=== PATIENT | female | born 1940 | race Caucasian/White ===

== ENCOUNTER → 2022-01-31 | Outpatient (REF) | payer MEDICARE, MEDICAID, SELFPAY ==
[2022-01-31 11:32] LABS: Absolute Lymphocyte Count 2.13 X10^3/uL (0.83-4.51); Absolute Neutrophil Count 4.9 X10^3/uL (2.0-7.7); Basophil# 0.03 X10^3/uL; Basophil% 0.4 % (0-1); Eosinophil# 0.28 X10^3/uL; Eosinophils% 3.5 % (0-5); Hematocrit 44.5 % (37-47); Lymphocyte # 2.13 X10^3/ul (0.83-4.51); Lymphocyte % 26.4 % (19-41); Mean Corp Hgb Conc 31.5 g/dL (32-36); Mean Corpuscular Hgb 29.9 pg (27.0-32.0); Mean Corpuscular Volume 94.9 fL (81-99); Mean Platelet Vol. 11.7 fl (6.2-12.0); Monocyte# 0.76 X10^3/uL; Monocyte% 9.4 % (0-10); NRBC Flagged by Analyzer 0 % (0-5); Neutrophil # 4.86 X10^3/uL (2.7-7.7); Neutrophil % 60.1 % (47-70); Platelet Count 214 K/mm3 (150-450); RBC Distribution Width CV 13.2 % (11.6-14.6); RBC Distribution Width SD 45.9 fl (35.1-43.9); Red Blood Count 4.69 M/mm3 (4.2-5.4); White Blood Count 8.1 K/mm3 (4.4-11.0)
[2022-01-31 11:50] LABS: ALB/GLOB Ratio 0.8 RATIO (0.9-2.4); AST(SGOT) 9 U/L (15-37); Alanine Aminotransfer ALT/SGPT 19 U/L (13-56); Alkaline Phosphatase 41 U/L (45-117); Anion Gap 6 (5-15); BUN 22 mg/dL (7-18); BUN/Creat Ratio 21.6 RATIO (10-20); Calcium,Total 8.9 mg/dL (8.5-10.1); Chloride 105 mmol/L (98-107); Creatinine, Serum 1.02 mg/dL (0.55-1.02); EST Glomerular Filtration Rate 55 mL/min (>60); Est Glom Filt Rate - Afr Amer 67 mL/min (>60); Globulin 3.7 g/dL (2.2-4.2); Glucose 98 mg/dL (74-106); Potassium 3.6 mmol/L (3.5-5.1); Protein, Total 6.7 g/dL (6.4-8.2); Sodium Level 141 mmol/L (136-145)
== END | disposition home or self-care (01) ==
LOC: OLS.SANC 07:27
PROVIDERS: Visit Provider Internal Medicine
DX: I10 Essential (primary) hypertension (principal); M62.81 Muscle weakness (generalized)
CPT/HCPCS: 36415; 80053; 85025

== ENCOUNTER → 2022-04-27 | Outpatient (REF) | payer MEDICARE, MEDICAID, SELFPAY ==
[2022-04-27 08:38] LABS: Hematocrit 42.7 % (37-47); Hemoglobin 14.3 g/dL (12.0-15.0); Mean Corp Hgb Conc 33.5 g/dL (32-36); Mean Corpuscular Hgb 31.8 pg (27.0-32.0); Mean Corpuscular Volume 95.1 fL (81-99); Mean Platelet Vol. 11.2 fl (6.2-12.0); Platelet Count 214 K/mm3 (150-450); RBC Distribution Width CV 13.2 % (11.6-14.6); RBC Distribution Width SD 45.4 fl (35.1-43.9); Red Blood Count 4.49 M/mm3 (4.2-5.4); White Blood Count 8.9 K/mm3 (4.4-11.0)
[2022-04-27 09:05] LABS: ALB/GLOB Ratio 0.7 RATIO (0.9-2.4); AST(SGOT) 5 U/L (15-37); Alanine Aminotransfer ALT/SGPT 15 U/L (13-56); Albumin, Serum 2.7 g/dL (3.2-5.0); Alkaline Phosphatase 46 U/L (45-117); Anion Gap 4 (5-15); BUN 16 mg/dL (7-18); BUN/Creat Ratio 17.2 RATIO (10-20); Calcium,Total 8.7 mg/dL (8.5-10.1); Chloride 109 mmol/L (98-107); Creatinine, Serum 0.93 mg/dL (0.55-1.02); EST Glomerular Filtration Rate 61 mL/min (>60); Est Glom Filt Rate - Afr Amer 74 mL/min (>60); Globulin 3.9 g/dL (2.2-4.2); Glucose 101 mg/dL (74-106); Potassium 3.5 mmol/L (3.5-5.1); Protein, Total 6.6 g/dL (6.4-8.2); Sodium Level 144 mmol/L (136-145); Thyroid Stim Hormone (TSH) 2.22 uIU/mL (0.358-3.74)
[2022-04-27 09:27] LABS: Hemoglobin A1c 5.7 % (3.8-5.6)
[2022-04-27 09:33] LABS: Vitamin D,25 Hydroxy 56.2 ng/mL
== END ==
LOC: OLS.SANC 05:00
PROVIDERS: Visit Provider Internal Medicine
DX: F03.90 Unspecified dementia, unspecified severity, without behavioral disturbance, psychotic disturbance, mood disturbance, and anxiety (principal); E55.9 Vitamin D deficiency, unspecified; I10 Essential (primary) hypertension; Z79.899 Other long term (current) drug therapy
CPT/HCPCS: 36415; 80053; 82306; 83036; 84443; 85027

== ENCOUNTER → 2022-05-04 | Outpatient (REF) | payer MEDICARE, MEDICAID, SELFPAY ==
[2022-05-04 08:51] LABS: Hematocrit 42.8 % (37-47); Hemoglobin 13.9 g/dL (12.0-15.0); Mean Corp Hgb Conc 32.5 g/dL (32-36); Mean Corpuscular Hgb 30.6 pg (27.0-32.0); Mean Corpuscular Volume 94.3 fL (81-99); Mean Platelet Vol. 11.4 fl (6.2-12.0); Platelet Count 233 K/mm3 (150-450); RBC Distribution Width SD 45.1 fl (35.1-43.9); Red Blood Count 4.54 M/mm3 (4.2-5.4); White Blood Count 8.8 K/mm3 (4.4-11.0)
[2022-05-04 09:01] LABS: Anion Gap 4 (5-15); BUN 19 mg/dL (7-18); BUN/Creat Ratio 19.4 RATIO (10-20); Calcium,Total 8.8 mg/dL (8.5-10.1); Chloride 107 mmol/L (98-107); Creatinine, Serum 0.98 mg/dL (0.55-1.02); EST Glomerular Filtration Rate 58 mL/min (>60); Est Glom Filt Rate - Afr Amer 70 mL/min (>60); Glucose 97 mg/dL (74-106); Potassium 3.8 mmol/L (3.5-5.1); Sodium Level 141 mmol/L (136-145)
== END ==
LOC: OLS.SANC 05:00
PROVIDERS: Visit Provider Internal Medicine
DX: I10 Essential (primary) hypertension (principal)
CPT/HCPCS: 36415; 80048; 85027

== ENCOUNTER → 2022-06-15 | Outpatient (REF) | payer MEDICARE, MEDICAID, SELFPAY ==
[2022-06-15 08:56] LABS: Hematocrit 41.8 % (37-47); Hemoglobin 13.3 g/dL (12.0-15.0); Mean Corp Hgb Conc 31.8 g/dL (32-36); Mean Corpuscular Hgb 30.2 pg (27.0-32.0); Mean Platelet Vol. 11.2 fl (6.2-12.0); Platelet Count 213 K/mm3 (150-450); RBC Distribution Width SD 45.3 fl (35.1-43.9); White Blood Count 8.9 K/mm3 (4.4-11.0)
[2022-06-15 09:11] LABS: Anion Gap 1 (5-15); BUN 16 mg/dL (7-18); BUN/Creat Ratio 15.8 RATIO (10-20); Calcium,Total 8.9 mg/dL (8.5-10.1); Chloride 109 mmol/L (98-107); Creatinine, Serum 1.01 mg/dL (0.55-1.02); EST Glomerular Filtration Rate 56 mL/min (>60); Est Glom Filt Rate - Afr Amer 67 mL/min (>60); Glucose 95 mg/dL (74-106); Potassium 3.7 mmol/L (3.5-5.1); Sodium Level 142 mmol/L (136-145)
== END ==
LOC: OLS.SANC 05:00
PROVIDERS: Referring Provider Internal Medicine; Visit Provider Internal Medicine
DX: I10 Essential (primary) hypertension (principal)
CPT/HCPCS: 36415; 80048; 85027

== ENCOUNTER → 2022-09-13 | Outpatient (REF) | payer MEDICARE, SELFPAY ==
[2022-09-13 09:49] LABS: Hematocrit 37.9 % (37-47); Hemoglobin 11.8 g/dL (12.0-15.0); Mean Corp Hgb Conc 31.1 g/dL (32-36); Mean Corpuscular Hgb 30.2 pg (27.0-32.0); Mean Corpuscular Volume 96.9 fL (81-99); Mean Platelet Vol. 11.5 fl (6.2-12.0); Platelet Count 218 K/mm3 (150-450); RBC Distribution Width CV 12.9 % (11.6-14.6); RBC Distribution Width SD 46.1 fl (35.1-43.9); Red Blood Count 3.91 M/mm3 (4.2-5.4); White Blood Count 8.8 K/mm3 (4.4-11.0)
[2022-09-13 10:00] LABS: Anion Gap 6 (5-15); BUN 23 mg/dL (7-18); BUN/Creat Ratio 20.9 RATIO (10-20); Calcium,Total 8.9 mg/dL (8.5-10.1); Chloride 105 mmol/L (98-107); EST Glomerular Filtration Rate 51 mL/min (>60); Est Glom Filt Rate - Afr Amer 61 mL/min (>60); Glucose 92 mg/dL (74-106); Potassium 3.8 mmol/L (3.5-5.1); Sodium Level 144 mmol/L (136-145)
== END ==
LOC: OLS.SANC 04:00
PROVIDERS: Family Medicine; Referring Provider Internal Medicine; Visit Provider Internal Medicine
DX: I10 Essential (primary) hypertension (principal)
CPT/HCPCS: 36415; 80048; 85027

== ENCOUNTER → 2024-10-02 | Outpatient (REF) | payer MEDICARE, MEDICAID, SELFPAY | LOC: OLS.SANC 11:00 | PROVIDERS: Visit Provider Internal Medicine | DX: R19.7 Diarrhea, unspecified (principal) | CPT/HCPCS: 87493 ==

== ENCOUNTER → 2025-01-21 05:00 | Outpatient (REF) | payer MEDICARE, MEDICAID, SELFPAY ==
[2025-01-21 09:37] LABS: Hematocrit 41.2 % (37-47); Hemoglobin 13.3 g/dL (12.0-15.0); Mean Corp Hgb Conc 32.3 g/dL (32-36); Mean Corpuscular Volume 93.8 fL (81-99); Mean Platelet Vol. 11.3 fl (6.2-12.0); Platelet Count 224 K/mm3 (150-450); RBC Distribution Width CV 12.7 % (11.6-14.6); RBC Distribution Width SD 43.7 fl (35.1-43.9); Red Blood Count 4.39 M/mm3 (4.2-5.4); White Blood Count 9.6 K/mm3 (4.4-11.0)
[2025-01-21 09:53] LABS: Anion Gap 10 (5-15); BUN 25 mg/dL (4-19); BUN/Creat Ratio 18.7 RATIO (10-20); Calcium,Total 8.5 mg/dL (7.6-11.0); Carbon Dioxide 24.9 mmol/L (21.0-32.0); Chloride 107 mmol/L (98-108); Glucose 159 mg/dL (70-99); Potassium 3.6 mmol/L (3.3-5.1)
== END ==
LOC: OLS.SANC 05:00
DX: I10 Essential (primary) hypertension (principal); G30.1 Alzheimer's disease with late onset; F02.80 Dementia in other diseases classified elsewhere, unspecified severity, without behavioral disturbance, psychotic disturbance, mood disturbance, and anxiety
CPT/HCPCS: 36415; 80048; 85027

== ENCOUNTER → 2025-02-24 | Outpatient (REF) | payer MEDICARE, MEDICAID, SELFPAY ==
[2025-02-24 08:11] LABS: Hematocrit 40.9 % (37-47); Hemoglobin 13.6 g/dL (12.0-15.0); Mean Corp Hgb Conc 33.3 g/dL (32-36); Mean Corpuscular Volume 92.7 fL (81-99); Mean Platelet Vol. 11.6 fl (6.2-12.0); Platelet Count 246 K/mm3 (150-450); RBC Distribution Width CV 12.6 % (11.6-14.6); RBC Distribution Width SD 43.2 fl (35.1-43.9); Red Blood Count 4.41 M/mm3 (4.2-5.4); White Blood Count 14.0 K/mm3 (4.4-11.0)
[2025-02-24 08:55] LABS: Anion Gap 13 (5-15); BUN 19 mg/dL (4-19); BUN/Creat Ratio 15.2 RATIO (10-20); Calcium,Total 9.0 mg/dL (7.6-11.0); Carbon Dioxide 24.5 mmol/L (21.0-32.0); Chloride 103 mmol/L (98-108); Glucose 116 mg/dL (70-99); Potassium 3.7 mmol/L (3.3-5.1)
== END ==
LOC: OLS.SANC 05:00
PROVIDERS: Visit Provider Internal Medicine
DX: N17.9 Acute kidney failure, unspecified (principal); I10 Essential (primary) hypertension; F03.90 Unspecified dementia, unspecified severity, without behavioral disturbance, psychotic disturbance, mood disturbance, and anxiety; E03.9 Hypothyroidism, unspecified
CPT/HCPCS: 36415; 80048; 85027

== ENCOUNTER → 2025-03-01 04:00 | Outpatient (REF) | payer MEDICARE, MEDICAID, SELFPAY ==
[2025-03-01 09:02] LABS: Hematocrit 37.4 % (37-47); Hemoglobin 12.0 g/dL (12.0-15.0); Mean Corp Hgb Conc 32.1 g/dL (32-36); Mean Corpuscular Volume 94.9 fL (81-99); Mean Platelet Vol. 11.2 fl (6.2-12.0); Platelet Count 287 K/mm3 (150-450); RBC Distribution Width CV 12.4 % (11.6-14.6); RBC Distribution Width SD 43.8 fl (35.1-43.9); Red Blood Count 3.94 M/mm3 (4.2-5.4); White Blood Count 10.7 K/mm3 (4.4-11.0)
[2025-03-01 09:16] LABS: Anion Gap 10 (5-15); BUN 23 mg/dL (4-19); BUN/Creat Ratio 20.1 RATIO (10-20); Calcium,Total 9.0 mg/dL (7.6-11.0); Carbon Dioxide 26.4 mmol/L (21.0-32.0); Chloride 106 mmol/L (98-108); Glucose 115 mg/dL (70-99); Potassium 3.4 mmol/L (3.3-5.1)
== END ==
LOC: OLS.SANC 04:00
PROVIDERS: Referring Provider Internal Medicine; Visit Provider Internal Medicine
DX: F03.90 Unspecified dementia, unspecified severity, without behavioral disturbance, psychotic disturbance, mood disturbance, and anxiety (principal); E11.9 Type 2 diabetes mellitus without complications; N17.9 Acute kidney failure, unspecified; I10 Essential (primary) hypertension; E03.9 Hypothyroidism, unspecified
CPT/HCPCS: 36415; 80048; 85027

== ENCOUNTER → 2025-03-16 | Outpatient (REF) | payer MEDICARE, MEDICAID, SELFPAY ==
--- OUTSIDE RECORDS SUMMARY | 2025-03-16 04:03 | XMS RPT_ITS | CCD ---
Author Organization [facility] Inform ion Partnership [facility] Care Team Providers Care Gleason Operator Name Role Phone BLAINEJORDYNNAYLA MORALES Attending DUDLEY Queen Consulting Unavailable ZAK HOANG Admitting Unavailable SNEHAL BIANCHI Referring Unavailable TOY TEMPLE Primary Care Unavailable CRISELDA JOHNSON Attending Unavailable GOMEZ NOGUEIRA Attending Unavailable GOMEZ NOGUEIRA Admitting Unavailable TOY TEMPLE Primary Care Unavailable CRISELDA JOHNSON Referring Unavailable CRISELDA JOHNSON Attending Unavailable Brandon Downey MD Primary Care Provider U Toy Ovalle Primary Care Provider Brandon Downey MD Primary Care Provider U Toy Mcghee Attending Provider Unavailab Toy Saenz Attending Unavailable Toy Espino Referring Unavailable Toy Espino Attending Unavailable Toy Espino Attending Unavailable Chilo Loredo Attending Unavail able Allergies Allergy Classification Reported Allergen(s) Allergy Type Date of Onset Reaction(s) Facility (8 sources) Erythromycin Drug Allergy 07-06-2015 Rash [facility] (8 sources) Latex Propensity to adverse reactions 01-16-2022 [facility] Medications Current Medications Medication Drug Class(es) Dates Sig (Normalized) Sig (Original) bisacodyl 5 mg delayed release oral tablet (10 sources) Stimulant Laxative take 10 mg rectal route every twenty-four hours as needed for constipation bisacodyl (Dulcolax) 10 MG suppository Insert 10 mg into the rectum Daily as needed for constipation. If no results from MOM 0 Active take 1 tablet by ramez th every twenty-four hours as needed for constipation bisacodyl (Dulcolax) 5 MG EC tablet Take 5 mg by mouth Daily as needed for constipation. Do not crush, chew, or split. 0 Active carvedilol 3.125 mg oral tablet (12 sources) alpha-Adrenergic Terence, beta-Adrenergic Terence Start: 08-18-2022 carvedilol (Core g) 3.125 MG tablet Take 1 tablet (3.125 mg) by mouth in the morning and 1 tablet (3.125 mg) in the evening. Take with meals. Do not start before August 18, 2022. 0 08/18/2022 Active Start: 08-18-2022 carvedilol (Co reg) 3.125 MG tablet Take 1 tablet (3.125 mg) by mouth in the morning and 1 tablet (3.125 mg) in the evening. Take with meals. Do not start before August 18, 2022. 0 08/18/2022 Active Start: 08-18-2022 carvedilol (Co reg) 3.125 MG tablet Take 1 tablet (3.125 mg) by mouth in the morning and 1 tablet (3.125 mg) in the evening. Take with meals. Do not start before August 18, 2022. 0 08/18/2022 Active Start: 08-13-2022 End: 08-15-2022 take 3.125 mg by mouth twice daily at mealtime 3.125 mg, Oral, 2 times daily with meals, First dose on Sat08/13/22 at 1200 cholecalciferol 0.05 mg oral tablet (10 sources) Vitamin D take 1 tablet by mouth once daily cholecalciferol (Vitamin D-3) 50 MCG (2000 UT) tablet Take 2,000 Units by mouth daily. 0 Active End: 08-13-2022 cholecalciferol (Vitamin D-3 ) 1.25 MG (55364 UT) capsule Take 50,000 Units by mouth. 0 08/13/2022 Discontinued (External source cancellation) guaiFENesin 20 mg/ml oral solution (5 sources) take 10 mL by mouth every six hours as needed for cough guaiFENesin (Robitussin) 100 MG/5ML liquid Take 10 mL by mouth every 6 hours as needed for cough. 0 Active ammonium lactate 120 mg/ml topical lotion (8 sources) ammonium lactate (Lac-Hydrin) 12 % lotion Apply topically if needed for dry skin. Daily 0 Active lisinopril 20 mg oral tablet (12 sources) Angiotensin Converting Enzyme Inhibitor Start: lisinopril 20 MG tablet Take 1 tablet (20 mg) by mouth every morning. Do not start before August 18, 2022. 0 08/18/2022 Active Start: 08-18-2022 lisinopril 20 MG tablet Take 1 tablet (20 mg) by mouth every morning. Do not start before August 18, 2022. 0 08/18/2022 Active Start: 08-18-2022 lisinopril 20 MG tablet Take 1 tablet (20 mg) by mouth every morning. Do not start before August 18, 2022. 0 08/18/2022 Active Start: 01-27-2022 End: 08-15-2022 take 20 mg by mouth once daily in the morning 20 mg, Oral, Every morning, First dose on Sat08/13/22 at 1200 Magnesium Hydroxide (5 sources) take 30 mL by mouth once daily as needed Magnesium Hydroxide (MILK OF MAGNESIA PO) Take 30 mL/L by mouth Daily as needed. 0 Active take 30 mL by mouth once daily a s needed Magnesium Hydroxide (MILK OF MAGNESIA PO) Take 30 mL/L by mouth Daily as needed. 0 Suspended nystatin 170047 unt/ml topical cream (8 sources) Polyene Antifungal nystatin (Myc ostatin) cream Apply 1 g topically. 0 Active petrolatum 610 mg/ml topical cream (8 sources) Start: 01-26-2022 Skin Protectants, Misc. (Basis Facial Moisturizer) cream Apply 1 application topically daily. 0 01/26/2022 Active zinc oxide 0.3 mg/mg topical ointment (5 sources) Start: 08-13-2022 End: 08-15-2022 Zinc Oxide 30 % ointment Apply 1 application topically 3 times daily. Apply to buttocks 0 08/14/2022 Active Completed/Discontinued Medications Medication Drug Class(es) Dates Sig (Normalized) Sig (Original) Acetaminophen (10 sources) Start: 08-13-2022 End: 08-15-2022 take 1 tablet by mouth every six hours as needed for pain and fever acetaminophen (Tylenol) tablet 650 mg take 2 tablets by mo ut every six hours as needed for fever and pain and pain acetaminophen (Tylenol) 325 MG tablet Ta ke 650 mg by mouth every 6 hours as needed for fever, mild pain (1-3) or moderate pain (4-6). 0 Active acetaminophen (T ylenol) 325 MG tablet Take by mouth. 0 Active aspirin 81 mg delayed release oral tablet (10 sources) Platelet Aggregation Inhibitor, Nonsteroidal Anti-inflammatory Drug Start: 08-12-2016 End: 08-15-2022 take 81 mg by mouth once daily 81 mg, Oral, Daily, First dose on Sat08/13/22 at 1200 Do not crush, chew, or split. 12 hr buPROPion hydrochloride 100 mg extended release oral tablet (10 sources) Aminoketone Start: 08-13-2022 End: 08-15-2022 take 100 mg by mouth once daily 100 mg, Oral, Daily, First dose on Sat08/13/22 at 1200 Do not crush, chew, or split. donepezil hydrochloride 10 mg oral tablet (10 sources) Start: 08-13-2022 End: 08-15-2022 take 10 mg by mouth once daily 10 mg, Oral, Nightly, First dose on Sat08/13/22 at 2100 0.4 ml enoxaparin sodium 100 mg/ml prefilled syringe (2 sources) Low Molecular Weight Heparin Start: 08-14-2022 End: 08-15-2022 inject 40 mg by subcutaneous injection once daily 40 mg, SubCUTAneous, Daily, First dose on Sat08/14/22 at 0900 Indication of Use: Prophylaxis-DVT/PE Indications: Prophylaxis of Venous Thromboembolism famotidine 20 mg oral tablet (10 sources) Histamine-2 Receptor Antagonist Start: 08-13-2022 End: 08-15-2022 take 20 mg by mouth once daily 20 mg, Oral, Daily, First dose on Sat08/13/22 at 1200 iopamidol (Isovue-370) 76 % injection 75 mL (2 sources) Start: 08-13-2022 End: 08-13-2022 iopamidol (Isovue-370) 76 % injection 75 mL levothyroxine sodium 0.05 mg oral tablet (10 sources) l-Thyroxine Start: 08-13-2022 End: 08-15-2022 take 50 ug by mouth once daily 50 mcg, Oral, Daily, First dose on Sat08/13/22 at 1200 Tube feeding (TF) interaction, obtain physician order to manage, recommend holding TF for 30 minutes before and after dose. memantine hydrochloride 10 mg oral tablet (10 sources) S-zehaxm-G-aspartate Receptor Antagonist Start: 08-13-2022 End: 08-15-2022 take 10 mg by mouth twice daily 10 mg, Oral, 2 times daily, First dose on Sat08/13/22 at 1200 2 ml ondansetron 2 mg/ml injection (2 sources) Serotonin-3 Receptor Antagonist Start: 08-13-2022 End: 08-15-2022 take 4 mg intravenously every six hours as needed for nausea and vomiting 4 mg, IntraVENous, Every 6 hours PRN, nausea, vomiting, Starting on Sat08/13/22 at 1211 1st Line. Give IV if patient is unable to take orally. If inadequate response within 60 minutes, proceed to next-line agent or contact provider if no further options ordered. oxyCODONE hydrochloride 5 mg oral tablet (7 sources) Opioid Agonist Start: 08-13-2022 End: 09-14-2022 take 1 tablet by mouth every six hours as needed for pain oxyCODONE (Roxicodone) 5 MG immediate release tablet Indications: Pressure injury of skin of buttock, unspecified injury stage, unspecified laterality Take 1 tablet (5 mg) by mouth every 6 hours as needed (Pain). 30 tablet 0 08/14/2022 08/15/2022 Discontinued (Reorder) polyethylene glycol 3350 38790 mg powder for oral solution (7 sources) Osmotic Laxative Start: 08-13-2022 End: 08-15-2022 17 g, Oral, 2 times daily PRN, constipation, Starting on Sat08/13/22 at 1211 1st line for treatment of constipation - give scheduled if no bowel movement in past 24 hours. take 17 g by mouth e very twenty-four hours as needed polyethylene glycol, PEG, 3350 (Miralax) 17 g packet Take 17 g by mouth Daily as needed. 0 Active sertraline 100 mg oral tablet (10 sources) Serotonin Reuptake Inhibitor Start: 08-13-2022 End: 08-15-2022 take 100 mg by mouth once daily 100 mg, Oral, Nightly, First dose on Sat08/13/22 at 2100 50 ml sodium chloride 9 mg/ml injection (2 sources) Start: 08-13-2022 End: 08-13-2022 sodium chloride 0.9 % bolus 1,000 mL stomahesive in petrolatum (ET Mix) (4 sources) Start: 08-14-2022 End: 08-15-2022 stomahesive in petrolatum (ET Mix) Start: 08-13-2022 End: 08-15-2022 stomahesive in petrolatum (E T Mix) vitamin b12 1 mg oral tablet (10 sources) Vitamin B12 Start: 08-13-2022 End: 08-15-2022 take 1000 ug by mouth once daily 1,000 mcg, Oral, Daily, First dose on Sat08/13/22 at 1200 Problems Active Problems Problem Classification Problem Date Documented Da te Episodic/Chronic Acute and unspecified renal failure (11 sources) Acute injury of kidney; Translations: [Acute kidney failure, unspecified] Onset: 01-16-2022 04-29-2022 Episodic Anxiety disorders (8 sources) Anxiety; Translations: [Anxiety disorder, unspecified] Onset: 06-27-2016 04-29-2022 Chronic Chronic ulcer of skin (8 sources) Pressure ulcer of unspecified buttock, unspecified stage; Translations: [Pressure ulcer of sacral region, stage 1] Onset: 08-13-2022 Chronic Coronary atherosclerosis and other heart disease (8 sources) Coronary arteriosclerosis; Translations: [Atherosclerotic heart disease of standing rock coronary artery without angina pectoris] Onset: 07-06-2015 04-29-2022 Chronic Delirium, dementia, and amnestic and other cognitive disorders (18 sources) Primary degenerative dementia of the Alzheimer type, senile onset, uncomplicated; Translations: [Alzheimer's disease with late onset] Onset: 07-06-2015 04-29-2022 Chronic Essential hypertension (9 sources) Hypertensive disorder; Translations: [Essential (primary) hypertension] Onset: 07-06-2015 04-29-2022 Chronic Mood disorders (8 sources) Depressive disorder; Translations: [Depression] Onset: 07-06-2015 04-29-2022 Chronic Thyroid disorders (1 source) Hypothyroidism, unspecified; Translations: [Hypothyroidism, unspecified] Onset: 03-09-2025 Chronic Past or Other Problems Problem Classification Problem Date Documented Da te Episodic/Chronic Abdominal pain (11 sources) Unspecified abdominal pain; Translations: [Intractable abdominal pain] Onset: 08-13-2022 Episodic Chronic obstructive pulmonary disease and bronchiectasis (8 sources) Bronchitis; Translations: [Bronchitis, not specified as acute or chronic] Onset: 07-10-2016 04-29-2022 Episodic Fracture of lower limb (8 sources) Trimalleolar fracture; Translations: [Displaced trimalleolar fracture of unspecified lower leg, initial encounter for closed fracture] Onset: 06-27-2016 04-29-2022 Episodic Fracture of upper limb (1 source) Closed fracture scapula, neck ; Translations: [Nondisplaced fracture of neck of scapula, right shoulder, initial encounter for closed fracture] Episodic Malaise and fatigue (8 sources) Decline in functional status; Translations: [Other malaise] Onset: 06-28-2016 04-29-2022 Episodic Other connective tissue disease (8 sources) Muscle weakness; Translations: [Muscle weakness (generalized)] Onset: 06-27-2016 04-29-2022 Episodic Other gastrointestinal disorders (3 sources) Diarrhea, unspecified; Translations: [Diarrhea, unspecified] Onset: 04-29-2022 Episodic Other gastrointestinal disorders (10 sources) Diarrhea; Translations: [Diarrhea, unspecified] Onset: 01-16-2022 04-29-2022 Episodic Other lower respiratory disease (8 sources) Hypoxia; Translations: [Hypoxemia] Onset: 07-04-2016 04-29-2022 Episodic Other nervous system disorders (2 sources) Acute pain due to trauma; Translations: [Acute pain due to trauma] Onset: 07-27-2022 Episodic Other non-traumatic joint disorders (2 sources) Pain in right shoulder; Translations: [Pain in right shoulder] Onset: 07-27-2022 Episodic Other non-traumatic joint disorders (3 sources) Acute pain; Translations: [Pain in right shoulder] Episodic Other nutritional; endocrine; and metabolic disorders (8 sources) Adult failure to thrive syndrome; Translations: [Adult failure to thrive] Onset: 01-26-2022 04-29-2022 Episodic Residual codes; unclassified (8 sources) Harmful pattern of use of nicotine; Translations: [Tobacco use] Onset: 06-27-2016 04-29-2022 Episodic Superficial injury; contusion (8 sources) Contusion of left shoulder; Translations: [Contusion of left shoulder, initial encounter] Onset: 09-12-2015 07-03-2022 Episodic Urinary tract infections (8 sources) Acute cystitis; Translations: [Acute cystitis without hematuria] Onset: 07-06-2015 04-29-2022 Episodic Results Test Name Value Interpretation Reference Range Facility Basic Metabolic Profile (BMP )on 03-01-2025 BUN/CRE 20.1 RATIO High 10-20 [facility] Comment on above: Order Comment: 305.2 Performed By: #### L 500.2500, L100.0500 #### [facility] [address] [place], [address] Calcium [Mass/Vol] 9.0 mg/dL Normal 7.6-11.0 [facility] Comment on above: Order Comment: 305.2 Performed By: #### L 500.2500, L100.0500 #### [facility] [address] [place], [address] Chloride [Moles/Vol] 106 mmol/L Normal 98-108 [facility] Comment on above: Order Comment: 305.2 Performed By: #### L 500.2500, L100.0500 #### [facility] [address] [place], [address] CO2 [Moles/Vol] 26.4 mmol/L Normal 21.0-32.0 [facility] Comment on above: Order Comment: 305.2 Performed By: #### L 500.2500, L100.0500 #### [facility] [address] [place], [address] Creatinine [Mass/Vol] 1.13 mg/dL Normal 0.70-1.20 [facility] Comment on above: Order Comment: 305.2 Performed By: #### L 500.2500, L100.0500 #### [facility] [address] [place], [address] GAP 10 Normal 5-15 [facility] Comment on above: Order Comment: 305.2 Performed By: #### L 500.2500, L100.0500 #### [facility] [address] [place] [place], [address] GFR/1.73 sq M.predicted among non-blacks MDRD (S/P/Bld) [Vol rate/Area] 48 mL/min/{1.73_m2} Low >60 [facility] Comment on above: Order Comment: 305.2 Result Comment: mL/m in/1.73m2 CKD-EPI Creatinine Equation (2020) Performed By: #### L 500.2500, L100.0500 #### [facility] [address] [place] [place], [address] Glucose [Mass/Vol] 115 mg/dL High 70-99 [facility] Comment on above: Order Comment: 305.2 Performed By: #### L 500.2500, L100.0500 #### [facility] [address] [place], [address] Potassium [Moles/Vol] 3.4 mmol/L Normal 3.3-5.1 [facility] Comment on above: Order Comment: 305.2 Performed By: #### L 500.2500, L100.0500 #### [facility] [address] [place], [address] Sodium [Moles/Vol] 143 mmol/L Normal 133-145 [facility] Comment on above: Order Comment: 305.2 Performed By: #### L 500.2500, L100.0500 #### [facility] [address] [place] [place], [address] Urea nitrogen [Mass/Vol] 23 mg/dL High 4-19 [facility] Comment on above: Order Comment: 305.2 Performed By: #### L 500.2500, L100.0500 #### [facility] [address] [place], [address] CBC-Complete Blood Cnt No Di ffon 03-01-2025 Erythrocyte distribution width (RBC) [Ratio] 12.4 % Normal 11.6-14.6 [facility] Comment on above: Order Comment: 305.2 Performed By: #### L 500.2500, L100.0500 #### [facility] [address] [place] [place], [address] Hematocrit (Bld) [Volume fraction] 37.4 % Normal 37-47 [facility] Comment on above: Order Comment: 305.2 Performed By: #### L 500.2500, L100.0500 #### [facility] [address] [place] [place], [address] Hemoglobin (Bld) [Mass/Vol] 12.0 g/dL Normal 12.0-15.0 [facility] Comment on above: Order Comment: 305.2 Performed By: #### L 500.2500, L100.0500 #### [facility] [address] [place] [place], [address] MCH (RBC) [Entitic mass] 30.5 pg Normal 27.0-32.0 [facility] Comment on above: Order Comment: 305.2 Performed By: #### L 500.2500, L100.0500 #### [facility] [address] [place] [place], [address] MCHC (RBC) [Mass/Vol] 32.1 g/dL Normal 32-36 [facility] Comment on above: Order Comment: 305.2 Performed By: #### L 500.2500, L100.0500 #### [facility] [address] [place], [address] MCV (RBC) [Entitic vol] 94.9 fL Normal 81-99 [facility] Comment on above: Order Comment: 305.2 Performed By: #### L 500.2500, L100.0500 #### [facility] [address] [place], [address] Platelet mean volume (Bld) [Entitic vol] 11.2 fL Normal 6.2-12.0 [facility] Comment on above: Order Comment: 305.2 Performed By: #### L 500.2500, L100.0500 #### [facility] [address] [place], [address] Platelets (Bld) [#/Vol] 287 10*3/uL Normal 150-450 [facility] Comment on above: Order Comment: 305.2 Performed By: #### L 500.2500, L100.0500 #### [facility] [address] [place], [address] RBC (Bld) [#/Vol] 3.94 10*6/uL Low 4.2-5.4 [facility] Comment on above: Order Comment: 305.2 Performed By: #### L 500.2500, L100.0500 #### [facility] [address] [place], [address] RDW SD 43.8 fl Normal 35.1-43.9 [facility] Comment on above: Order Comment: 305.2 Performed By: #### L 500.2500, L100.0500 #### [facility] [address] [place], [address] WBC (Bld) [#/Vol] 10.7 10*3/uL Normal 4.4-11.0 [facility] Comment on above: Order Comment: 305.2 Performed By: #### L 500.2500, L100.0500 #### [facility] [address] [place], [address] Basic Metabolic Profile (BMP )on 02-24-2025 BUN/CRE 15.2 RATIO Normal 10-20 [facility] Comment on above: Order Comment: 305.2 Performed By: #### L 500.2500, L100.0500 #### [facility] [address] [place], [address] Calcium [Mass/Vol] 9.0 mg/dL Normal 7.6-11.0 [facility] Comment on above: Order Comment: 305.2 Performed By: #### L 500.2500, L100.0500 #### [facility] [address] [place], [address] Chloride [Moles/Vol] 103 mmol/L Normal 98-108 [facility] Comment on above: Order Comment: 305.2 Performed By: #### L 500.2500, L100.0500 #### [facility] [address] [place], [address] CO2 [Moles/Vol] 24.5 mmol/L Normal 21.0-32.0 [facility] Comment on above: Order Comment: 305.2 Performed By: #### L 500.2500, L100.0500 #### [facility] [address] [place], [address] Creatinine [Mass/Vol] 1.23 mg/dL High 0.70-1.20 [facility] Comment on above: Order Comment: 305.2 Performed By: #### L 500.2500, L100.0500 #### [facility] [address] [place], [address] GAP 13 Normal 5-15 [facility] Comment on above: Order Comment: 305.2 Performed By: #### L 500.2500, L100.0500 #### [facility] [address] [place], [address] GFR/1.73 sq M.predicted among non-blacks MDRD (S/P/Bld) [Vol rate/Area] 43 mL/min/{1.73_m2} Low >60 [facility] Comment on above: Order Comment: 305.2 Result Comment: mL/m in/1.73m2 CKD-EPI Creatinine Equation (2020) Performed By: #### L 500.2500, L100.0500 #### [facility] [address] [place], [address] Glucose [Mass/Vol] 116 mg/dL High 70-99 [facility] Comment on above: Order Comment: 305.2 Performed By: #### L 500.2500, L100.0500 #### [facility] [address] [place], [address] Potassium [Moles/Vol] 3.7 mmol/L Normal 3.3-5.1 [facility] Comment on above: Order Comment: 305.2 Performed By: #### L 500.2500, L100.0500 #### [facility] [address] [place], [address] Sodium [Moles/Vol] 140 mmol/L Normal 133-145 [facility] Comment on above: Order Comment: 305.2 Performed By: #### L 500.2500, L100.0500 #### [facility] [address] [place], [address] Urea nitrogen [Mass/Vol] 19 mg/dL Normal 4-19 [facility] Comment on above: Order Comment: 305.2 Performed By: #### L 500.2500, L100.0500 #### [facility] [address] [place], [address] CBC-Complete Blood Cnt No Di ffon 02-24-2025 Erythrocyte distribution width (RBC) [Ratio] 12.6 % Normal 11.6-14.6 [facility] Comment on above: Order Comment: 305.2 Performed By: #### L 500.2500, L100.0500 #### [facility] [address] [place], [address] Hematocrit (Bld) [Volume fraction] 40.9 % Normal 37-47 [facility] Comment on above: Order Comment: 305.2 Performed By: #### L 500.2500, L100.0500 #### [facility] [address] [place], [address] Hemoglobin (Bld) [Mass/Vol] 13.6 g/dL Normal 12.0-15.0 [facility] Comment on above: Order Comment: 305.2 Performed By: #### L 500.2500, L100.0500 #### [facility] [address] [place], [address] MCH (RBC) [Entitic mass] 30.8 pg Normal 27.0-32.0 [facility] Comment on above: Order Comment: 305.2 Performed By: #### L 500.2500, L100.0500 #### [facility] [address] [place], [address] MCHC (RBC) [Mass/Vol] 33.3 g/dL Normal 32-36 [facility] Comment on above: Order Comment: 305.2 Performed By: #### L 500.2500, L100.0500 #### [facility] [address] [place] [place], [address] MCV (RBC) [Entitic vol] 92.7 fL Normal 81-99 [facility] Comment on above: Order Comment: 305.2 Performed By: #### L 500.2500, L100.0500 #### [facility] [address] [place] [place], [address] Platelet mean volume (Bld) [Entitic vol] 11.6 fL Normal 6.2-12.0 [facility] Comment on above: Order Comment: 305.2 Performed By: #### L 500.2500, L100.0500 #### [facility] [address] [place], [address] Platelets (Bld) [#/Vol] 246 10*3/uL Normal 150-450 [facility] Comment on above: Order Comment: 305.2 Performed By: #### L 500.2500, L100.0500 #### [facility] [address] [place] [place], [address] RBC (Bld) [#/Vol] 4.41 10*6/uL Normal 4.2-5.4 [facility] Comment on above: Order Comment: 305.2 Performed By: #### L 500.2500, L100.0500 #### [facility] [facility] [address] [place], [address] RDW SD 43.2 fl Normal 35.1-43.9 [facility] Comment on above: Order Comment: 305.2 Performed By: #### L 500.2500, L100.0500 #### [facility] [address] [place], [address] WBC (Bld) [#/Vol] 14.0 10*3/uL High 4.4-11.0 [facility] Comment on above: Order Comment: 305.2 Performed By: #### L 500.2500, L100.0500 #### [facility] [address] [place], [address] Basic Metabolic Profile (BMP )on 01-21-2025 BUN/CRE 18.7 RATIO Normal 10-20 [facility] Comment on above: Order Comment: 305.2 Performed By: #### L 500.2500, L100.0500 #### [facility] [address] [place], [address] Calcium [Mass/Vol] 8.5 mg/dL Normal 7.6-11.0 [facility] Comment on above: Order Comment: 305.2 Performed By: #### L 500.2500, L100.0500 #### [facility] [address] [place], [address] Chloride [Moles/Vol] 107 mmol/L Normal 98-108 [facility] Comment on above: Order Comment: 305.2 Performed By: #### L 500.2500, L100.0500 #### [facility] [address] [place], [address] CO2 [Moles/Vol] 24.9 mmol/L Normal 21.0-32.0 [facility] Comment on above: Order Comment: 305.2 Performed By: #### L 500.2500, L100.0500 #### [facility] [address] [place], [address] Creatinine [Mass/Vol] 1.31 mg/dL High 0.70-1.20 [facility] Comment on above: Order Comment: 305.2 Performed By: #### L 500.2500, L100.0500 #### [facility] [address] [place], [address] GAP 10 Normal 5-15 [facility] Comment on above: Order Comment: 305.2 Performed By: #### L 500.2500, L100.0500 #### [facility] [address] [place], [address] GFR/1.73 sq M.predicted among non-blacks MDRD (S/P/Bld) [Vol rate/Area] 40 mL/min/{1.73_m2} Low >60 [facility] Comment on above: Order Comment: 305.2 Result Comment: mL/m in/1.73m2 CKD-EPI Creatinine Equation (2020) Performed By: #### L 500.2500, L100.0500 #### [facility] [address] [place], [address] Glucose [Mass/Vol] 159 mg/dL High 70-99 [facility] Comment on above: Order Comment: 305.2 Performed By: #### L 500.2500, L100.0500 #### [facility] [address] [place], [address] Potassium [Moles/Vol] 3.6 mmol/L Normal 3.3-5.1 [facility] Comment on above: Order Comment: 305.2 Performed By: #### L 500.2500, L100.0500 #### [facility] [address] [place], [address] Sodium [Moles/Vol] 142 mmol/L Normal 133-145 [facility] Comment on above: Order Comment: 305.2 Performed By: #### L 500.2500, L100.0500 #### [facility] [address] [place], [address] Urea nitrogen [Mass/Vol] 25 mg/dL High 4-19 [facility] Comment on above: Order Comment: 305.2 Performed By: #### L 500.2500, L100.0500 #### [facility] [address] [place], [address] CBC-Complete Blood Cnt No Di ffon 01-21-2025 Erythrocyte distribution width (RBC) [Ratio] 12.7 % Normal 11.6-14.6 [facility] Comment on above: Order Comment: 305.2 Performed By: #### L 500.2500, L100.0500 #### [facility] [address] [place], [address] Hematocrit (Bld) [Volume fraction] 41.2 % Normal 37-47 [facility] Comment on above: Order Comment: 305.2 Performed By: #### L 500.2500, L100.0500 #### [facility] [address] [place], [address] Hemoglobin (Bld) [Mass/Vol] 13.3 g/dL Normal 12.0-15.0 [facility] Comment on above: Order Comment: 305.2 Performed By: #### L 500.2500, L100.0500 #### [facility] [address] [place], [address] MCH (RBC) [Entitic mass] 30.3 pg Normal 27.0-32.0 [facility] Comment on above: Order Comment: 305.2 Performed By: #### L 500.2500, L100.0500 #### [facility] [address] [place], [address] MCHC (RBC) [Mass/Vol] 32.3 g/dL Normal 32-36 [facility] Comment on above: Order Comment: 305.2 Performed By: #### L 500.2500, L100.0500 #### [facility] [address] [place], [address] MCV (RBC) [Entitic vol] 93.8 fL Normal 81-99 [facility] Comment on above: Order Comment: 305.2 Performed By: #### L 500.2500, L100.0500 #### [facility] [address] [place], [address] Platelet mean volume (Bld) [Entitic vol] 11.3 fL Normal 6.2-12.0 [facility] Comment on above: Order Comment: 305.2 Performed By: #### L 500.2500, L100.0500 #### [facility] [address] [place], [address] Platelets (Bld) [#/Vol] 224 10*3/uL Normal 150-450 [facility] Comment on above: Order Comment: 305.2 Performed By: #### L 500.2500, L100.0500 #### [facility] [address] [place], [address] RBC (Bld) [#/Vol] 4.39 10*6/uL Normal 4.2-5.4 [facility] Comment on above: Order Comment: 305.2 Performed By: #### L 500.2500, L100.0500 #### [facility] [address] [place], [address] RDW SD 43.7 fl Normal 35.1-43.9 [facility] Comment on above: Order Comment: 305.2 Performed By: #### L 500.2500, L100.0500 #### [facility] [address] [place], [place], [address] WBC (Bld) [#/Vol] 9.6 10*3/uL Normal 4.4-11.0 [facility] Comment on above: Order Comment: 305.2 Performed By: #### L 500.2500, L100.0500 #### [facility] [address] [place], [address] C. difficile DNA MARIO+probe Q l (Unsp spec)Ordered By: Toy Temple on 10-02-2024 Clostridioides difficile (PCR) [facility] CDIFF (PCR)on 10-02-2024 CDIFF Pending [id number] [id number] Presumptive Negative *for epidemiolologic???use C. Diff PCR Negative- No toxigenic C. Diff Detected Normal [facility] Comment on above: Performed By: #### M [id number] #### [facility] [address] [place], [place], [id number] No Panel InformationOrdered By: Toy Temple on 10-22-2022 Thyroid Stimulating Hormone (TSH) 2.44 uIU/mL 0.358-3.74 [facility] Whole blood hemoglobin A1c/t otal hemoglobin ratio (mass fraction)Ordered By: Toy Temple on 10-22-2022 HbA1c (Bld) [Mass fraction] 5.3 % 3.8-5.6 [facility] Comment on above: Normal < 5.7 % Predi abetic 5.7 - 6.4 % Diabetic >or= 6.5 % Please note range changes. Basophil percentageOrdered B y: Nickolas Lyn on 09-13-2022 Chloride [Moles/Vol] 105 mmol/L 98-107 [facility] Glucose [Mass/Vol] 92 mg/dL 74-106 [facility] Potassium [Moles/Vol] 3.8 mmol/L 3.5-5.1 [facility] Sodium [Moles/Vol] 144 mmol/L 136-145 [facility] WBC (Bld) [#/Vol] 8.8 10*3/uL 4.4-11.0 [facility] Blood erythrocytes count (nu mber/volume)Ordered By: Nickolas Lyn on 09-13-2022 RBC (Bld) [#/Vol] 3.91 10*6/uL 4.2-5.4 [facility] Blood hemoglobin measurement (mass/volume)Ordered By: Nickolas Lyn on 09-13-2022 Hemoglobin (Bld) [Mass/Vol] 11.8 g/dL 12.0-15.0 [facility] Blood platelet mean volumeOr dered By: Nickolas Lyn on 09-13-2022 Platelet mean volume (Bld) [Entitic vol] 11.5 fL 6.2-12.0 [facility] Determination of erythrocyte mean corpuscular volume (MCV)Ordered By: Nickolas Lyn on 09-13-2022 MCV (RBC) [Entitic vol] 96.9 fL 81-99 [facility] Hematocrit Auto (Bld) [Volum e fraction]Ordered By: Nickolas Lyn on 09-13-2022 Hematocrit (Bld) [Volume fraction] 37.9 % 37-47 [facility] - Chemistry and C hemistry - challengeOrdered By: Nickolas Lyn on 09-13-2022 CO2 [Moles/Vol] 33.0 mmol/L 21.0-32.0 [facility] Urea nitrogen/Creatinine [Mass ratio] 20.9 mg/mg 10-20 [facility] - Hematology and Cell countsOrdered By: Nickolas Lyn on 09-13-2022 Erythrocyte distribution width (RBC) [Entitic vol] 46.1 fL 35.1-43.9 [facility] Erythrocyte distribution width (RBC) [Ratio] 12.9 % 11.6-14.6 [facility] MCH (RBC) [Entitic mass] 30.2 pg 27.0-32.0 [facility] MCHC Auto (RBC) [Mass/Vol]Or dered By: Nickolas Lyn on 09-13-2022 MCHC (RBC) [Mass/Vol] 31.1 g/dL 32-36 [facility] No Panel InformationOrdered By: Nickolas Lyn on 09-13-2022 Estimated GFR (MDRD) Amer 61 mL/min >60 [facility] Comment on above: GFR Calc Estimated GFR (MDRD) Non-Af Amer 51 mL/min >60 [facility] Comment on above: Non- GFR Calc Platelets bldOrdered By: Lyudmila Lyn on 09-13-2022 Platelets (Bld) [#/Vol] 218 10*3/uL 150-450 [facility] Serum or plasma calcium mk urement (mass/volume)Ordered By: Nickolas Lyn on 09-13-2022 Calcium [Mass/Vol] 8.9 mg/dL 8.5-10.1 [facility] Serum or plasma creatinine m easurement (mass/volume)Ordered By: Nickolas Lyn on 09-13-2022 Creatinine [Mass/Vol] 1.10 mg/dL 0.55-1.02 [facility] Comment on above: The validity of the calculated GFR & GFRAA in patients over 70 years has not been determined. Clinical correlation is essential. Serum or plasma urea nitroge n measurement (mass/volume)Ordered By: Nickolas Lyn on 09-13-2022 Urea nitrogen [Mass/Vol] 23 mg/dL 7-18 [facility] Thin prep Papanicolaou smear with manual screeningOrdered By: Nickolas Lyn on 09-13-2022 Thin prep Papanicolaou smear with manual screening 6 5-15 [facility] 36on 08-16-2022 36 [facility] patient. Staff to call patient after discharge to arrange a hospital follow up. Normal [facility] Basic metabolic 1998 panelon 08-15-2022 Anion gap [Moles/Vol] 2 mmol/L Low 3 - 13 mmol/L [facility] Calcium [Mass/Vol] 8.3 mg/dL Low 8.4 - 10. 4 mg/dL [facility] Chloride [Moles/Vol] 105 mmol/L 98 - 10 7 mmol/L [facility] CO2 [Moles/Vol] 30 mmol/L 22 - 30 mmol/L [facility] Creatinine [Mass/Vol] 1.24 mg/dL High 0.52 - 1.04 mg/dL [facility] GFR/1.73 sq M.predicted MDRD (S/P/Bld) [Vol rate/Area] 43.5 mL/min/{1.73_m2} Low - PINF [facility] Comment on above: Calculation based on the Chronic Kidney Disease Epidemiology Collaboration (CKD-EPI) equation refit without adjustment for race Glucose [Mass/Vol] 91 mg/dL 70 - 100 mg/dL [facility] Interpretation and review of laboratory results Abnormal [facility] Potassium [Moles/Vol] 4.2 mmol/L 3.5 - 5.1 mmol/L [facility] Sodium [Moles/Vol] 137 mmol/L 135 - 145 mmol/L [facility] Urea nitrogen [Mass/Vol] 30 mg/dL High 7 - 17 mg/dL [facility] CARECOORDon 08-15-2022 [facility] Palliative Care Transitions of Care Note Symone Mcdonald : 1940 ADMIT DATE: 08/12/2022 DISCHARGE DATE: 08/15/22 PRIMARY CARE PHYSICIAN: Toy Temple CODE STATUS: DNR-CCA DISCHARGE DIAGNOSES: Principal Problem: Intractable abdominal pain HOSPITAL COURSE: Symone Mcdonald is an 82 y/o F with PMHx CAD, HTN, diverticulitis, recent COVID-19 infection (s/p paxlovid at the facility), and Alzheimer's dementia who presented to [facility] ED from facility due to concerns for abdominal pain. Staff had noted patient had been holding her abdomen and was wincing with palpation. Evaluation in the ED revealed COOPER as well as diverticulosis and rectal polypoid lesion, but no cause of acute abdominal pain. The patient was admitted for further evaluation and management. Following admission, the patient's abdominal pain resolved. After discussing with primary team, patient's daughter and HCPOA decided against further evaluation of rectal lesion as it was not in line with goals of care for the patient, which are comfort focused in nature. She was treated by wound care team for decubitus ulcer throughout admission as well. Palliative care was consulted for goals of care discussions and to determine if the patient would be eligible for enrollment in hospice. The patient did not meet criteria for hospice enrollment at the time of evaluation. Ultimately decision was made to discharge patient back to prior facility with outside palliative care service to follow and ensure transition to hospice supports when patient is appropriate. SIGNIFICANT DIAGNOSTIC STUDIES: CT abdomen pelvis 08/13 IMPRESSION: 1. Postsurgical changes of the large and small bowel. Appearance of a polyploid lesion of the left rectal wall, as above. Recommend direct visualization when feasible. 2. Colonic diverticulosis. 3. Additional nonacute findings including hepatic cysts, renal cysts, cholecystectomy, atherosclerotic disease. CODE STATUS DISCUSSIONS: DNR-CCA/DNI SYMPTOM MANAGEMENT MEDICATIONS: Oxycodone 5 mg q6h PRN RECOMMENDED NEXT STEPS: Follow up with facility physician, [facility] palliative care (referral sent by IRINA prior to patient discharge) FOLLOW UP TESTING, PENDING RESULTS OR REFERRALS AT TRANSITIONAL CARE VISIT: No PENDING STUDIES: No DISPOSITION: [facility] Facility (Non-Skilled) FACILITY/HOME CARE AGENCY NAME: [facility] Follow up with Nursing facility on appointment scheduled. Reason for Outpatient/Home/ECF Palliative Care follow-up: Continue goals of care discussion Opiate Prescribing NA - prescribed per primary service SIGNED: Natan Waterman MD 08/14/2022, 9:04 AM [facility] is able to accept back today. Call placed to daughter, Ban, to review. Ban is agreeable to returning to [facility] today. Ambulance scheduled for a 2pm discharge with Aureliano Adele. Daughter agreeable to a referral being sent to a palliative care company. [facility] and [facility] both have contracts there. Daughter requested a referral be sent to [facility]. Referral faxed to Loraine Schmitt as requested. Support provided to Ban who shared frustration with the medicaid and nursing spend down process. She also shared grief her family has survived (she provided end of life care for her father, her brother is , she has a son who is ). AVS sent to [facility] via [facility]. Number for report: [phone] [facility] CAREPLNon 08-15-2022 CAREPLN The patient is Moderately Unstable - Medium risk of patient condition declining or worsening The patient's goals for the shift include Eat food and rest well The clinical goals for the shift include Decreased elidia area pain from excoriation Over the shift, the patient did not make progress toward the following goals. Barriers to progression include dermatitis/abd pain. Recommendations to address these barriers include apply ordered cream/ely in place/reposition Problem: Knowledge Deficit Goal: Patient/family/caregi chetna demonstrates understanding of disease process, treatment plan, medications, and discharge instructions Outcome: Progressing Problem: Potential for Compromised Skin Integrity Goal: Skin Integrity is Maintained or Improved Outcome: Progressing Goal: Nutritional status is improving Outcome: Progressing Problem: Urinary Incontinence Goal: Perineal skin integrity is maintained or improved Outcome: Progressing . Normal [facility] CBC W Auto Differential pane l (Bld)on 08-15-2022 Basophils (Bld) [#/Vol] 0.1 10*3/uL 0.0 - 0.2 10*3/uL [facility] Basophils/100 WBC (Bld) 0.7 % 0.0 - 2.0 % [facility] Eosinophils (Bld) [#/Vol] 0.4 10*3/uL 0.0 - 0.5 10*3/uL [facility] Eosinophils/100 WBC (Bld) 3.7 % 1.0 - 6.0 % [facility] Erythrocyte distribution width (RBC) [Ratio] 13.4 % 11.5 - 14.5 % [facility] Hematocrit (Bld) [Volume fraction] 38.9 % 35.0 - 47.0 % [facility] Hemoglobin (Bld) [Mass/Vol] 13.1 g/dL 11.7 - 16.0 g/dL [facility] Interpretation and review of laboratory results Normal [facility] Lymphocytes (Bld) [#/Vol] 2.6 10*3/uL 1.0 - 4.3 10*3/uL [facility] Lymphocytes/100 WBC (Bld) 25.5 % 20.0 - 40.0 % [facility] MCH (RBC) [Entitic mass] 31.4 pg 26.0 - 34.0 pg [facility] MCHC (RBC) [Mass/Vol] 33.7 % 32.0 - 36.0 % [facility] MCV (RBC) [Entitic vol] 93.1 fL 80.0 - 98.0 fL [facility] Monocytes (Bld) [#/Vol] 0.8 10*3/uL 0.0 - 0.8 10*3/uL [facility] Monocytes/100 WBC (Bld) 7.7 % 2.0 - 10.0 % [facility] Neutrophils (Bld) [#/Vol] 6.4 10*3/uL 1.8 - 7.0 10*3/uL [facility] Neutrophils/100 WBC (Bld) 62.4 % 40.0 - 80.0 % [facility] Nucleated RBC/100 WBC (Bld) [Ratio] 0.0 % [facility] Platelet mean volume (Bld) [Entitic vol] 9.4 fL 7.4 - 12.4 fL [facility] Platelets (Bld) [#/Vol] 228 10*3/uL 140 - 440 10*3/uL [facility] RBC (Bld) [#/Vol] 4.18 10*6/uL 3.8 - 5.20 10*6/uL [facility] WBC (Bld) [#/Vol] 10.3 10*3/uL 3.6 - 10.7 10*3/uL [facility] Progress Noteon 08-15-2022 Progress Note Palliative Care Interdisciplinary Team Note: Diagnosis: @[id number]@ Chief Complaint: Symone Mcdonald is a 82 y.o. female with chief complaint of: abdominal pain, Alzheimer's dementia Reason Palliative Following: Goals of Care Plan: Ongoing Goals of Care Discussion Code Status: DNR-CCA Medications: Oxycodone Nursing: Decrease Fall Risk, Assisted Care, and Skin Integrity Social Work: Palliative SW Following, Emotional Support, and Help with Discharge Planning Spiritual Care: No Unmet Needs Pharmacy: No Unmet Needs Psychology/Psychiatry : No Unmet Needs Normal [facility] Basic metabolic 1998 panelon 08-14-2022 Anion gap [Moles/Vol] 5 mmol/L 3 - 13 mmol/L [facility] Calcium [Mass/Vol] 8.5 mg/dL 8.4 - 10. 4 mg/dL [facility] Chloride [Moles/Vol] 106 mmol/L 98 - 10 7 mmol/L [facility] CO2 [Moles/Vol] 28 mmol/L 22 - 30 mmol/L [facility] Creatinine [Mass/Vol] 1.21 mg/dL High 0.52 - 1.04 mg/dL [facility] GFR/1.73 sq M.predicted MDRD (S/P/Bld) [Vol rate/Area] 44.8 mL/min/{1.73_m2} Low - PINF [facility] Comment on above: Calculation based on the Chronic Kidney Disease Epidemiology Collaboration (CKD-EPI) equation refit without adjustment for race Glucose [Mass/Vol] 94 mg/dL 70 - 100 mg/dL [facility] Potassium [Moles/Vol] 3.9 mmol/L 3.5 - 5.1 mmol/L [facility] Sodium [Moles/Vol] 140 mmol/L 135 - 145 mmol/L [facility] Urea nitrogen [Mass/Vol] 35 mg/dL High 7 - 17 mg/dL [facility] CAREPLNon 08-14-2022 CAREPLN The patient is Moderately Unstable - Medium risk of patient condition declining or worsening The patient's goals for the shift include rest well tonite The clinical goals for the shift include patient will be free from anxiety/agitation this shift Over the shift, the patient did not make progress toward the following goals. Barriers to progression include dementia/alzheimers/u nfamilar environment. Recommendations to address these barriers include reassurance,bed alarm,quiet environment Problem: Knowledge Deficit Goal: Patient/family/caregi chetna demonstrates understanding of disease process, treatment plan, medications, and discharge instructions Outcome: Progressing Problem: Potential for Compromised Skin Integrity Goal: Skin Integrity is Maintained or Improved Outcome: Progressing Problem: Urinary Incontinence Goal: Perineal skin integrity is maintained or improved Outcome: Progressing . Normal [facility] CBC W Auto Differential pane l (Bld)Ordered By: Jeaneth Castillo on 08-14-2022 Basophils (Bld) [#/Vol] 0.1 10*3/uL 0.0 - 0.2 10*3/uL [facility] Basophils/100 WBC (Bld) 0.8 % 0.0 - 2.0 % [facility] Eosinophils (Bld) [#/Vol] 0.5 10*3/uL 0.0 - 0.5 10*3/uL [facility] Eosinophils/100 WBC (Bld) 4.8 % 1.0 - 6.0 % [facility] Erythrocyte distribution width (RBC) [Ratio] 13.1 % 11.5 - 14.5 % [facility] Hematocrit (Bld) [Volume fraction] 41.0 % 35.0 - 47.0 % [facility] Hemoglobin (Bld) [Mass/Vol] 13.4 g/dL 11.7 - 16.0 g/dL [facility] Interpretation and review of laboratory results Abnormal [facility] Lymphocytes (Bld) [#/Vol] 2.5 10*3/uL 1.0 - 4.3 10*3/uL [facility] Lymphocytes/100 WBC (Bld) 23.9 % 20.0 - 40.0 % [facility] MCH (RBC) [Entitic mass] 30.5 pg 26.0 - 34.0 pg [facility] MCHC (RBC) [Mass/Vol] 32.7 % 32.0 - 36.0 % [facility] MCV (RBC) [Entitic vol] 93.3 fL 80.0 - 98.0 fL [facility] Monocytes (Bld) [#/Vol] 0.9 10*3/uL High 0.0 - 0.8 10*3/uL [facility] Monocytes/100 WBC (Bld) 8.6 % 2.0 - 10.0 % [facility] Neutrophils (Bld) [#/Vol] 6.4 10*3/uL 1.8 - 7.0 10*3/uL [facility] Neutrophils/100 WBC (Bld) 61.9 % 40.0 - 80.0 % [facility] Nucleated RBC/100 WBC (Bld) [Ratio] 0.0 % [facility] Platelet mean volume (Bld) [Entitic vol] 9.4 fL 7.4 - 12.4 fL [facility] Platelets (Bld) [#/Vol] 237 10*3/uL 140 - 440 10*3/uL [facility] RBC (Bld) [#/Vol] 4.39 10*6/uL 3.8 - 5.20 10*6/uL [facility] WBC (Bld) [#/Vol] 10.4 10*3/uL 3.6 - 10.7 10*3/uL [facility] Consulton 08-14-2022 Consult [facility] Wound Care CONSULT Note Symone Mcdonald AGE: 82 y.o. GENDER: female : 1940 Subjective: HISTORY of PRESENT ILLNESS HPI Symone Mcdonald is a 82 y.o. female who presents for a wound consult. History of Wound Context: 82 y.o. 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 Wound care consulted for "perineum" wound. Patients family at bedside. PAST MEDICAL HISTORY Past Medical History: Diagnosis Date Anxiety Bowel obstruction (CMS/HCC) (HCC) CAD (coronary artery disease) Dementia (HCC) Depression Diverticulitis Hypertension Urinary incontinence UTI (urinary tract infection) PAST SURGICAL HISTORY Past Surgical History: Procedure Laterality Date APPENDECTOMY CHOLECYSTECTOMY HYSTERECTOMY FAMILY HISTORY No family history on file. SOCIAL HISTORY Social History Tobacco Use Smoking status: Former Packs/day: 0.50 Types: Cigarettes Substance Use Topics Alcohol use: No Alcohol/week: 0.0 standard drinks Drug use: No ALLERGIES Allergies Allergen Reactions Latex Erythromycin Rash MEDICATIONS No current facility-administered medications on file prior to encounter. Current Outpatient Medications on File Prior to Encounter Medication Sig Dispense Refill acetaminophen (Tylenol) 325 MG tablet Take 650 mg by mouth every 6 hours as needed for fever, mild pain (1-3) or moderate pain (4-6). ammonium lactate (Lac-Hydrin) 12 % lotion Apply topically if needed for dry skin. Daily aspirin 81 MG EC tablet Take 81 mg by mouth daily. bisacodyl (Dulcolax) 10 MG suppository Insert 10 mg into the rectum Daily as needed for constipation. If no results from [facility] bisacodyl (Dulcolax) 5 MG EC tablet Take 5 mg by mouth Daily as needed for constipation. Do not crush, chew, or split. buPROPion SR (Wellbutrin SR) 100 MG 12 hr tablet Take 100 mg by mouth daily. carvedilol (Coreg) 3.125 MG tablet Take 3.125 mg by mouth in the morning and 3.125 mg in the evening. cholecalciferol (Vitamin D-3) 50 MCG (2000 UT) tablet Take 2,000 Units by mouth daily. cyanocobalamin (Vitamin B-12) 1000 MCG tablet Take 1,000 mcg by mouth daily. donepezil (Aricept) 10 MG tablet Take 10 mg by mouth Nightly. famotidine (Pepcid) 20 MG tablet Take 20 mg by mouth daily. guaiFENesin (Robitussin) 100 MG/5ML liquid Take 10 mL by mouth every 6 hours as needed for cough. levothyroxine (Synthroid, Levoxyl) 50 MCG tablet Take 50 mcg by mouth daily. lisinopril 20 MG tablet Take 1 tablet by mouth every morning. Magnesium Hydroxide (MILK OF MAGNESIA PO) Take 30 mL/L by mouth Daily as needed. memantine (Namenda) 10 MG tablet Take 10 mg by mouth 2 times daily. nystatin (Mycostatin) cream Apply 1 g topically. polyethylene glycol, PEG, 3350 (Miralax) 17 g packet Take 17 g by mouth Daily as needed. sertraline (Zoloft) 100 MG tablet Take 100 mg by mouth Nightly. Skin Protectants, Misc. (Basis Facial Moisturizer) cream Apply 1 application topically daily. [DISCONTINUED] cholecalciferol (Vitamin D-3) 1.25 MG (41967 UT) capsule Take 50,000 Units by mouth. REVIEW OF SYSTEMS Pertinent items are noted in HPI. Objective: BP 110/51 Pulse 77 Temp 36.5 ?C (97.7 ?F) (Temporal) Resp 16 Wt 85 kg (187 lb 4.8 oz) SpO2 91% BMI 32.15 kg/m? PHYSICAL EXAM General appearance: in no apparent distress, well developed and well nourished, non-toxic, in no respiratory distress and acyanotic, and alert Skin: warm and dry Pulmonary: Normal effort, no respiratory distress, no cyanosis Left arm: 1x1x0.1cm. 100% pink/red tissue. Scant serosnag drainage present. Elidia-wound intact and fragile. No obvious signs of infection. Bilateral buttock: 7x5x0.2cm, intact skin bridge. 100% red granulation tissue. Scant serosang drainage noted. Elidia-wound intact and fragile. No obvious signs of infection. LABS CBC: Lab Results Component Value Date WBC 10.4 08/14/2022 HGB 13.4 08/14/2022 HCT 41.0 08/14/2022 MCV 93.3 08/14/2022 PLT 237 08/14/2022 BMP: Lab Results Component Value Date NA 140 08/14/2022 K 3.9 08/14/2022 CL 106 08/14/2022 CO2 28 08/14/2022 BUN 35 (H) 08/14/2022 CREATININE 1.21 (H) 08/14/2022 PT/INR: No results found for: PROTIME, INR Prealbumin: No results found for: PREALBUMIN Albumin:No components found for: LABALBU Sed Rate:No results found for: SEDRATE Micro: No components found for: BC Assessment/Plan: Left arm: Skin tear - Cleanse with NS. Apply adaptic. Cover with foam dressing. Change daily and PRN. Bilateral buttock: Stage 3 pressure injury - Cleanse with NS. Apply ET mix. Leave WILBUR. Apply TID and PRN. (more content not included)... [facility] Consult Palliative Care Initial Consult Chief Complaint: Symone Mcdonald is a 82 y.o. female with chief complaint of intractable abdominal pain. Palliative Care is actively following. Assessment/Plan Goals of Care - Patient is unable to participate meaningfully in goals of care discussions due to dementia - HCPOA and surrogate decision maker is the patient's daughter, Ban Mcduffie ([phone]) - Current code status: DNR-CCA, not okay for ICU transfer or intubation - Ban is clear that she wishes to focus on comfort and quality of life for her mother. Goals are in line with hospice philosophy (as Ban would not wish for her mother to return to the hospital in the future if she again becomes ill, would opt for comfort focused measures at her facility), however patient does not currently meet criteria for hospice enrollment. - Met with Ban as well as primary attending Dr. Nogueira at the bedside today to further discuss. The best plan moving forward to honor patient and Ban's goals would be for patient to be followed by a palliative care service at her facility that can coordinate hospice enrollment when the patient does begin to show signs of decline. - Ban would wish for her mother to return to her current facility, [facility], upon discharge as the facility is close to her home and she is happy with the care being provided. Unfortunately our palliative care team does not follow at this facility. - Will coordinate with social work to find palliative team that can follow at the patient's facility. Appreciate assistance. Abdominal pain - resolved - Initial chief complaint for admission - Per report from nursing facility staff, patient was holding stomach, wincing with palpation - CT abdomen pelvis obtained in the ED was significant for colonic diverticulosis as well as polypoid lesion of left rectal wall, however no indication of what may have caused the patient's abdominal pain - Patient does have history of recurrent UTIs - UA obtained in the ED not overtly concerning for infection; urine culture not sent - Pain appears to have resolved on examination today - Oxycodone 5 mg q4h PRN available in the event of recurrence - Continue to monitor Incidental polypoid lesion of the rectum - Seen on Ct abdomen and pelvis as noted above - Ban has declined further evaluation - does not believe patient would be able to tolerate prep for colonoscopy, and should the lesion represent malignancy would not wish for further treatment - No further investigation planned as not in line with patient and family goals of care COOPER - Scr mildly elevated to 1.45 on admission, per chart review baseline appears to be ~0.9 - Improved to 1.21 today - Continue to monitor Recent COVID-19 infection - Out of isolation 08/13 - S/p paxlovid course at facility - Satting well on 2L NC Alzheimer's dementia - FAST 6e - Patient resumed on home medications of memantine, donepezil - Without behavioral disturbance Decubitus pressure ulcer - Wound care consulted and following Palliative Care Encounter - will continue to follow for ongoing monitoring of progression of Pain as well as for appropriateness for hospice care due to Dementia - will continue treatment including NA - palliative care not managing medications at this time Total of 45 minutes spent on this encounter including Chart review, Patient visit and exam, Documentation in EHR, Care coordination, Communicating with primary attending or other consultants, and Counseling and educating patient/family/caregi chetna. Discharge planning: Plan for discharge back to patient current facility with palliative care to follow Patient meets criteria for general inpatient hospice care including the following: N/A - Palliative Care Patient Referrals to: None Discussed patient and the plan of care with the other interdisciplinary team (IDT) members of Palliative Care Team, and with Primary Attending, Patient, and Family Subjective: Hospital days prior to consult: 0 Trauma Consult: no. Subjective/Events Symone Mcdonald is an 82 y/o F with PMHx CAD, HTN, diverticulitis, recent COVID-19 infection (s/p paxlovid at the facility), and Alzheimer's dementia who presented to [facility] ED from facility due to concerns for abdominal pain. Staff had noted patient had been holding her abdomen and was wincing with palpation. Evaluation in the ED revealed COOPER as well as diverticulosis and rectal polypoid lesion, but no cause of acute abdominal pain. The patient was admitted for further evaluation and management. Since admission, the patient's abdominal pain appears to have resolved. After discussing with primary team, patient's daughter and HCPOA has decided against further evaluation of rectal lesion as it is not in line with goals of care for the patient, which are comfort focused in nature. She is being treated by wound care for s (more content not included)... Normal [facility] Hepatic function 2000 panelo n 08-14-2022 Albumin [Mass/Vol] 3.3 g/dL Low 3.5 - 5.0 g/dL [facility] ALP [Catalytic activity/Vol] 50 U/L 38 - 126 U/L [facility] ALT [Catalytic activity/Vol] 14 U/L 0 - 34 U/L [facility] AST [Catalytic activity/Vol] 22 U/L 15 - 46 U/L [facility] Bilirubin [Mass/Vol] 0.3 mg/dL 0.2 - 1 .3 mg/dL [facility] Bilirubin.conjugated [Mass/Vol] 0.0 mg/dL 0.0 - 0.3 mg/dL [facility] Protein [Mass/Vol] 6.6 g/dL 6.3 - 8.2 g/dL [facility] No Panel Informationon 08-14 Interpretation and review of laboratory results Abnormal [facility] Progress Noteon 08-14-2022 Progress Note Spiritual Care Note [facility] Palliative Care Patient Name:Symone Mcdonald Chief Complaint: Chief Complaint Patient presents with Abdominal Pain Nausea [facility] Pt was hypoxic at low 90's. C/o abd pain and nausea. Bgt 119. Hx of dementia A&O x1 at baseline. DNRCC Reason for visit: Initial Visit Services Provided To:patient Background and visit note: Checked on this patient who is in the [facility] and is listed as palliative. Unknown as to faith needs of patient. No family in room at time of visit. Also tried to find out via team members. Will attempt to call patient's family member to try to find faith information. Is there spiritual distress? YES Trying to contact family members. Care Plan: Visited room. Patient is not responsive at this time. Follow Up: when patient is able. Additional: N/A Debriefed: N/A. Geneva Barker 08/15/22 [facility] Progress Note Physical Therapy Facility/Department: 3E Physical Therapy Initial Evaluation NAME: Symone Mcdonald : 1940 Date of Service: 08/14/2022 Discharge Recommendations: Facility based therapy PT Equipment Recommendations Other: tbd Assessment Assessment: The pt is admitted with intractable abdominal pain and will potentially benefit from therapy for the listed impairments and to improve her overall functional capacity. Min assist was required for bed mobility this date, and the pt declined to attempt to stand or ambulate. Increased time and cues were needed for all tasks as well as increased encouragement. Cognitive limitations did limit all testing. Pt is not safe to live without 24 hour assistance secondary to cognitive and mobility limitations. Facility based care is recommended at discharge. Facility based therapy may help pt improve overall mobility. Performance Deficits/Impairments: Decreased functional mobility , Decreased endurance, Decreased ADL status, Decreased strength, Decreased posture, Decreased ROM, Decreased balance, Decreased coordination, Decreased safe awareness, Decreased cognition Treatment Diagnosis: limited mobility Decision Making: Medium Complexity Barriers to Learning: cognition Requires PT Follow-Up: Yes Barriers to Learning: cognition Activity Tolerance Activity Tolerance: Patient limited by cognitive status Patient Diagnosis(es): The primary encounter diagnosis was Intractable abdominal pain. A diagnosis of Diarrhea, unspecified type was also pertinent to this visit. has a past medical history of Anxiety, Bowel obstruction (CMS/HCC) (HCC), CAD (coronary artery disease), Dementia (HCC), Depression, Diverticulitis, Hypertension, Urinary incontinence, and UTI (urinary tract infection). has a past surgical history that includes Appendectomy; Cholecystectomy; and Hysterectomy. Restrictions Restrictions/Precauti ons Restrictions/Precauti ons: Fall Risk (up with assist) Required Braces or Orthoses?: No Vision/Hearing Vision: Within Functional Limits Hearing: Functional/adequate for paticipation in therapy Cognition/Orientation Overall Cognitive Status: Exceptions Arousal/Alertness: Appropriate responses to stimuli Following Commands: Follows one step commands with repetition, Follows one step commands with increased time Memory: Decreased short term memory, Decreased exterminator helper memory, Decreased recall of biographical Information, Decreased recall of recent events Safety Judgement: Decreased awareness of need for assistance, Decreased awareness of need for safety Insights: Decreased awareness of deficits Initiation: Requires cues for some Sequencing: Requires cues for some Overall Orientation Status: Impaired Orientation Level: Oriented to person Subjective General Chart Reviewed: Yes Patient Assessed for Rehabilitation Services: Yes Family / Caregiver Present: No Follows Commands: Impaired Subjective Subjective: Pt in bed and easily aroused to verbal stimuli. Pt agreed to PT. No c/o pain at rest. Social/Functional History Social/Functional History Additional Comments: Pt is a poor historian. Pt unable to answer questions regarding her previous level of function. Objective AROM RLE (degrees) RLE General AROM: grossly WFL AROM LLE (degrees) LLE General AROM: grossly WFL AROM RUE (degrees) RUE General AROM: Rt shoulder observed to near 40 degrees actively and 90 degrees with AAROM, rest of UE grossly WFL AROM LUE (degrees) LUE General AROM: shoulder observed to 2/3 ROM rest of UE grossly WFL Strength RLE Comment: 3/5 observed through function, unable to assign true grade due to limited participation. Strength LLE Comment: 3/5 observed through function, unable to assign true grade due to limited participation. Strength RUE Comment: 3/5 observed through function, unable to assign true grade due to limited participation. Strength LUE Comment: 3/5 observed through function, unable to assign true grade due to limited participation. Tone RLE RLE Tone: (no increased tone noted) Tone LLE LLE Tone: (no increased tone noted) Coordination Rapid Alternating Movements: (decreased accuracy and limited ability to attempt due to cognition) Finger to Nose: (decreased accuracy and limited ability to attempt due to cognition) Heel to [place]: (decreased accuracy and limited ability to attempt due to cognition) Sensation Overall Sensation Status: (able to feel touch bilat UE and LE) Bed mobility Bridging: Dependent/Total (to scoot to HOB) Supine to Sit: Minimal assistance Sit to Supine: Minimal assistance Scooting: Minimal assistance (to EOB) Comment: HOB elevated Transfers Comment: Pt declined to attempt to stand up. unable to assess Ambulation Ambulation: No Balance Posture: Fair Sitting - Static: Good Sitting - Dynamic: Fair, + Standing - Static: (unable t (more content not included)... [facility] Progress Note Nutrition rescreen completed. Patient referred to the Dietitian. Wound. Normal [facility] CARECOORDon 08-13-2022 [place] Next Site of Care Admission Date: 08/12/2022 11:23 PM Patient Name: SYMONE MCDONALD Location: [place] [id number] Date of : 1940 ------- Placement Information ------- Referral Type:Detention ICF - Return Referral ID:[id number] Provider Name:[facility] Address 1:[address] Address 2: City:[place] Selection Factors:Returning to Facility State:[place] Normal [facility] CBC panel Auto (Bld)Ordered By: Siri Corona on 08-13-2022 Erythrocyte distribution width (RBC) [Ratio] 13.8 % 11.5 - 14.5 % [facility] Hematocrit (Bld) [Volume fraction] 47.9 % High 35.0 - 47.0 % [facility] Hemoglobin (Bld) [Mass/Vol] 15.8 g/dL 11.7 - 16.0 g/dL [facility] Interpretation and review of laboratory results Abnormal [facility] MCH (RBC) [Entitic mass] 31.1 pg 26.0 - 34.0 pg [facility] MCHC (RBC) [Mass/Vol] 33.0 % 32.0 - 36.0 % [facility] MCV (RBC) [Entitic vol] 94.2 fL 80.0 - 98.0 fL [facility] Platelet mean volume (Bld) [Entitic vol] 9.9 fL 7.4 - 12.4 fL [facility] Platelets (Bld) [#/Vol] 252 10*3/uL 140 - 440 10*3/uL [facility] RBC (Bld) [#/Vol] 5.08 10*6/uL 3.8 - 5.20 10*6/uL [facility] WBC (Bld) [#/Vol] 9.1 10*3/uL 3.6 - 10.7 10*3/uL [facility] CT ABDOMEN PELVIS W CONTRAST on 08-13-2022 CT ABDOMEN PELVIS W CONTRAST Patient Name: SYMONE MCDONALD Exam Date/Time: 08/13/2022 05:19 Procedure: CT ABDOMEN PELVIS W CONTRAST Ordering Provider: BIANCHI MARY Reason For Exam: CT ABDOMEN AND PELVIS Indication: 82-year-old. Abdominal pain Scan Parameters: Multiple axial CT images were obtained of the abdomen and pelvis. Coronal and sagittal reconstructions were reviewed as well. ALARA protocol. Dose reduction was employed with automated exposure control. Contrast: 75 mL of Isovue-370 IV Comparison: None. FINDINGS: Lung bases: The lung bases are clear. Osseous structures: T10 vertebral body hemangioma. Multilevel endplate degenerative changes with endplate spurring and osteophyte formation. Loss of disc space height most prominent at L5-S1 and L2-L3 and L1-L2. Narrowing of neural foraminal canal most prominent at L5-S1. Liver: Hepatic probable cysts with the largest measuring 8 mm. Gallbladder/Biliary tree: Cholecystectomy clips. Mild intrahepatic and extra hepatic biliary duct distention. Spleen: Normal. Adrenals: Normal. Pancreas: Normal. Kidneys/bladder: No hydronephrosis. Bilateral renal cysts. Mild thinning of the renal cortex. No obstructing renal or ureteral calculus. Bladder contour is normal. Uterus: The uterus has been surgically removed. Peritoneal Cavity/Retroperitoneu m: No lymphadenopathy. GI Tract: Postsurgical changes of the rectosigmoid colon. Multiple colonic diverticuli. No oral contrast limits evaluation of loops of bowel. There is polypoid thickening of the wall of the rectum on the left (image 70:6). The appendix is not identified with certainty at the level of the cecum. The terminal ileum is patent with intraluminal fluid. Postsurgical changes distal small bowel. Bowel gas pattern is nonspecific. Vasculature: Atherosclerotic calcifications. IMPRESSION: 1. Postsurgical changes of the large and small bowel. Appearance of a polyploid lesion of the left rectal wall, as above. Recommend direct visualization when feasible. 2. Colonic diverticulosis. 3. Additional nonacute findings including hepatic cysts, renal cysts, cholecystectomy, atherosclerotic disease. Report Dictated on Electronically Signed By: Hortensia Jacobs Electronically Signed Date/Time: 08/13/2022 5:35 AM EST [facility] CT Abdomen and Pelvis W cont rast Neisha 08-13-2022 1. Postsurgical changes of the large and small bowel. Appearance of a polyploid lesion of the left rectal wall, as above. Recommend direct visualization when feasible. 2. Colonic diverticulosis. 3. Additional nonacute findings including hepatic cysts, renal cysts, cholecystectomy, atherosclerotic disease. Report Dictated on Workstation: [employer] Electronically Signed By: Hortensia Jacbos Electronically Signed Date/Time: 08/13/2022 5:35 AM [employer] [facility] Subtext SYSTEM Patient Name: SYMONE MCDONALD Exam Date/Time: 08/13/2022 05:19 Procedure: CT ABDOMEN PELVIS W CONTRAST Ordering Provider: BIANCHI MARY Reason For Exam: CT ABDOMEN AND PELVIS Indication: 82-year-old. Abdominal pain Scan Parameters: Multiple axial CT images were obtained of the abdomen and pelvis. Coronal and sagittal reconstructions were reviewed as well. ALARA protocol. Dose reduction was employed with automated exposure control. Contrast: 75 mL of Isovue-370 IV Comparison: None. FINDINGS: Lung bases: The lung bases are clear. Osseous structures: T10 vertebral body hemangioma. Multilevel endplate degenerative changes with endplate spurring and osteophyte formation. Loss of disc space height most prominent at L5-S1 and L2-L3 and L1-L2. Narrowing of neural foraminal canal most prominent at L5-S1. Liver: Hepatic probable cysts with the largest measuring 8 mm. Gallbladder/Biliary tree: Cholecystectomy clips. Mild intrahepatic and extra hepatic biliary duct distention. Spleen: Normal. Adrenals: Normal. Pancreas: Normal. Kidneys/bladder: No hydronephrosis. Bilateral renal cysts. Mild thinning of the renal cortex. No obstructing renal or ureteral calculus. Bladder contour is normal. Uterus: The uterus has been surgically removed. Peritoneal Cavity/Retroperitoneu m: No lymphadenopathy. GI Tract: Postsurgical changes of the rectosigmoid colon. Multiple colonic diverticuli. No oral contrast limits evaluation of loops of bowel. There is polypoid thickening of the wall of the rectum on the left (image 70:6). The appendix is not identified with certainty at the level of the cecum. The terminal ileum is patent with intraluminal fluid. Postsurgical changes distal small bowel. Bowel gas pattern is nonspecific. Vasculature: Atherosclerotic calcifications. [facility] RADIOLOGY SYSTEM Hortensia Jacobs MD - 08/13/2022 Patient Name: SYMONE MCDONALD Exam Date/Time: 08/13/2022 05:19 Procedure: CT ABDOMEN PELVIS W CONTRAST Ordering Provider: BIANCHI MARY Reason For Exam: CT ABDOMEN AND PELVIS Indication: 82-year-old. Abdominal pain Scan Parameters: Multiple axial CT images were obtained of the abdomen and pelvis. Coronal and sagittal reconstructions were reviewed as well. ALARA protocol. Dose reduction was employed with automated exposure control. Contrast: 75 mL of Isovue-370 IV Comparison: None. FINDINGS: Lung bases: The lung bases are clear. Osseous structures: T10 vertebral body hemangioma. Multilevel endplate degenerative changes with endplate spurring and osteophyte formation. Loss of disc space height most prominent at L5-S1 and L2-L3 and L1-L2. Narrowing of neural foraminal canal most prominent at L5-S1. Liver: Hepatic probable cysts with the largest measuring 8 mm. Gallbladder/Biliary tree: Cholecystectomy clips. Mild intrahepatic and extra hepatic biliary duct distention. Spleen: Normal. Adrenals: Normal. Pancreas: Normal. Kidneys/bladder: No hydronephrosis. Bilateral renal cysts. Mild thinning of the renal cortex. No obstructing renal or ureteral calculus. Bladder contour is normal. Uterus: The uterus has been surgically removed. Peritoneal Cavity/Retroperitoneu m: No lymphadenopathy. GI Tract: Postsurgical changes of the rectosigmoid colon. Multiple colonic diverticuli. No oral contrast limits evaluation of loops of bowel. There is polypoid thickening of the wall of the rectum on the left (image 70:6). The appendix is not identified with certainty at the level of the cecum. The terminal ileum is patent with intraluminal fluid. Postsurgical changes distal small bowel. Bowel gas pattern is nonspecific. Vasculature: Atherosclerotic calcifications. IMPRESSION: 1. Postsurgical changes of the large and small bowel. Appearance of a polyploid lesion of the left rectal wall, as above. Recommend direct visualization when feasible. 2. Colonic diverticulosis. 3. Additional nonacute findings including hepatic cysts, renal cysts, cholecystectomy, atherosclerotic disease. Report Dictated on Electronically Signed By: Hortensia Jacobs Electronically Signed Date/Time: 08/13/2022 5:35 AM EST [facility] Radiology Study observation (narrative) [facility] Comprehensive metabolic 1998 panelon 08-13-2022 Albumin [Mass/Vol] 3.9 g/dL 3.5 - 5.0 g/dL [facility] ALP [Catalytic activity/Vol] 47 U/L 38 - 126 U/L [facility] ALT [Catalytic activity/Vol] 17 U/L 0 - 34 U/L [facility] Anion gap [Moles/Vol] 5 mmol/L 3 - 13 mmol/L [facility] AST [Catalytic activity/Vol] 24 U/L 15 - 46 U/L [facility] Bilirubin [Mass/Vol] 0.6 mg/dL 0.2 - 1 .3 mg/dL [facility] Calcium [Mass/Vol] 9.0 mg/dL 8.4 - 10. 4 mg/dL [facility] [facility] Chloride [Moles/Vol] 109 mmol/L High 98 - 10 7 mmol/L [facility] CO2 [Moles/Vol] 28 mmol/L 22 - 30 mmol/L [facility] Creatinine [Mass/Vol] 1.45 mg/dL High 0.52 - 1.04 mg/dL [facility] GFR/1.73 sq M.predicted MDRD (S/P/Bld) [Vol rate/Area] 36.1 mL/min/{1.73_m2} Low - PINF [facility] Comment on above: Calculation based on the Chronic Kidney Disease Epidemiology Collaboration (CKD-EPI) equation refit without adjustment for race Glucose [Mass/Vol] 107 mg/dL High 70 - 100 mg/dL [facility] Interpretation and review of laboratory results Abnormal [facility] Potassium [Moles/Vol] 4.2 mmol/L 3.5 - 5.1 mmol/L [facility] Protein [Mass/Vol] 7.8 g/dL 6.3 - 8.2 g/dL [facility] Sodium [Moles/Vol] 142 mmol/L 135 - 145 mmol/L [facility] Urea nitrogen [Mass/Vol] 45 mg/dL High 7 - 17 mg/dL [facility] Consulton 08-13-2022 Consult - Attestation signed by Diego Major MD at 08/13/2022 1:35 PM ATTENDING ADDENDUM Active Diagnoses/Problems this Admission: Patient Active Problem List Diagnosis Hypoxia Declining functional status Bronchitis Muscle weakness Late onset Alzheimer's disease without behavioral disturbance (HCC) Diarrhea Nicotine abuse COOPER (acute kidney injury) (CMS/HCC) (HCC) Anxiety Trimalleolar fracture Failure to thrive in adult Hypertension Acute cystitis without hematuria CAD (coronary artery disease) Depression Dementia (HCC) Contusion of left shoulder Intractable abdominal pain I personally supervised the resident physician in the evaluation and development of a treatment plan for this patient on the same day of service as above. I personally discussed the review of systems and interviewed the patient along with performing a physical examination. I reviewed the recent events, imaging, labs, vital signs. In addition, I discussed the patient's condition and treatment options with him/her when possible. I have also reviewed and agree with the past medical, family, and social history unless otherwise noted. All of the patient's questions were answered and family updated when appropriate and possible. A complete review of systems was obtained and is negative except as stated in HPI and/or Subjective Section. - as per Dr. Kinsey's note - abdomen non-tender, no leukocytosis, LA 0.9 - recommend GI consult for endoscopic evaluation of polyp seen on CT - wound care for gluteal skin irritation - no acute surgical intervention indicated - please re-consult as need Greater than 51% of the >= 45 minute total care time throughout the day (including chart review, care coordination, and [id number] encounter) was spent discussing/counseling the patient/family regarding the care plan for Symone Mcdonald. I examined the patient independently and reviewed relevant data myself and may have done so in the context of team rounds. A full chart review was performed. Diego Major MD Trauma, Surgical Critical Care, & General Surgery Division of Trauma Department of Surgery [facility] Department of Surgery Surgical Service: ACS Consult Note PATIENT NAME: Symone Mcdonald : 1940 ATTENDING PHYSICIAN: Snehal Bianchi, * ADMIT DATE: 08/12/2022 TODAY'S DATE: 08/13/2022 CHIEF COMPLAINT: Chief Complaint Patient presents with Abdominal Pain Nausea [facility] Pt was hypoxic at low 90's. C/o abd pain and nausea. Bgt 119. Hx of dementia A&O x1 at baseline. DNC Reason for Consult: Abnormal CT, Abdominal Pain HISTORY OF PRESENT ILLNESS: Symone Mcdonald is a 82 y.o. 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 Other history notable for coronary artery disease, dementia, hypertension, urinary incontinence with UTIs. Other surgical history notable for cholecystectomy hysterectomy appendectomy. Patient presents from her SNF with complaints of hypoxia, abdominal pain, chronic diarrhea. Patient is a poor historian given her dementia and the daughter is at the bedside is able to provide some information but is also not fully informed of patient history. Per the daughter, the patient struggles with chronic diarrhea and because of this has significant inflammation of the gluteal regions. Apparently, at the detention the patient was complaining of some abdominal pain, however, she had a large bowel movement when she arrived to the emergency department and has not had significant pain since that time. No nausea or vomiting has been witnessed. The patient remains hemodynamically stable and labs were obtained demonstrating no leukocytosis, lactic acid 9.1, hemoglobin 15.8, platelets 252, troponin within normal limits, lactic acid 0.9, electrolytes largely within normal limits with a creatinine of 1.45 and normal LFTs as well as lipase. CT scan was obtained of the abdomen and pelvis which demonstrated postsurgical change related to her prior colectomy however there is mention that there could be a polypoid lesion within the rectum. Ultimately this provoked a surgical consultation. Past Medical History: Diagnosis Date Anxiety Bowel obstruction (CMS/HCC) (HCC) CAD (coronary artery disease) Dementia (HCC) Depression Diverticulitis Hypertension Urinary incontinence UTI (urinary tract infection) Past Surgical History: Procedure Laterality Date APPENDECTOMY CHOLECYSTECTOMY HYSTERECTOMY Medications Prior to Admission: No current facility-administered medications (more content not included)... Normal [facility] ECG 12-LEADon 08-13-2022 ECG 12-LEAD IMPRESSION: Sinus rhythm Ventricular premature complex Right bundle branch block Nonspecific repol abnormality, lateral leads Electronically Signed On 08-13-2022 9:13:32 EST by Cullen Malin Normal [facility] ED Nursing Noteon 08-13-2022 ED Nursing Note Report given to Carmen Blanco RN 08/13/22 4079 Normal [facility] ED Nursing Note Pt transported to inpatient floor via medic. No distress noted at this time Lyudmila Blanco RN 08/13/22 1632 [facility] ED Nursing Note Pt incontinent of stool. Complete bed change competed. Pt cleaned up and new pads placed under pt. Pts buttocks is excoriated and painful to touch. Call light within reach Lyudmila Blanco RN 08/13/22 1446 [facility] ED Nursing Note Walked into pts room and IV was on the floor, pt states she didn't realize it was no longer in her arm. IV was still intact and discarded, Guaze applied to pts arm where IV site was. Pt in no distress at this time. Lyudmila Blanco RN 08/13/22 1400 [facility] ED Nursing Note Ordered patient a hospital bed. Alona Tam RN 08/13/22 1351 [facility] ED Nursing Note Pt resting in bed, n o distress noted. Call light within reach Lyudmila Blanco RN 08/13/22 1240 [facility] ED Nursing Note Tray ordered Delicia Jacobs RN 08/13/22 1055 [facility] ED Nursing Note Patient being admitted. Patient and family updated Delicia Jacobs RN 08/13/22 0847 [facility] ED Nursing Note Patient resting with family at bedside. Respirations even and unlabored. Waiting for orders Delicia Jacobs RN 08/13/22 0737 [facility] ED Nursing Note Assist surgeon with rectal exam. Patient cleaned up after exam. Patient tolerated. Daughter at bedside. Surgeon updated family that she may need colonoscopy and will consult GI. Delicia Jacobs RN 08/13/22 0733 [facility] ED Nursing Note Received report from previous shift Delicia Jacobs RN 08/13/22 0720 [facility] ED Nursing Note Pt resting in room. Respirations even and non labored. Daughter at bedside. Irasema Renteria RN 08/13/22 0543 [facility] ED Nursing Note Pt resting in room. Respirations even and non labored. Daughter at bedside. Irasema Renteria RN 08/13/22 0212 [facility] ED Nursing Note Report to TYSON Campos. Amaya Conley RN 08/13/22 0106 [facility] ED Nursing Note Bed: 17 Expected date: Expected time: Means of arrival: Comments: EMS Nicole Seaman RN 08/12/22 4367 [facility] ED Provider Noteon ED Provider Note EMERGENCY DEPARTMENT ENCOUNTER Pt Name: Symone Mcdonald Birthdate 1940 Date of evaluation: 08/12/2022 ED Provider: NISHA SURESH DO CHIEF COMPLAINT Chief Complaint Patient presents with Abdominal Pain Nausea Pt is from [facility]. Pt was hypoxic at low 90's. C/o abd pain and nausea. Bgt 119. Hx of dementia A&O x1 at baseline. DNC HISTORY OF PRESENT ILLNESS (Location/Symptom, Timing/Onset, Context/Setting, Quality, Duration, Modifying Factors, Severity) Note limiting factors. I wore appropriate PPE for the entirety of this encounter. HPI Symone Mcdonald is a 82 y.o. female who presents to the emergency department with chief complaint of nausea and abdominal pain for 2 days. She was sent from [facility]. Facility wanted patient to be evaluated because she was hypoxic at 90% on room air which improved with 2 L nasal cannula. She has a history of bowel obstruction, diverticulitis, chronic diarrhea, extensive bowel surgery history, cholecystectomy and hysterectomy. History is obtained from patient's daughter who stated that she has not been allowed to see patient for 1 week since she tested COVID positive. Therefore, all that she notices that they called her today to inform her that her mother has been having abdominal pain. No fever or vomiting. Nursing Notes were reviewed. Limitations to history: Altered mental status/confusion Outside historians: Family daughter REVIEW OF SYSTEMS Review of Systems Unable to obtain ROS due to dementia PAST MEDICAL HISTORY Past Medical History: Diagnosis Date Anxiety Bowel obstruction (CMS/HCC) (HCC) CAD (coronary artery disease) Dementia (HCC) Depression Diverticulitis Hypertension Urinary incontinence UTI (urinary tract infection) SURGICAL HISTORY Past Surgical History: Procedure Laterality Date APPENDECTOMY CHOLECYSTECTOMY HYSTERECTOMY CURRENT MEDICATIONS Discharge Medication List as of 08/15/2022 1:40 PM CONTINUE these medications which have NOT CHANGED Details acetaminophen (Tylenol) 325 MG tablet Take 650 mg by mouth every 6 hours as needed for fever, mild pain (1-3) or moderate pain (4-6)., Historical Med ammonium lactate (Lac-Hydrin) 12 % lotion Apply topically if needed for dry skin. Daily, Historical Med aspirin 81 MG EC tablet Take 81 mg by mouth daily., Starting 08/12/2016, Historical Med bisacodyl (Dulcolax) 10 MG suppository Insert 10 mg into the rectum Daily as needed for constipation. If no results from MOM, Historical Med bisacodyl (Dulcolax) 5 MG EC tablet Take 5 mg by mouth Daily as needed for constipation. Do not crush, chew, or split., Historical Med buPROPion SR (Wellbutrin SR) 100 MG 12 hr tablet Take 100 mg by mouth daily., Historical Med cholecalciferol (Vitamin D-3) 50 MCG (2000 UT) tablet Take 2,000 Units by mouth daily., Historical Med cyanocobalamin (Vitamin B-12) 1000 MCG tablet Take 1,000 mcg by mouth daily., Historical Med donepezil (Aricept) 10 MG tablet Take 10 mg by mouth Nightly., Historical Med famotidine (Pepcid) 20 MG tablet Take 20 mg by mouth daily., Historical Med guaiFENesin (Robitussin) 100 MG/5ML liquid Take 10 mL by mouth every 6 hours as needed for cough., Historical Med levothyroxine (Synthroid, Levoxyl) 50 MCG tablet Take 50 mcg by mouth daily., Historical Med Magnesium Hydroxide (MILK OF MAGNESIA PO) Take 30 mL/L by mouth Daily as needed., Historical Med memantine (Namenda) 10 MG tablet Take 10 mg by mouth 2 times daily., Historical Med nystatin (Mycostatin) cream Apply 1 g topically., Historical Med polyethylene glycol, PEG, 3350 (Miralax) 17 g packet Take 17 g by mouth Daily as needed., Historical Med sertraline (Zoloft) 100 MG tablet Take 100 mg by mouth Nightly., Historical Med Skin Protectants, Misc. (Basis Facial Moisturizer) cream Apply 1 application topically daily., Starting Sat01/26/2022, Historical Med ALLERGIES Latex and Erythromycin FAMILY HISTORY No family history on file. SOCIAL HISTORY Social History Socioeconomic History Marital status: Tobacco Use Smoking status: Former Packs/day: 0.50 Types: Cigarettes Substance and Sexual Activity Alcohol use: No Alcohol/week: 0.0 standard drinks Drug use: No Social History Narrative Lived in [facility] [place] Smoked for years, quit in late , but has smoked again the last couple years, first 2-3 packs per day, then 10 cigarettes per day SCREENINGS PHYSICAL EXAM ED Triage Vitals Temp Heart Rate Resp BP 08/12/22233108/12/22233108/12/22233108/12/222331 36.9 ?C (98.5 ?F) 80 18 129/75 SpO2 Temp Source Heart Rate Source Patient Position 08/12/22233108/12/22233108/13/22 0700 -- 97 % Oral Monitor BP Location FiO2 (%) -- -- Physical Exam GENERAL APPEARANCE: Awake and alert. Nontoxic-appearing. HEAD: Normocephalic. Atraumatic. EYES: EOM's grossl (more content not included)... Normal [facility] ED Provider Note Emergency Department Encounter Location: [facility] EMERGENCY DEPT Patient: Symone Mcdonald : 1940 Date of evaluation: 08/12/2022 ED Provider: Regina Dover PA-C 0647 Smyone Mcdonald was checked out to me by Dr. Suresh. Please see his/her initial documentation for details of the patient's initial ED presentation, physical exam and completed studies. In brief, Symone Mcdonald is a 82 y.o. female that presented to the emergency department for evaluation of abdominal pain. Patient with history of dementia, coming from nursing facility. She tested positive for COVID and therefore family has not seen her for over one week. Facility called stating that patient seemed to be having abdominal pain as she was holding her stomach and winces when pressure is applied. No vomiting. No fevers. History primarily obtained from family as patient is disoriented secondary to dementia. I have reviewed and interpreted all of the currently available lab results and diagnostics from this visit: Results for orders placed or performed during the hospital encounter of 08/12/22 Comprehensive metabolic panel Result Value Ref Range SODIUM 142 135 - 145 mmol/L POTASSIUM 4.2 3.5 - 5.1 mmol/L CHLORIDE 109 (H) 98 - 107 mmol/L CARBON DIOXIDE 28 22 - 30 mmol/L ANION GAP 5 3 - 13 mmol/L UREA NITROGEN 45 (H) 7 - 17 mg/dL CREATININE 1.45 (H) 0.52 - 1.04 mg/dL GLUCOSE 107 (H) 70 - 100 mg/dL CALCIUM 9.0 8.4 - 10.4 mg/dL AST (SGOT) 24 15 - 46 U/L ALT 17 0 - 34 U/L ALKALINE PHOSPHATASE 47 38 - 126 U/L ALBUMIN 3.9 3.5 - 5.0 g/dL BILIRUBIN, TOTAL 0.6 0.2 - 1.3 mg/dL TOTAL PROTEIN 7.8 6.3 - 8.2 g/dL eGFR 36.1 (L) >60.0 mL/min/1.73m*2 CBC Result Value Ref Range Auto WBC 9.1 3.6 - 10.7 10*3/uL RBC 5.08 3.8 - 5.20 10*6/uL Hemoglobin 15.8 11.7 - 16.0 g/dL Hematocrit 47.9 (H) 35.0 - 47.0 % MCV 94.2 80.0 - 98.0 fL MCH 31.1 26.0 - 34.0 pg MCHC 33.0 32.0 - 36.0 % RDW 13.8 11.5 - 14.5 % Platelets 252 140 - 440 10*3/uL MPV 9.9 7.4 - 12.4 fL Lipase Result Value Ref Range LIPASE 278 23 - 300 U/L Complete Urinalysis Result Value Ref Range Color, Urine Light Yellow Lt. Yellow Clarity, Urine Clear Clear pH, Urine 5.5 5.0 - 8.0 pH Leukocytes, Urine Negative Negative Antonio/uL Nitrite, Urine Negative Negative Protein, Urine 10 (A) Negative mg/dL Glucose, Urine Normal Normal (<70) mg/dL Bilirubin, Urine Negative Negative mg/dL Ketones, Urine 10 (A) Negative mg/dL Urobilinogen, Urine Normal Normal (0-1) mg/dL Blood, Urine Negative Negative mg/dL RBC, Urine 3-5 (A) 0 - 2 /HPF WBC, Urine 0-2 0 - 5 /HPF Squamous Epithelial, Urine 0-2 3 - 5 /HPF Bacteria, Urine Few (A) Negative /HPF Mucus, Urine Few Negative /LPF Hyaline Casts, Urine Negative Negative /LPF SPECIFIC GRAVITY OF URINE (NUMERIC) >1.030 (H) 1.005 - 1.030 Lactic acid, plasma Result Value Ref Range LACTIC ACID 0.9 0.7 - 2.0 mmol/L Troponin I Result Value Ref Range TROPONIN I <0.012 0.000 - 0.034 ng/mL ECG 12 lead Result Value Ref Range Heart Rate 72 bpm QRSD Interval 139 ms QT Interval 442 ms QTC Interval 485 ms P [place] 48 degrees QRS [place] 55 degrees T Wave [place] -51 degrees [place] Interval [address] abdomen pelvis w contrast Final Result 1. Postsurgical changes of the large and small bowel. Appearance of a polyploid lesion of the left rectal wall, as above. Recommend direct visualization when feasible. 2. Colonic diverticulosis. 3. Additional nonacute findings including hepatic cysts, renal cysts, cholecystectomy, atherosclerotic disease. Report Dictated on Electronically Signed By: Hortensia Jacobs Electronically Signed Date/Time: 08/13/2022 5:35 AM EST XR chest 1 view Final Result No confluent consolidation, as above. Exclusion of left costophrenic angle. Report Dictated on Electronically Signed By: Hortensia Jacobs Electronically Signed Date/Time: 08/13/2022 1:28 AM EST Final ED Course and MDM: In brief, Symone Mcdonald is a 82 y.o. female whose care was signed out to me by the outgoing provider. In brief, patient from nursing facility, recent covid positive, brought in for evaluation of abdominal pain. Patient given IV fluids. Diagnostics reviewed. Troponin negative. Lipase not elevated. No lactic acidosis. No leukocytosis. Hemoglobin 15.8. Mild acute kidney injury. EKG with sinus rhythm, right bundle branch block. Chest x-ray noncontributory. CT abd/pelvis significant for postsurgical changes of the large and small bowel. Appearance of a polyploid lesion of the left rectal wall, as above. Recommend direct visualization when feasible." At time of sign out, pending general surgery evaluation and recommendations. General surgery team evaluated patient in ED, see their note for details. Recommended further testing in the outpatient setting and GI involvement due to diarrhea. On reevaluation, patient continues to express sarahy (more content not included)... [facility] Laboratory - Chemistry and C hemistry - challengeon 08-13-2022 Troponin I.cardiac [Mass/Vol] ng/mL 0.000 - 0.034 ng/mL [facility] Lipase [Catalytic activity/Vol] 278 U/L 23 - 300 U/L [facility] Lactate [Moles/Vol] 0.9 mmol/L 0.7 - 2. 0 mmol/L [facility] [employer] Lipase [Catalytic activity/V ol]on 08-13-2022 Interpretation and review of laboratory results Normal [facility] No Panel InformationOrdered By: Cullen Malin on 08-13-2022 P [place] 48 degrees [facility] Work Phone: MI Interval 157 ms [employer] Work Phone: QRS [place] 55 degrees [facility] Work Phone: QRSD Interval 139 ms [facility] Work Phone: QT Interval 442 ms [facility] Work Phone: QTC Interval 485 ms [facility] Work Phone: T Wave [place] -51 degrees [facility] Work Phone: [facility] Work Phone: No Panel Informationon 08-13 Sinus rhythm Ventricular premature complex Right bundle branch block Nonspecific repol abnormality, lateral leads Electronically Signed On 08-13-2022 9:13:32 EST by Cullen Malin CV Cullen Day MD - 08/13/2022 IMPRESSION: Sinus rhythm Ventricular premature complex Right bundle branch block Nonspecific repol abnormality, lateral leads Electronically Signed On 08-13-2022 9:13:32 EST by Cullen Malin [facility] Interpretation and review of laboratory results Normal [facility] Nursing Noteon 08-13-2022 Nursing Note [address] Nogueira advised that patient has no IV , asked if still needed LR and stated that it was no loner needed. Normal [facility] Progress Noteon 08-13-2022 Progress Note Emergency Department Encounter [facility] EMERGENCY DEPT Patient: Symone Mcdonald : 1940 Date of Evaluation: 08/12/2022 ED Supervising Physician: Snehal Bianchi DO I independently examined and evaluated Symone Mcdonald. This will serve as my Supervisory note and shared attestation. I did perform a substantive portion of the visit including all aspects of the Medical Decision Making. I wore appropriate PPE for the entirety of this encounter. In brief, Symone Mcdonald is a 82 y.o. female that presents to the emergency department complaining of abdominal pain. Patient has history of dementia coming from detention. Patient had tested positive for COVID so family has not seen her for more than a week. Patient endorsed abdominal pain, was sent in for evaluation. Patient is DNR CC with history of abdominal surgeries, recent diarrhea. Focused exam: Vital signs stable afebrile no acute distress, rrr, clear lungs abdomen soft diffusely tender to palpation, alert and oriented x1 which is patient's baseline Brief ED course/MDM: 82-year-old female presents complaining of generalized abdominal pain from SNF. Patient given IV fluids for mild COOPER work-up revealed troponin negative lipase unremarkable, lactic within normal limits, CBC without leukocytosis or anemia. EKG without signs of acute ischemia. Chest x-ray unremarkable. CT abdomen pelvis shows postsurgical changes and a polypoid lesion of left rectal wall. General surgery consulted recommend outpatient testing, however on reevaluation patient continues to have intractable abdominal pain. Family concerned about decline in patient's health requesting admission. Patient admitted in stable condition. MDM elements: The patient presented with chief complaint of abdominal pain. The differential diagnosis associated with this patient's presentation includes bowel obstruction, pancreatitis, electrolyte abnormality, ACS. Our workup consisted of ordering/reviewing: As above. The patient will be Admitted. Patient is in agreement with this plan. All diagnostic, treatment, and disposition decisions were made by myself in conjunction with the Resident. I also supervised milton portions of any procedures performed by the Resident. For all further details of the patient's emergency department visit, please see their documentation. (Comment: Please note this report has been produced using speech recognition software and may contain errors related to that system including errors in grammar, punctuation, and spelling, as well as words and phrases that may be inappropriate. If there are any questions or concerns please feel free to contact the dictating provider for clarification.) Snehal Bianchi, DO [employer] Snehal Bianchi, 08/21/22 1630 Normal [facility] Troponin I.cardiac [Mass/Vol ]on 08-13-2022 Interpretation and review of laboratory results Normal [facility] Patients with high levels of Biotin oral intake (ie >5 mg/day) may have falsely decreased Troponin levels. [facility] Urinalysis complete panel (U )Ordered By: Lisandro Swab on 08-13-2022 Bacteria LM.HPF (Urine sed) [#/Area] Few Abnormal Negative /HPF [facility] Bilirubin Ql (U) Negative Negative mg/dL [facility] Clarity (U) Clear Clear [facility] Color (U) Light Yellow Lt. Yellow [facility] Epithelial cells.squamous LM.HPF (Urine sed) [#/Area] 0-[facility] Gl[facility] Ql (U) Normal Normal (<70) mg/dL [facility] Hemoglobin Ql (U) Negative Negative mg/dL [facility] Hyaline casts Auto (Urine sed) [#/Area] Negative Negative /LPF [facility] Interpretation and review of laboratory results Abnormal [facility] Ketones (U) [Mass/Vol] 10 mg/dL Abnormal Negative [facility] Leukocyte esterase Test strip Ql (U) Negative Negative Antonio/uL [facility] Mucus LM.HPF (Urine sed) [#/Area] Few Negative /LPF [facility] Nitrite Ql (U) Negative Negative [facility] pH (U) 5.5 [pH] 5.0 - 8.0 pH [facility] Protein (U) [Mass/Vol] 10 mg/dL Abnormal Negative [facility] RBC LM.HPF (Urine sed) [#/Area] 3-5 Abnormal [facility] Specific gravity (U) [Rel density] High 1.005 - 1.030 [facility] Urobilinogen (U) [Mass/Vol] Normal Normal (0-1) mg/dL [facility] WBC LM.HPF (Urine sed) [#/Area] 0-2 [facility] Vital signsOrdered By: Cullen Malin on 08-13-2022 Heart rate 72 /min bpm [facility] Work Phone: XR Chest Single viewon 08-13 No confluent consolidation, as above. Exclusion of left costophrenic angle. Report Dictated on Electronically Signed By: Hortensia Jacobs Electronically Signed Date/Time: 08/13/2022 1:28 AM [facility] [employer] Patient Name: SYMONE MCDONALD Exam Date/Time: 08/13/2022 01:28 Procedure: XR CHEST 1 VIEW Ordering Provider: BIANCHI MARY Reason For Exam: INDICATION: 82-year-old. Shortness of breath. VIEWS: Chest portable COMPARISON: 05/03/2015 FINDINGS: The trachea is midline. The cardiac silhouette is within normal limits. The right hemidiaphragm is mildly elevated. Left costophrenic angle is excluded from [id number]. No confluent consolidation. No sizable pneumothorax. Atherosclerotic changes of the aorta. [facility] Hortensia Jacobs MD - 08/13/2022 Patient Name: SYMONE MCDONALD Exam Date/Time: 08/13/2022 01:28 Procedure: XR CHEST 1 VIEW Ordering Provider: BIANCHI MARY Reason For Exam: INDICATION: 82-year-old. Shortness of breath. VIEWS: Chest portable COMPARISON: 05/03/2015 FINDINGS: The trachea is midline. The cardiac silhouette is within normal limits. The right hemidiaphragm is mildly elevated. Left costophrenic angle is excluded from [id number]. No confluent consolidation. No sizable pneumothorax. Atherosclerotic changes of the aorta. IMPRESSION: No confluent consolidation, as above. Exclusion of left costophrenic angle. Report Dictated on Electronically Signed By: Hortensia Jacobs Electronically Signed Date/Time: 08/13/2022 1:28 AM EST [facility] [employer] [place] Radiology Study observation (narrative) [facility] XR Chest Single viewOrdered By: Hortensia Jacobs on 08-13-2022 [facility] Work Phone: No Panel Informationon 07-27 Ossification projecting inferiorly from the glenoid or possibly bony spurring or vascular calcification. Minor arthritic change about the acromioclavicular joint. Report Dictated on Electronically Signed By: Lui Yun Electronically Signed Date/Time: 07/27/2022 2:12 PM EST [facility] Rad[facility] Study observation (narrative) [facility] No Panel InformationOrdered By: Lui Yun on 07-27-2022 [facility] Work Phone: Office Visiton 07-27-2022 Follow-up visit [id number] Symone Mcdonald 1940 F Date Provider Department Center 07/27/2022 [id number] JOHNSON MG SM WAD None Family History Family Status - Relation Status Age at Father Mother Level of Service:36375 [place] OFFICE/OUTPATIENT NEW LOW [facility] 30-44 MINUTES Reason for Visit and Comments: Shoulder Pain [397002] - Right shoulder and arm pain [facility] Note[facility] 07-27-2022 Progress Note [facility] [place] [facility] [place] [address] [place] [address] Dept: [phone] Dept Chief Complaint Patient presents with Shoulder Pain Right shoulder and arm pain Subjective History of Present Illness: Symone Mcdonald is a 82 y.o. right hand dominant female who presents today for evaluation of right shoulder pain. Jun 28 fell, no known mechanism of injury Location: anterior, superior Onset: 06/28/2022 Injury: yes - fell in detention. Work related? no Quality: aching, throbbing, and sharp Mechanical symptoms: no Radiation of symptoms: no Exacerbating factor(s): abduction and flexion, ADLs- requires assistance Relieving factor(s): rest and activity modification Timing: intermittently Imaging to date: X-ray July 2022 New shoulder and humerus x-rays were obtained today. There appears to be a bony fragment just inferior to a minimally displaced scapular neck fracture. Due to pain her axillary view was unable to included scapular neck Treatment to date: PT/OT/HEP: no Ice: yes, helpful Heat: no Medications: Tylenol: yes, helpful NSAIDs: no Oral steroids: no Muscle relaxants: no Nerve medications: no Targeted injections: none Assistive devices: walker Prior surgery: no Objective Visit Vitals Temp 35.8 ?C (96.4 ?F) Ht 5' 4" (1.626 m) Wt 218 lb (98.9 kg) BMI 37.42 kg/m? Smoking Status Former BSA 2.11 m? Physical Exam: General: Alert, well appearing, no acute distress. Respiratory: Breathing comfortably on room air. No respiratory distress. Skin: Warm, dry, intact. No visible rashes or erythema overlying area of focused exam. Physical Exam Musculoskeletal: Right shoulder: Tenderness and bony tenderness present. No swelling or deformity. Decreased range of motion. Decreased strength. Arms: Comments: Decreased weakness right arm secondary to discomfort. Limited abduction to 40. Pain to palpation anterior posterior glenohumeral joint External Notes I personally reviewed external notes from: detention Labs No results found for: HGBA1C Lab Results Component Value Date CREATININE 1.2 (H) 01/25/2022 Imaging Images reviewed with patient today I have personally reviewed the images pertinent to the appointment today See above suspected scapular neck fracture EMG/NCT No interval studies Procedure No procedures completed today Assessment Diagnosis Plan 1. Closed nondisplaced fracture of neck of right scapula, initial encounter 2. Acute shoulder pain due to trauma, right XR shoulder 2+ views right XR humerus right Plan High degree suspicion scapular neck fracture. She continues to be immobile and self splinting of her scapular fracture. There is no secondary neurovascular compromise. Continue to conservatively treat. She is already approximately 4 weeks into her injury process. Recheck in 4 weeks. No follow-ups on file. Criselda Johnson MD 07/30/2022 11:00 AM Please note that portions of this note may have been completed with voice recognition software. Documentation reviewed prior to signing but minor errors in retail center receptionist may have occurred. Normal [facility] XR Humerus - right Viewson 0 07-27-2022 Patient Name: SYMONE MCDONALD Exam Date/Time: 07/27/2022 11:00 Procedure: XR HUMERUS RIGHT Ordering Provider: JOHNSON ROBERT Reason For Exam: RIGHT SHOULDER AND RIGHT HUMERUS: CLINICAL INDICATION: Pain. TECHNIQUE: AP, Grashey and axillary plus AP and lateral humerus COMPARISON: None. FINDINGS: A calcific density projects from the inferior aspect the glenoid measuring up to 1 cm. There is otherwise no identifiable fracture from the glenoid and normal distance of the glenohumeral joint is noted. Acromioclavicular joint demonstrates some spurring and narrowing. No bone lesion is identified. There is no other soft tissue abnormality. [facility] Lui Yun MD - 07/27/2022 Patient Name: SYMONE MCDONALD Exam Date/Time: 07/27/2022 11:00 Procedure: XR HUMERUS RIGHT Ordering Provider: JOHNSON ROBERT Reason For Exam: RIGHT SHOULDER AND RIGHT HUMERUS: CLINICAL INDICATION: Pain. TECHNIQUE: AP, Grashey and axillary plus AP and lateral humerus COMPARISON: None. FINDINGS: A calcific density projects from the inferior aspect the glenoid measuring up to 1 cm. There is otherwise no identifiable fracture from the glenoid and normal distance of the glenohumeral joint is noted. Acromioclavicular joint demonstrates some spurring and narrowing. No bone lesion is identified. There is no other soft tissue abnormality. IMPRESSION: Ossification projecting inferiorly from the glenoid or possibly bony spurring or vascular calcification. Minor arthritic change about the acromioclavicular joint. Report Dictated on Electronically Signed By: Lui Yun Electronically Signed Date/Time: 07/27/2022 2:12 PM EST [facility] XR Shoulder - right 2 Viewso n 07-27-2022 Patient Name: SYMONE MCDONALD Exam Date/Time: 07/27/2022 11:00 Procedure: XR SHOULDER 2+ VIEWS RIGHT Ordering Provider: JOHNSON ROBERT Reason For Exam: RIGHT SHOULDER AND RIGHT HUMERUS: CLINICAL INDICATION: Pain. TECHNIQUE: AP, Grashey and axillary plus AP and lateral humerus COMPARISON: None. FINDINGS: A calcific density projects from the inferior aspect the glenoid measuring up to 1 cm. There is otherwise no identifiable fracture from the glenoid and normal distance of the glenohumeral joint is noted. Acromioclavicular joint demonstrates some spurring and narrowing. No bone lesion is identified. There is no other soft tissue abnormality. [facility] Lui Yun MD - 07/27/2022 [id number] Exam Date/Time: 07/27/2022 11:00 Procedure: XR SHOULDER 2+ VIEWS RIGHT Ordering Provider: JOHNSON ROBERT Reason For Exam: RIGHT SHOULDER AND RIGHT HUMERUS: CLINICAL INDICATION: Pain. TECHNIQUE: AP, Grashey and axillary plus AP and lateral humerus COMPARISON: None. FINDINGS: A calcific density projects from the inferior aspect the glenoid measuring up to 1 cm. There is otherwise no identifiable fracture from the glenoid and normal distance of the glenohumeral joint is noted. Acromioclavicular joint demonstrates some spurring and narrowing. No bone lesion is identified. There is no other soft tissue abnormality. IMPRESSION: Ossification projecting inferiorly from the glenoid or possibly bony spurring or vascular calcification. Minor arthritic change about the acromioclavicular joint. Report Dictated on Electronically Signed By: Lui Yun Electronically Signed Date/Time: 07/27/2022 2:12 PM [facility] Basophil percentageon 2021 Chloride [Moles/Vol] 109 mmol/L 98-107 [facility] Work Phone: Glucose [Mass/Vol] 95 mg/dL 74-106 [facility] Work Phone: Potassium [Moles/Vol] 3.7 mmol/L 3.5-5.1 [facility] Work Phone: Sodium [Moles/Vol] 142 mmol/L 136-145 [facility] Work Phone: WBC (Bld) [#/Vol] 8.9 10*3/uL 4.4-11.0 [facility] Work Phone: Blood erythrocytes count (nu mber/volume)on 06-15-2022 RBC (Bld) [#/Vol] 4.40 10*6/uL 4.2-5.4 [facility] Work Phone: Blood hemoglobin measurement (mass/volume)on 06-15-2022 Hemoglobin (Bld) [Mass/Vol] 13.3 g/dL 12.0-15.0 [facility] Work Phone: Blood platelet mean volumeon 06-15-2022 Platelet mean volume (Bld) [Entitic vol] 11.2 fL 6.2-12.0 [facility] Work Phone: Determination of erythrocyte mean corpuscular volume (MCV)on 06-15-2022 MCV (RBC) [Entitic vol] 95.0 fL 81-99 [facility] Work Phone: Hematocrit Auto (Bld) [Volum e fraction]on 06-15-2022 Hematocrit (Bld) [Volume fraction] 41.8 % 37-47 [facility] Work Phone: Laboratory - Chemistry and C hemistry - challengeon 06-15-2022 CO2 [Moles/Vol] 32.0 mmol/L 21.0-32.0 [facility] Work Phone: Urea nitrogen/Creatinine [Mass ratio] 15.8 mg/mg 10-20 [facility] Work Phone: Laboratory - Hematology and Cell countson 06-15-2022 Erythrocyte distribution width (RBC) [Entitic vol] 45.3 fL 35.1-43.9 [facility] Work Phone: Erythrocyte distribution width (RBC) [Ratio] 13.0 % 11.6-14.6 [facility] Work Phone: MCH (RBC) [Entitic mass] 30.2 pg 27.0-32.0 [facility] Work Phone: MCHC Auto (RBC) [Mass/Vol]on 06-15-2022 MCHC (RBC) [Mass/Vol] 31.8 g/dL 32-36 [facility] Work Phone: No Panel Informationon 06-15 Estimated GFR (MDRD) Amer 67 mL/min >60 [facility] Work Phone: Comment on above: GFR Calc Estimated GFR (MDRD) Non-Af Amer 56 mL/min >60 [facility] Work Phone: Comment on above: Non- GFR Calc Platelets bldon 06-15-2022 Platelets (Bld) [#/Vol] 213 10*3/uL 150-450 [facility] Work Phone: Serum or plasma calcium mk urement (mass/volume)on 06-15-2022 Calcium [Mass/Vol] 8.9 mg/dL 8.5-10.1 [facility] Work Phone: Serum or plasma creatinine m easurement (mass/volume)on 06-15-2022 Creatinine [Mass/Vol] 1.01 mg/dL 0.55-1.02 [facility] Work Phone: Comment on above: The validity of the calculated GFR & GFRAA in patients over 70 years has not been determined. Clinical correlation is essential. Serum or plasma urea nitroge n measurement (mass/volume)on 06-15-2022 Urea nitrogen [Mass/Vol] 16 mg/dL 7-18 [facility] Work Phone: Thin prep Papanicolaou smear with manual screeningon 06-15-2022 Thin prep Papanicolaou smear with manual screening 1 5-15 [facility] Work Phone: Basophil percentageon 2021 Chloride [Moles/Vol] 107 mmol/L 98-107 [facility] Work Phone: Glucose [Mass/Vol] 97 mg/dL 74-106 [facility] Work Phone: Potassium [Moles/Vol] 3.8 mmol/L 3.5-5.1 [facility] Work Phone: Sodium [Moles/Vol] 141 mmol/L 136-145 [facility] Work Phone: WBC (Bld) [#/Vol] 8.8 10*3/uL 4.4-11.0 [facility] Work Phone: Blood erythrocytes count (nu mber/volume)on 05-04-2022 RBC (Bld) [#/Vol] 4.54 10*6/uL 4.2-5.4 [facility] Work Phone: Blood hemoglobin measurement (mass/volume)on 05-04-2022 Hemoglobin (Bld) [Mass/Vol] 13.9 g/dL 12.0-15.0 [facility] Work Phone: Blood platelet mean volumeon 05-04-2022 Platelet mean volume (Bld) [Entitic vol] 11.4 fL 6.2-12.0 [facility] Work Phone: Determination of erythrocyte mean corpuscular volume (MCV)on 05-04-2022 MCV (RBC) [Entitic vol] 94.3 fL 81-99 [facility] Work Phone: Hematocrit Auto (Bld) [Volum e fraction]on 05-04-2022 Hematocrit (Bld) [Volume fraction] 42.8 % 37-47 [facility] Work Phone: Laboratory - Chemistry and C hemistry - challengeon 05-04-2022 CO2 [Moles/Vol] 30.0 mmol/L 21.0-32.0 [facility] Work Phone: Urea nitrogen/Creatinine [Mass ratio] 19.4 mg/mg - [facility] Work Phone: Laboratory - Hematology and Cell countson 05-04-2022 Erythrocyte distribution width (RBC) [Entitic vol] 45.1 fL 35.1-43.9 [facility] Work Phone: Erythrocyte distribution width (RBC) [Ratio] 13.0 % 11.6-14.6 [facility] Work Phone: MCH (RBC) [Entitic mass] 30.6 pg 27.0-32.0 [facility] Work Phone: MCHC Auto (RBC) [Mass/Vol]on 05-04-2022 MCHC (RBC) [Mass/Vol] 32.5 g/dL 32-36 [facility] Work Phone: No Panel Informationon 05-04 Estimated GFR (MDRD) Amer 70 mL/min >60 [facility] Work Phone: Comment on above: GFR Calc Estimated GFR (MDRD) Non-Af Amer 58 mL/min >60 [facility] Work Phone: Comment on above: Non- GFR Calc Platelets bldon 05-04-2022 Platelets (Bld) [#/Vol] 233 10*3/uL 150-450 [facility] Work Phone: Serum or plasma calcium mk urement (mass/volume)on 05-04-2022 Calcium [Mass/Vol] 8.8 mg/dL 8.5-10.1 [facility] Work Phone: Serum or plasma creatinine m easurement (mass/volume)on 05-04-2022 Creatinine [Mass/Vol] 0.98 mg/dL 0.55-1.02 [facility] Work Phone: Comment on above: The validity of the calculated GFR & GFRAA in patients over 70 years has not been determined. Clinical correlation is essential. Serum or plasma urea nitroge n measurement (mass/volume)on 05-04-2022 Urea nitrogen [Mass/Vol] 19 mg/dL 7-18 [facility] Work Phone: Thin prep Papanicolaou smear with manual screeningon 05-04-2022 Thin prep Papanicolaou smear with manual screening 4 5-15 [facility] Work Phone: Basophil percentageon 2021 Bilirubin [Mass/Vol] 1.00 mg/dL 0.20-1.00 [facility] Work Phone: Comment on above: For patients on eltr ombopag therapy, use of Dimension [place] TBIL is not recommended. Chloride [Moles/Vol] 109 mmol/L 98-107 [facility] Work Phone: Glucose [Mass/Vol] 101 mg/dL 74-106 [facility] Work Phone: Comment on above: Fasting Glucose resu lt from 100 to 125 mg/dL suggests IMPAIRED HOMEOSTASIS per A.D.A. criteria. Potassium [Moles/Vol] 3.5 mmol/L 3.5-5.1 [facility] Work Phone: Protein [Mass/Vol] 6.6 g/dL 6.4-8.2 [facility] Work Phone: Sodium [Moles/Vol] 144 mmol/L 136-145 [facility] Work Phone: WBC (Bld) [#/Vol] 8.9 10*3/uL 4.4-11.0 [facility] Work Phone: Blood erythrocytes count (nu mber/volume)on 04-27-2022 RBC (Bld) [#/Vol] 4.49 10*6/uL 4.2-5.4 [facility] Work Phone: Blood hemoglobin measurement (mass/volume)on 04-27-2022 Hemoglobin (Bld) [Mass/Vol] 14.3 g/dL 12.0-15.0 [facility] Work Phone: Blood platelet mean volumeon 04-27-2022 Platelet mean volume (Bld) [Entitic vol] 11.2 fL 6.2-12.0 [facility] Work Phone: Determination of erythrocyte mean corpuscular volume (MCV)on 04-27-2022 MCV (RBC) [Entitic vol] 95.1 fL 81-99 [facility] Work Phone: Hematocrit Auto (Bld) [Volum e fraction]on 04-27-2022 Hematocrit (Bld) [Volume fraction] 42.7 % 37-47 [facility] Work Phone: Laboratory - Chemistry and C hemistry - challengeon 04-27-2022 ALP [Catalytic activity/Vol] 46 U/L 45-117 [facility] Work Phone: ALT [Catalytic activity/Vol] 15 U/L 13-56 [facility] Work Phone: CO2 [Moles/Vol] 31.0 mmol/L 21.0-32.0 [facility] Work Phone: Globulin (S) [Mass/Vol] 3.9 g/dL 2.2-4.2 [facility] Work Phone: Urea nitrogen/Creatinine [Mass ratio] 17.2 mg/mg 10-20 [facility] Work Phone: Laboratory - Hematology and Cell countson 04-27-2022 Erythrocyte distribution width (RBC) [Entitic vol] 45.4 fL 35.1-43.9 [facility] Work Phone: Erythrocyte distribution width (RBC) [Ratio] 13.2 % 11.6-14.6 [facility] Work Phone: MCH (RBC) [Entitic mass] 31.8 pg 27.0-32.0 [facility] Work Phone: MCHC Auto (RBC) [Mass/Vol]on 04-27-2022 MCHC (RBC) [Mass/Vol] 33.5 g/dL 32-36 [facility] Work Phone: No Panel Informationon 04-27 Estimated GFR (MDRD) Amer 74 mL/min >60 [facility] Work Phone: Comment on above: GFR Calc Estimated GFR (MDRD) Non-Af Amer 61 mL/min >60 [facility] Work Phone: Comment on above: Non- GFR Calc Thyroid Stimulating Hormone (TSH) 2.22 uIU/mL 0.358-3.74 [facility] Work Phone: Vitamin D 25-Hydroxy 56.2 ng/mL [facility] Work Phone: Comment on above: Vitamin D 25(OH) Sta tus Range Deficiency <20 ng/mL (50nmol/L) Insufficiency 20 - 30 ng/mL (50 - 75 nmol/L) Sufficiency 30 - 100 ng/mL (75 - 250 nmol/L) Toxicity >100 ng/mL (>250 nmol/L) Platelets bldon 04-27-2022 Platelets (Bld) [#/Vol] 214 10*3/uL 150-450 [facility] Work Phone: Serum or plasma albumin mk urement (mass/volume)on 04-27-2022 Albumin [Mass/Vol] 2.7 g/dL 3.2-5.0 [facility] Work Phone: Serum or plasma albumin/glob ulin mass ratioon 04-27-2022 Albumin/Globulin [Mass ratio] 0.7 {ratio} 0.9-2.4 [facility] Work Phone: Serum or plasma calcium mk urement (mass/volume)on 04-27-2022 Calcium [Mass/Vol] 8.7 mg/dL 8.5-10.1 [facility] Work Phone: Serum or plasma creatinine m easurement (mass/volume)on 04-27-2022 Creatinine [Mass/Vol] 0.93 mg/dL 0.55-1.02 [facility] Work Phone: Comment on above: The validity of the calculated GFR & GFRAA in patients over 70 years has not been determined. Clinical correlation is essential. Serum or plasma urea nitroge n measurement (mass/volume)on 04-27-2022 Urea nitrogen [Mass/Vol] 16 mg/dL 7-18 [facility] Work Phone: Thin prep Papanicolaou smear with manual screeningon 04-27-2022 Thin prep Papanicolaou smear with manual screening 5 U/L 15-37 [facility] Work Phone: Thin prep Papanicolaou smear with manual screening 4 5-15 [facility] Work Phone: Whole blood hemoglobin A1c/t otal hemoglobin ratio (mass fraction)on 04-27-2022 HbA1c (Bld) [Mass fraction] 5.7 % 3.8-5.6 [facility] Work Phone: Comment on above: Normal < 5.7 % Predi abetic 5.7 - 6.4 % Diabetic >or= 6.5 % Please note range changes. Absolute lymphocyte counton 01-31-2022 Lymphocytes Auto (Unsp spec) [#/Vol] 2.13 10*3/uL 0.83-4.51 [facility] Work Phone: Basophil percentageon 2021 Basophils/100 WBC (Bld) 0.4 % 0-1 [facility] Work Phone: Bilirubin [Mass/Vol] 1.50 mg/dL 0.20-1.00 [facility] Work Phone: Comment on above: For patients on eltr ombopag therapy, use of Dimension [place] TBIL is not recommended. Chloride [Moles/Vol] 105 mmol/L 98-107 [facility] Work Phone: Eosinophils/100 WBC (Bld) 3.5 % 0-5 [facility] Work Phone: Glucose [Mass/Vol] 98 mg/dL 74-106 [facility] Work Phone: Neutrophils (Bld) [#/Vol] 4.9 10*3/uL 2.0-7.7 [facility] Work Phone: Neutrophils/100 WBC (Bld) 60.1 % 47-70 [facility] Work Phone: Potassium [Moles/Vol] 3.6 mmol/L 3.5-5.1 [facility] Work Phone: Protein [Mass/Vol] 6.7 g/dL 6.4-8.2 [facility] Work Phone: Sodium [Moles/Vol] 141 mmol/L 136-145 [facility] Work Phone: WBC (Bld) [#/Vol] 8.1 10*3/uL 4.4-11.0 [facility] Work Phone: Blood erythrocytes count (nu mber/volume)on 01-31-2022 RBC (Bld) [#/Vol] 4.69 10*6/uL 4.2-5.4 [facility] Work Phone: Blood hemoglobin measurement (mass/volume)on 01-31-2022 Hemoglobin (Bld) [Mass/Vol] 14.0 g/dL 12.0-15.0 [facility] Work Phone: Blood lymphocytes/100 leukoc yteson 01-31-2022 Lymphocytes/100 WBC (Bld) 26.4 % 19-41 [facility] Work Phone: Blood monocytes/100 leukocyt eson 01-31-2022 Monocytes/100 WBC (Bld) 9.4 % 0-10 [facility] Work Phone: Blood platelet mean volumeon 01-31-2022 Platelet mean volume (Bld) [Entitic vol] 11.7 fL 6.2-12.0 [facility] Work Phone: Determination of erythrocyte mean corpuscular volume (MCV)on 01-31-2022 MCV (RBC) [Entitic vol] 94.9 fL 81-99 [facility] Work Phone: Hematocrit Auto (Bld) [Volum e fraction]on 01-31-2022 Hematocrit (Bld) [Volume fraction] 44.5 % 37-47 [facility] Work Phone: Laboratory - Chemistry and C hemistry - challengeon 01-31-2022 ALP [Catalytic activity/Vol] 41 U/L 45-117 [facility] Work Phone: ALT [Catalytic activity/Vol] 19 U/L 13-56 [facility] Work Phone: CO2 [Moles/Vol] 30.0 mmol/L 21.0-32.0 [facility] Work Phone: Globulin (S) [Mass/Vol] 3.7 g/dL 2.2-4.2 [facility] Work Phone: Urea nitrogen/Creatinine [Mass ratio] 21.6 mg/mg 10-20 [facility] Work Phone: Laboratory - Hematology and Cell countson 01-31-2022 Erythrocyte distribution width (RBC) [Entitic vol] 45.9 fL 35.1-43.9 [facility] Work Phone: Erythrocyte distribution width (RBC) [Ratio] 13.2 % 11.6-14.6 [facility] Work Phone: Immature granulocytes/100 WBC (Bld) 0.200 % 0.0-0.9 [facility] Work Phone: Comment on above: IG% - Immature Granu locytes (promyelocytes, myelocytes and metamyelocytes) > 1% indicates that a LEFT SHIFT is Present. MCH (RBC) [Entitic mass] 29.9 pg 27.0-32.0 [facility] Work Phone: Nucleated RBC/100 WBC (Bld) [Ratio] 0 % 0-5 [facility] Work Phone: MCHC Auto (RBC) [Mass/Vol]on 01-31-2022 MCHC (RBC) [Mass/Vol] 31.5 g/dL 32-36 [facility] Work Phone: No Panel Informationon 01-31 Estimated GFR (MDRD) Amer 67 mL/min >60 [facility] Work Phone: Comment on above: GFR Calc Estimated GFR (MDRD) Non-Af Amer 55 mL/min >60 [facility] Work Phone: Comment on above: Non- GFR Calc Platelets bldon 01-31-2022 Platelets (Bld) [#/Vol] 214 10*3/uL 150-450 [facility] Work Phone: Serum or plasma albumin mk urement (mass/volume)on 01-31-2022 Albumin [Mass/Vol] 3.0 g/dL 3.2-5.0 [facility] Work Phone: Serum or plasma albumin/glob ulin mass ratioon 01-31-2022 Albumin/Globulin [Mass ratio] 0.8 {ratio} 0.9-2.4 [facility] Work Phone: Serum or plasma calcium mk urement (mass/volume)on 01-31-2022 Calcium [Mass/Vol] 8.9 mg/dL 8.5-10.1 [facility] Work Phone: Serum or plasma creatinine m easurement (mass/volume)on 01-31-2022 Creatinine [Mass/Vol] 1.02 mg/dL 0.55-1.02 [facility] Work Phone: Comment on above: The validity of the calculated GFR & GFRAA in patients over 70 years has not been determined. Clinical correlation is essential. Serum or plasma urea nitroge n measurement (mass/volume)on 01-31-2022 Urea nitrogen [Mass/Vol] 22 mg/dL 7-18 [facility] Work Phone: Thin prep Papanicolaou smear with manual screeningon 01-31-2022 Thin prep Papanicolaou smear with manual screening 9 U/L 15-37 [facility] Work Phone: Thin prep Papanicolaou smear with manual screening 6 5-15 [facility] Work Phone: COVID-19on 01-26-2022 SARS-CoV-2 (COVID-19) RNA MARIO+probe Ql (Unsp spec) Not detected Normal Not Detected [facility] Comment on above: Result Comment: Narendra rios NAAT: Negative results should be treated as presumptive and, if inconsistent with clinical signs and symptoms or necessary for patient management, should be tested with an alternative molecular assay. Negative results do not preclude SARS-CoV-2 infection and should not be used as the sole basis for patient management decisions. This test has been authorized by the FDA under an Emergency Use Authorization (EUA) for use by authorized laboratories. Fact sheet for Healthcare Providers: https://www.fda.gov/media/741995/download Fact sheet for Patients: https://www.fda.gov/media/000981/download METHODOLOGY: Isothermal Nucleic Acid Amplification Basic Metabolic Panelon 01-12 Anion gap [Moles/Vol] 9 mmol/L Normal 7-16 [facility] Calcium [Mass/Vol] 9.2 mg/dL Normal 8.6-10.2 [facility] Chloride [Moles/Vol] 101 mmol/L Normal 98-107 [facility] CO2 [Moles/Vol] 30 mmol/L High 22-29 [facility] Creatinine [Mass/Vol] 1.2 mg/dL High 0.5-1.0 [facility] GFR/1.73 sq M.predicted among blacks MDRD (S/P/Bld) [Vol rate/Area] 52 mL/min/{1.73_m2} Normal [facility] GFR/1.73 sq M.predicted among non-blacks MDRD (S/P/Bld) [Vol rate/Area] 43 mL/min/{1.73_m2} Normal >=60 [facility] Comment on above: Result Comment: Clinical Psychology Teacher bc Kidney Disease: less than 60 ml/min/1.73 sq.m. Kidney Failure: less than 15 ml/min/1.73 sq.m. Results valid for patients 18 years and older. Glucose [Mass/Vol] 101 mg/dL High 74-99 [facility] Potassium [Moles/Vol] 3.8 mmol/L Normal 3.5-5.0 [facility] Sodium [Moles/Vol] 140 mmol/L Normal 132-146 [facility] Urea nitrogen [Mass/Vol] 24 mg/dL High 6-23 [facility] CBC With Platelet and Differ entialon 01-25-2022 Abs Imm Granulocytes 0.03 E9/L Normal [facility] Absolute Basophils 0.03 E9/L Normal 0.00-0.20 [facility] Absolute Eosinophils 0.42 E9/L Normal 0.05-0.50 [facility] Absolute Lymphocytes 2.14 E9/L Normal 1.50-4.00 [facility] Absolute Monocytes 0.68 E9/L Normal 0.10-0.95 [facility] Absolute Neutrophils 4.52 E9/L Normal 1.80-7.30 [facility] Basophils/100 WBC (Bld) 0.4 % Normal 0.0-2.0 [facility] Eosinophils/100 WBC (Bld) 5.4 % Normal 0.0-6.0 [facility] Hematocrit (Bld) [Volume fraction] 44.4 % Normal 34.0-48.0 [facility] Hemoglobin (Bld) [Mass/Vol] 13.9 g/dL Normal 11.5-15.5 [facility] Imm Granulocytes 0.4 % Normal 0.0-5.0 [facility] Lymphocytes/100 WBC (Bld) 27.4 % Normal 20.0-42.0 [facility] MCH (RBC) [Entitic mass] 30.2 pg Normal 26.0-35.0 [facility] MCHC 31.3 % Low 32.0-34.5 [facility] MCV (RBC) [Entitic vol] 96.5 fL Normal 80.0-99.9 [facility] Monocytes/100 WBC (Bld) 8.7 % Normal 2.0-12.0 [facility] Neutrophils/100 WBC (Bld) 57.7 % Normal 43.0-80.0 [facility] Platelet Count 228 E9/L Normal 130-450 [facility] Platelet mean volume (Bld) [Entitic vol] 11.3 fL Normal 7.0-12.0 [facility] RBC 4.60 E12/L Normal 3.50-5.50 [facility] RDW 13.4 fL Normal 11.5-15.0 [facility] WBC 7.8 E9/L Normal 4.5-11.5 [facility] Basic Metabolic Panelon - Anion gap [Moles/Vol] 7 mmol/L Normal 7-16 [facility] Calcium [Mass/Vol] 9.0 mg/dL Normal 8.6-10.2 [facility] Chloride [Moles/Vol] 103 mmol/L Normal 98-107 [facility] CO2 [Moles/Vol] 32 mmol/L High 22-29 [facility] Creatinine [Mass/Vol] 1.2 mg/dL High 0.5-1.0 [facility] GFR/1.73 sq M.predicted among blacks MDRD (S/P/Bld) [Vol rate/Area] 52 mL/min/{1.73_m2} Normal [facility] GFR/1.73 sq M.predicted among non-blacks MDRD (S/P/Bld) [Vol rate/Area] 43 mL/min/{1.73_m2} Normal >=60 [facility] Comment on above: Result Comment: Clinical Psychology Teacher bc Kidney Disease: less than 60 ml/min/1.73 sq.m. Kidney Failure: less than 15 ml/min/1.73 sq.m. Results valid for patients 18 years and older. Glucose [Mass/Vol] 102 mg/dL High 74-99 [facility] Potassium [Moles/Vol] 3.8 mmol/L Normal 3.5-5.0 [facility] Sodium [Moles/Vol] 142 mmol/L Normal 132-146 [facility] Urea nitrogen [Mass/Vol] 22 mg/dL Normal 6-23 [facility] CBC With Platelet No Differe ntialon 01-24-2022 Hematocrit (Bld) [Volume fraction] 44.3 % Normal 34.0-48.0 [facility] Hemoglobin (Bld) [Mass/Vol] 14.1 g/dL Normal 11.5-15.5 [facility] MCH (RBC) [Entitic mass] 30.3 pg Normal 26.0-35.0 [facility] MCHC 31.8 % Low 32.0-34.5 [facility] MCV (RBC) [Entitic vol] 95.1 fL Normal 80.0-99.9 [facility] Platelet Count 224 E9/L Normal 130-450 [facility] Platelet mean volume (Bld) [Entitic vol] 11.1 fL Normal 7.0-12.0 [facility] RBC 4.66 E12/L Normal 3.50-5.50 [facility] RDW 13.3 fL Normal 11.5-15.0 [facility] WBC 8.5 E9/L Normal 4.5-11.5 [facility] Urinalysis, reflex to micros copicon 01-23-2022 Bilirubin Ql (U) SMALL Abnormal Negative [facility] Clarity (U) Clear Normal Clear [facility] Color (U) Yellow Normal Straw/Yellow [facility] Glucose Ql (U) Negative Normal Negative [facility] Hemoglobin Ql (U) Negative Normal Negative [facility] Ketones Ql (U) Negative Normal Negative [facility] Leukocyte esterase Test strip Ql (U) Negative Normal Negative [facility] Nitrite Ql (U) Negative Normal Negative [facility] pH (U) 6.0 [pH] Normal 5.0-9.0 [facility] Protein Ql (U) Negative Normal Negative [facility] Specific gravity (U) [Rel density] >=1.030 Normal 1.005-1.030 [facility] Urobilinogen Qn (U) 0.2 {Daria'U}/dL Normal < 2.0 [facility] Basic Metabolic Panelon 01-12 Anion gap [Moles/Vol] 8 mmol/L Normal 7-16 [facility] Calcium [Mass/Vol] 9.0 mg/dL Normal 8.6-10.2 [facility] Chloride [Moles/Vol] 101 mmol/L Normal 98-107 [facility] CO2 [Moles/Vol] 31 mmol/L High 22-29 [facility] Creatinine [Mass/Vol] 0.9 mg/dL Normal 0.5-1.0 [facility] GFR/1.73 sq M.predicted among blacks MDRD (S/P/Bld) [Vol rate/Area] mL/min/{1.73_m2} Normal [facility] GFR/1.73 sq M.predicted among non-blacks MDRD (S/P/Bld) [Vol rate/Area] 60 mL/min/{1.73_m2} Normal >=60 [facility] Comment on above: Result Comment: Clinical Psychology Teacher bc Kidney Disease: less than 60 ml/min/1.73 sq.m. Kidney Failure: less than 15 ml/min/1.73 sq.m. Results valid for patients 18 years and older. Glucose [Mass/Vol] 93 mg/dL Normal 74-99 [facility] Potassium [Moles/Vol] 3.5 mmol/L Normal 3.5-5.0 [facility] Sodium [Moles/Vol] 140 mmol/L Normal 132-146 [facility] Urea nitrogen [Mass/Vol] 13 mg/dL Normal 6-23 [facility] CBC With Platelet No Differe ntialon 01-22-2022 Hematocrit (Bld) [Volume fraction] 43.5 % Normal 34.0-48.0 [facility] Hemoglobin (Bld) [Mass/Vol] 14.0 g/dL Normal 11.5-15.5 [facility] MCH (RBC) [Entitic mass] 30.4 pg Normal 26.0-35.0 [facility] MCHC 32.2 % Normal 32.0-34.5 [facility] MCV (RBC) [Entitic vol] 94.6 fL Normal 80.0-99.9 [facility] Platelet Count 216 E9/L Normal 130-450 [facility] Platelet mean volume (Bld) [Entitic vol] 11.1 fL Normal 7.0-12.0 [facility] RBC 4.60 E12/L Normal 3.50-5.50 [facility] RDW 13.2 fL Normal 11.5-15.0 [facility] WBC 7.6 E9/L Normal 4.5-11.5 [facility] Basic Metabolic Panelon 01-12 Anion gap [Moles/Vol] 8 mmol/L Normal 7-16 [facility] Calcium [Mass/Vol] 8.7 mg/dL Normal 8.6-10.2 [facility] Chloride [Moles/Vol] 102 mmol/L Normal 98-107 [facility] CO2 [Moles/Vol] 31 mmol/L High 22-29 [facility] Creatinine [Mass/Vol] 0.9 mg/dL Normal 0.5-1.0 [facility] GFR/1.73 sq M.predicted among blacks MDRD (S/P/Bld) [Vol rate/Area] mL/min/{1.73_m2} Normal [facility] GFR/1.73 sq M.predicted among non-blacks MDRD (S/P/Bld) [Vol rate/Area] 60 mL/min/{1.73_m2} Normal >=60 [facility] Comment on above: Result Comment: Clinical Psychology Teacher bc Kidney Disease: less than 60 ml/min/1.73 sq.m. Kidney Failure: less than 15 ml/min/1.73 sq.m. Results valid for patients 18 years and older. Glucose [Mass/Vol] 96 mg/dL Normal 74-99 [facility] Potassium [Moles/Vol] 3.7 mmol/L Normal 3.5-5.0 [facility] Sodium [Moles/Vol] 141 mmol/L Normal 132-146 [facility] Urea nitrogen [Mass/Vol] 13 mg/dL Normal 6-23 [facility] CBC With Platelet No Differe ntialon 01-21-2022 Hematocrit (Bld) [Volume fraction] 42.1 % Normal 34.0-48.0 [facility] Hemoglobin (Bld) [Mass/Vol] 13.4 g/dL Normal 11.5-15.5 [facility] MCH (RBC) [Entitic mass] 29.9 pg Normal 26.0-35.0 [facility] MCHC 31.8 % Low 32.0-34.5 [facility] MCV (RBC) [Entitic vol] 94.0 fL Normal 80.0-99.9 [facility] Platelet Count 216 E9/L Normal 130-450 [facility] Platelet mean volume (Bld) [Entitic vol] 11.0 fL Normal 7.0-12.0 [facility] RBC 4.48 E12/L Normal 3.50-5.50 [facility] RDW 13.2 fL Normal 11.5-15.0 [facility] WBC 7.5 E9/L Normal 4.5-11.5 [facility] Basic Metabolic Panelon Anion gap [Moles/Vol] 10 mmol/L Normal 7-16 [facility] Calcium [Mass/Vol] 8.9 mg/dL Normal 8.6-10.2 [facility] Chloride [Moles/Vol] 105 mmol/L Normal 98-107 [facility] CO2 [Moles/Vol] 28 mmol/L Normal 22-29 [facility] Creatinine [Mass/Vol] 1.0 mg/dL Normal 0.5-1.0 [facility] GFR/1.73 sq M.predicted among blacks MDRD (S/P/Bld) [Vol rate/Area] mL/min/{1.73_m2} Normal [facility] GFR/1.73 sq M.predicted among non-blacks MDRD (S/P/Bld) [Vol rate/Area] 53 mL/min/{1.73_m2} Normal >=60 [facility] Comment on above: Result Comment: Clinical Psychology Teacher bc Kidney Disease: less than 60 ml/min/1.73 sq.m. Kidney Failure: less than 15 ml/min/1.73 sq.m. Results valid for patients 18 years and older. Glucose [Mass/Vol] 100 mg/dL High 74-99 [facility] Potassium [Moles/Vol] 3.7 mmol/L Normal 3.5-5.0 [facility] Sodium [Moles/Vol] 143 mmol/L Normal 132-146 [facility] Urea nitrogen [Mass/Vol] 15 mg/dL Normal 6-23 [facility] CBC With Platelet No Differe ntialon 01-20-2022 Hematocrit (Bld) [Volume fraction] 42.5 % Normal 34.0-48.0 [facility] Hemoglobin (Bld) [Mass/Vol] 13.8 g/dL Normal 11.5-15.5 [facility] MCH (RBC) [Entitic mass] 30.9 pg Normal 26.0-35.0 [facility] MCHC 32.5 % Normal 32.0-34.5 [facility] MCV (RBC) [Entitic vol] 95.1 fL Normal 80.0-99.9 [facility] Platelet Count 201 E9/L Normal 130-450 [facility] Platelet mean volume (Bld) [Entitic vol] 11.0 fL Normal 7.0-12.0 [facility] RBC 4.47 E12/L Normal 3.50-5.50 [facility] RDW 13.4 fL Normal 11.5-15.0 [facility] WBC 7.9 E9/L Normal 4.5-11.5 [facility] Basic Metabolic Panelon Anion gap [Moles/Vol] 9 mmol/L Normal 7-16 [facility] Calcium [Mass/Vol] 8.5 mg/dL Low 8.6-10.2 [facility] Chloride [Moles/Vol] 105 mmol/L Normal 98-107 [facility] CO2 [Moles/Vol] 28 mmol/L Normal 22-29 [facility] Creatinine [Mass/Vol] 0.9 mg/dL Normal 0.5-1.0 [facility] GFR/1.73 sq M.predicted among blacks MDRD (S/P/Bld) [Vol rate/Area] mL/min/{1.73_m2} Normal [facility] GFR/1.73 sq M.predicted among non-blacks MDRD (S/P/Bld) [Vol rate/Area] 60 mL/min/{1.73_m2} Normal >=60 [facility] Comment on above: Result Comment: Clinical Psychology Teacher bc Kidney Disease: less than 60 ml/min/1.73 sq.m. Kidney Failure: less than 15 ml/min/1.73 sq.m. Results valid for patients 18 years and older. Glucose [Mass/Vol] 102 mg/dL High 74-99 [facility] Potassium [Moles/Vol] 3.2 mmol/L Low 3.5-5.0 [facility] Sodium [Moles/Vol] 142 mmol/L Normal 132-146 [facility] Urea nitrogen [Mass/Vol] 10 mg/dL Normal 6-23 [facility] CBC With Platelet No Differe francis 01-19-2022 Hematocrit (Bld) [Volume fraction] 41.2 % Normal 34.0-48.0 [facility] Hemoglobin (Bld) [Mass/Vol] 13.4 g/dL Normal 11.5-15.5 [facility] MCH (RBC) [Entitic mass] 30.2 pg Normal 26.0-35.0 [facility] MCHC 32.5 % Normal 32.0-34.5 [facility] MCV (RBC) [Entitic vol] 92.8 fL Normal 80.0-99.9 [facility] Platelet Count 206 E9/L Normal 130-450 [facility] Platelet mean volume (Bld) [Entitic vol] 10.8 fL Normal 7.0-12.0 [facility] RBC 4.44 E12/L Normal 3.50-5.50 [facility] RDW 13.0 fL Normal 11.5-15.0 [facility] WBC 8.9 E9/L Normal 4.5-11.5 [facility] MRI THORACIC SPINE W WO CONT Melinda 01-19-2022 MRI THORACIC SPINE W WO CONTRAST EXAMINATION: MRI OF THE THORACIC SPINE WITHOUT CONTRAST 01/18/2022 4:38 pm TECHNIQUE: Multiplanar multisequence MRI of the thoracic spine was performed without the administration of intravenous contrast. COMPARISON: CT AP 01/16/2022 HISTORY: ORDERING SYSTEM PROVIDED HISTORY: lytic lesions FINDINGS: BONES/ALIGNMENT: There is normal alignment of the spine. The vertebral body heights are maintained. There is a fairly well-circumscribed intrinsic T1 hyperintense lesion involving the T10 vertebral body with corresponding enhancement without pathologic fracture. There is increased trabecular markings noted on the recent abdominopelvic CT. Constellation of findings favor a large intraosseous hemangioma. Lack of extraosseous components argues against a more sinister process. The bone marrow signal otherwise appears unremarkable. SPINAL CORD: No abnormal cord signal is seen. SOFT TISSUES: No paraspinal mass identified. DEGENERATIVE CHANGES: No significant spinal canal stenosis or neural foraminal narrowing of the thoracic spine. 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 Interpreted by: Av Moncada DO Signed by: Av Mnocada DO 01/19/22 Final result Normal [facility] Comment on above: Order Comment: Reaso n for exam:->lytic lesions Basic Metabolic Panelon 07- Anion gap [Moles/Vol] 8 mmol/L Normal 7-16 [facility] Calcium [Mass/Vol] 8.3 mg/dL Low 8.6-10.2 [facility] Chloride [Moles/Vol] 108 mmol/L High 98-107 [facility] CO2 [Moles/Vol] 27 mmol/L Normal 22-29 [facility] Creatinine [Mass/Vol] 0.8 mg/dL Normal 0.5-1.0 [facility] GFR Calculated >60 Normal >=60 [facility] Comment on above: Result Comment: Clinical Psychology Teacher bc Kidney Disease: less than 60 ml/min/1.73 sq.m. Kidney Failure: less than 15 ml/min/1.73 sq.m. Results valid for patients 18 years and older. GFR/1.73 sq M.predicted among blacks MDRD (S/P/Bld) [Vol rate/Area] mL/min/{1.73_m2} Normal [facility] Glucose [Mass/Vol] 102 mg/dL High 74-99 [facility] Potassium [Moles/Vol] 3.5 mmol/L Normal 3.5-5.0 [facility] Sodium [Moles/Vol] 143 mmol/L Normal 132-146 [facility] Urea nitrogen [Mass/Vol] 11 mg/dL Normal 6-23 [facility] CBC With Platelet No Differe chuon 01-18-2022 Hematocrit (Bld) [Volume fraction] 41.0 % Normal 34.0-48.0 [facility] Hemoglobin (Bld) [Mass/Vol] 13.0 g/dL Normal 11.5-15.5 [facility] MCH (RBC) [Entitic mass] 30.1 pg Normal 26.0-35.0 [facility] MCHC 31.7 % Low 32.0-34.5 [facility] MCV (RBC) [Entitic vol] 94.9 fL Normal 80.0-99.9 [facility] Platelet Count 187 E9/L Normal 130-450 [facility] Platelet mean volume (Bld) [Entitic vol] 10.9 fL Normal 7.0-12.0 [facility] RBC 4.32 E12/L Normal 3.50-5.50 [facility] RDW 13.2 fL Normal 11.5-15.0 [facility] WBC 8.6 E9/L Normal 4.5-11.5 [facility] MRI LUMBAR SPINE WO CONTRAST on 01-18-2022 MRI LUMBAR SPINE WO CONTRAST EXAMINATION: MRI OF THE LUMBAR SPINE WITHOUT CONTRAST, 01/18/2022 4:38 pm TECHNIQUE: Multiplanar multisequence MRI of the lumbar spine was performed without the administration of intravenous contrast. COMPARISON: None. 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 The vertebral body heights are maintained. The bone marrow signal appears unremarkable. SPINAL CORD: The conus terminates normally. SOFT TISSUES: No paraspinal mass identified. L1-L2: Severe loss of disc height with a disc osteophyte complex. Mild facet and ligamentous hypertrophy. No central canal stenosis. Mild lateral recess stenoses. Moderate right and mild left neural foraminal stenoses. L2-3: Prominent loss of disc height with a disc osteophyte complex. Moderate facet hypertrophy. Moderate central canal stenosis, with narrowing of the AP diameter of the thecal sac in the midsagittal plane to 8 mm. Moderate lateral recess stenoses. Moderate right and mild left neural foraminal stenoses. L3-4: Disc desiccation with small disc bulge. Mild facet and ligamentous hypertrophy. No significant central canal, lateral recess or neural foraminal stenoses. L4-5: Disc desiccation with small disc bulge. Small right paracentral disc protrusion with annular tear. Mild central canal stenosis. Moderate stenosis of the right lateral recess. Mild stenosis of the left lateral recess. Mild left neural foraminal stenosis. L5-S1: Moderate loss of disc height with a left-sided disc bulge. Mild facet hypertrophic changes, greater on the left. No central canal stenosis. Mild stenosis of the left lateral recess. Mild right and moderate to severe left neural foraminal stenoses. IMPRESSION: 1. No fracture or bony destructive lesion. 2. Moderate central canal stenosis at L2-3. Mild stenosis at L4-5. 3. Multilevel neural foraminal stenoses, worst (moderate) at the right L1-2 and L2-3 levels. 4. Right paracentral disc protrusion at L4-5, associated with annular tear, resulting in moderate stenosis of the right lateral recess and probable impingement of the right L5 nerve. RECOMMENDATIONS: Unavailable Interpreted by: Cheyenne Mejia MD Signed by: Cheyenne Mejia MD 01/18/22 Final result Normal [facility] Comment on above: Order Comment: Reaso n for exam:->mri XR HIP LEFT (2-3 VIEWS)on XR HIP LEFT (2-3 VIEWS) EXAMINATION: TWO XRAY VIEWS OF THE LEFT HIP 01/18/2022 3:44 pm COMPARISON: 01/16/2022 abdomen/pelvis CT. HISTORY: ORDERING SYSTEM PROVIDED HISTORY: pain TECHNOLOGIST PROVIDED HISTORY: Reason for exam:->pain FINDINGS: No acute fracture and no dislocation. Osseous mineralization is decreased. Subtle sclerosis at the left superior femoral head suggested on recent CT is not as well visualized on this examination. There is joint space narrowing at the hips and marginal osteophyte formation at the acetabuli. There is smooth cortical thickening along the lateral margin of the left proximal femoral diaphysis, probably benign. The SI joints are normal. There is marked disc space narrowing at L5-S1 and moderate disc space narrowing at L4-5 with mild to moderate lower lumbar spondylosis. Linear density overlying the lower pelvis and symphysis pubis is consistent with a bladder catheter. IMPRESSION: No definite radiographic evidence of acute pelvic or left hip pathology. However, recent CT suggested subtle linear sclerosis at the left superior femoral head which could reflect early changes of avascular necrosis. Further evaluation of this patient with MRI is recommended. If the patient is unable to undergo MRI examination, whole-body bone scan may be useful in further evaluating the left hip. Mild arthritic changes involving the hips. Lower lumbar spondylosis and multilevel disc disease. Interpreted by: Sam Goetz Signed by: Sam Goetz 01/18/22 Final result Normal [facility] Comment on above: Order Comment: Reaso n for exam:->pain Basic Metabolic Panelon 07 Anion gap [Moles/Vol] 7 mmol/L Normal 7-16 [facility] Calcium [Mass/Vol] 8.2 mg/dL Low 8.6-10.2 [facility] Chloride [Moles/Vol] 108 mmol/L High 98-107 [facility] CO2 [Moles/Vol] 29 mmol/L Normal 22-29 [facility] Creatinine [Mass/Vol] 1.0 mg/dL Normal 0.5-1.0 [facility] GFR/1.73 sq M.predicted among blacks MDRD (S/P/Bld) [Vol rate/Area] mL/min/{1.73_m2} Normal [facility] GFR/1.73 sq M.predicted among non-blacks MDRD (S/P/Bld) [Vol rate/Area] 53 mL/min/{1.73_m2} Normal >=60 [facility] Comment on above: Result Comment: Clinical Psychology Teacher bc Kidney Disease: less than 60 ml/min/1.73 sq.m. Kidney Failure: less than 15 ml/min/1.73 sq.m. Results valid for patients 18 years and older. Glucose [Mass/Vol] 109 mg/dL High 74-99 [facility] Potassium [Moles/Vol] 3.5 mmol/L Normal 3.5-5.0 [facility] Sodium [Moles/Vol] 144 mmol/L Normal 132-146 [facility] Urea nitrogen [Mass/Vol] 15 mg/dL Normal 6-23 [facility] CBC With Platelet No Differe ntialon 01-17-2022 Hematocrit (Bld) [Volume fraction] 41.7 % Normal 34.0-48.0 [facility] Hemoglobin (Bld) [Mass/Vol] 13.3 g/dL Normal 11.5-15.5 [facility] MCH (RBC) [Entitic mass] 30.0 pg Normal 26.0-35.0 [facility] MCHC 31.9 % Low 32.0-34.5 [facility] MCV (RBC) [Entitic vol] 94.1 fL Normal 80.0-99.9 [facility] Platelet Count 199 E9/L Normal 130-450 [facility] Platelet mean volume (Bld) [Entitic vol] 10.9 fL Normal 7.0-12.0 [facility] RBC 4.43 E12/L Normal 3.50-5.50 [facility] RDW 13.3 fL Normal 11.5-15.0 [facility] WBC 8.6 E9/L Normal 4.5-11.5 [facility] CBC With Platelet and Differ entialon 01-16-2022 Abs Imm Granulocytes 0.04 E9/L Normal [facility] Absolute Basophils 0.02 E9/L Normal 0.00-0.20 [facility] Absolute Eosinophils 0.11 E9/L Normal 0.05-0.50 [facility] Absolute Lymphocytes 1.68 E9/L Normal 1.50-4.00 [facility] Absolute Monocytes 0.64 E9/L Normal 0.10-0.95 [facility] Absolute Neutrophils 7.79 E9/L High 1.80-7.30 [facility] Basophils/100 WBC (Bld) 0.2 % Normal 0.0-2.0 [facility] Eosinophils/100 WBC (Bld) 1.1 % Normal 0.0-6.0 [facility] Hematocrit (Bld) [Volume fraction] 44.5 % Normal 34.0-48.0 [facility] Hemoglobin (Bld) [Mass/Vol] 14.5 g/dL Normal 11.5-15.5 [facility] Imm Granulocytes 0.4 % Normal 0.0-5.0 [facility] Lymphocytes/100 WBC (Bld) 16.3 % Low 20.0-42.0 [facility] MCH (RBC) [Entitic mass] 30.1 pg Normal 26.0-35.0 [facility] MCHC 32.6 % Normal 32.0-34.5 [facility] MCV (RBC) [Entitic vol] 92.3 fL Normal 80.0-99.9 [facility] Monocytes/100 WBC (Bld) 6.2 % Normal 2.0-12.0 [facility] Neutrophils/100 WBC (Bld) 75.8 % Normal 43.0-80.0 [facility] Platelet Count 214 E9/L Normal 130-450 [facility] Platelet mean volume (Bld) [Entitic vol] 10.9 fL Normal 7.0-12.0 [facility] RBC 4.82 E12/L Normal 3.50-5.50 [facility] RDW 13.1 fL Normal 11.5-15.0 [facility] WBC 10.3 E9/L Normal 4.5-11.5 [facility] COVID-19on 01-16-2022 SARS-CoV-2 (COVID-19) RNA MARIO+probe Ql (Unsp spec) Not detected Normal Not Detected [facility] Comment on above: Result Comment: Narendra rios NAAT: Negative results should be treated as presumptive and, if inconsistent with clinical signs and symptoms or necessary for patient management, should be tested with an alternative molecular assay. Negative results do not preclude SARS-CoV-2 infection and should not be used as the sole basis for patient management decisions. This test has been authorized by the FDA under an Emergency Use Authorization (EUA) for use by authorized laboratories. Fact sheet for Healthcare Providers: https://www.fda.gov/media/917624/download Fact sheet for Patients: https://www.fda.gov/media/584341/download METHODOLOGY: Isothermal Nucleic Acid Amplification CT ABDOMEN PELVIS W IV CONTR Laury 01-16-2022 CT ABDOMEN PELVIS W IV CONTRAST EXAMINATION: CT OF THE ABDOMEN AND PELVIS WITH CONTRAST 01/16/2022 3:03 pm TECHNIQUE: CT of the abdomen and pelvis was performed with the administration of intravenous contrast. Multiplanar reformatted images are provided for review. Automated exposure control, iterative reconstruction, and/or weight based adjustment of the mA/kV was utilized to reduce the radiation dose to as low as reasonably achievable. COMPARISON: None. HISTORY: ORDERING SYSTEM PROVIDED HISTORY: abdominal pain, diarrhea, AMS TECHNOLOGIST PROVIDED HISTORY: Additional Contrast?->None Reason for exam:->abdominal pain, diarrhea, AMS Decision Support Exception - unselect if not a suspected or confirmed emergency medical condition->Emergency Medical Condition (MA) FINDINGS: Lower Chest: There is linear density in the right middle lobe with minimal interstitial density at the periphery of the lung bases. These changes are likely chronic. Cardiac size is normal. Organs: There are 2 small hypodense lesions right hepatic lobe inferiorly, likely benign cysts. The spleen, pancreas and adrenal glands are normal. There are surgical clips in the gallbladder fossa. There are small simple bilateral renal cysts. No hydronephrosis or nephrolithiasis. No ureteral calculi. GI/Bowel: There is a small hiatal hernia. The stomach is otherwise unremarkable. There are chain sutures around a loop of small bowel in the pelvis. There is mild dilatation of this small bowel but no bowel wall thickening or evidence of obstruction. There are chain sutures around the proximal rectum. There are scattered diverticula involving the colon. Pelvis: There is a catheter within the bladder which is largely decompressed but otherwise unremarkable. The uterus is surgically absent. No adnexal masses. Peritoneum/Retroperit oneum: There is atherosclerotic calcification of the abdominal aorta but no abdominal aortic aneurysm. No abdominal, retroperitoneal, pelvic or inguinal lymphadenopathy. Bones/Soft Tissues: Coarsening of the T10 vertebral body is likely due to a benign cavernous hemangioma. However, there are additional very subtle areas of osteolysis suggested within some of the vertebral bodies, specifically T11, T12 and L1. There is multilevel lumbar disc disease, particularly at L1-2, L2-3, L4-5 and L5-S1. There is slight anterolisthesis of L4 on L5. There are degenerative changes at the hips, particularly on the left. Slight flattening and sclerosis of the left femoral head may be due to early changes of avascular necrosis. IMPRESSION: Subtle lytic changes involving several vertebral bodies cannot be excluded and might be due to metastatic disease or multiple myeloma. Further evaluation with whole-body bone scan or MRI should be considered. Degenerative changes at the hips with possible early changes of avascular necrosis involving the left femoral head. This could be further evaluated with left hip MRI. Right hepatic cysts. Bilateral renal cysts. These require no imaging follow-up. Hiatal hernia. Diverticulosis without evidence of diverticulitis. Interpreted by: Sam Goetz Signed by: Sam Goetz 01/16/22 Final result Normal [facility] Comment on above: Order Comment: Addit ional Contrast?->NoneReason for exam:->abdominal pain, diarrhea, amsDecision Support Exception - unselect if not a suspected or confirmed emergency medical condition->Emergency Medical Condition (MA) Clostridium difficile Toxin Antigenon 01-16-2022 Clostridium difficile Toxin Antigen Clostridium difficile Toxin Antigen-: C. Difficile Toxin A and/or B NOT detected Normal Range: Not detected Normal [facility] Comprehensive Metabolic Pane violeta 01-16-2022 Albumin [Mass/Vol] 3.5 g/dL Normal 3.5-5.2 [facility] ALP [Catalytic activity/Vol] 48 U/L Normal 35-104 [facility] ALT [Catalytic activity/Vol] 8 U/L Normal 0-32 [facility] Anion gap [Moles/Vol] 10 mmol/L Normal 7-16 [facility] AST [Catalytic activity/Vol] 10 U/L Normal 0-31 [facility] Bilirubin [Mass/Vol] 1.3 mg/dL High 0.0-1.2 [facility] Calcium [Mass/Vol] 8.9 mg/dL Normal 8.6-10.2 [facility] Chloride [Moles/Vol] 103 mmol/L Normal 98-107 [facility] CO2 [Moles/Vol] 26 mmol/L Normal 22-29 [facility] Creatinine [Mass/Vol] 1.2 mg/dL High 0.5-1.0 [facility] GFR/1.73 sq M.predicted among blacks MDRD (S/P/Bld) [Vol rate/Area] 52 mL/min/{1.73_m2} Normal [facility] GFR/1.73 sq M.predicted among non-blacks MDRD (S/P/Bld) [Vol rate/Area] 43 mL/min/{1.73_m2} Normal >=60 [facility] Comment on above: Result Comment: Clinical Psychology Teacher bc Kidney Disease: less than 60 ml/min/1.73 sq.m. Kidney Failure: less than 15 ml/min/1.73 sq.m. Results valid for patients 18 years and older. Glucose [Mass/Vol] 147 mg/dL High 74-99 [facility] Potassium [Moles/Vol] 3.6 mmol/L Normal 3.5-5.0 [facility] Protein [Mass/Vol] 6.9 g/dL Normal 6.4-8.3 [facility] Sodium [Moles/Vol] 139 mmol/L Normal 132-146 [facility] Urea nitrogen [Mass/Vol] 20 mg/dL Normal 6-23 [facility] Culture, Bloodon 01-16-2022 Microscopic examination of blood, culture Culture, Blood-: 5 Days no growth Normal [facility] Culture, Blood 2on 2 Culture, Blood 2 Culture, Blood 2-: 5 Days no growth Normal [facility] Culture, Urineon 01-16-2022 Culture, Urine Culture, Urine-: Escherichia coli 75,000 CFU/ml ORGANISM: Escherichia coli ANTIBIOTIC INTERPRETATION M.I.C. STATUS [ S = SUSCEPTIBLE R = RESISTANT I = INTERMEDIATE ] Amoxicillin/Clavulana te S 4 F Cefazolin S <=4 F Cefepime S <=0.12 F Cefotaxime S <=0.25 F Cefoxitin I 16 F Ceftazidime/Avibactam S 0.25 F Gentamicin S <=1 F Levofloxacin R >=8 F Meropenem S <=0.25 F Nitrofurantoin S <=16 F Piperacillin/Tazobact am S <=4 F Trimethoprim/Sulfamet hoxazole S <=20 F Normal [facility] High Sensitivity Troponin To n 01-16-2022 High Sensitivity Troponin T 13 ng/L High 0-9 [facility] Comment on above: Result Comment: High Sensitivity Troponin values cannot be compared with other Troponin methodologies. Patients with high levels of Biotin oral intake (i.e. >5 mg/day) may have falsely decreased Troponin levels. Samples collected within 8 hours of biotin intake may require additional information for diagnosis. High Sensitivity Troponin T 13 ng/L High 0-9 [facility] Comment on above: Result Comment: High Sensitivity Troponin values cannot be compared with other Troponin methodologies. Patients with high levels of Biotin oral intake (i.e. >5 mg/day) may have falsely decreased Troponin levels. Samples collected within 8 hours of biotin intake may require additional information for diagnosis. High Sensitivity Troponin T 14 ng/L High 0-9 [facility] Comment on above: Result Comment: High Sensitivity Troponin values cannot be compared with other Troponin methodologies. Patients with high levels of Biotin oral intake (i.e. >5 mg/day) may have falsely decreased Troponin levels. Samples collected within 8 hours of biotin intake may require additional information for diagnosis. Lactate, Sepsison 01-16-2022 Lactate, Sepsis 1.0 mmol/L Normal 0.5-1.9 [facility] Lactate, Sepsis 2.4 mmol/L High 0.5-1.9 [facility] Magnesiumon 01-16-2022 Magnesium [Mass/Vol] 2.0 mg/dL Normal 1.6-2.6 [facility] Urinalysis, with microscopic on 01-16-2022 Epithelial cells LM Ql (Urine sed) MANY Normal [facility] Urine Bacteria MANY Abnormal None Seen [facility] Urine RBC 5-10 Abnormal 0-2 [facility] Urine WBC 10-20 Abnormal 0-5 [facility] Bilirubin Ql (U) Negative Normal Negative [facility] Clarity (U) SLCLOUDY Normal Clear [facility] Color (U) Yellow Normal Straw/Yellow [facility] Glucose Ql (U) Negative Normal Negative [facility] Hemoglobin Ql (U) TRACE Abnormal Negative [facility] Ketones Ql (U) Negative Normal Negative [facility] Leukocyte esterase Test strip Ql (U) TRACE Abnormal Negative [facility] Nitrite Ql (U) Positive Abnormal Negative [facility] pH (U) 5.5 [pH] Normal 5.0-9.0 [facility] Protein Ql (U) Negative Normal Negative [facility] Specific gravity (U) [Rel density] >=1.030 Normal 1.005-1.030 [facility] Urobilinogen Qn (U) 0.2 {Daria'U}/dL Normal < 2.0 [facility] XR CHEST PORTABLEon 01-17-20 XR CHEST PORTABLE EXAMINATION: ONE XRAY VIEW OF THE CHEST 01/16/2022 12:28 pm COMPARISON: None. HISTORY: ORDERING SYSTEM PROVIDED HISTORY: hypoxia TECHNOLOGIST PROVIDED HISTORY: Reason for exam:->hypoxia FINDINGS: The lungs are without acute focal process. There is no effusion or pneumothorax. The cardiomediastinal silhouette is without acute process. The osseous structures are without acute process. IMPRESSION: No acute process. Interpreted by: Munir Carlos MD Signed by: Munir Carlos MD 01/16/22 Final result Normal [facility] Comment on above: Order Comment: Reaso n for exam:->hypoxia Vital Signs Date Time Vital Sign Value Performing Clinician Faci lity 08-15-2022 05:36-0500 Body temperature 98.29 [degF] Snehal Tuniu DO Work Phone: [facility] [employer] 08-15-2022 05:36-0500 Diastolic blood pressure 69 mm[Hg] [employer] DO Work Phone: [facility] [employer] 08-15-2022 05:36-0500 Heart rate 79 /min [employer] DO Work Phone: [facility] [employer] 08-15-2022 05:36-0500 Respiratory rate 16 /min [employer] DO Work Phone: [facility] [employer] 08-15-2022 05:36-0500 SaO2% (BldA) [Mass fraction] 97 % [employer] DO Work Phone: [facility] [employer] 08-15-2022 05:36-0500 Systolic blood pressure 124 mm[Hg] [employer] DO Work Phone: [facility] [employer] 08-13-2022 16:51-0500 Body mass index (BMI) [Ratio] 32.15 kg/m2 Snehal Bianchi DO Work Phone: [facility] [employer] 08-13-2022 16:51-0500 Body weight 84.96 kg Snehal Bianchi DO Work Phone: [facility] [employer] 07-27-2022 11:08-0500 Body height 162.6 cm Criselda Johnson MD Work Phone: [facility] [employer] 07-27-2022 11:08-0500 Body mass index (BMI) [Ratio] 37.42 kg/m2 Criselda Johnson MD Work Phone: [facility] [employer] 07-27-2022 11:08-0500 Body temperature 96.4 [degF] Criselda Johnson MD Work Phone: [facility] [employer] 07-27-2022 11:08-0500 Body weight 98.88 kg Criselda Johnson MD Work Phone: [facility] [employer] Encounters Encounter Date Encounter Type Care Provider Facility Start: 03-01-2025 ambulatory Toy HUMPHREY Faci lity:[facility] Start: 02-24-2025 ambulatory Toy HUMPHREY Faci lity:[facility] Start: 01-21-2025 ambulatory Chilo HUMPHREY Facility:[facility] Start: 10-02-2024 End: 10-02-2024 ambulatory Toy HUMPHREY [facility] Work Phone: Start: 10-02-2024 End: 10-02-2024 Departed Referred [facility] [employer] [facility] Start: 10-02-2024 End: 10-02-2024 ambulatory Toy HUMPHREY Facility:[facility] Start: 10-22-2022 Registered Referred [facility] [employer] [facility] Start: 09-13-2022 End: 09-13-2022 ambulatory [facility] Work Phone: Start: 09-13-2022 End: 09-13-2022 Departed Referred [facility] [employer] Start: 08-16-2022 Telephone encounter Delicia Durand LPN [facility] Comment on above: Other ([facility] Start: 08-13-2022 End: 08-14-2022 Emergency department patient visit SNEHAL BIANCHI [facility] Start: 08-13-2022 End: 08-15-2022 ambulatory GOMEZ NOGUEIRA [facility] Start: 08-13-2022 End: 08-13-2022 Subsequent hospital visit by physician Jeffery [facility] Comment on above: Arrived Start: 08-12-2022 End: 08-15-2022 Emergency department patient visit Snehal Bianchi DO Work Phone: [facility] Comment on above: Intractable abdomina l pain (Primary Dx); Diarrhea, unspecified type; Pressure injury of skin of buttock, unspecified injury stage, unspecified laterality; Decubitus ulcer of sacral region, stage 1 Start: 07-27-2022 End: 07-28-2022 ambulatory CRISELDA JOHNSON [facility] Start: 07-27-2022 End: 07-27-2022 Office outpatient new 30 minutes Criselda Johsnon MD Work Phone: [facility] [place] Comment on above: Closed nondisplaced fracture of neck of right scapula, initial encounter (Primary Dx); Acute shoulder pain due to trauma, right Start: 07-27-2022 End: 07-27-2022 Subsequent hospital visit by physician Criselda Johnson MD Work Phone: [facility] Comment on above: Acute shoulder pain due to trauma, right Start: 06-15-2022 End: 06-15-2022 ambulatory [facility] Work Phone: Start: 06-15-2022 End: 06-15-2022 Departed Referred [facility] Start: 05-04-2022 End: 05-04-2022 ambulatory [facility] Work Phone: Start: 05-04-2022 End: 05-04-2022 Departed Referred [facility] [employer] Start: 05-04-2022 Registered Referred [facility] [employer] Start: 04-27-2022 End: 04-27-2022 ambulatory [facility] Work Phone: Start: 04-27-2022 End: 04-27-2022 Departed Referred [facility] [employer] Start: 01-31-2022 End: 01-31-2022 Departed Referred [facility] [employer] Start: 01-16-2022 End: 01-26-2022 Evaluation and management of inpatient NAYLA MARKSCARMEN [facility] Procedures Date Procedure Procedure Detail Performing Clinician Start: 10-02-2024 Clostridium difficil e detection Toy HUMPHREY Start: 08-15-2022 Basic metabolic pane l calcium total Senyo Agidi DO Work Phone: Start: 08-14-2022 Basic metabolic pane l calcium total Senyo Agidi DO Work Phone: Start: 08-13-2022 Urnls dip stick/tabl et reagent auto microscopy Nisha Suresh DO Work Phone: Start: 08-13-2022 Ct abdomen & pelvis w/contrast material Nisha Suresh DO Work Phone: Start: 08-13-2022 Radiologic exam ches t single view Nisha Suresh DO Work Phone: Start: 08-13-2022 Comprehensive metabo lic panel Nisha Suresh DO Work Phone: Start: 08-13-2022 Ecg routine ecg w/le ast 12 lds trcg only w/o i&r Nisha Suresh DO Work Phone: Start: 07-27-2022 Radex shoulder compl ete minimum 2 views Criselda Johnson MD Work Phone: Start: 01-26-2022 DISCHARGE PATIENT ROBERTH BROWN OFJORDYNWU Start: 01-26-2022 COVID-19, RAPID EMMSHAMIR Montanez OFUNGWU Start: 01-25-2022 Basic metabolic pane l calcium total NAYLA SELINAGi Start: 01-24-2022 Basic metabolic pane l calcium total NAYLA SELINAGi Start: 01-23-2022 Urnls dip stick/tabl et rgnt auto w/o microscopy NAYLA SELINAGi Start: 01-23-2022 ADULT ORAL NUTRITION SUPPLEMENT NAYLA SELINAGi Start: 01-22-2022 Basic metabolic pane l calcium total NAYLA JO Start: 01-21-2022 Basic metabolic pane l calcium total NAYLA SELINAGi Start: 01-20-2022 Basic metabolic pane l calcium total NAYLA SELINAGi Start: 01-19-2022 IP CONSULT TO ORTHOP EDIC SURGERY NAYLA GOMEZ Start: 01-19-2022 Mri spinal canal tho racic w/o & w/contr matrl NAYLA BLAINEADONAY Start: 01-19-2022 Basic metabolic pane l calcium total NAYLA THORPE Start: 01-18-2022 Mri spinal canal lum bar w/o contrast material NAYLA VALLADARESGi Start: 01-18-2022 Radex hip unilateral with pelvis 2-3 views NAYLA GOMEZ Start: 01-18-2022 IP CONSULT TO ORTHOP EDIC SURGERY NAYLA GOMEZ Start: 01-18-2022 Basic metabolic pane l calcium total NAYLA SELINAGi Start: 01-17-2022 Echo tthrc r-t 2d w/wom-mode compl spec&colr d NAYLA GOMEZ Start: 01-17-2022 IP CONSULT TO PHARMACY NAYLA GOMEZ Start: 01-17-2022 OT EVAL AND TREAT ROBERTH BROWN SELINACARMEN Start: 01-17-2022 PT EVAL AND TREAT ROBERTH BROWN OFJORDYNCARMEN Start: 01-17-2022 Ecg routine ecg w/le ast 12 lds w/i&r NAYLA GOMEZ Start: 01-17-2022 Basic metabolic pane l calcium total NAYLA GOMEZ Start: 01-16-2022 Assay of troponin quantitative NAYLA GOMEZ Start: 01-16-2022 Assay of lactate BUBBA GOMEZ Start: 01-16-2022 IP CONSULT TO PHARMACY NAYLA MARKS Start: 01-16-2022 ADULT DIET NAYLA APARICIO Start: 01-16-2022 REASON FOR NO CHEMIC AL VTE PROPHYLAXIS NAYLA MARKS Start: 01-16-2022 ADMIT TO INPATIENT JACKSON MARKS Start: 01-16-2022 BEDREST WITH BATHROO M PRIVILEGES NAYLA MARKS Start: 01-16-2022 DNR COMFORT CARE - ARREST NAYLA MARKS Start: 01-16-2022 NOTIFY PHYSICIAN (SPECIFY) NAYLA MARKS Start: 01-16-2022 VITAL SIGNS NAYLA APARICIO Start: 01-16-2022 ADMIT TO INPATIENT JACKSON MARKS Start: 01-16-2022 Ct abdomen & pelvis w/contrast material NAYLA MARKS Start: 01-16-2022 COVID-19, RAPID CHRISSYSUMEETUE Tarik [facility] Start: 01-16-2022 Radiologic exam ches t single view NAYLA MARKS Start: 01-16-2022 Blood count complete auto&auto difrntl [facility]bc [facility] Start: 01-16-2022 Iaad ia clostridium difficile toxin NAYLA MARKS Start: 01-16-2022 CULTURE, BLOOD 1 BUBBA SHAFER Start: 01-16-2022 Ecg routine ecg w/le ast 12 lds w/i&r [facility] Plan of Treatment Date Care Activity Detail Author Start: 03-15-2022 Influenza vaccination Influenza Vacc ine (#1) [facility] Start: 1990 Zoster Vaccines (1 of 2) Zoster Vacc miller (1 of 2) [facility] Start: 1959 DTaP/Tdap/Td Vaccine s (1 - Tdap) DTaP/Tdap/Td Vaccines (1 - Tdap) [facility] Start: 1946 Pneumococcal Vaccine : 65+ Years (1 - PCV) Pneumococcal Vaccine: 65+ Years (1 - PCV) [facility] Start: 1940 COVID-19 Vaccine (#1) COVID-19 Vacci ne (#1) [facility] Start: 1940 Hepatitis B Vaccines (1 of 3 - 3-dose series) Hepatitis B Vaccines (1 of 3 - 3-dose series) [facility] Start: 1940 Lipid panel Lipid Panel [facility] Start: 1940 Screening for osteoporosis Bone Dens ity Scan [facility] Start: 1940 Thyroid stimulating hormone measurement TSH Level [facility] Payers Date Payer Category Payer Medicare [id number] 2024 Self-pay 2022 Medicare [employer] [id number] 2022-Present [address] [place] [address] Medicare HMO [id number] 2022 Medicaid [id number] 2022 [place] [id number] 2022-Present [address] [place] [address] Medicaid [id number] 2019 Unknown [id number] 1940 Unknown [id number] Unknown [id number] Unknown [id number] Unknown [id number] Unknown [id number] Social History Date Type Detail Facility [facility] Work Phone: Start: 1940 Sex Assigned At Female W [facility] History of tobacco use Current smoker [facility] History of tobacco use Cigarette Smoker S [facility] Start: 07-27-2022 End: 08-14-2022 Alcohol intake Current non-drinker of alcohol (finding) [facility] Start: 07-27-2022 End: 08-14-2022 Alcohol intake [facility] Start: 1940 Sex Assigned At Not on file S [facility] Start: 07-17-2022 End: 07-27-2022 Exposure to SARS-CoV-2 (event) Not sure [facility] Start: 08-02-2022 End: 08-13-2022 Exposure to SARS-CoV-2 (event) Unable to assess [facility] Tobacco smoking stat us [facility] Unknown if ever smoked [facility] Work Phone: Start: 10-19-2024 Sex Female (finding) [facility] Clinical Notes 07-27-2022 to 08-16-2022 Telephone Encounter - Victoria Rendon - 08/16/2022 9:02 AM ESTTelephone Encounter - Victoria Rendon - 08/16/2022 9:02 AM ESTSenyo Agidi, DO - 08/15/2022 10:57 AM ESTDischarge Instr - DEVONTE Note Date & Type Note Facility 08-16-2022 Telephone encounter Note [facility] patient. Staff to call patient after discharge to arrange a hospital follow up. [facility] 08-16-2022 Miscellaneous Notes [facility] patient. Staff to call patient after discharge to arrange a hospital follow up. documented in this encounter [facility] 08-15-2022 Note [facility] Wound Care Progress Note Symone cMdonald AGE: 82 y.o. GENDER: female : 1940 Subjective: HISTORY of PRESENT ILLNESS HPI Symone Mcdonald is a 82 y.o. female who presents for a wound care follow up. History of Wound Context: 82 y.o. 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 Wound care consulted for "perineum" wound. Dressing applied per wound care service. Patient resting on regular hospital mattress at time of visit. PAST MEDICAL HISTORY Past Medical History: Diagnosis Date Anxiety Bowel obstruction (CMS/HCC) (HCC) CAD (coronary artery disease) Dementia (HCC) Depression Diverticulitis Hypertension Urinary incontinence UTI (urinary tract infection) PAST SURGICAL HISTORY Past Surgical History: Procedure Laterality Date APPENDECTOMY CHOLECYSTECTOMY HYSTERECTOMY FAMILY HISTORY No family history on file. SOCIAL HISTORY Social History Tobacco Use Smoking status: Former Packs/day: 0.50 Types: Cigarettes Substance Use Topics Alcohol use: No Alcohol/week: 0.0 standard drinks Drug use: No ALLERGIES Allergies Allergen Reactions Latex Erythromycin Rash MEDICATIONS No current facility-administered medications on file prior to encounter. Current Outpatient Medications on File Prior to Encounter Medication Sig Dispense Refill acetaminophen (Tylenol) 325 MG tablet Take 650 mg by mouth every 6 hours as needed for fever, mild pain (1-3) or moderate pain (4-6). ammonium lactate (Lac-Hydrin) 12 % lotion Apply topically if needed for dry skin. Daily aspirin 81 MG EC tablet Take 81 mg by mouth daily. bisacodyl (Dulcolax) 10 MG suppository Insert 10 mg into the rectum Daily as needed for constipation. If no results from [facility] bisacodyl (Dulcolax) 5 MG EC tablet Take 5 mg by mouth Daily as needed for constipation. Do not crush, chew, or split. buPROPion SR (Wellbutrin SR) 100 MG 12 hr tablet Take 100 mg by mouth daily. cholecalciferol (Vitamin D-3) 50 MCG (2000 UT) tablet Take 2,000 Units by mouth daily. cyanocobalamin (Vitamin B-12) 1000 MCG tablet Take 1,000 mcg by mouth daily. donepezil (Aricept) 10 MG tablet Take 10 mg by mouth Nightly. famotidine (Pepcid) 20 MG tablet Take 20 mg by mouth daily. guaiFENesin (Robitussin) 100 MG/5ML liquid Take 10 mL by mouth every 6 hours as needed for cough. levothyroxine (Synthroid, Levoxyl) 50 MCG tablet Take 50 mcg by mouth daily. Magnesium Hydroxide (MILK OF MAGNESIA PO) Take 30 mL/L by mouth Daily as needed. memantine (Namenda) 10 MG tablet Take 10 mg by mouth 2 times daily. nystatin (Mycostatin) cream Apply 1 g topically. polyethylene glycol, PEG, 3350 (Miralax) 17 g packet Take 17 g by mouth Daily as needed. sertraline (Zoloft) 100 MG tablet Take 100 mg by mouth Nightly. Skin Protectants, Misc. (Basis Facial Moisturizer) cream Apply 1 application topically daily. [DISCONTINUED] carvedilol (Coreg) 3.125 MG tablet Take 3.125 mg by mouth in the morning and 3.125 mg in the evening. [DISCONTINUED] cholecalciferol (Vitamin D-3) 1.25 MG (05368 UT) capsule Take 50,000 Units by mouth. [DISCONTINUED] lisinopril 20 MG tablet Take 1 tablet by mouth every morning. REVIEW OF SYSTEMS Pertinent items are noted in HPI. Objective: BP 124/69 Pulse 79 Temp 36.8 ?C (98.3 ?F) (Temporal) Resp 16 Wt 85 kg (187 lb 4.8 oz) SpO2 97% BMI 32.15 kg/m? PHYSICAL EXAM General appearance: in no apparent distress, well developed and well nourished, non-toxic, in no respiratory distress and acyanotic, and alert Skin: warm and dry Pulmonary: Normal effort, no respiratory distress, no cyanosis Left arm: 1x1x0.1cm. 100% pink/red tissue. Scant serosnag drainage present. Elidia-wound intact and fragile. No obvious signs of infection. Bilateral buttock: 7x5x0.2cm, intact skin bridge. 100% red granulation tissue. Scant serosang drainage noted. Elidia-wound intact and fragile. No obvious signs of infection. LABS CBC: Lab Results Component Value Date WBC 10.3 08/15/2022 HGB 13.1 08/15/2022 HCT 38.9 08/15/2022 MCV 93.1 08/15/2022 PLT 228 08/15/2022 BMP: Lab Results Component Value Date NA 137 08/15/2022 K 4.2 08/15/2022 CL 105 08/15/2022 CO2 30 08/15/2022 BUN 30 (H) 08/15/2022 CREATININE 1.24 (H) 08/15/2022 PT/INR: No results found for: PROTIME, INR Prealbumin: No results found for: PREALBUMIN Albumin:No components found for: LABALBU Sed Rate:No results found for: SEDRATE Micro: No components found for: BC Assessment/Plan: Left arm: Skin tear - Cleanse with NS. Apply adaptic. Cover with foam dressing. Change daily and P (more content not included)... [facility] 08-15-2022 Note [facility] Discharge Summary and Transition Note Symone Mcdonald : 1940 ADMIT DATE: 08/12/2022 DISCHARGE DATE: 08/15/2022 PRIMARY CARE PHYSICIAN: [facility] Temple VISIT STATUS: Admission CODE STATUS: DNR-CCA DISCHARGE DIAGNOSES: Principal Problem: Intractable abdominal pain Active Problems: COOPER (acute kidney injury) (CMS/HCC) ([facility]) HOSPITAL COURSE: Symone Mcdonald is a 82 y.o. 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 Patient presented from [facility] ([facility]) wit h2 days of nausea and abdominal pain. Worse with with palpation. Facility decided to bring the patient into the hospital due to hypoxia (90%) which improved with 2L NC at facility Patient recently tested positive for COVID infection s/p Paxlovid. Per pt's daughter and facility no reported COVID related symptoms (eg cough, dyspnea, URI, bowel changes) Per chart pt's abdominal pain seems to have resolved following a large bowel movement. However, CT scan showed incidental polypoid lesion within the rectum. Pt's daughter reported that the last colonoscopy was around the time of ileostomy surgery~7 years ago. Pt's daughter also reported chronic loose stool, however the facility was unable to confirm frequent bowel movement in the last few days # COOPER/CKD III, s/p IVF # Functional decline # Abdominal pain, resolved # Incidental polypoid lesion within the rectum, pathology status unknown # Recent COVID infection out of isolation 08/13/22 (completed paxlovid at facility) # Alzheimer's dementia # Decubitus pressure ulcer, POA-wound care cs # Chronic diarrhea # CAD # Goals of care discussion # DNR-CCA -pt 's daughter agreed with not proceeding with colonoscopy to evaluate incidental polypoid lesion within the rectum as the patient will not be able to tolerate bowel prep in the setting of advanced dementia. -pt fails to meet inpt/ECF hospice criteria. Plan is to transition pt into hospice while at facility if she declines. -Pt's daughter agrees with the plan and will instruct ECF not to transport to ED in the future if pt clinically declines -1 week of ely cath to help with wound healing. OK to attempt voiding trial on 08/22/22 - Will not consult GI on this admission PROCEDURES: none CONSULTANTS: Palliative/hospice DISCHARGE MEDICATIONS: Significant Medication Changes: Medication List START taking these medications oxyCODONE 5 MG immediate release tablet Commonly known as: Roxicodone Take 1 tablet (5 mg) by mouth every 6 hours as needed (Pain). Zinc Oxide 30 % ointment Apply 1 application topically 3 times daily. Apply to buttocks CHANGE how you take these medications carvedilol 3.125 MG tablet Commonly known as: Coreg Take 1 tablet (3.125 mg) by mouth in the morning and 1 tablet (3.125 mg) in the evening. Take with meals. Do not start before August 18, 2022. Start taking on: August 18, 2022 What changed: when to take this These instructions start on August 18, 2022. If you are unsure what to do until then, ask your doctor or other care provider. lisinopril 20 MG tablet Take 1 tablet (20 mg) by mouth every morning. Do not start before August 18, 2022. Start taking on: August 18, 2022 What changed: These instructions start on August 18, 2022. If you are unsure what to do until then, ask your doctor or other care provider. CONTINUE taking these medications acetaminophen 325 MG tablet Commonly known as: Tylenol ammonium lactate 12 % lotion Commonly known as: Lac-Hydrin aspirin 81 MG EC tablet Basis Facial Moisturizer cream * bisacodyl 5 MG EC tablet Commonly known as: Dulcolax * bisacodyl 10 MG suppository Commonly known as: Dulcolax buPROPion SR 100 MG 12 hr tablet Commonly known as: Wellbutrin SR cholecalciferol 50 MCG (2000 UT) tablet Commonly known as: Vitamin D-3 cyanocobalamin 1000 MCG tablet Commonly known as: Vitamin B-12 donepezil 10 MG tablet Commonly known as: Aricept famotidine 20 MG tablet Commonly known as: Pepcid guaiFENesin 100 MG/5ML liquid Commonly known as: Robitussin levothyroxine 50 MCG tablet Commonly known as: Synthroid, Levoxyl memantine 10 MG tablet Commonly known as: Namenda MILK OF MAGNESIA PO nystatin cream Commonly known as: Mycostatin polyethylene glycol (PEG) 3350 17 g packet Commonly known as: Miralax sertraline 100 MG tablet Commonly known as: Zoloft * This list has 2 medication(s) that are the same as other medications prescribed for you. Read the directions carefully, and ask your doctor or other care provider to review them with you. Where to Get Your (more content not included)... [facility] 08-15-2022 Note [facility] Progress Note [phone]: Please page me for patient care issues. [phone]: Please page [facility] hospitalist for any issues. Symone Mcdonald : 1940(82 y.o.) PCP: [facility] Assessment and Plan: Principal Problem: Intractable abdominal pain Active Problems: COOPER (acute kidney injury) (CMS/HCC) ([facility]) # COOPER/CKD III, s/p IVF # Functional decline # Abdominal pain, resolved # Incidental polypoid lesion within the rectum, pathology status unknown # Recent COVID infection out of isolation 08/13/22 (completed paxlovid at facility) # Alzheimer's dementia # Decubitus pressure ulcer, POA-wound care cs # Chronic diarrhea # CAD # Goals of care discussion # DNR-CCA -pt 's daughter agreed with not proceeding with colonoscopy to evaluate incidental polypoid lesion within the rectum as the patient will not be able to tolerate bowel prep in the setting of advanced dementia. -pt fails to meet inpt/ECF hospice criteria. Plan is to transition pt into hospice while at facility if she declines. -Pt's daughter agrees with the plan and will instruct ECF not to transport to ED in the future if pt clinically declines -1 week of ely cath to help with wound healing. OK to attempt voiding trial on 08/22/22 - Will not consult GI on this admission -resume rest of home meds as indicated -Palliative/hospice recs appreciated DVT Prophylaxis: Subq Lovenox Ban Mcduffie/POA: [phone] Disposition: DC to ECF upon availability of bed I personally examined the patient and I personally reviewed chart, data, labs radiology reports Total time spent: 35 minutes, over 51% of total time providing counseling or in coordination of care. Total time on this day of visit includes record and documentation review before and after visit including documentation and time not explicitly included on EMR time stamp Subjective: Interval History: HPI The patient complains of Abdominal pain The patient feels their symptoms are resolved no events or new concerns Symone Mcdonald is a 82 y.o. 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 Patient presented from F ([facility]) wit h2 days of nausea and abdominal pain. Worse with with palpation. Facility decided to bring the patient into the hospital due to hypoxia (90%) which improved with 2L NC at facility Patient recently tested positive for COVID infection s/p Paxlovid. Per pt's daughter and facility no reported COVID related symptoms (eg cough, dyspnea, URI, bowel changes) Per chart pt's abdominal pain seems to have resolved following a large bowel movement. However, CT scan showed incidental polypoid lesion within the rectum. Pt's daughter reported that the last colonoscopy was around the time of ileostomy surgery~7 years ago. Pt's daughter also reported chronic loose stool, however the facility was unable to confirm frequent bowel movement in the last few days Scheduled Meds:aspirin, 81 mg, Oral, Daily buPROPion SR, 100 mg, Oral, Daily [Held by provider] carvedilol, 3.125 mg, Oral, BID WC cyanocobalamin, 1,000 mcg, Oral, Daily donepezil, 10 mg, Oral, Nightly enoxaparin, 40 mg, SubCUTAneous, Daily famotidine, 20 mg, Oral, Daily lactated Ringer's, 1,000 mL, IntraVENous, Once levothyroxine, 50 mcg, Oral, Daily [Held by provider] lisinopril, 20 mg, Oral, q AM memantine, 10 mg, Oral, BID sertraline, 100 mg, Oral, Nightly stomahesive in petrolatum, , Topical, TID Continuous Infusions: PRN Meds:PRN medications: acetaminophen OR acetaminophen, ondansetron, oxyCODONE OR [DISCONTINUED] oxyCODONE, polyethylene glycol (PEG) 3350, stomahesive in petrolatum, Zinc Oxide Review of Systems Unable to perform ROS: Dementia Interval Pertinent History: Social History Tobacco Use Smoking status: Former Packs/day: 0.50 Types: Cigarettes Smokeless tobacco: Not on file Substance Use Topics Alcohol use: No Alcohol/week: 0.0 standard drinks Objective: Patient Vitals for the past 24 hrs: BP Temp Temp src Pulse Resp SpO2 08/15/22 0536 124/69 36.8 ?C (98.3 ?F) Temporal 79 16 97 % Average, Min, and Max for last 24 hours Vitals: TEMPERATURE: Temp Av.8 ?C (98.3 ?F) Min: 36.8 ?C (98.3 ?F) Max: 36.8 ?C (98.3 ?F) RESPIRATIONS RANGE: Resp Av Min: 16 Max: 16 PULSE RANGE: Pulse Av Min: 79 Max: 79 BLOOD PRESSURE RANGE: Systolic (24hrs), Av , Min:124 , Max:124 ; Diastolic (24hrs), Av, Min:69, Max:69 PULSE OXIMETRY RANGE: SpO2 Av % Min: 97 % Max: 97 % I/O last 3 completed shifts: In: - (0 mL/kg) Out: 400 (4.7 mL/kg) [Urine:400 (0.1 mL/kg/hr)] (more content not included)... [facility] 08-15-2022 Hospital course Narrative Images from the original note were not included. [facility] Discharge Summary and Transition Note Symone Mcdonald : 1940 ADMIT DATE: 08/12/2022 DISCHARGE DATE: 08/15/2022 PRIMARY CARE PHYSICIAN: Toy Temple VISIT STATUS: Admission CODE STATUS: DNR-CCA DISCHARGE DIAGNOSES: Principal Problem: Intractable abdominal pain Active Problems: COOPER (acute kidney injury) (CMS/HCC) ([facility]) HOSPITAL COURSE: Symone Mcdonald is a 82 y.o. 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 Patient presented from ECF ([facility]) wit h2 days of nausea and abdominal pain. Worse with with palpation. Facility decided to bring the patient into the hospital due to hypoxia (90%) which improved with 2L NC at facility Patient recently tested positive for COVID infection s/p Paxlovid. Per pt's daughter and facility no reported COVID related symptoms (eg cough, dyspnea, URI, bowel changes) Per chart pt's abdominal pain seems to have resolved following a large bowel movement. However, CT scan showed incidental polypoid lesion within the rectum. Pt's daughter reported that the last colonoscopy was around the time of ileostomy surgery~7 years ago. Pt's daughter also reported chronic loose stool, however the facility was unable to confirm frequent bowel movement in the last few days # COOPER/CKD III, s/p IVF # Functional decline # Abdominal pain, resolved # Incidental polypoid lesion within the rectum, pathology status unknown # Recent COVID infection out of isolation 08/13/22 (completed paxlovid at facility) # Alzheimer's dementia # Decubitus pressure ulcer, POA-wound care cs # Chronic diarrhea # CAD # Goals of care discussion # DNR-CCA -pt 's daughter agreed with not proceeding with colonoscopy to evaluate incidental polypoid lesion within the rectum as the patient will not be able to tolerate bowel prep in the setting of advanced dementia. -pt fails to meet inpt/ECF hospice criteria. Plan is to transition pt into hospice while at facility if she declines. -Pt's daughter agrees with the plan and will instruct ECF not to transport to ED in the future if pt clinically declines -1 week of ely cath to help with wound healing. OK to attempt voiding trial on 08/22/22 - Will not consult GI on this admission PROCEDURES: none CONSULTANTS: Palliative/hospice DISCHARGE MEDICATIONS: Significant Medication Changes: Medication List START taking these medications oxyCODONE 5 MG immediate release tablet Commonly known as: Roxicodone Take 1 tablet (5 mg) by mouth every 6 hours as needed (Pain). Zinc Oxide 30 % ointment Apply 1 application topically 3 times daily. Apply to buttocks CHANGE how you take these medications carvedilol 3.125 MG tablet Commonly known as: Coreg Take 1 tablet (3.125 mg) by mouth in the morning and 1 tablet (3.125 mg) in the evening. Take with meals. Do not start before August 18, 2022. Start taking on: August 18, 2022 What changed: when to take this These instructions start on August 18, 2022. If you are unsure what to do until then, ask your doctor or other care provider. lisinopril 20 MG tablet Take 1 tablet (20 mg) by mouth every morning. Do not start before August 18, 2022. Start taking on: August 18, 2022 What changed: These instructions start on August 18, 2022. If you are unsure what to do until then, ask your doctor or other care provider. CONTINUE taking these medications acetaminophen 325 MG tablet Commonly known as: Tylenol ammonium lactate 12 % lotion Commonly known as: Lac-Hydrin aspirin 81 MG EC tablet Basis Facial Moisturizer cream * bisacodyl 5 MG EC tablet Commonly known as: Dulcolax * bisacodyl 10 MG suppository Commonly known as: Dulcolax buPROPion SR 100 MG 12 hr tablet Commonly known as: Wellbutrin SR cholecalciferol 50 MCG (2000 UT) tablet Commonly known as: Vitamin D-3 cyanocobalamin 1000 MCG tablet Commonly known as: Vitamin B-12 donepezil 10 MG tablet Commonly known as: Aricept famotidine 20 MG tablet Commonly known as: Pepcid guaiFENesin 100 MG/5ML liquid Commonly known as: Robitussin levothyroxine 50 MCG tablet Commonly known as: Synthroid, Levoxyl memantine 10 MG tablet Commonly known as: Namenda MILK OF MAGNESIA PO nystatin cream Commonly known as: Mycostatin polyethylene glycol (PEG) 3350 17 g packet Commonly known as: Miralax sertraline 100 MG tablet Commonly known as: Zoloft * This list has 2 medication(s) that are the same as other medications prescribed for you. Read the directions carefully, and ask your doctor or other care provider to review them with you. Where to Get Your Medications You can get these medications from any pharmacy Bring a paper prescription for each of these medications oxyCODONE 5 MG immediate release tablet Information about where to get these medications is not yet available Ask your nurse or doctor about these medications carvedilol 3.125 MG tablet lisinopril 20 MG tablet Zinc Oxide 30 % ointment DIET: regular ACTIVITY: resume regular activity COMPLEXITY OF FOLLOW UP: [] Moderate Complexity: follow up within 7-14 calendar days (08824) [x] Severe Complexity: follow up within 7 calendar days (44380) FOLLOW UP TESTING, PENDING RESULTS OR REFERRALS AT TRANSITIONAL CARE VISIT: [] Yes Hospice refferal [] No DISPOSITION: [facility] CARE AGENCY NAME: Follow up with [facility] to be scheduled . Notification (telephone encounter) to PCP initiated: [] Yes [] No INSTRUCTIONS TO MA/SW: Please call patient on day after discharge (must document patient contacted within 2 business days of discharge). FOLLOW UP QUESTIONS FOR MA/SW: 1. Did you get medications filled and taking them as instructed from discharge? 2. Are you following your discharge instructions from your hospital stay? 3. Please confirm patient is scheduled for a follow up appointment within the above time frame. DISCHARGE TIME: > 30 minutes documented in this encounter [facility] 08-15-2022 History of Presen t illness Narrative Images from the original note were not included. [facility] Progress Note [phone]: Please page me for patient care issues. [phone]: Please page [facility] hospitalist for any issues. Symone Harry : 1940(82 y.o.) PCP: [facility] Assessment and Plan: Principal Problem: Intractable abdominal pain Active Problems: COOPER (acute kidney injury) (CMS/HCC) ([facility]) # COOPER/CKD III, s/p IVF # Functional decline # Abdominal pain, resolved # Incidental polypoid lesion within the rectum, pathology status unknown # Recent COVID infection out of isolation 08/13/22 (completed paxlovid at facility) # Alzheimer's dementia # Decubitus pressure ulcer, POA-wound care cs # Chronic diarrhea # CAD # Goals of care discussion # DNR-CCA -pt 's daughter agreed with not proceeding with colonoscopy to evaluate incidental polypoid lesion within the rectum as the patient will not be able to tolerate bowel prep in the setting of advanced dementia. -pt fails to meet inpt/ECF hospice criteria. Plan is to transition pt into hospice while at facility if she declines. -Pt's daughter agrees with the plan and will instruct ECF not to transport to ED in the future if pt clinically declines -1 week of ely cath to help with wound healing. OK to attempt voiding trial on 08/22/22 - Will not consult GI on this admission -resume rest of home meds as indicated -Palliative/hospice recs appreciated DVT Prophylaxis: Subq Lovenox Ban Mcduffie/POA: [phone] Disposition: DC to ECF upon availability of bed I personally examined the patient and I personally reviewed chart, data, labs radiology reports Total time spent: 35 minutes, over 51% of total time providing counseling or in coordination of care. Total time on this day of visit includes record and documentation review before and after visit including documentation and time not explicitly included on EMR time stamp Subjective: Interval History: HPI The patient complains of Abdominal pain The patient feels their symptoms are resolved no events or new concerns Symone Mcdonald is a 82 y.o. 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 Patient presented from [facility] ([facility]) wit h2 days of nausea and abdominal pain. Worse with with palpation. Facility decided to bring the patient into the hospital due to hypoxia (90%) which improved with 2L NC at facility Patient recently tested positive for COVID infection s/p Paxlovid. Per pt's daughter and facility no reported COVID related symptoms (eg cough, dyspnea, URI, bowel changes) Per chart pt's abdominal pain seems to have resolved following a large bowel movement. However, CT scan showed incidental polypoid lesion within the rectum. Pt's daughter reported that the last colonoscopy was around the time of ileostomy surgery~7 years ago. Pt's daughter also reported chronic loose stool, however the facility was unable to confirm frequent bowel movement in the last few days Scheduled Meds:aspirin, 81 mg, Oral, Daily buPROPion SR, 100 mg, Oral, Daily [Held by provider] carvedilol, 3.125 mg, Oral, BID WC cyanocobalamin, 1,000 mcg, Oral, Daily donepezil, 10 mg, Oral, Nightly enoxaparin, 40 mg, SubCUTAneous, Daily famotidine, 20 mg, Oral, Daily lactated Ringer's, 1,000 mL, IntraVENous, Once levothyroxine, 50 mcg, Oral, Daily [Held by provider] lisinopril, 20 mg, Oral, q AM memantine, 10 mg, Oral, BID sertraline, 100 mg, Oral, Nightly stomahesive in petrolatum, , Topical, TID Continuous Infusions: PRN Meds:PRN medications: acetaminophen OR acetaminophen, ondansetron, oxyCODONE OR [DISCONTINUED] oxyCODONE, polyethylene glycol (PEG) 3350, stomahesive in petrolatum, Zinc Oxide Review of Systems Unable to perform ROS: Dementia Interval Pertinent History: Social History Tobacco Use Smoking status: Former Packs/day: 0.50 Types: Cigarettes Smokeless tobacco: Not on file Substance Use Topics Alcohol use: No Alcohol/week: 0.0 standard drinks Objective: Patient Vitals for the past 24 hrs: BP Temp Temp src Pulse Resp SpO2 08/15/22 0536 124/69 36.8 C (98.3 F) Temporal 79 16 97 % Average, Min, and Max for last 24 hours Vitals: TEMPERATURE: Temp Av.8 C (98.3 F) Min: 36.8 C (98.3 F) Max: 36.8 C (98.3 F) RESPIRATIONS RANGE: Resp Av Min: 16 Max: 16 PULSE RANGE: Pulse Av Min: 79 Max: 79 BLOOD PRESSURE RANGE: Systolic (24hrs), Av , Min:124 , Max:124 ; Diastolic (24hrs), Av, Min:69, Max:69 PULSE OXIMETRY RANGE: SpO2 Av % Min: 97 % Max: 97 % I/O last 3 completed shifts: In: - (0 mL/kg) Out: 400 (4.7 mL/kg) [Urine:400 (0.1 mL/kg/hr)] Weight: 85 kg Physical Exam Vitals and nursing note reviewed. Constitutional: General: She is not in acute distress. Appearance: Normal appearance. She is not ill-appearing, toxic-appearing or diaphoretic. HENT: Head: Normocephalic and atraumatic. Right Ear: External ear normal. Left Ear: External ear normal. Nose: No congestion or rhinorrhea. Mouth/Throat: Pharynx: Oropharynx is clear. No oropharyngeal exudate or posterior oropharyngeal erythema. Eyes: General: No scleral icterus. Right eye: No discharge. Left eye: No discharge. Conjunctiva/sclera: Conjunctivae normal. Pupils: Pupils are equal, round, and reactive to light. Neck: Vascular: No carotid bruit. Cardiovascular: Rate and Rhythm: Normal rate and regular rhythm. Pulmonary: Effort: Pulmonary effort is normal. No respiratory distress. Breath sounds: Normal breath sounds. No stridor. No wheezing, rhonchi or rales. Chest: Chest wall: No tenderness. Abdominal: General: Bowel sounds are normal. There is no distension. Palpations: Abdomen is soft. There is no mass. Tenderness: There is no abdominal tenderness. There is no right CVA tenderness, left CVA tenderness, guarding or rebound. Hernia: No hernia is present. Musculoskeletal: General: No swelling, tenderness, deformity or signs of injury. Cervical back: No rigidity or tenderness. Right lower leg: No edema. Left lower leg: No edema. Lymphadenopathy: Cervical: No cervical adenopathy. Skin: General: Skin is warm and dry. Capillary Refill: Capillary refill takes less than 2 seconds. Coloration: Skin is not jaundiced or pale. Findings: No bruising, erythema, lesion or rash. Neurological: General: No focal deficit present. Mental Status: She is alert. Gait: Gait normal. Deep Tendon Reflexes: Reflexes normal. Psychiatric: Behavior: Behavior is cooperative. Cognition and Memory: Cognition is impaired. Memory is impaired. Lab Results Component Value Date NA 137 08/15/2022 K 4.2 08/15/2022 CL 105 08/15/2022 CO2 30 08/15/2022 BUN 30 (H) 08/15/2022 CREATININE 1.24 (H) 08/15/2022 GLUCOSE 91 08/15/2022 CALCIUM 8.3 (L) 08/15/2022 PROT 6.6 08/14/2022 BILITOT 0.3 08/14/2022 ALKPHOS 50 08/14/2022 AST 22 08/14/2022 ALT 14 08/14/2022 Lab Results Component Value Date WBC 10.3 08/15/2022 HGB 13.1 08/15/2022 HCT 38.9 08/15/2022 MCV 93.1 08/15/2022 PLT 228 08/15/2022 LYMPHOPCT 25.5 08/15/2022 RBC 4.18 08/15/2022 MCH 31.4 08/15/2022 MCHC 33.7 08/15/2022 RDW 13.4 08/15/2022 No components found for: LABA1C No components found for: LFT IMAGES: No echocardiogram results found for the past 12 months Additional results of the last 24 hours have been reviewed. Spiritual Care Note [facility] Palliative Care Patient Name:Symone Mcdonald Chief Complaint: Chief Complaint Patient presents with Abdominal Pain Nausea Pt is from [facility]. Pt was hypoxic at low 90's. C/o abd pain and nausea. Bgt 119. Hx of dementia A&O x1 at baseline. DNRCC Reason for visit: Initial Visit Services Provided To:patient Background and visit note: Checked on this patient who is in the [facility] and is listed as palliative. Unknown as to faith needs of patient. No family in room at time of visit. Also tried to find out via team members. Will attempt to call patient's family member to try to find faith information. Is there spiritual distress? YES Trying to contact family members. Care Plan: Visited room. Patient is not responsive at this time. Follow Up: when patient is able. Additional: N/A Debriefed: N/A. Geneva Barker 08/15/22 Physical Therapy Facility/Department: Physical Therapy Initial Evaluation NAME: Symone Mcdonald : 1940 Date of Service: 08/14/2022 Discharge Recommendations: Facility based therapy PT Equipment Recommendations Other: tbd Assessment Assessment: The pt is admitted with intractable abdominal pain and will potentially benefit from therapy for the listed impairments and to improve her overall functional capacity. Min assist was required for bed mobility this date, and the pt declined to attempt to stand or ambulate. Increased time and cues were needed for all tasks as well as increased encouragement. Cognitive limitations did limit all testing. Pt is not safe to live without 24 hour assistance secondary to cognitive and mobility limitations. Facility based care is recommended at discharge. Facility based therapy may help pt improve overall mobility. Performance Deficits/Impairments: Decreased functional mobility , Decreased endurance, Decreased ADL status, Decreased strength, Decreased posture, Decreased ROM, Decreased balance, Decreased coordination, Decreased safe awareness, Decreased cognition Treatment Diagnosis: limited mobility Decision Making: Medium Complexity Barriers to Learning: cognition Requires PT Follow-Up: Yes Barriers to Learning: cognition Activity Tolerance Activity Tolerance: Patient limited by cognitive status Patient Diagnosis(es): The primary encounter diagnosis was Intractable abdominal pain. A diagnosis of Diarrhea, unspecified type was also pertinent to this visit. has a past medical history of Anxiety, Bowel obstruction (CMS/HCC) (HCC), CAD (coronary artery disease), Dementia (HCC), Depression, Diverticulitis, Hypertension, Urinary incontinence, and UTI (urinary tract infection). has a past surgical history that includes Appendectomy; Cholecystectomy; and Hysterectomy. Restrictions Restrictions/Precautions Restrictions/Precautions: Fall Risk (up with assist) Required Braces or Orthoses?: No Vision/Hearing Vision: Within Functional Limits Hearing: Functional/adequate for paticipation in therapy Cognition/Orientation Overall Cognitive Status: Exceptions Arousal/Alertness: Appropriate responses to stimuli Following Commands: Follows one step commands with repetition, Follows one step commands with increased time Memory: Decreased short term memory, Decreased [facility] memory, Decreased recall of biographical Information, Decreased recall of recent events Safety Judgement: Decreased awareness of need for assistance, Decreased awareness of need for safety Insights: Decreased awareness of deficits Initiation: Requires cues for some Sequencing: Requires cues for some Overall Orientation Status: Impaired Orientation Level: Oriented to person Subjective General Chart Reviewed: Yes Patient Assessed for Rehabilitation Services: Yes Family / Caregiver Present: No Follows Commands: Impaired Subjective Subjective: Pt in bed and easily aroused to verbal stimuli. Pt agreed to PT. No c/o pain at rest. Social/Functional History Social/Functional History Additional Comments: Pt is a poor historian. Pt unable to answer questions regarding her previous level of function. Objective AROM RLE (degrees) RLE General AROM: grossly WFL AROM LLE (degrees) LLE General AROM: grossly WFL AROM RUE (degrees) RUE General AROM: Rt shoulder observed to near 40 degrees actively and 90 degrees with AAROM, rest of UE grossly WFL AROM LUE (degrees) LUE General AROM: shoulder observed to 2/3 ROM rest of UE grossly WFL Strength RLE Comment: 3/5 observed through function, unable to assign true grade due to limited participation. Strength LLE Comment: 3/5 observed through function, unable to assign true grade due to limited participation. Strength RUE Comment: 3/5 observed through function, unable to assign true grade due to limited participation. Strength LUE Comment: 3/5 observed through function, unable to assign true grade due to limited participation. Tone RLE RLE Tone: (no increased tone noted) Tone LLE LLE Tone: (no increased tone noted) Coordination Rapid Alternating Movements: (decreased accuracy and limited ability to attempt due to cognition) Finger to Nose: (decreased accuracy and limited ability to attempt due to cognition) Heel to [place]: (decreased accuracy and limited ability to attempt due to cognition) Sensation Overall Sensation Status: (able to feel touch bilat UE and LE) Bed mobility Bridging: Dependent/Total (to scoot to HOB) Supine to Sit: Minimal assistance Sit to Supine: Minimal assistance Scooting: Minimal assistance (to EOB) Comment: HOB elevated Transfers Comment: Pt declined to attempt to stand up. unable to assess Ambulation Ambulation: No Balance Posture: Fair Sitting - Static: Good Sitting - Dynamic: Fair, + Standing - Static: (unable to assess) Standing - Dynamic: (unable to assess) Comments: Pt did use bilat UE support for EOB sitting with attempted movement Plan Times per Week: 1-3 Plan Weeks: 3 Current Treatment Recommendations: Strengthening, ROM, Balance Training, Functional Mobility Training, Transfer Training, Gait Training, Endurance Training, Safety Education & Training Safety Safety Devices Safety Devices in Place: Yes Type of Devices: Left in bed, Call light within reach, Bed alarm in place, Nurse notified Restraints Restraints Initially in Place: No Outcomes Score AM-PAC Score AM-PAC Inpatient Mobility Raw Score: 7 Mobility Inpatient CMS G-Code Modifier: CM Goals Encounter Problems Encounter Problems (Active) Mobility Patient will ambulate 25 feet ore more with min assist and least restrictive device in order to improve safety and independence with mobility. Start: 08/14/22 Expected End: 09/04/22 Transfers Patient will perform bed mobility with supervision in order to improve independence and prepare for out of bed mobility. Start: 08/14/22 Expected End: 09/04/22 Patient will complete functional transfer with least restrictive device with supervision in order to prepare for ambulation. Start: 08/14/22 Expected End: 09/04/22 Education Education Given To: Patient Education Provided: PT Role, Plan of Care Education Method: Verbal Barriers to Learning: Cognition Education Outcome: Continued education needed Therapy Time Individual Co-treatment Time In 0848 (one eval mod complex) Time Out 0858 Minutes 10 PT wore mask and gloves throughout entire session with patient. Patient s Physical Therapy Plan of Care supervision is transferred to [facility] Physical Therapist. Jimmie Parrish PT Images from the original note were not included. [facility] Progress Note [phone]: Please page me for patient care issues. [phone]: Please page [facility] hospitalist for any issues. Symone Mcdonald : 1940(82 y.o.) PCP: [facility] Assessment and Plan: Principal Problem: Intractable abdominal pain # COOPER/CKD III, s/p IVF # Functional decline # Abdominal pain, resolved # Incidental polypoid lesion within the rectum, pathology status unknown # Recent COVID infection out of isolation 08/13/22 (completed paxlovid at facility) # Alzheimer's dementia # Decubitus pressure ulcer, POA-wound care cs # Chronic diarrhea # CAD # Goals of care discussion # DNR-CCA -pt 's daughter agreed with not proceeding with colonoscopy to evaluate incidental polypoid lesion within the rectum as the patient will not be able to tolerate bowel prep in the setting of advanced dementia. -pt fails to meet inpt/ECF hospice criteria. Plan is to transition pt into hospice while at facility if she declines. -Pt's daughter agrees with the plan and will instruct ECF not to transport to ED in the future if pt clinically declines - Will not consult GI on this admission -resume rest of home meds as indicated -Palliative/hospice recs appreciated DVT Prophylaxis: Subq Lovenox Ban Mcduffie/STEPHENA: [phone] Disposition: DC to ECF upon availability of bed I personally examined the patient and I personally reviewed chart, data, labs radiology reports Total time spent: 35 minutes, over 51% of total time providing counseling or in coordination of care. Total time on this day of visit includes record and documentation review before and after visit including documentation and time not explicitly included on EMR time stamp Subjective: Interval History: HPI The patient complains of Abdominal pain The patient feels their symptoms are resolved no events or new concerns Symone Mcdonald is a 82 y.o. 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 [facility] wit h2 days of nausea and abdominal pain. Worse with with palpation. Facility decided to bring the patient into the hospital due to hypoxia (90%) which improved with 2L NC at facility Patient recently tested positive for COVID infection s/p Paxlovid. Per pt's daughter and facility no reported COVID related symptoms (eg cough, dyspnea, URI, bowel changes) Per chart pt's abdominal pain seems to have resolved following a large bowel movement. However, CT scan showed incidental polypoid lesion within the rectum. Pt's daughter reported that the last colonoscopy was around the time of ileostomy surgery~7 years ago. Pt's daughter also reported chronic loose stool, however the facility was unable to confirm frequent bowel movement in the last few days Scheduled Meds:aspirin, 81 mg, Oral, Daily buPROPion SR, 100 mg, Oral, Daily [Held by provider] carvedilol, 3.125 mg, Oral, BID WC cyanocobalamin, 1,000 mcg, Oral, Daily donepezil, 10 mg, Oral, Nightly enoxaparin, 40 mg, SubCUTAneous, Daily famotidine, 20 mg, Oral, Daily lactated Ringer's, 1,000 mL, IntraVENous, Once levothyroxine, 50 mcg, Oral, Daily [Held by provider] lisinopril, 20 mg, Oral, q AM memantine, 10 mg, Oral, BID sertraline, 100 mg, Oral, Nightly Continuous Infusions: PRN Meds:PRN medications: acetaminophen OR acetaminophen, ondansetron, oxyCODONE OR [DISCONTINUED] oxyCODONE, polyethylene glycol (PEG) 3350, stomahesive in petrolatum, Zinc Oxide Review of Systems Unable to perform ROS: Dementia Interval Pertinent History: Social History Tobacco Use Smoking status: Former Packs/day: 0.50 Types: Cigarettes Smokeless tobacco: Not on file Substance Use Topics Alcohol use: No Alcohol/week: 0.0 standard drinks Objective: Patient Vitals for the past 24 hrs: BP Temp Temp src Pulse Resp SpO2 Weight 08/14/22 0223 110/51 36.5 C (97.7 F) Temporal 77 16 91 % -- 08/13/22 2359 -- -- -- -- -- 94 % -- 08/13/22 2158 -- -- -- -- -- 97 % -- 08/13/22 1651 124/82 35.8 C (96.5 F) Temporal 75 18 99 % 187 lb 4.8 oz (85 kg) 08/13/22 1537 137/74 -- -- 58 18 99 % -- 08/13/22 1448 (!) 142/87 -- -- 70 18 99 % -- 08/13/22 1353 (!) 145/68 -- -- 74 -- -- -- 08/13/22 1352 (!) 145/68 -- -- 94 18 97 % -- 08/13/22 1223 (!) 144/90 -- -- 81 18 97 % -- 08/13/22 1128 (!) 142/78 -- -- 63 18 100 % -- Average, Min, and Max for last 24 hours Vitals: TEMPERATURE: Temp Av.2 C (97.1 F) Min: 35.8 C (96.5 F) Max: 36.5 C (97.7 F) RESPIRATIONS RANGE: Resp Av.7 Min: 16 Max: 18 PULSE RANGE: Pulse Av Min: 58 Max: 94 BLOOD PRESSURE RANGE: Systolic (24hrs), Av , Min:110 , Max:145 ; Diastolic (24hrs), Av, Min:51, Max:90 PULSE OXIMETRY RANGE: SpO2 Av % Min: 91 % Max: 100 % I/O last 3 completed shifts: In: 1000 (11.8 mL/kg) [IV Piggyback:1000] Out: - (0 mL/kg) Weight: 85 kg Physical Exam Vitals and nursing note reviewed. Constitutional: General: She is not in acute distress. Appearance: Normal appearance. She is not ill-appearing, toxic-appearing or diaphoretic. HENT: Head: Normocephalic and atraumatic. Right Ear: External ear normal. Left Ear: External ear normal. Nose: No congestion or rhinorrhea. Mouth/Throat: Pharynx: Oropharynx is clear. No oropharyngeal exudate or posterior oropharyngeal erythema. Eyes: General: No scleral icterus. Right eye: No discharge. Left eye: No discharge. Conjunctiva/sclera: Conjunctivae normal. Pupils: Pupils are equal, round, and reactive to light. Neck: Vascular: No carotid bruit. Cardiovascular: Rate and Rhythm: Normal rate and regular rhythm. Pulmonary: Effort: Pulmonary effort is normal. No respiratory distress. Breath sounds: Normal breath sounds. No stridor. No wheezing, rhonchi or rales. Chest: Chest wall: No tenderness. Abdominal: General: Bowel sounds are normal. There is no distension. Palpations: Abdomen is soft. There is no mass. Tenderness: There is no abdominal tenderness. There is no right CVA tenderness, left CVA tenderness, guarding or rebound. Hernia: No hernia is present. Musculoskeletal: General: No swelling, tenderness, deformity or signs of injury. Cervical back: No rigidity or tenderness. Right lower leg: No edema. Left lower leg: No edema. Lymphadenopathy: Cervical: No cervical adenopathy. Skin: General: Skin is warm and dry. Capillary Refill: Capillary refill takes less than 2 seconds. Coloration: Skin is not jaundiced or pale. Findings: No bruising, erythema, lesion or rash. Neurological: General: No focal deficit present. Mental Status: She is alert. Gait: Gait normal. Deep Tendon Reflexes: Reflexes normal. Psychiatric: Behavior: Behavior is cooperative. Cognition and Memory: Cognition is impaired. Memory is impaired. Lab Results Component Value Date NA 140 08/14/2022 K 3.9 08/14/2022 CL 106 08/14/2022 CO2 28 08/14/2022 BUN 35 (H) 08/14/2022 CREATININE 1.21 (H) 08/14/2022 GLUCOSE 94 08/14/2022 CALCIUM 8.5 08/14/2022 PROT 6.6 08/14/2022 BILITOT 0.3 08/14/2022 ALKPHOS 50 08/14/2022 AST 22 08/14/2022 ALT 14 08/14/2022 Lab Results Component Value Date WBC 10.4 08/14/2022 HGB 13.4 08/14/2022 HCT 41.0 08/14/2022 MCV 93.3 08/14/2022 PLT 237 08/14/2022 LYMPHOPCT 23.9 08/14/2022 RBC 4.39 08/14/2022 MCH 30.5 08/14/2022 MCHC 32.7 08/14/2022 RDW 13.1 08/14/2022 No components found for: LABA1C No components found for: LFT IMAGES: No echocardiogram results found for the past 12 months Additional results of the last 24 hours have been reviewed. Nutrition rescreen completed. Patient referred to the Dietitian. Wound. documented in this encounter [facility] 08-15-2022 Note Formatting of this n ote might be different from the original. Palliative Care Interdisciplinary Team Note: Diagnosis: @[id number]@ Chief Complaint: Symone Mcdonald is a 82 y.o. female with chief complaint of: abdominal pain, Alzheimer's dementia Reason Palliative Following: Goals of Care Plan: Ongoing Goals of Care Discussion Code Status: DNR-CCA Medications: Oxycodone Nursing: Decrease Fall Risk, Assisted Care, and Skin Integrity Social Work: Palliative SW Following, Emotional Support, and Help with Discharge Planning Spiritual Care: No Unmet Needs Pharmacy: No Unmet Needs Psychology/Psychiatry: No Unmet Needs [facility] 08-15-2022 Note Formatting of this n ote might be different from the original. Palliative Care Interdisciplinary Team Note: Diagnosis: @[id number]@ Chief Complaint: Symone Mcdonald is a 82 y.o. female with chief complaint of: abdominal pain, Alzheimer's dementia Reason Palliative Following: Goals of Care Plan: Ongoing Goals of Care Discussion Code Status: DNR-CCA Medications: Oxycodone Nursing: Decrease Fall Risk, Assisted Care, and Skin Integrity Social Work: Palliative SW Following, Emotional Support, and Help with Discharge Planning Spiritual Care: No Unmet Needs Pharmacy: No Unmet Needs Psychology/Psychiatry: No Unmet Needs [facility] 08-15-2022 Miscellaneous Notes Palliative Care Interdisciplinary Team Note: Diagnosis: @[id number]@ Chief Complaint: Symone Mcdonald is a 82 y.o. female with chief complaint of: abdominal pain, Alzheimer's dementia Reason Palliative Following: Goals of Care Plan: Ongoing Goals of Care Discussion Code Status: DNR-CCA Medications: Oxycodone Nursing: Decrease Fall Risk, Assisted Care, and Skin Integrity Social Work: Palliative SW Following, Emotional Support, and Help with Discharge Planning Spiritual Care: No Unmet Needs Pharmacy: No Unmet Needs Psychology/Psychiatry: No Unmet Needs [facility] is able to accept back today. Call placed to daughter, Ban, to review. Ban is agreeable to returning to [facility] today. Ambulance scheduled for a 2pm discharge with Aureliano Angulo. Daughter agreeable to a referral being sent to a palliative care company. [facility] and [facility] both have contracts there. Daughter requested a referral be sent to [facility]. Referral faxed to Loraine Schmitt as requested. Support provided to Ban who shared frustration with the medicaid and nursing spend down process. She also shared grief her family has survived (she provided end of life care for her father, her brother is , she has a son who is ). AVS sent to [facility] via [facility]. Number for report: [phone] The patient is Moderately Unstable - Medium risk of patient condition declining or worsening The patient's goals for the shift include Eat food and rest well The clinical goals for the shift include Decreased elidia area pain from excoriation Over the shift, the patient did not make progress toward the following goals. Barriers to progression include dermatitis/abd pain. Recommendations to address these barriers include apply ordered cream/ely in place/reposition Problem: Knowledge Deficit Goal: Patient/family/caregiver demonstrates understanding of disease process, treatment plan, medications, and discharge instructions Outcome: Progressing Problem: Potential for Compromised Skin Integrity Goal: Skin Integrity is Maintained or Improved Outcome: Progressing Goal: Nutritional status is improving Outcome: Progressing Problem: Urinary Incontinence Goal: Perineal skin integrity is maintained or improved Outcome: Progressing . Reviewed with Dr. Nogueira and Dr. Waterman. Referral back to [facility] placed in [facility]. Awaiting response. Plan to discharge back to [facility] with palliative care. Working to find a palliative care team who can follow at her facility. The patient is Moderately Unstable - Medium risk of patient condition declining or worsening The patient's goals for the shift include rest well tonite The clinical goals for the shift include patient will be free from anxiety/agitation this shift Over the shift, the patient did not make progress toward the following goals. Barriers to progression include dementia/alzheimers/unfamilar environment. Recommendations to address these barriers include reassurance,bed alarm,quiet environment Problem: Knowledge Deficit Goal: Patient/family/caregiver demonstrates understanding of disease process, treatment plan, medications, and discharge instructions Outcome: Progressing Problem: Potential for Compromised Skin Integrity Goal: Skin Integrity is Maintained or Improved Outcome: Progressing Problem: Urinary Incontinence Goal: Perineal skin integrity is maintained or improved Outcome: Progressing . documented in this encounter [facility] 08-15-2022 Note Formatting of this n ote might be different from the original. [facility] is able to accept back today. Call placed to daughter, Ban, to review. Ban is agreeable to returning to [facility] today. Ambulance scheduled for a 2pm discharge with Aureliano Adele. Daughter agreeable to a referral being sent to a palliative care company. [facility] and [facility] both have contracts there. Daughter requested a referral be sent to [facility]. Referral faxed to Loraine Schmitt as requested. Support provided to Ban who shared frustration with the medicaid and nursing spend down process. She also shared grief her family has survived (she provided end of life care for her father, her brother is , she has a son who is ). AVS sent to [facility] via [facility]. Number for report: [phone] [facility] 08-15-2022 Note Formatting of this n ote might be different from the original. [facility] is able to accept back today. Call placed to daughter, Ban, to review. Ban is agreeable to returning to [facility] today. Ambulance scheduled for a 2pm discharge with Aureliano Angulo. Daughter agreeable to a referral being sent to a palliative care company. [facility] and [facility] both have contracts there. Daughter requested a referral be sent to [facility]. Referral faxed to Loraine Schmitt as requested. Support provided to Ban who shared frustration with the medicaid and nursing spend down process. She also shared grief her family has survived (she provided end of life care for her father, her brother is , she has a son who is ). AVS sent to [facility] via [facility]. Number for report: [phone] [facility] [employer] 08-15-2022 Plan of care note The patient is Moderately Unstable - Medium risk of patient condition declining or worsening The patient's goals for the shift include Eat food and rest well The clinical goals for the shift include Decreased elidia area pain from excoriation Over the shift, the patient did not make progress toward the following goals. Barriers to progression include dermatitis/abd pain. Recommendations to address these barriers include apply ordered cream/ely in place/reposition Problem: Knowledge Deficit Goal: Patient/family/caregiver demonstrates understanding of disease process, treatment plan, medications, and discharge instructions Outcome: Progressing Problem: Potential for Compromised Skin Integrity Goal: Skin Integrity is Maintained or Improved Outcome: Progressing Goal: Nutritional status is improving Outcome: Progressing Problem: Urinary Incontinence Goal: Perineal skin integrity is maintained or improved Outcome: Progressing . [facility] 08-14-[address] Andrea savage and Dr. Waterman. Referral back to [facility] in [facility]. Awaiting response. Plan to discharge back to [facility] with palliative care. Working to find a palliative care team who can follow at her facility. [facility] 08-14-2022 Note Formatting of this n ote might be different from the original. Reviewed with Dr. Nogueira and Dr. Waterman. Referral back to [facility] in [facility]. Awaiting response. Plan to discharge back to [facility] with palliative care. Working to find a palliative care team who can follow at her facility. [facility] 08-14-2022 Note Formatting of this n ote might be different from the original. Reviewed with Dr. Nogueira and Dr. Waterman. Referral back to [facility]. Awaiting response. Plan to discharge back to [facility] with palliative care. Working to find a palliative care team who can follow at her facility. [facility] 08-14-2022 Note [facility] Progress Note [phone]: Please page me for patient care issues. [phone]: Please page [facility] night hospitalist for any issues. Symone Mcdonald : 1940(82 y.o.) PCP: [facility] Assessment and Plan: Principal Problem: Intractable abdominal pain # COOPER/CKD III, s/p IVF # Functional decline # Abdominal pain, resolved # Incidental polypoid lesion within the rectum, pathology status unknown # Recent COVID infection out of isolation 08/13/22 (completed paxlovid at facility) # Alzheimer's dementia # Decubitus pressure ulcer, POA-wound care cs # Chronic diarrhea # CAD # Goals of care discussion # DNR-CCA -pt 's daughter agreed with not proceeding with colonoscopy to evaluate incidental polypoid lesion within the rectum as the patient will not be able to tolerate bowel prep in the setting of advanced dementia. -pt fails to meet inpt/ECF hospice criteria. Plan is to transition pt into hospice while at facility if she declines. -Pt's daughter agrees with the plan and will instruct ECF not to transport to ED in the future if pt clinically declines - Will not consult GI on this admission -resume rest of home meds as indicated -Palliative/hospice recs appreciated DVT Prophylaxis: Subq Lovenox Ban Mcduffie/SUKH: [phone] Disposition: DC to ECF upon availability of bed I personally examined the patient and I personally reviewed chart, data, labs radiology reports Total time spent: 35 minutes, over 51% of total time providing counseling or in coordination of care. Total time on this day of visit includes record and documentation review before and after visit including documentation and time not explicitly included on EMR time stamp Subjective: Interval History: HPI The patient complains of Abdominal pain The patient feels their symptoms are resolved no events or new concerns Symone Mcdonald is a 82 y.o. 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 [facility] wit h2 days of nausea and abdominal pain. Worse with with palpation. Facility decided to bring the patient into the hospital due to hypoxia (90%) which improved with 2L NC at facility Patient recently tested positive for COVID infection s/p Paxlovid. Per pt's daughter and facility no reported COVID related symptoms (eg cough, dyspnea, URI, bowel changes) Per chart pt's abdominal pain seems to have resolved following a large bowel movement. However, CT scan showed incidental polypoid lesion within the rectum. Pt's daughter reported that the last colonoscopy was around the time of ileostomy surgery~7 years ago. Pt's daughter also reported chronic loose stool, however the facility was unable to confirm frequent bowel movement in the last few days Scheduled Meds:aspirin, 81 mg, Oral, Daily buPROPion SR, 100 mg, Oral, Daily [Held by provider] carvedilol, 3.125 mg, Oral, BID WC cyanocobalamin, 1,000 mcg, Oral, Daily donepezil, 10 mg, Oral, Nightly enoxaparin, 40 mg, SubCUTAneous, Daily famotidine, 20 mg, Oral, Daily lactated Ringer's, 1,000 mL, IntraVENous, Once levothyroxine, 50 mcg, Oral, Daily [Held by provider] lisinopril, 20 mg, Oral, q AM memantine, 10 mg, Oral, BID sertraline, 100 mg, Oral, Nightly Continuous Infusions: PRN Meds:PRN medications: acetaminophen OR acetaminophen, ondansetron, oxyCODONE OR [DISCONTINUED] oxyCODONE, polyethylene glycol (PEG) 3350, stomahesive in petrolatum, Zinc Oxide Review of Systems Unable to perform ROS: Dementia Interval Pertinent History: Social History Tobacco Use Smoking status: Former Packs/day: 0.50 Types: Cigarettes Smokeless tobacco: Not on file Substance Use Topics Alcohol use: No Alcohol/week: 0.0 standard drinks Objective: Patient Vitals for the past 24 hrs: BP Temp Temp src Pulse Resp SpO2 Weight 08/14/22 0223 110/51 36.5 ?C (97.7 ?F) Temporal 77 16 91 % -- 08/13/22 2359 -- -- -- -- -- 94 % -- 08/13/22 2158 -- -- -- -- -- 97 % -- 08/13/22 1651 124/82 35.8 ?C (96.5 ?F) Temporal 75 18 99 % 187 lb 4.8 oz (85 kg) 08/13/22 1537 137/74 -- -- 58 18 99 % -- 08/13/22 1448 (!) 142/87 -- -- 70 18 99 % -- 08/13/22 1353 (!) 145/68 -- -- 74 -- -- -- 08/13/22 1352 (!) 145/68 -- -- 94 18 97 % -- 08/13/22 1223 (!) 144/90 -- -- 81 18 97 % -- 08/13/22 1128 (!) 142/78 -- -- 63 18 100 % -- Average, Min, and Max for last 24 hours Vitals: TEMPERATURE: Temp Av.2 ?C (97.1 ?F) Min: 35.8 ?C (96.5 ?F) Max: 36.5 ?C (97.7 ?F) RESPIRATIONS RANGE: Resp Av.7 Min: 16 Max: 18 PULSE RANGE: Pulse Av Min: 58 Max: 94 BLOOD PRESSURE RANGE: (more content not included)... [facility] 08-14-2022 Hospital Discharg e instructions IRINA Marcos - 08/14/2022 12:37 PM EST Continuity of Care Form Patient Name: Symone Mcdonald : 1940 Admit date: 08/12/2022 Discharge date: 08/15/2022 Code Status Order: DNR-CCA Advance Directives: N Admitting Physician: Gomez Nogueira DO PCP: [facility] Discharging Nurse: Wyatt MEHTA Discharging Hospital Unit/Room#: E3-518/E3-496 A Discharging Unit Phone Number: [phone] Emergency Contact: Extended Emergency Contact Information Primary Emergency Contact: Ban Mcduffie (POA) Relation: Child Past Surgical History: Past Surgical History: Procedure Laterality Date APPENDECTOMY CHOLECYSTECTOMY HYSTERECTOMY Immunization History: There is no immunization history for the selected administration types on file for this patient. Active Problems: Medical Problems Problem List * (Principal) Intractable abdominal pain Diarrhea COOPER (acute kidney injury) (CMS/HCC) (HCC) Failure to thrive in adult Contusion of left shoulder Hypoxia Declining functional status Bronchitis Muscle weakness Late onset Alzheimer's disease without behavioral disturbance (HCC) Nicotine abuse Anxiety Trimalleolar fracture Hypertension Acute cystitis without hematuria CAD (coronary artery disease) Depression Dementia (HCC) Isolation/Infection: No active isolations No active infections Nurse Assessment: Last Vital Signs: BP 110/51 Pulse 77 Temp 36.5 C (97.7 F) (Temporal) Resp 16 Wt 187 lb 4.8 oz (85 kg) SpO2 91% BMI 32.15 kg/m Last documented pain score (0-10 scale): Last Weight: Wt Readings from Last 1 Encounters: 08/13/22 187 lb 4.8 oz (85 kg) Mental Status: DEVONTE Patient Mental Status: disoriented and able to concentrate and follow conversation IV Access: DEVONTE IV Access: None Nursing Mobility/ADLs: Walking Total assistance Transfer Total assistance Bathing Total assistance Dressing Total assistance Toileting Total assistance Feeding Total assistance Sharepoint Trainer Total assistance Med Delivery yes Wound Care Documentation and Therapy: Wound/Incision 08/13/22 Perineum (Active) Number of days: 1 Elimination: Continence: Bowel: no Bladder: no Urinary Catheter: Insertion date: 08/13/2022 Colostomy/Ileostomy/Ileal Conduit: None Date of Last BM: 08/14/2022 No intake or output data in the 24 hours ending 08/14/22 1236 I/O last 3 completed shifts: In: 1000 (11.8 mL/kg) [IV Piggyback:1000] Out: - (0 mL/kg) Weight: 85 kg Safety Concerns: at risk for falls Impairments/Disabilities: none Nutrition Therapy: Current Nutrition Therapy: Oral diet: general Routes of Feeding: oral Liquids: no restrictions Daily Fluid Restriction: no Last Modified Barium Swallow with Video (Video Swallowing Test): not done Treatments at the Time of Hospital Discharge: Respiratory Treatments: N/A Oxygen Therapy: is on oxygen at 2 L/min per nasal cannula. Ventilator: No ventilator support Rehab Therapies: N/A Weight Bearing Status/Restrictions: no restriction Other Medical Equipment (for information only, NOT a DME order): none Other Treatments: N/A Patient's personal belongings (please select all that are sent with patient): none RN SIGNATURE: MANAGEMENT/SOCIAL WORK SECTION Inpatient Status Date: 08/12/2022 Readmission Risk Assessment Score: Predictive Model Details Model IP RISK OF UNPLANNED READMISSION [[id number]] is not released. No score information can be retrieved Discharging to Facility/ Agency Name: [facility] Address: [address] [place] [address] Fax: Dialysis Facility (if applicable) Name: Address: Dialysis Schedule: Phone: Fax: Manager Market Intelligence/New Car Make Ready Worker signature: ICIAN SECTION Prognosis: poor Condition at Discharge: stable Rehab Potential (if transferring to Rehab): poor Recommended Labs or Other Treatments After Discharge: Hospice referral, do not transport to ED order 1 week of ely cath to help with wound healing. OK to attempt voiding trial on 08/22/22 Physician Certification: I certify the above information and transfer of Symone Mcdonald is necessary for the continuing treatment of the diagnosis listed and that she requires ECF for greater than 30 days. Update Admission H&P: No change in H&P PHYSICIAN SIGNATURE: documented in this encounter [facility] 08-14-2022 Consult note Associated Order (s): IP WOUND CARE NURSE CONSULT TO EVAL Images from the original note were not included. [facility] Wound Care CONSULT Note Symone Mcdonald AGE: 82 y.o. GENDER: female : 1940 Subjective: HISTORY of PRESENT ILLNESS HPI Symone Mcdonald is a 82 y.o. female who presents for a wound consult. History of Wound Context: 82 y.o. 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 Wound care consulted for "perineum" wound. Patients family at bedside. PAST MEDICAL HISTORY Past Medical History: Diagnosis Date Anxiety Bowel obstruction (CMS/HCC) (HCC) CAD (coronary artery disease) Dementia (HCC) Depression Diverticulitis Hypertension Urinary incontinence UTI (urinary tract infection) PAST SURGICAL HISTORY Past Surgical History: Procedure Laterality Date APPENDECTOMY CHOLECYSTECTOMY HYSTERECTOMY FAMILY HISTORY No family history on file. SOCIAL HISTORY Social History Tobacco Use Smoking status: Former Packs/day: 0.50 Types: Cigarettes Substance Use Topics Alcohol use: No Alcohol/week: 0.0 standard drinks Drug use: No ALLERGIES Allergies Allergen Reactions Latex Erythromycin Rash MEDICATIONS No current facility-administered medications on file prior to encounter. Current Outpatient Medications on File Prior to Encounter Medication Sig Dispense Refill acetaminophen (Tylenol) 325 MG tablet Take 650 mg by mouth every 6 hours as needed for fever, mild pain (1-3) or moderate pain (4-6). ammonium lactate (Lac-Hydrin) 12 % lotion Apply topically if needed for dry skin. Daily aspirin 81 MG EC tablet Take 81 mg by mouth daily. bisacodyl (Dulcolax) 10 MG suppository Insert 10 mg into the rectum Daily as needed for constipation. If no results from [facility] bisacodyl (Dulcolax) 5 MG EC tablet Take 5 mg by mouth Daily as needed for constipation. Do not crush, chew, or split. buPROPion SR (Wellbutrin SR) 100 MG 12 hr tablet Take 100 mg by mouth daily. carvedilol (Coreg) 3.125 MG tablet Take 3.125 mg by mouth in the morning and 3.125 mg in the evening. cholecalciferol (Vitamin D-3) 50 MCG (2000 UT) tablet Take 2,000 Units by mouth daily. cyanocobalamin (Vitamin B-12) 1000 MCG tablet Take 1,000 mcg by mouth daily. donepezil (Aricept) 10 MG tablet Take 10 mg by mouth Nightly. famotidine (Pepcid) 20 MG tablet Take 20 mg by mouth daily. guaiFENesin (Robitussin) 100 MG/5ML liquid Take 10 mL by mouth every 6 hours as needed for cough. levothyroxine (Synthroid, Levoxyl) 50 MCG tablet Take 50 mcg by mouth daily. lisinopril 20 MG tablet Take 1 tablet by mouth every morning. Magnesium Hydroxide (MILK OF MAGNESIA PO) Take 30 mL/L by mouth Daily as needed. memantine (Namenda) 10 MG tablet Take 10 mg by mouth 2 times daily. nystatin (Mycostatin) cream Apply 1 g topically. polyethylene glycol, PEG, 3350 (Miralax) 17 g packet Take 17 g by mouth Daily as needed. sertraline (Zoloft) 100 MG tablet Take 100 mg by mouth Nightly. Skin Protectants, Misc. (Basis Facial Moisturizer) cream Apply 1 application topically daily. [DISCONTINUED] cholecalciferol (Vitamin D-3) 1.25 MG (71768 UT) capsule Take 50,000 Units by mouth. REVIEW OF SYSTEMS Pertinent items are noted in HPI. Objective: BP 110/51 Pulse 77 Temp 36.5 C (97.7 F) (Temporal) Resp 16 Wt 85 kg (187 lb 4.8 oz) SpO2 91% BMI 32.15 kg/m PHYSICAL EXAM General appearance: in no apparent distress, well developed and well nourished, non-toxic, in no respiratory distress and acyanotic, and alert Skin: warm and dry Pulmonary: Normal effort, no respiratory distress, no cyanosis Left arm: 1x1x0.1cm. 100% pink/red tissue. Scant serosnag drainage present. Elidia-wound intact and fragile. No obvious signs of infection. Bilateral buttock: 7x5x0.2cm, intact skin bridge. 100% red granulation tissue. Scant serosang drainage noted. Elidia-wound intact and fragile. No obvious signs of infection. LABS CBC: Lab Results Component Value Date WBC 10.4 08/14/2022 HGB 13.4 08/14/2022 HCT 41.0 08/14/2022 MCV 93.3 08/14/2022 PLT 237 08/14/2022 BMP: Lab Results Component Value Date NA 140 08/14/2022 K 3.9 08/14/2022 CL 106 08/14/2022 CO2 28 08/14/2022 BUN 35 (H) 08/14/2022 CREATININE 1.21 (H) 08/14/2022 PT/INR: No results found for: PROTIME, INR Prealbumin: No results found for: PREALBUMIN Albumin:No components found for: LABALBU Sed Rate:No results found for: SEDRATE Micro: No components found for: BC Assessment/Plan: Left arm: Skin tear - Cleanse with NS. Apply adaptic. Cover with foam dressing. Change daily and PRN. Bilateral buttock: Stage 3 pressure injury - Cleanse with NS. Apply ET mix. Leave WILBUR. Apply TID and PRN. - P500 mattress with wedges for offloading - Q2 hour turns - Nutritional support - Wound care to follow Recommend to follow up at [facility] [place] care [place] after hospital discharge. Any questions or concerns please secure chat "ACH wound/ostomy". Thank you for the consult! I personally obtained the milton and critical portions of the history and physical exam. I reviewed the labs, imaging studies, and electronic medical record. I reviewed the chart documentation and discussed the patient with treatment team members. I have edited the note to reflect my clinical findings and my assessment and plan. Please note, the time of this note does not reflect the time I saw this patient today, but the time of this documentaton. Portions of this note including HPI, ROS, impression/plan, and examination may have been copied forward from admission to today as to provide important historical information essential in contributing to medical decision making. Documentation has been reviewed and edited as necessary to support clinical decision making for today's visit and to reflect my own independent evaluation of this patient. Decision making for today's visit and to reflect my own independent evaluation of this patient. [facility] Phone: 08-14-2022 Consult note Associated Order (s): IP WOUND CARE NURSE CONSULT TO EVAL Images from the original note were not included. [facility] Wound Care CONSULT Note Symone Mcdonald AGE: 82 y.o. GENDER: female : 1940 Subjective: HISTORY of PRESENT ILLNESS HPI Symone Mcdonald is a 82 y.o. female who presents for a wound consult. History of Wound Context: 82 y.o. 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 Wound care consulted for "perineum" wound. Patients family at bedside. PAST MEDICAL HISTORY Past Medical History: Diagnosis Date Anxiety Bowel obstruction (CMS/HCC) (HCC) CAD (coronary artery disease) Dementia (HCC) Depression Diverticulitis Hypertension Urinary incontinence UTI (urinary tract infection) PAST SURGICAL HISTORY Past Surgical History: Procedure Laterality Date APPENDECTOMY CHOLECYSTECTOMY HYSTERECTOMY FAMILY HISTORY No family history on file. SOCIAL HISTORY Social History Tobacco Use Smoking status: Former Packs/day: 0.50 Types: Cigarettes Substance Use Topics Alcohol use: No Alcohol/week: 0.0 standard drinks Drug use: No ALLERGIES Allergies Allergen Reactions Latex Erythromycin Rash MEDICATIONS No current facility-administered medications on file prior to encounter. Current Outpatient Medications on File Prior to Encounter Medication Sig Dispense Refill acetaminophen (Tylenol) 325 MG tablet Take 650 mg by mouth every 6 hours as needed for fever, mild pain (1-3) or moderate pain (4-6). ammonium lactate (Lac-Hydrin) 12 % lotion Apply topically if needed for dry skin. Daily aspirin 81 MG EC tablet Take 81 mg by mouth daily. bisacodyl (Dulcolax) 10 MG suppository Insert 10 mg into the rectum Daily as needed for constipation. If no results from [facility] bisacodyl (Dulcolax) 5 MG EC tablet Take 5 mg by mouth Daily as needed for constipation. Do not crush, chew, or split. buPROPion SR (Wellbutrin SR) 100 MG 12 hr tablet Take 100 mg by mouth daily. carvedilol (Coreg) 3.125 MG tablet Take 3.125 mg by mouth in the morning and 3.125 mg in the evening. cholecalciferol (Vitamin D-3) 50 MCG (2000 UT) tablet Take 2,000 Units by mouth daily. cyanocobalamin (Vitamin B-12) 1000 MCG tablet Take 1,000 mcg by mouth daily. donepezil (Aricept) 10 MG tablet Take 10 mg by mouth Nightly. famotidine (Pepcid) 20 MG tablet Take 20 mg by mouth daily. guaiFENesin (Robitussin) 100 MG/5ML liquid Take 10 mL by mouth every 6 hours as needed for cough. levothyroxine (Synthroid, Levoxyl) 50 MCG tablet Take 50 mcg by mouth daily. lisinopril 20 MG tablet Take 1 tablet by mouth every morning. Magnesium Hydroxide (MILK OF MAGNESIA PO) Take 30 mL/L by mouth Daily as needed. memantine (Namenda) 10 MG tablet Take 10 mg by mouth 2 times daily. nystatin (Mycostatin) cream Apply 1 g topically. polyethylene glycol, PEG, 3350 (Miralax) 17 g packet Take 17 g by mouth Daily as needed. sertraline (Zoloft) 100 MG tablet Take 100 mg by mouth Nightly. Skin Protectants, Misc. (Basis Facial Moisturizer) cream Apply 1 application topically daily. [DISCONTINUED] cholecalciferol (Vitamin D-3) 1.25 MG (55447 UT) capsule Take 50,000 Units by mouth. REVIEW OF SYSTEMS Pertinent items are noted in HPI. Objective: BP 110/51 Pulse 77 Temp 36.5 C (97.7 F) (Temporal) Resp 16 Wt 85 kg (187 lb 4.8 oz) SpO2 91% BMI 32.15 kg/m PHYSICAL EXAM General appearance: in no apparent distress, well developed and well nourished, non-toxic, in no respiratory distress and acyanotic, and alert Skin: warm and dry Pulmonary: Normal effort, no respiratory distress, no cyanosis Left arm: 1x1x0.1cm. 100% pink/red tissue. Scant serosnag drainage present. Elidia-wound intact and fragile. No obvious signs of infection. Bilateral buttock: 7x5x0.2cm, intact skin bridge. 100% red granulation tissue. Scant serosang drainage noted. Elidia-wound intact and fragile. No obvious signs of infection. LABS CBC: Lab Results Component Value Date WBC 10.4 08/14/2022 HGB 13.4 08/14/2022 HCT 41.0 08/14/2022 MCV 93.3 08/14/2022 PLT 237 08/14/2022 BMP: Lab Results Component Value Date NA 140 08/14/2022 K 3.9 08/14/2022 CL 106 08/14/2022 CO2 28 08/14/2022 BUN 35 (H) 08/14/2022 CREATININE 1.21 (H) 08/14/2022 PT/INR: No results found for: PROTIME, INR Prealbumin: No results found for: PREALBUMIN Albumin:No components found for: LABALBU Sed Rate:No results found for: SEDRATE Micro: No components found for: BC Assessment/Plan: Left arm: Skin tear - Cleanse with NS. Apply adaptic. Cover with foam dressing. Change daily and PRN. Bilateral buttock: Stage 3 pressure injury - Cleanse with NS. Apply ET mix. Leave WILBUR. Apply TID and PRN. - P500 mattress with wedges for offloading - Q2 hour turns - Nutritional support - Wound care to follow Recommend to follow up at [facility] wound care [place] after hospital discharge. Any questions or concerns please secure chat "ACH wound/ostomy". Thank you for the consult! I personally obtained the milton and critical portions of the history and physical exam. I reviewed the labs, imaging studies, and electronic medical record. I reviewed the chart documentation and discussed the patient with treatment team members. I have edited the note to reflect my clinical findings and my assessment and plan. Please note, the time of this note does not reflect the time I saw this patient today, but the time of this documentaton. Portions of this note including HPI, ROS, impression/plan, and examination may have been copied forward from admission to today as to provide important historical information essential in contributing to medical decision making. Documentation has been reviewed and edited as necessary to support clinical decision making for today's visit and to reflect my own independent evaluation of this patient. Decision making for today's visit and to reflect my own independent evaluation of this patient. Associated Order(s): IP CONSULT TO PALLIATIVE CARE Images from the original note were not included. Palliative Care Initial Consult Chief Complaint: Symone Harry is a 82 y.o. female with chief complaint of intractable abdominal pain. Palliative Care is actively following. Assessment/Plan Goals of Care - Patient is unable to participate meaningfully in goals of care discussions due to dementia - HCPOA and surrogate decision maker is the patient's daughter, Ban Mcduffie ([phone]) - Current code status: DNR-CCA, not okay for ICU transfer or intubation - Ban is clear that she wishes to focus on comfort and quality of life for her mother. Goals are in line with hospice philosophy (as Ban would not wish for her mother to return to the hospital in the future if she again becomes ill, would opt for comfort focused measures at her facility), however patient does not currently meet criteria for hospice enrollment. - Met with Ban as well as primary attending Dr. Nogueira at the bedside today to further discuss. The best plan moving forward to honor patient and Ban's goals would be for patient to be followed by a palliative care service at her facility that can coordinate hospice enrollment when the patient does begin to show signs of decline. - Ban would wish for her mother to return to her current facility, [facility], upon discharge as the facility is close to her home and she is happy with the care being provided. Unfortunately our palliative care team does not follow at this facility. - Will coordinate with social work to find palliative team that can follow at the patient's facility. Appreciate assistance. Abdominal pain - resolved - Initial chief complaint for admission - Per report from nursing facility staff, patient was holding stomach, wincing with palpation - CT abdomen pelvis obtained in the ED was significant for colonic diverticulosis as well as polypoid lesion of left rectal wall, however no indication of what may have caused the patient's abdominal pain - Patient does have history of recurrent UTIs - UA obtained in the ED not overtly concerning for infection; urine culture not sent - Pain appears to have resolved on examination today - Oxycodone 5 mg q4h PRN available in the event of recurrence - Continue to monitor Incidental polypoid lesion of the rectum - Seen on Ct abdomen and pelvis as noted above - Ban has declined further evaluation - does not believe patient would be able to tolerate prep for colonoscopy, and should the lesion represent malignancy would not wish for further treatment - No further investigation planned as not in line with patient and family goals of care COOPER - Scr mildly elevated to 1.45 on admission, per chart review baseline appears to be ~0.9 - Improved to 1.21 today - Continue to monitor Recent COVID-19 infection - Out of isolation 08/13 - S/p paxlovid course at facility - Satting well on 2L NC Alzheimer's dementia - FAST 6e - Patient resumed on home medications of memantine, donepezil - Without behavioral disturbance Decubitus pressure ulcer - Wound care consulted and following Palliative Care Encounter - will continue to follow for ongoing monitoring of progression of Pain as well as for appropriateness for hospice care due to Dementia - will continue treatment including NA - palliative care not managing medications at this time Total of 45 minutes spent on this encounter including Chart review, Patient visit and exam, Documentation in EHR, Care coordination, Communicating with primary attending or other consultants, and Counseling and educating patient/family/caregiver. Discharge planning: Plan for discharge back to patient current facility with palliative care to follow Patient meets criteria for general inpatient hospice care including the following: N/A - Palliative Care Patient Referrals to: None Discussed patient and the plan of care with the other interdisciplinary team (IDT) members of Palliative Care Team, and with Primary Attending, Patient, and Family Subjective: Hospital days prior to consult: 0 Trauma Consult: no. Subjective/Events Symone Mcdonald is an 82 y/o F with PMHx CAD, HTN, diverticulitis, recent COVID-19 infection (s/p paxlovid at the facility), and Alzheimer's dementia who presented to [facility] ED from facility due to concerns for abdominal pain. Staff had noted patient had been holding her abdomen and was wincing with palpation. Evaluation in the ED revealed COOPER as well as diverticulosis and rectal polypoid lesion, but no cause of acute abdominal pain. The patient was admitted for further evaluation and management. Since admission, the patient's abdominal pain appears to have resolved. After discussing with primary team, patient's daughter and HCPOA has decided against further evaluation of rectal lesion as it is not in line with goals of care for the patient, which are comfort focused in nature. She is being treated by wound care for sacral decubitus ulcer. Palliative care has been consulted for goals of care discussions and to determine if the patient would be eligible for enrollment in hospice. Pain Assessment (If Pain Scale >0) Description: NA - patient denies pain at the time of my encounter Goals of care:Provide Comfort Care/Support/Palliation/Relieve Suffering Advance Directives: DNR-CCA Surrogate: Child and HCPOA Prognosis: unknown Spiritual assessment: No spiritual distress identified Bereavement and grief: Low Risk Bereavement Past Medical History: Diagnosis Date Anxiety Bowel obstruction (CMS/HCC) (HCC) CAD (coronary artery disease) Dementia (HCC) Depression Diverticulitis Hypertension Urinary incontinence UTI (urinary tract infection) Past Surgical History: Procedure Laterality Date APPENDECTOMY CHOLECYSTECTOMY HYSTERECTOMY No family history on file. Unable to obtain family history due to dementia Allergies Allergen Reactions Latex Erythromycin Rash Review of Systems ROS: See palliative care ROS/ESAS below; Detail ROS unable to be obtained due to patient's mental status [place] Symptom Assessment Score [place] Score Pain Score 0 Tiredness Score 5 Nausea Score 0 Depression Score 5 Anxiety Score 0 Drowsiness Score 3 Anorexia Score (0= eating well, 10= not eating) 0 Wellbeing Score (10= worst sense of well-being) 5 Constipation 0 Dyspnea Score (0= no shortness of breath) 0 FLACC Scale (For Pain Assessment of the Non-Verbal Patient) NA - patient verbal Assessed by: provider. Social history: [place] status: no Marital status: Living status: detention Work history: not assessed today Advance Care Planning: The patient has capacity to make healthcare and advanced care planning decisions No The patient's identified surrogate decision maker is Child and HCPOA. Discussion participants: Provider - myself and Child - daughter and HCPOA DeniseDiagnosis and Prognosis, Goals of Care, Advanced Care Planning, and Discharge Plan We discussed goals of care related to the patient's current health as documented below: - Goal for patient comfort and eventual achievement of a peaceful - Goal to avoid unnecessary medical testing or therapies - Goal for patient to return to previous facility upon discharge We discussed [id number] concerns identified by the patient/surrogate, including - NA Interventions reviewed: Resuscitation procedures (CPR) and Mechanical ventilator support Advance Care Planning Documents: Healthcare Power of Logistics Specialist: Completed Financial Power of Logistics Specialist: Other not assessed Living Will: Completed Code Status: DNR-CCA In addition to the time spent evaluating and managing the patient's medical diagnoses above, 20 minutes of this encounter was spent discussing advanced care planning documented above. Family Meeting: Participants: child Family meeting was held to discuss:Diagnosis and Prognosis, Goals of Care, Advanced Care Planning, and Discharge Plan Objective: Physical Exam BP 110/51 Pulse 77 Temp 36.5 C (97.7 F) (Temporal) Resp 16 Wt 187 lb 4.8 oz (85 kg) SpO2 91% BMI 32.15 kg/m Physical Exam Constitutional: General: She is not in acute distress. Appearance: She is not ill-appearing. HENT: Head: Normocephalic and atraumatic. Nose: Comments: Nasal cannula in place Mouth/Throat: Mouth: Mucous membranes are moist. Pharynx: Oropharynx is clear. No oropharyngeal exudate or posterior oropharyngeal erythema. Eyes: General: No scleral icterus. Pupils: Pupils are equal, round, and reactive to light. Cardiovascular: Rate and Rhythm: Normal rate and regular rhythm. Heart sounds: No murmur heard. Pulmonary: Effort: Pulmonary effort is normal. No respiratory distress. Breath sounds: No wheezing, rhonchi or rales. Abdominal: General: Bowel sounds are normal. There is no distension. Palpations: Abdomen is soft. There is no mass. Tenderness: There is no abdominal tenderness. Musculoskeletal: General: No deformity. Normal range of motion. Cervical back: Normal range of motion. No rigidity. Right lower leg: No edema. Left lower leg: No edema. Skin: General: Skin is warm and dry. Comments: Sacral decubitus ulcer noted Neurological: General: No focal deficit present. Mental Status: She is alert. Mental status is at baseline. She is disoriented. Psychiatric: Behavior: Behavior normal. Current Medications: Inpatient medications reviewed: yes Home medications reviewed: yes OARRS Reviewed: Yes-no controlled substance prescriptions reported 24 Hour PRN Meds: tylenol 650 mg x 1, oxycodone 5 mg x 1 Results/Verification of Data Review Objective data reviewed (be specific which labs, imaging reports with dates reviewed): CT abdomen pelvis 08/13 CBC 08/13, 08/14 BMP 08/13, 08/14 MAR I/O's Chart notes Data in Support of Terminal Illness: Is patient hospice appropriate? no Transition Note Initiated: yes. Images from the original note were not included. Department of Surgery Surgical Service: ACS Consult Note PATIENT NAME: Symone Mcdonald : 1940 ATTENDING PHYSICIAN: Snehal Bianchi, * ADMIT DATE: 08/12/2022 TODAY'S DATE: 08/13/2022 CHIEF COMPLAINT: Chief Complaint Patient presents with Abdominal Pain Nausea [facility] Pt was hypoxic at low 90's. C/o abd pain and nausea. Bgt 119. Hx of dementia A&O x1 at baseline. [facility] Reason for Consult: Abnormal CT, Abdominal Pain HISTORY OF PRESENT ILLNESS: Symone Mcdonald is a 82 y.o. 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 Other history notable for coronary artery disease, dementia, hypertension, urinary incontinence with UTIs. Other surgical history notable for cholecystectomy hysterectomy appendectomy. Patient presents from her SNF with complaints of hypoxia, abdominal pain, chronic diarrhea. Patient is a poor historian given her dementia and the daughter is at the bedside is able to provide some information but is also not fully informed of patient history. Per the daughter, the patient struggles with chronic diarrhea and because of this has significant inflammation of the gluteal regions. Apparently, at the detention the patient was complaining of some abdominal pain, however, she had a large bowel movement when she arrived to the emergency department and has not had significant pain since that time. No nausea or vomiting has been witnessed. The patient remains hemodynamically stable and labs were obtained demonstrating no leukocytosis, lactic acid 9.1, hemoglobin 15.8, platelets 252, troponin within normal limits, lactic acid 0.9, electrolytes largely within normal limits with a creatinine of 1.45 and normal LFTs as well as lipase. CT scan was obtained of the abdomen and pelvis which demonstrated postsurgical change related to her prior colectomy however there is mention that there could be a polypoid lesion within the rectum. Ultimately this provoked a surgical consultation. Past Medical History: Diagnosis Date Anxiety Bowel obstruction (CMS/HCC) (HCC) CAD (coronary artery disease) Dementia (HCC) Depression Diverticulitis Hypertension Urinary incontinence UTI (urinary tract infection) Past Surgical History: Procedure Laterality Date APPENDECTOMY CHOLECYSTECTOMY HYSTERECTOMY Medications Prior to Admission: No current facility-administered medications for this encounter. Current Outpatient Medications: acetaminophen (Tylenol) 325 MG tablet, Take by mouth., Disp: , Rfl: ammonium lactate (Lac-Hydrin) 12 % lotion, Apply topically if needed for dry skin., Disp: , Rfl: aspirin 81 MG EC tablet, Take 81 mg by mouth daily., Disp: , Rfl: buPROPion SR (Wellbutrin SR) 100 MG 12 hr tablet, Take 100 mg by mouth daily., Disp: , Rfl: carvedilol (Coreg) 3.125 MG tablet, Take 3.125 mg by mouth., Disp: , Rfl: cholecalciferol (Vitamin D-3) 1.25 MG (07504 UT) capsule, Take 50,000 Units by mouth., Disp: , Rfl: cyanocobalamin (Vitamin B-12) 1000 MCG tablet, Take 1,000 mcg by mouth daily., Disp: , Rfl: donepezil (Aricept) 10 MG tablet, Take 10 mg by mouth Nightly., Disp: , Rfl: famotidine (Pepcid) 20 MG tablet, Take 20 mg by mouth daily., Disp: , Rfl: levothyroxine (Synthroid, Levoxyl) 50 MCG tablet, Take 50 mcg by mouth daily., Disp: , Rfl: lisinopril 20 MG tablet, Take 1 tablet by mouth every morning., Disp: , Rfl: memantine (Namenda) 10 MG tablet, Take 10 mg by mouth 2 times daily., Disp: , Rfl: nystatin (Mycostatin) cream, Apply 1 g topically., Disp: , Rfl: sertraline (Zoloft) 100 MG tablet, Take 100 mg by mouth Nightly., Disp: , Rfl: Skin Protectants, Misc. (Basis Facial Moisturizer) cream, Apply 1 application topically daily., Disp: , Rfl: Allergies: Latex and Erythromycin Social History Socioeconomic History Marital status: Tobacco Use Smoking status: Former Packs/day: 0.50 Types: Cigarettes Substance and Sexual Activity Alcohol use: No Alcohol/week: 0.0 standard drinks Drug use: No Social History Narrative Lived in [facility] [place] Smoked for years, quit in late , but has smoked again the last couple years, first 2-3 packs per day, then 10 cigarettes per day No family history on file. REVIEW OF SYSTEMS: Review of Systems Unable to perform ROS: Dementia PHYSICAL EXAM: Vitals: 08/13/22 0700 BP: (!) 151/71 Pulse: 71 Resp: 18 Temp: SpO2: 95% I/O last 3 completed shifts: In: 1000 [IV Piggyback:1000] Out: - Physical Exam Constitutional: General: She is not in acute distress. Appearance: She is not ill-appearing, toxic-appearing or diaphoretic. Comments: Appears stated age HENT: Head: Normocephalic and atraumatic. Right Ear: External ear normal. Left Ear: External ear normal. Nose: Nose normal. No rhinorrhea. Mouth/Throat: Mouth: Mucous membranes are moist. Eyes: General: No scleral icterus. Right eye: No discharge. Left eye: No discharge. Extraocular Movements: Extraocular movements intact. Conjunctiva/sclera: Conjunctivae normal. Cardiovascular: Rate and Rhythm: Normal rate and regular rhythm. Pulses: Normal pulses. Pulmonary: Effort: Pulmonary effort is normal. No respiratory distress. Breath sounds: No wheezing. Abdominal: General: There is no distension. Palpations: There is no mass. Tenderness: There is no abdominal tenderness. There is no guarding or rebound. Comments: Significant prior surgical incisions noted including ostomy site and midline laparotomy scar. Genitourinary: Comments: Digital rectal exam was performed and no palpable abnormalities of the rectum could be identified. Soft stool was within the rectal vault which limited the examination. No blood on the glove. Patient did not tolerate this very well given dementia and increased soreness and irritation to the gluteal skin. A nursing adult education teacher was present as well as the patient's daughter. Musculoskeletal: General: No swelling, tenderness, deformity or signs of injury. Normal range of motion. Cervical back: Normal range of motion. No rigidity. Skin: General: Skin is warm and dry. Findings: Erythema (Significant surface level breakdown of the gluteal regions related to likely stool bathing.) present. Neurological: General: No focal deficit present. Mental Status: She is alert. Mental status is at baseline. Cranial Nerves: No cranial nerve deficit (No gross abnormality). Psychiatric: Comments: Pleasantly demented DATA: CBC: Lab Results Component Value Date WBC 9.1 08/13/2022 RBC 5.08 08/13/2022 HGB 15.8 08/13/2022 HCT 47.9 (H) 08/13/2022 MCV 94.2 08/13/2022 MCH 31.1 08/13/2022 MCHC 33.0 08/13/2022 RDW 13.8 08/13/2022 PLT 252 08/13/2022 MPV 9.9 08/13/2022 BMP: Lab Results Component Value Date NA 142 08/13/2022 K 4.2 08/13/2022 CL 109 (H) 08/13/2022 CO2 28 08/13/2022 BUN 45 (H) 08/13/2022 CREATININE 1.45 (H) 08/13/2022 CALCIUM 9.0 08/13/2022 GLUCOSE 107 (H) 08/13/2022 Hepatic Function Panel: Lab Results Component Value Date ALKPHOS 47 08/13/2022 ALT 17 08/13/2022 AST 24 08/13/2022 PROT 7.8 08/13/2022 BILITOT 0.6 08/13/2022 PT/INR: No results found for: PROTIME, INR Troponin: Lab Results Component Value Date TROPONINI <0.012 08/13/2022 LIPASE: Lab Results Component Value Date LIPASE 278 08/13/2022 IMAGING: All relevant imaging reviewed by surgery team CT abdomen pelvis w contrast Final Result 1. Postsurgical changes of the large and small bowel. Appearance of a polyploid lesion of the left rectal wall, as above. Recommend direct visualization when feasible. 2. Colonic diverticulosis. 3. Additional nonacute findings including hepatic cysts, renal cysts, cholecystectomy, atherosclerotic disease. Report Dictated on Electronically Signed By: Hortensia Jacobs Electronically Signed Date/Time: 08/13/2022 5:35 AM EST XR chest 1 view Final Result No confluent consolidation, as above. Exclusion of left costophrenic angle. Report Dictated on Electronically Signed By: Hortensia Jacobs Electronically Signed Date/Time: 08/13/2022 1:28 AM EST ASSESSMENT AND PLAN: This is a 82 y.o. female with reported nonspecific abdominal pain, chronic diarrhea, nausea -No acute surgical intervention indicated -Digital rectal exam performed at the bedside without palpation of abnormality appreciated on CT scan concerning for possible polypoid lesion of the rectum. -Agree with gastroenterology consultation for direct visualization, endoscopic evaluation. -My concern is that the patient's pain is more so related to her significant skin irritation from chronic diarrhea and likely poor care at her nursing facility for proper hygiene of stool to the gluteal regions. Recommend a wound care consultation and appropriate ET mix to aid with painful areas. -Based on our evaluation, I do not identify any acute surgical needs however should one arise, please do not hesitate to reach out. -Surgery to sign off -Medical management per primary team -We will discussed with surgeon on-call, Dr. Major Disclaimers: INFORMED CONSENT: The nature and purpose of the proposed treatment and/or procedure have been discussed. The risks and benefits of the proposed treatment or procedures have been reviewed. Alternatives have been reviewed in addition to the risks and benefits of not receiving treatments or undergoing procedures. Pursuant to this discussion, the patient agrees to undergo the proposed treatment or procedure. Captured images seen in this note are not a substitute for a comprehensive interpretation of the entire data set as reflected by the interpreting physician with regard to radiology, echocardiography, and other diagnostic images. This note may have been dictated using Online [employer]ility Practice Edition 2.6 and/or Pipewise Voice Recognition Feature. The document was proofread; however, unrecognized voice recognition retail center receptionist errors may be present. Mark Kinsey MD 08/13/2022 9:10 AM Associated attestation - Diego Major MD - 08/13/2022 1:35 PM EST ATTENDING ADDENDUM Active Diagnoses/Problems this Admission: Patient Active Problem List Diagnosis Hypoxia Declining functional status Bronchitis Muscle weakness Late onset Alzheimer's disease without behavioral disturbance (HCC) Diarrhea Nicotine abuse COOPER (acute kidney injury) (CMS/HCC) (HCC) Anxiety Trimalleolar fracture Failure to thrive in adult Hypertension Acute cystitis without hematuria CAD (coronary artery disease) Depression Dementia (HCC) Contusion of left shoulder Intractable abdominal pain I personally supervised the resident physician in the evaluation and development of a treatment plan for this patient on the same day of service as above. I personally discussed the review of systems and interviewed the patient along with performing a physical examination. I reviewed the recent events, imaging, labs, vital signs. In addition, I discussed the patient's condition and treatment options with him/her when possible. I have also reviewed and agree with the past medical, family, and social history unless otherwise noted. All of the patient's questions were answered and family updated when appropriate and possible. A complete review of systems was obtained and is negative except as stated in HPI and/or Subjective Section. - as per Dr. Kinsey's note - abdomen non-tender, no leukocytosis, LA 0.9 - recommend GI consult for endoscopic evaluation of polyp seen on CT - wound care for gluteal skin irritation - no acute surgical intervention indicated - please re-consult as need Greater than 51% of the >= 45 minute total care time throughout the day (including chart review, care coordination, and [id number] encounter) was spent discussing/counseling the patient/family regarding the care plan for Symone Mcdonald. I examined the patient independently and reviewed relevant data myself and may have done so in the context of team rounds. A full chart review was performed. Diego Major MD Trauma, Surgical Critical Care, & General Surgery Division of Trauma Department of Surgery [facility] documented in this encounter [facility] 08-14-2022 Consult note Associated Order (s): IP CONSULT TO PALLIATIVE CARE Images from the original note were not included. Palliative Care Initial Consult Chief Complaint: Symone Mcdonald is a 82 y.o. female with chief complaint of intractable abdominal pain. Palliative Care is actively following. Assessment/Plan Goals of Care - Patient is unable to participate meaningfully in goals of care discussions due to dementia - HCPOA and surrogate decision maker is the patient's daughter, Ban Mcduffie ([phone]) - Current code status: DNR-CCA, not okay for ICU transfer or intubation - Ban is clear that she wishes to focus on comfort and quality of life for her mother. Goals are in line with hospice philosophy (as Ban would not wish for her mother to return to the hospital in the future if she again becomes ill, would opt for comfort focused measures at her facility), however patient does not currently meet criteria for hospice enrollment. - Met with Ban as well as primary attending Dr. Nogueira at the bedside today to further discuss. The best plan moving forward to honor patient and Ban's goals would be for patient to be followed by a palliative care service at her facility that can coordinate hospice enrollment when the patient does begin to show signs of decline. - Ban would wish for her mother to return to her current facility, [facility], upon discharge as the facility is close to her home and she is happy with the care being provided. Unfortunately our palliative care team does not follow at this facility. - Will coordinate with social work to find palliative team that can follow at the patient's facility. Appreciate assistance. Abdominal pain - resolved - Initial chief complaint for admission - Per report from nursing facility staff, patient was holding stomach, wincing with palpation - CT abdomen pelvis obtained in the ED was significant for colonic diverticulosis as well as polypoid lesion of left rectal wall, however no indication of what may have caused the patient's abdominal pain - Patient does have history of recurrent UTIs - UA obtained in the ED not overtly concerning for infection; urine culture not sent - Pain appears to have resolved on examination today - Oxycodone 5 mg q4h PRN available in the event of recurrence - Continue to monitor Incidental polypoid lesion of the rectum - Seen on Ct abdomen and pelvis as noted above - Ban has declined further evaluation - does not believe patient would be able to tolerate prep for colonoscopy, and should the lesion represent malignancy would not wish for further treatment - No further investigation planned as not in line with patient and family goals of care COOPER - Scr mildly elevated to 1.45 on admission, per chart review baseline appears to be ~0.9 - Improved to 1.21 today - Continue to monitor Recent COVID-19 infection - Out of isolation 08/13 - S/p paxlovid course at facility - Satting well on 2L MO Alzheimer's dementia - FAST 6e - Patient resumed on home medications of memantine, donepezil - Without behavioral disturbance Decubitus pressure ulcer - Wound care consulted and following Palliative Care Encounter - will continue to follow for ongoing monitoring of progression of Pain as well as for appropriateness for hospice care due to Dementia - will continue treatment including NA - palliative care not managing medications at this time Total of 45 minutes spent on this encounter including Chart review, Patient visit and exam, Documentation in EHR, Care coordination, Communicating with primary attending or other consultants, and Counseling and educating patient/family/caregiver. Discharge planning: Plan for discharge back to patient current facility with palliative care to follow Patient meets criteria for general inpatient hospice care including the following: N/A - Palliative Care Patient Referrals to: None Discussed patient and the plan of care with the other interdisciplinary team (IDT) members of Palliative Care Team, and with Primary Attending, Patient, and Family Subjective: Hospital days prior to consult: 0 Trauma Consult: no. Subjective/Events Symone Mcdonald is an 82 y/o F with PMHx CAD, HTN, diverticulitis, recent COVID-19 infection (s/p paxlovid at the facility), and Alzheimer's dementia who presented to [facility] ED from facility due to concerns for abdominal pain. Staff had noted patient had been holding her abdomen and was wincing with palpation. Evaluation in the ED revealed COOPER as well as diverticulosis and rectal polypoid lesion, but no cause of acute abdominal pain. The patient was admitted for further evaluation and management. Since admission, the patient's abdominal pain appears to have resolved. After discussing with primary team, patient's daughter and HCPOA has decided against further evaluation of rectal lesion as it is not in line with goals of care for the patient, which are comfort focused in nature. She is being treated by wound care for sacral decubitus ulcer. Palliative care has been consulted for goals of care discussions and to determine if the patient would be eligible for enrollment in hospice. Pain Assessment (If Pain Scale >0) Description: NA - patient denies pain at the time of my encounter Goals of care:Provide Comfort Care/Support/Palliation/Relieve Suffering Advance Directives: DNR-CCA Surrogate: Child and HCPOA Prognosis: unknown Spiritual assessment: No spiritual distress identified Bereavement and grief: Low Risk Bereavement Past Medical History: Diagnosis Date Anxiety Bowel obstruction (CMS/HCC) (HCC) CAD (coronary artery disease) Dementia (HCC) Depression Diverticulitis Hypertension Urinary incontinence UTI (urinary tract infection) Past Surgical History: Procedure Laterality Date APPENDECTOMY CHOLECYSTECTOMY HYSTERECTOMY No family history on file. Unable to obtain family history due to dementia Allergies Allergen Reactions Latex Erythromycin Rash Review of Systems ROS: See palliative care ROS/ESAS below; Detail ROS unable to be obtained due to patient's mental status [place] Symptom Assessment Score [place] Score Pain Score 0 Tiredness Score 5 Nausea Score 0 Depression Score 5 Anxiety Score 0 Drowsiness Score 3 Anorexia Score (0= eating well, 10= not eating) 0 Wellbeing Score (10= worst sense of well-being) 5 Constipation 0 Dyspnea Score (0= no shortness of breath) 0 FLACC Scale (For Pain Assessment of the Non-Verbal Patient) NA - patient verbal Assessed by: provider. Social history: status: no Marital status: Living status: detention Work history: not assessed today Advance Care Planning: The patient has capacity to make healthcare and advanced care planning decisions No The patient's identified surrogate decision maker is Child and HCPOA. Discussion participants: Provider - myself and Child - daughter and HCPOA DeniseDiagnosis and Prognosis, Goals of Care, Advanced Care Planning, and Discharge Plan We discussed goals of care related to the patient's current health as documented below: - Goal for patient comfort and eventual achievement of a peaceful - Goal to avoid unnecessary medical testing or therapies - Goal for patient to return to previous facility upon discharge We discussed [id number] concerns identified by the patient/surrogate, including - NA Interventions reviewed: Resuscitation procedures (CPR) and Mechanical ventilator support Advance Care Planning Documents: Healthcare Power of Logistics Specialist: Completed Financial Power of Logistics Specialist: Other not assessed Living Will: Completed Code Status: DNR-CCA In addition to the time spent evaluating and managing the patient's medical diagnoses above, 20 minutes of this encounter was spent discussing advanced care planning documented above. Family Meeting: Participants: child Family meeting was held to discuss:Diagnosis and Prognosis, Goals of Care, Advanced Care Planning, and Discharge Plan Objective: Physical Exam BP 110/51 Pulse 77 Temp 36.5 C (97.7 F) (Temporal) Resp 16 Wt 187 lb 4.8 oz (85 kg) SpO2 91% BMI 32.15 kg/m Physical Exam Constitutional: General: She is not in acute distress. Appearance: She is not ill-appearing. HENT: Head: Normocephalic and atraumatic. Nose: Comments: Nasal cannula in place Mouth/Throat: Mouth: Mucous membranes are moist. Pharynx: Oropharynx is clear. No oropharyngeal exudate or posterior oropharyngeal erythema. Eyes: General: No scleral icterus. Pupils: Pupils are equal, round, and reactive to light. Cardiovascular: Rate and Rhythm: Normal rate and regular rhythm. Heart sounds: No murmur heard. Pulmonary: Effort: Pulmonary effort is normal. No respiratory distress. Breath sounds: No wheezing, rhonchi or rales. Abdominal: General: Bowel sounds are normal. There is no distension. Palpations: Abdomen is soft. There is no mass. Tenderness: There is no abdominal tenderness. Musculoskeletal: General: No deformity. Normal range of motion. Cervical back: Normal range of motion. No rigidity. Right lower leg: No edema. Left lower leg: No edema. Skin: General: Skin is warm and dry. Comments: Sacral decubitus ulcer noted Neurological: General: No focal deficit present. Mental Status: She is alert. Mental status is at baseline. She is disoriented. Psychiatric: Behavior: Behavior normal. Current Medications: Inpatient medications reviewed: yes Home medications reviewed: yes OARRS Reviewed: Yes-no controlled substance prescriptions reported 24 Hour PRN Meds: tylenol 650 mg x 1, oxycodone 5 mg x 1 Results/Verification of Data Review Objective data reviewed (be specific which labs, imaging reports with dates reviewed): CT abdomen pelvis 08/13 CBC 08/13, 08/14 BMP 08/13, 08/14 MAR I/O's Chart notes Data in Support of Terminal Illness: Is patient hospice appropriate? no Transition Note Initiated: yes. [employer] Work Phone: 08-14-2022 Plan of care note The patient is Moderately Unstable - Medium risk of patient condition declining or worsening The patient's goals for the shift include rest well tonite The clinical goals for the shift include patient will be free from anxiety/agitation this shift Over the shift, the patient did not make progress toward the following goals. Barriers to progression include dementia/alzheimers/unfamilar environment. Recommendations to address these barriers include reassurance,bed alarm,quiet environment Problem: Knowledge Deficit Goal: Patient/family/caregiver demonstrates understanding of disease process, treatment plan, medications, and discharge instructions Outcome: Progressing Problem: Potential for Compromised Skin Integrity Goal: Skin Integrity is Maintained or Improved Outcome: Progressing Problem: Urinary Incontinence Goal: Perineal skin integrity is maintained or improved Outcome: Progressing . [facility] 08-13-2022 Nurse Note [address] Nogueira advised that patient has no IV , asked if still needed LR and stated that it was no loner needed. [facility] 08-13-2022 Nurse Note [address] Nogueira advised that patient has no IV , asked if still needed LR and stated that it was no loner needed. documented in this encounter [facility] 08-13-2022 Emergency department Note Report given to Carmen Blanco RN 08/13/22 175 [facility] 08-13-2022 Emergency department Note Report given to Carmen Blanco RN 08/13/22 175 Pt transported to inpatient floor via medic. No distress noted at this time Lyudmila Blanco RN 08/13/22 1633 Pt incontinent of stool. Complete bed change competed. Pt cleaned up and new pads placed under pt. Pts buttocks is excoriated and painful to touch. Call light within reach Lyudmila Blanco RN 08/13/22 1446 Walked into pts room and IV was on the floor, pt states she didn't realize it was no longer in her arm. IV was still intact and discarded, Guaze applied to pts arm where IV site was. Pt in no distress at this time. Lyudmila Blanco RN 08/13/22 1400 Ordered patient a hospital bed. Alona Tam RN 08/13/22 1351 Pt resting in bed, no distress noted. Call light within reach Lyudmila Blanco RN 08/13/22 1240 Tray ordered Delicia Jacobs RN 08/13/22 1055 Patient being admitted. Patient and family updated Delicia Jacobs RN 08/13/22 0847 Patient resting with family at bedside. Respirations even and unlabored. Waiting for orders Delicia Jacobs RN 08/13/22 0737 Assist surgeon with rectal exam. Patient cleaned up after exam. Patient tolerated. Daughter at bedside. Surgeon updated family that she may need colonoscopy and will consult GI. Delicia Jacobs RN 08/13/22 0733 Received report from previous shift Delicia Jacobs RN 08/13/22 0720 Pt straight cath'd for urine. Urine return noted. Urine sample collected and sent to lab. Pt tolerated procedure well. Irasema Renteria RN 08/13/22 0712 Pt resting in room. Respirations even and non labored. Daughter at bedside. Irasema Renteria RN 08/13/22 0543 Pt resting in room. Respirations even and non labored. Daughter at bedside. Irasema Renteria RN 08/13/22 0212 Report to TYSON Campos. Amaya Conley RN 08/13/22 0106 Emergency Department Encounter Location: [facility] EMERGENCY DEPT Patient: Symone Mcdonald : 1940 Date of evaluation: 08/12/2022 ED Provider: Regina Dover PA-C 0647 Symone Mcdonald was checked out to me by Dr. Suresh. Please see his/her initial documentation for details of the patient's initial ED presentation, physical exam and completed studies. In brief, Symone Mcdonald is a 82 y.o. female that presented to the emergency department for evaluation of abdominal pain. Patient with history of dementia, coming from nursing facility. She tested positive for COVID and therefore family has not seen her for over one week. Facility called stating that patient seemed to be having abdominal pain as she was holding her stomach and winces when pressure is applied. No vomiting. No fevers. History primarily obtained from family as patient is disoriented secondary to dementia. I have reviewed and interpreted all of the currently available lab results and diagnostics from this visit: Results for orders placed or performed during the hospital encounter of 08/12/22 Comprehensive metabolic panel Result Value Ref Range SODIUM 142 135 - 145 mmol/L POTASSIUM 4.2 3.5 - 5.1 mmol/L CHLORIDE 109 (H) 98 - 107 mmol/L CARBON DIOXIDE 28 22 - 30 mmol/L ANION GAP 5 3 - 13 mmol/L UREA NITROGEN 45 (H) 7 - 17 mg/dL CREATININE 1.45 (H) 0.52 - 1.04 mg/dL GLUCOSE 107 (H) 70 - 100 mg/dL CALCIUM 9.0 8.4 - 10.4 mg/dL AST (SGOT) 24 15 - 46 U/L ALT 17 0 - 34 U/L ALKALINE PHOSPHATASE 47 38 - 126 U/L ALBUMIN 3.9 3.5 - 5.0 g/dL BILIRUBIN, TOTAL 0.6 0.2 - 1.3 mg/dL TOTAL PROTEIN 7.8 6.3 - 8.2 g/dL eGFR 36.1 (L) >60.0 mL/min/1.73m*2 CBC Result Value Ref Range Auto WBC 9.1 3.6 - 10.7 10*3/uL RBC 5.08 3.8 - 5.20 10*6/uL Hemoglobin 15.8 11.7 - 16.0 g/dL Hematocrit 47.9 (H) 35.0 - 47.0 % MCV 94.2 80.0 - 98.0 fL MCH 31.1 26.0 - 34.0 pg MCHC 33.0 32.0 - 36.0 % RDW 13.8 11.5 - 14.5 % Platelets 252 140 - 440 10*3/uL MPV 9.9 7.4 - 12.4 fL Lipase Result Value Ref Range LIPASE 278 23 - 300 U/L Complete Urinalysis Result Value Ref Range Color, Urine Light Yellow Lt. Yellow Clarity, Urine Clear Clear pH, Urine 5.5 5.0 - 8.0 pH Leukocytes, Urine Negative Negative Antonio/uL Nitrite, Urine Negative Negative Protein, Urine 10 (A) Negative mg/dL Glucose, Urine Normal Normal (<70) mg/dL Bilirubin, Urine Negative Negative mg/dL Ketones, Urine 10 (A) Negative mg/dL Urobilinogen, Urine Normal Normal (0-1) mg/dL Blood, Urine Negative Negative mg/dL RBC, Urine 3-5 (A) 0 - 2 /HPF WBC, Urine 0-2 0 - 5 /HPF Squamous Epithelial, Urine 0-2 3 - 5 /HPF Bacteria, Urine Few (A) Negative /HPF Mucus, Urine Few Negative /LPF Hyaline Casts, Urine Negative Negative /LPF SPECIFIC GRAVITY OF URINE (NUMERIC) >1.030 (H) 1.005 - 1.030 Lactic acid, plasma Result Value Ref Range LACTIC ACID 0.9 0.7 - 2.0 mmol/L Troponin I Result Value Ref Range TROPONIN I <0.012 0.000 - 0.034 ng/mL ECG 12 lead Result Value Ref Range Heart Rate 72 bpm QRSD Interval 139 ms QT Interval 442 ms QTC Interval 485 ms P [place] 48 degrees QRS [place] 55 degrees T Wave [place] -51 degrees MI Interval [address] abdomen pelvis w contrast Final Result 1. Postsurgical changes of the large and small bowel. Appearance of a polyploid lesion of the left rectal wall, as above. Recommend direct visualization when feasible. 2. Colonic diverticulosis. 3. Additional nonacute findings including hepatic cysts, renal cysts, cholecystectomy, atherosclerotic disease. Report Dictated on Electronically Signed By: Hortensia Jacobs Electronically Signed Date/Time: 08/13/2022 5:35 AM EST XR chest 1 view Final Result No confluent consolidation, as above. Exclusion of left costophrenic angle. Report Dictated on Electronically Signed By: Hortensia Jacobs Electronically Signed Date/Time: 08/13/2022 1:28 AM EST Final ED Course and MDM: In brief, Symone Mcdonald is a 82 y.o. female whose care was signed out to me by the outgoing provider. In brief, patient from nursing facility, recent covid positive, brought in for evaluation of abdominal pain. Patient given IV fluids. Diagnostics reviewed. Troponin negative. Lipase not elevated. No lactic acidosis. No leukocytosis. Hemoglobin 15.8. Mild acute kidney injury. EKG with sinus rhythm, right bundle branch block. Chest x-ray noncontributory. CT abd/pelvis significant for "postsurgical changes of the large and small bowel. Appearance of a polyploid lesion of the left rectal wall, as above. Recommend direct visualization when feasible." At time of sign out, pending general surgery evaluation and recommendations. General surgery team evaluated patient in ED, see their note for details. Recommended further testing in the outpatient setting and GI involvement due to diarrhea. On reevaluation, patient continues to express pain when abdomen is palpated; she appears fatigued and there is a severely macerated area of her buttock that may require wound care. I spoke with daughter regarding all of the above, stated that this may be able to be arranged in the outpatient setting however she was concerned regarding a decline in her mother's state of health over the past week or so. Requested admission for further evaluation and improvement prior to sending back to detention as she does not believe she gets adequate care at the facility. Discussed patient's history, physical examination and work up thus far with Dr. Nogueira who accepted patient for admission to medicine team. Patient and family agreeable with plan. Admitted in stable condition. Final Impression 1. Intractable abdominal pain 2. Diarrhea, unspecified type DISPOSITION Admit 08/13/2022 08:43:34 AM (Please note that portions of this note may have been completed with a voice recognition program. Efforts were made to edit the dictations but occasionally words are mis-transcribed.) Regina Dover PA-C Acute Care [facility] Regina Dover PA-C 08/13/22 0928 Bed: 17 Expected date: Expected time: Means of arrival: Comments: EMS Nicole Seaman RN 08/12/22 4811 documented in this encounter [facility] 08-13-2022 Emergency department Note Pt transported to inpatient floor via medic. No distress noted at this time Lyudmila Blanco RN 08/13/22 1633 [facility] 08-13-2022 Emergency department Note Pt incontinent of stool. Complete bed change competed. Pt cleaned up and new pads placed under pt. Pts buttocks is excoriated and painful to touch. Call light within reach Lyudmila Blanco RN 08/13/22 0883 [facility] 08-13-2022 Emergency department Note Walked into pts room and IV was on the floor, pt states she didn't realize it was no longer in her arm. IV was still intact and discarded, Ryan applied to pts arm where IV site was. Pt in no distress at this time. Lyudmila Blanco RN 08/13/22 1400 [facility] 08-13-2022 Emergency department Note Ordered patient a hospital bed. Alona Tam RN 08/13/22 1351 [facility] 08-13-2022 Emergency department Note Pt resting in bed, no distress noted. Call light within reach Lyudmila Blanco RN 08/13/22 1240 [facility] 08-13-2022 Note [facility] History and Physical Note Symone Mcdonald : 1940(82 y.o.) PCP: [facility] Assessment and Plan: Principal Problem: Intractable abdominal pain # COOPER/CKD III, s/p IVF # Functional decline # Abdominal pain, resolved # Incidental polypoid lesion within the rectum, pathology status unknown # Recent COVID infection out of isolation 08/13/22 (completed paxlovid at facility) # Alzheimer's dementia # Decubitus pressure ulcer, POA-wound care cs # Chronic diarrhea # CAD # Goals of care discussion # DNR-CCA -pt 's daughter agreed with not proceeding with colonoscopy to evaluate incidental polypoid lesion within the rectum as the patient will not be able to tolerate bowel prep in the setting of advanced dementia. -Pt's daughter is open to discussion regarding hospice enrollment - Will not consult GI on this admission -resume rest of home meds as indicated -Palliative/hospice recs appreciated DVT Prophylaxis: Subq Lovenox Ban Mcduffie/POA: [phone] BMI Classification: BMI 37.4 There is no height or weight on file to calculate BMI. obesity BMI 30-39.9 Disposition: await principal consultant recommendations and await placement patient and family updated, I personally examined the patient, and I personally reviewed chart, data, labs radiology reports Total time spent: 75 minutes, over 51% of total time providing counseling or in coordination of care. Total time on this day of visit includes record and documentation review before and after visit including documentation and time not explicitly included on EMR time stamp. [phone]: Please page me for patient care issues. [phone]: Please page [facility] [place] hospitalist for any issues. Subjective: Chief Complaint Patient presents with Abdominal Pain Nausea Pt is from [facility]. Pt was hypoxic at low 90's. C/o abd pain and nausea. Bgt 119. Hx of dementia A&O x1 at baseline. DNRCC Patient is a poor historian due to dementia. Rest of history were obtained from daughter, facility and chart review. Interval History: Symone Mcdonald is a 82 y.o. 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 Patient presented from [facility] wit h2 days of nausea and abdominal pain. Worse with with palpation. Facility decided to bring the patient into the hospital due to hypoxia (90%) which improved with 2L NC at facility Patient recently tested positive for COVID infection s/p Paxlovid. Per pt's daughter and facility no reported COVID related symptoms (eg cough, dyspnea, URI, bowel changes) Per chart pt's abdominal pain seems to have resolved following a large bowel movement. However, CT scan showed incidental polypoid lesion within the rectum. Pt's daughter reported that the last colonoscopy was around the time of ileostomy surgery~7 years ago. Pt's daughter also reported chronic loose stool, however the facility was unable to confirm frequent bowel movement in the last few days Temp: [36.9 ?C (98.5 ?F)] 36.9 ?C (98.5 ?F) Heart Rate: [69-80] 71 Resp: [18] 18 BP: (107-151)/(49-75) 151/71 Lab Results Component Value Date GLUCOSE 107 (H) 08/13/2022 CALCIUM 9.0 08/13/2022 NA 142 08/13/2022 K 4.2 08/13/2022 CO2 28 08/13/2022 CL 109 (H) 08/13/2022 BUN 45 (H) 08/13/2022 CREATININE 1.45 (H) 08/13/2022 Lab Results Component Value Date WBC 9.1 08/13/2022 HGB 15.8 08/13/2022 HCT 47.9 (H) 08/13/2022 MCV 94.2 08/13/2022 PLT 252 08/13/2022 CT abdomen pelvis w contrast Narrative: Patient Name: SYMONE MCDONALD Exam Date/Time: 08/13/2022 05:19 Procedure: CT ABDOMEN PELVIS W CONTRAST Ordering Provider: BIANCHI MARY Reason For Exam: CT ABDOMEN AND PELVIS Indication: 82-year-old. Abdominal pain Scan Parameters: Multiple axial CT images were obtained of the abdomen and pelvis. Coronal and sagittal reconstructions were reviewed as well. ALARA protocol. Dose reduction was employed with automated exposure control. Contrast: 75 mL of Isovue-370 IV Comparison: None. FINDINGS: Lung bases: The lung bases are clear. Osseous structures: T10 vertebral body hemangioma. Multilevel endplate degenerative changes with endplate spurring and osteophyte formation. Loss of disc space height most prominent at L5-S1 and L2-L3 and L1-L2. Narrowing of neural foraminal canal most prominent at L5-S1. Liver: Hepatic probable cysts with the largest measuring 8 mm. Gallbladder/Biliary tree: Cholecystectomy clips. Mild intrahepatic and extra hepatic biliary duct distention. Spleen: Normal. Adrenals: (more content not included)... [facility] 08-13-2022 Emergency department Note Tray ordered Delicia Jacobs RN 08/13/22 1058 [facility] Note Pt straight cath'd f or urine. Urine return noted. Urine sample collected and sent to lab. Pt tolerated procedure well. Irasema Renteria RN 08/13/22 0712 [facility] 08-13-2022 Consult note Formatting of th is note is different from the original. Images from the original note were not included. Department of Surgery Surgical Service: ACS Consult Note PATIENT NAME: Symone Mcdonald : 1940 ATTENDING PHYSICIAN: Snehal Bianchi, * ADMIT DATE: 08/12/2022 TODAY'S DATE: 08/13/2022 CHIEF COMPLAINT: Chief Complaint Patient presents with Abdominal Pain Nausea Pt is from [facility]. Pt was hypoxic at low 90's. C/o abd pain and nausea. Bgt 119. Hx of dementia A&O x1 at baseline. DNC Reason for Consult: Abnormal CT, Abdominal Pain HISTORY OF PRESENT ILLNESS: Symone Mcdonald is a 82 y.o. 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 Other history notable for coronary artery disease, dementia, hypertension, urinary incontinence with UTIs. Other surgical history notable for cholecystectomy hysterectomy appendectomy. Patient presents from her SNF with complaints of hypoxia, abdominal pain, chronic diarrhea. Patient is a poor historian given her dementia and the daughter is at the bedside is able to provide some information but is also not fully informed of patient history. Per the daughter, the patient struggles with chronic diarrhea and because of this has significant inflammation of the gluteal regions. Apparently, at the detention the patient was complaining of some abdominal pain, however, she had a large bowel movement when she arrived to the emergency department and has not had significant pain since that time. No nausea or vomiting has been witnessed. The patient remains hemodynamically stable and labs were obtained demonstrating no leukocytosis, lactic acid 9.1, hemoglobin 15.8, platelets 252, troponin within normal limits, lactic acid 0.9, electrolytes largely within normal limits with a creatinine of 1.45 and normal LFTs as well as lipase. CT scan was obtained of the abdomen and pelvis which demonstrated postsurgical change related to her prior colectomy however there is mention that there could be a polypoid lesion within the rectum. Ultimately this provoked a surgical consultation. Past Medical History: Diagnosis Date Anxiety Bowel obstruction (CMS/HCC) (HCC) CAD (coronary artery disease) Dementia (HCC) Depression Diverticulitis Hypertension Urinary incontinence UTI (urinary tract infection) Past Surgical History: Procedure Laterality Date APPENDECTOMY CHOLECYSTECTOMY HYSTERECTOMY Medications Prior to Admission: No current facility-administered medications for this encounter. Current Outpatient Medications: acetaminophen (Tylenol) 325 MG tablet, Take by mouth., Disp: , Rfl: ammonium lactate (Lac-Hydrin) 12 % lotion, Apply topically if needed for dry skin., Disp: , Rfl: aspirin 81 MG EC tablet, Take 81 mg by mouth daily., Disp: , Rfl: buPROPion SR (Wellbutrin SR) 100 MG 12 hr tablet, Take 100 mg by mouth daily., Disp: , Rfl: carvedilol (Coreg) 3.125 MG tablet, Take 3.125 mg by mouth., Disp: , Rfl: cholecalciferol (Vitamin D-3) 1.25 MG (75131 UT) capsule, Take 50,000 Units by mouth., Disp: , Rfl: cyanocobalamin (Vitamin B-12) 1000 MCG tablet, Take 1,000 mcg by mouth daily., Disp: , Rfl: donepezil (Aricept) 10 MG tablet, Take 10 mg by mouth Nightly., Disp: , Rfl: famotidine (Pepcid) 20 MG tablet, Take 20 mg by mouth daily., Disp: , Rfl: levothyroxine (Synthroid, Levoxyl) 50 MCG tablet, Take 50 mcg by mouth daily., Disp: , Rfl: lisinopril 20 MG tablet, Take 1 tablet by mouth every morning., Disp: , Rfl: memantine (Namenda) 10 MG tablet, Take 10 mg by mouth 2 times daily., Disp: , Rfl: nystatin (Mycostatin) cream, Apply 1 g topically., Disp: , Rfl: sertraline (Zoloft) 100 MG tablet, Take 100 mg by mouth Nightly., Disp: , Rfl: Skin Protectants, Misc. (Basis Facial Moisturizer) cream, Apply 1 application topically daily., Disp: , Rfl: Allergies: Latex and Erythromycin Social History Socioeconomic History Marital status: Tobacco Use Smoking status: Former Packs/day: 0.50 Types: Cigarettes Substance and Sexual Activity Alcohol use: No Alcohol/week: 0.0 standard drinks Drug use: No Social History Narrative Lived in [facility] [place] Smoked for years, quit in late 1989', but has smoked again the last couple years, first 2-3 packs per day, then 10 cigarettes per day No family history on file. REVIEW OF SYSTEMS: Review of Systems Unable to perform ROS: Dementia PHYSICAL EXAM: Vitals: 08/13/22 0700 BP: (!) 151/71 Pulse: 71 Resp: 18 Temp: SpO2: 95% I/O last 3 completed shifts: In: 1000 [IV Piggyback:1000] Out: - Physical Exam Constitutional: General: She is not in acute distress. Appearance: She is not ill-appearing, toxic-appearing or diaphoretic. Comments: Appears stated age HENT: Head: Normocephalic and atraumatic. Right Ear: External ear normal. Left Ear: External ear normal. Nose: Nose normal. No rhinorrhea. Mouth/Throat: Mouth: Mucous membranes are moist. Eyes: General: No scleral icterus. Right eye: No discharge. Left eye: No discharge. Extraocular Movements: Extraocular movements intact. Conjunctiva/sclera: Conjunctivae normal. Cardiovascular: Rate and Rhythm: Normal rate and regular rhythm. Pulses: Normal pulses. Pulmonary: Effort: Pulmonary effort is normal. No respiratory distress. Breath sounds: No wheezing. Abdominal: General: There is no distension. Palpations: There is no mass. Tenderness: There is no abdominal tenderness. There is no guarding or rebound. Comments: Significant prior surgical incisions noted including ostomy site and midline laparotomy scar. Genitourinary: Comments: Digital rectal exam was performed and no palpable abnormalities of the rectum could be identified. Soft stool was within the rectal vault which limited the examination. No blood on the glove. Patient did not tolerate this very well given dementia and increased soreness and irritation to the gluteal skin. A nursing adult education teacher was present as well as the patient's daughter. Musculoskeletal: General: No swelling, tenderness, deformity or signs of injury. Normal range of motion. Cervical back: Normal range of motion. No rigidity. Skin: General: Skin is warm and dry. Findings: Erythema (Significant surface level breakdown of the gluteal regions related to likely stool bathing.) present. Neurological: General: No focal deficit present. Mental Status: She is alert. Mental status is at baseline. Cranial Nerves: No cranial nerve deficit (No gross abnormality). Psychiatric: Comments: Pleasantly demented DATA: CBC: Lab Results Component Value Date WBC 9.1 08/13/2022 RBC 5.08 08/13/2022 HGB 15.8 08/13/2022 HCT 47.9 (H) 08/13/2022 MCV 94.2 08/13/2022 MCH 31.1 08/13/2022 MCHC 33.0 08/13/2022 RDW 13.8 08/13/2022 PLT 252 08/13/2022 MPV 9.9 08/13/2022 BMP: Lab Results Component Value Date NA 142 08/13/2022 K 4.2 08/13/2022 CL 109 (H) 08/13/2022 CO2 28 08/13/2022 BUN 45 (H) 08/13/2022 CREATININE 1.45 (H) 08/13/2022 CALCIUM 9.0 08/13/2022 GLUCOSE 107 (H) 08/13/2022 Hepatic Function Panel: Lab Results Component Value Date ALKPHOS 47 08/13/2022 ALT 17 08/13/2022 AST 24 08/13/2022 PROT 7.8 08/13/2022 BILITOT 0.6 08/13/2022 PT/INR: No results found for: PROTIME, INR Troponin: Lab Results Component Value Date TROPONINI <0.012 08/13/2022 LIPASE: Lab Results Component Value Date LIPASE 278 08/13/2022 IMAGING: All relevant imaging reviewed by surgery team CT abdomen pelvis w contrast Final Result 1. Postsurgical changes of the large and small bowel. Appearance of a polyploid lesion of the left rectal wall, as above. Recommend direct visualization when feasible. 2. Colonic diverticulosis. 3. Additional nonacute findings including hepatic cysts, renal cysts, cholecystectomy, atherosclerotic disease. Report Dictated on Workstation: [employer] Electronically Signed By: Hortensia Jacobs Electronically Signed Date/Time: 08/13/2022 5:35 AM EST XR chest 1 view Final Result No confluent consolidation, as above. Exclusion of left costophrenic angle. Report Dictated on Workstation: [employer] Electronically Signed By: Hortensia Jacobs Electronically Signed Date/Time: 08/13/2022 1:28 AM EST ASSESSMENT AND PLAN: This is a 82 y.o. female with reported nonspecific abdominal pain, chronic diarrhea, nausea -No acute surgical intervention indicated -Digital rectal exam performed at the bedside without palpation of abnormality appreciated on CT scan concerning for possible polypoid lesion of the rectum. -Agree with gastroenterology consultation for direct visualization, endoscopic evaluation. -My concern is that the patient's pain is more so related to her significant skin irritation from chronic diarrhea and likely poor care at her nursing facility for proper hygiene of stool to the gluteal regions. Recommend a wound care consultation and appropriate ET mix to aid with painful areas. -Based on our evaluation, I do not identify any acute surgical needs however should one arise, please do not hesitate to reach out. -Surgery to sign off -Medical management per primary team -We will discussed with surgeon on-call, Dr. Major Disclaimers: INFORMED CONSENT: The nature and purpose of the proposed treatment and/or procedure have been discussed. The risks and benefits of the proposed treatment or procedures have been reviewed. Alternatives have been reviewed in addition to the risks and benefits of not receiving treatments or undergoing procedures. Pursuant to this discussion, the patient agrees to undergo the proposed treatment or procedure. Captured images seen in this note are not a substitute for a comprehensive interpretation of the entire data set as reflected by the interpreting physician with regard to radiology, echocardiography, and other diagnostic images. This note may have been dictated using [employer] [facility] Medical Practice Edition 2.6 and/or Pipe[employer] Voice Recognition Feature. The document was proofread; however, unrecognized voice recognition retail center receptionist errors may be present. Mark Kinsey MD 08/13/2022 9:10 AM Associated attestation - Diego Major MD - 08/13/2022 1:35 PM EST ATTENDING ADDENDUM Active Diagnoses/Problems this Admission: Patient Active Problem List Diagnosis Hypoxia Declining functional status Bronchitis Muscle weakness Late onset Alzheimer's disease without behavioral disturbance (HCC) Diarrhea Nicotine abuse COOPER (acute kidney injury) (CMS/HCC) (HCC) Anxiety Trimalleolar fracture Failure to thrive in adult Hypertension Acute cystitis without hematuria CAD (coronary artery disease) Depression Dementia (HCC) Contusion of left shoulder Intractable abdominal pain I personally supervised the resident physician in the evaluation and development of a treatment plan for this patient on the same day of service as above. I personally discussed the review of systems and interviewed the patient along with performing a physical examination. I reviewed the recent events, imaging, labs, vital signs. In addition, I discussed the patient's condition and treatment options with him/her when possible. I have also reviewed and agree with the past medical, family, and social history unless otherwise noted. All of the patient's questions were answered and family updated when appropriate and possible. A complete review of systems was obtained and is negative except as stated in HPI and/or Subjective Section. - as per Dr. Kinsey's note - abdomen non-tender, no leukocytosis, LA 0.9 - recommend GI consult for endoscopic evaluation of polyp seen on CT - wound care for gluteal skin irritation - no acute surgical intervention indicated - please re-consult as need Greater than 51% of the >= 45 minute total care time throughout the day (including chart review, care coordination, and [id number] encounter) was spent discussing/counseling the patient/family regarding the care plan for Symone Mcdonald. I examined the patient independently and reviewed relevant data myself and may have done so in the context of team rounds. A full chart review was performed. Diego Major MD Trauma, Surgical Critical Care, & General Surgery Division of Trauma Department of Surgery [facility] Work Phone: 08-13-2022 History and physical note Images from the original note were not included. [facility] History and Physical Note Symone Mcdonald : 1940(82 y.o.) PCP: [facility] Assessment and Plan: Principal Problem: Intractable abdominal pain # COOPER/CKD III, s/p IVF # Functional decline # Abdominal pain, resolved # Incidental polypoid lesion within the rectum, pathology status unknown # Recent COVID infection out of isolation 08/13/22 (completed paxlovid at facility) # Alzheimer's dementia # Decubitus pressure ulcer, POA-wound care cs # Chronic diarrhea # CAD # Goals of care discussion # DNR-CCA -pt 's daughter agreed with not proceeding with colonoscopy to evaluate incidental polypoid lesion within the rectum as the patient will not be able to tolerate bowel prep in the setting of advanced dementia. -Pt's daughter is open to discussion regarding hospice enrollment - Will not consult GI on this admission -resume rest of home meds as indicated -Palliative/hospice recs appreciated DVT Prophylaxis: Subq Lovenox Ban Mcduffie/POA: [phone] BMI Classification: BMI 37.4 There is no height or weight on file to calculate BMI. obesity BMI 30-39.9 Disposition: await principal consultant recommendations and await placement patient and family updated, I personally examined the patient, and I personally reviewed chart, data, labs radiology reports Total time spent: 75 minutes, over 51% of total time providing counseling or in coordination of care. Total time on this day of visit includes record and documentation review before and after visit including documentation and time not explicitly included on EMR time stamp. [phone]: Please page me for patient care issues. [phone]: Please page [facility] night hospitalist for any issues. Subjective: Chief Complaint Patient presents with Abdominal Pain Nausea Pt is from [facility]. Pt was hypoxic at low 90's. C/o abd pain and nausea. Bgt 119. Hx of dementia A&O x1 at baseline. DNRCC Patient is a poor historian due to dementia. Rest of history were obtained from daughter, facility and chart review. Interval History: Symone Mcdonald is a 82 y.o. 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 Patient presented from [facility] wit h2 days of nausea and abdominal pain. Worse with with palpation. Facility decided to bring the patient into the hospital due to hypoxia (90%) which improved with 2L NC at facility Patient recently tested positive for COVID infection s/p Paxlovid. Per pt's daughter and facility no reported COVID related symptoms (eg cough, dyspnea, URI, bowel changes) Per chart pt's abdominal pain seems to have resolved following a large bowel movement. However, CT scan showed incidental polypoid lesion within the rectum. Pt's daughter reported that the last colonoscopy was around the time of ileostomy surgery~7 years ago. Pt's daughter also reported chronic loose stool, however the facility was unable to confirm frequent bowel movement in the last few days Temp: [36.9 C (98.5 F)] 36.9 C (98.5 F) Heart Rate: [69-80] 71 Resp: [18] 18 BP: (107-151)/(49-75) 151/71 Lab Results Component Value Date GLUCOSE 107 (H) 08/13/2022 CALCIUM 9.0 08/13/2022 NA 142 08/13/2022 K 4.2 08/13/2022 CO2 28 08/13/2022 CL 109 (H) 08/13/2022 BUN 45 (H) 08/13/2022 CREATININE 1.45 (H) 08/13/2022 Lab Results Component Value Date WBC 9.1 08/13/2022 HGB 15.8 08/13/2022 HCT 47.9 (H) 08/13/2022 MCV 94.2 08/13/2022 PLT 252 08/13/2022 CT abdomen pelvis w contrast Narrative: Patient Name: SYMONE MCDONALD Exam Date/Time: 08/13/2022 05:19 Procedure: CT ABDOMEN PELVIS W CONTRAST Ordering Provider: BIANCHI MARY Reason For Exam: CT ABDOMEN AND PELVIS Indication: 82-year-old. Abdominal pain Scan Parameters: Multiple axial CT images were obtained of the abdomen and pelvis. Coronal and sagittal reconstructions were reviewed as well. ALARA protocol. Dose reduction was employed with automated exposure control. Contrast: 75 mL of Isovue-370 IV Comparison: None. FINDINGS: Lung bases: The lung bases are clear. Osseous structures: T10 vertebral body hemangioma. Multilevel endplate degenerative changes with endplate spurring and osteophyte formation. Loss of disc space height most prominent at L5-S1 and L2-L3 and L1-L2. Narrowing of neural foraminal canal most prominent at L5-S1. Liver: Hepatic probable cysts with the largest measuring 8 mm. Gallbladder/Biliary tree: Cholecystectomy clips. Mild intrahepatic and extra hepatic biliary duct distention. Spleen: Normal. Adrenals: Normal. Pancreas: Normal. Kidneys/bladder: No hydronephrosis. Bilateral renal cysts. Mild thinning of the renal cortex. No obstructing renal or ureteral calculus. Bladder contour is normal. Uterus: The uterus has been surgically removed. Peritoneal Cavity/Retroperitoneum: No lymphadenopathy. GI Tract: Postsurgical changes of the rectosigmoid colon. Multiple colonic diverticuli. No oral contrast limits evaluation of loops of bowel. There is polypoid thickening of the wall of the rectum on the left (image 70:6). The appendix is not identified with certainty at the level of the cecum. The terminal ileum is patent with intraluminal fluid. Postsurgical changes distal small bowel. Bowel gas pattern is nonspecific. Vasculature: Atherosclerotic calcifications. Impression: 1. Postsurgical changes of the large and small bowel. Appearance of a polyploid lesion of the left rectal wall, as above. Recommend direct visualization when feasible. 2. Colonic diverticulosis. 3. Additional nonacute findings including hepatic cysts, renal cysts, cholecystectomy, atherosclerotic disease. Report Dictated on Electronically Signed By: Hortensia Jacobs Electronically Signed Date/Time: 08/13/2022 5:35 AM EST XR chest 1 view Narrative: Patient Name: SYMONE MCDONALD Exam Date/Time: 08/13/2022 01:28 Procedure: XR CHEST 1 VIEW Ordering Provider: BIANCHI MARY Reason For Exam: INDICATION: 82-year-old. Shortness of breath. VIEWS: Chest portable COMPARISON: 05/03/2015 FINDINGS: The trachea is midline. The cardiac silhouette is within normal limits. The right hemidiaphragm is mildly elevated. Left costophrenic angle is excluded from [id number]-gg-gwde. No confluent consolidation. No sizable pneumothorax. Atherosclerotic changes of the aorta. Impression: No confluent consolidation, as above. Exclusion of left costophrenic angle. Report Dictated on Electronically Signed By: Hortensia Jacobs Electronically Signed Date/Time: 08/13/2022 1:28 AM EST ECG 12 lead Sinus rhythm Ventricular premature complex Right bundle branch block Nonspecific repol abnormality, lateral leads Past Medical History: Diagnosis Date Anxiety Bowel obstruction (CMS/HCC) (HCC) CAD (coronary artery disease) Dementia (HCC) Depression Diverticulitis Hypertension Urinary incontinence UTI (urinary tract infection) Past Surgical History: Procedure Laterality Date APPENDECTOMY CHOLECYSTECTOMY HYSTERECTOMY No family history on file. Social History Socioeconomic History Marital status: Spouse name: Not on file Number of children: Not on file Years of education: Not on file Highest education level: Not on file Occupational History Not on file Tobacco Use Smoking status: Former Packs/day: 0.50 Types: Cigarettes Smokeless tobacco: Not on file Substance and Sexual Activity Alcohol use: No Alcohol/week: 0.0 standard drinks Drug use: No Sexual activity: Not on file Other Topics Concern Not on file Social History Narrative Lived in [facility] [place] Smoked for years, quit in late , but has smoked again the last couple years, first 2-3 packs per day, then 10 cigarettes per day Social Determinants of Health Financial Resource Strain: Not on file Food Insecurity: Not on file Transportation Needs: Not on file Physical Activity: Not on file Stress: Not on file Social Connections: Not on file Intimate Partner Violence: Not on file Housing Stability: Not on file Allergies Allergen Reactions Latex Erythromycin Rash Prior to Admission medications Medication Sig Start Date End Date Taking? Authorizing Provider acetaminophen (Tylenol) 325 MG tablet Take by mouth. Historical Provider, ammonium lactate (Lac-Hydrin) 12 % lotion Apply topically if needed for dry skin. Historical Provider, aspirin 81 MG EC tablet Take 81 mg by mouth daily. 08/12/16 Historical Provider, buPROPion SR (Wellbutrin SR) 100 MG 12 hr tablet Take 100 mg by mouth daily. Historical Provider, carvedilol (Coreg) 3.125 MG tablet Take 3.125 mg by mouth. Historical Provider, cholecalciferol (Vitamin D-3) 1.25 MG (82454 UT) capsule Take 50,000 Units by mouth. Historical Provider, cyanocobalamin (Vitamin B-12) 1000 MCG tablet Take 1,000 mcg by mouth daily. Historical Provider, donepezil (Aricept) 10 MG tablet Take 10 mg by mouth Nightly. Historical Provider, famotidine (Pepcid) 20 MG tablet Take 20 mg by mouth daily. Historical Provider, levothyroxine (Synthroid, Levoxyl) 50 MCG tablet Take 50 mcg by mouth daily. Historical Provider, lisinopril 20 MG tablet Take 1 tablet by mouth every morning. 01/27/22 Historical Provider, memantine (Namenda) 10 MG tablet Take 10 mg by mouth 2 times daily. Historical Provider, nystatin (Mycostatin) cream Apply 1 g topically. Historical Provider, sertraline (Zoloft) 100 MG tablet Take 100 mg by mouth Nightly. Historical Provider, Skin Protectants, Misc. (Basis Facial Moisturizer) cream Apply 1 application topically daily. 01/26/22 Historical Provider, Review of Systems Unable to perform ROS: Dementia Objective: Vitals: 08/12/22 2332 08/13/22 0210 08/13/22 0541 08/13/22 0700 BP: 129/75 (!) 118/49 (!) 107/49 (!) 151/71 Pulse: 80 69 72 71 Resp: 18 18 18 18 Temp: 36.9 C (98.5 F) TempSrc: Oral SpO2: 97% 96% 93% 95% Physical Exam Vitals and nursing note reviewed. Constitutional: General: She is not in acute distress. Appearance: Normal appearance. She is not ill-appearing, toxic-appearing or diaphoretic. HENT: Head: Normocephalic and atraumatic. Right Ear: External ear normal. Left Ear: External ear normal. Nose: No congestion or rhinorrhea. Mouth/Throat: Pharynx: Oropharynx is clear. No oropharyngeal exudate or posterior oropharyngeal erythema. Eyes: General: No scleral icterus. Right eye: No discharge. Left eye: No discharge. Conjunctiva/sclera: Conjunctivae normal. Pupils: Pupils are equal, round, and reactive to light. Neck: Vascular: No carotid bruit. Cardiovascular: Rate and Rhythm: Normal rate and regular rhythm. Pulmonary: Effort: Pulmonary effort is normal. No respiratory distress. Breath sounds: Normal breath sounds. No stridor. No wheezing, rhonchi or rales. Chest: Chest wall: No tenderness. Abdominal: General: Bowel sounds are normal. There is no distension. Palpations: Abdomen is soft. There is no mass. Tenderness: There is no abdominal tenderness. There is no right CVA tenderness, left CVA tenderness, guarding or rebound. Hernia: No hernia is present. Musculoskeletal: General: No swelling, tenderness, deformity or signs of injury. Cervical back: No rigidity or tenderness. Right lower leg: No edema. Left lower leg: No edema. Lymphadenopathy: Cervical: No cervical adenopathy. Skin: General: Skin is warm and dry. Capillary Refill: Capillary refill takes less than 2 seconds. Coloration: Skin is not jaundiced or pale. Findings: No bruising, erythema, lesion or rash. Neurological: General: No focal deficit present. Mental Status: She is alert. Sensory: No sensory deficit. Motor: No weakness. Gait: Gait normal. Deep Tendon Reflexes: Reflexes normal. Psychiatric: Attention and Perception: She is attentive. She does not perceive auditory hallucinations. Mood and Affect: Mood normal. Behavior: Behavior is cooperative. Cognition and Memory: Cognition is impaired. Memory is impaired. Lab Results Component Value Date NA 142 08/13/2022 K 4.2 08/13/2022 CL 109 (H) 08/13/2022 CO2 28 08/13/2022 BUN 45 (H) 08/13/2022 CREATININE 1.45 (H) 08/13/2022 GLUCOSE 107 (H) 08/13/2022 CALCIUM 9.0 08/13/2022 PROT 7.8 08/13/2022 BILITOT 0.6 08/13/2022 ALKPHOS 47 08/13/2022 AST 24 08/13/2022 ALT 17 08/13/2022 Lab Results Component Value Date WBC 9.1 08/13/2022 HGB 15.8 08/13/2022 HCT 47.9 (H) 08/13/2022 MCV 94.2 08/13/2022 PLT 252 08/13/2022 Additional results since admission have been reviewed. No components found for: LABA1C No components found for: LFT IMAGES: CT abdomen pelvis w contrast Narrative: Patient Name: SYMONE MCDONALD Exam Date/Time: 08/13/2022 05:19 Procedure: CT ABDOMEN PELVIS W CONTRAST Ordering Provider: BIANCHI MARY Reason For Exam: CT ABDOMEN AND PELVIS Indication: 82-year-old. Abdominal pain Scan Parameters: Multiple axial CT images were obtained of the abdomen and pelvis. Coronal and sagittal reconstructions were reviewed as well. ALARA protocol. Dose reduction was employed with automated exposure control. Contrast: 75 mL of Isovue-370 IV Comparison: None. FINDINGS: Lung bases: The lung bases are clear. Osseous structures: T10 vertebral body hemangioma. Multilevel endplate degenerative changes with endplate spurring and osteophyte formation. Loss of disc space height most prominent at L5-S1 and L2-L3 and L1-L2. Narrowing of neural foraminal canal most prominent at L5-S1. Liver: Hepatic probable cysts with the largest measuring 8 mm. Gallbladder/Biliary tree: Cholecystectomy clips. Mild intrahepatic and extra hepatic biliary duct distention. Spleen: Normal. Adrenals: Normal. Pancreas: Normal. Kidneys/bladder: No hydronephrosis. Bilateral renal cysts. Mild thinning of the renal cortex. No obstructing renal or ureteral calculus. Bladder contour is normal. Uterus: The uterus has been surgically removed. Peritoneal Cavity/Retroperitoneum: No lymphadenopathy. GI Tract: Postsurgical changes of the rectosigmoid colon. Multiple colonic diverticuli. No oral contrast limits evaluation of loops of bowel. There is polypoid thickening of the wall of the rectum on the left (image 70:6). The appendix is not identified with certainty at the level of the cecum. The terminal ileum is patent with intraluminal fluid. Postsurgical changes distal small bowel. Bowel gas pattern is nonspecific. Vasculature: Atherosclerotic calcifications. Impression: 1. Postsurgical changes of the large and small bowel. Appearance of a polyploid lesion of the left rectal wall, as above. Recommend direct visualization when feasible. 2. Colonic diverticulosis. 3. Additional nonacute findings including hepatic cysts, renal cysts, cholecystectomy, atherosclerotic disease. Report Dictated on Electronically Signed By: Hortensia Jacobs Electronically Signed Date/Time: 08/13/2022 5:35 AM EST XR chest 1 view Narrative: Patient Name: SYMONE MCDONALD Exam Date/Time: 08/13/2022 01:28 Procedure: XR CHEST 1 VIEW Ordering Provider: BIANCHI MARY Reason For Exam: INDICATION: 82-year-old. Shortness of breath. VIEWS: Chest portable COMPARISON: 05/03/2015 FINDINGS: The trachea is midline. The cardiac silhouette is within normal limits. The right hemidiaphragm is mildly elevated. Left costophrenic angle is excluded from [id number]. No confluent consolidation. No sizable pneumothorax. Atherosclerotic changes of the aorta. Impression: No confluent consolidation, as above. Exclusion of left costophrenic angle. Report Dictated on Electronically Signed By: Hortensia Jacobs Electronically Signed Date/Time: 08/13/2022 1:28 AM EST ECG 12 lead Sinus rhythm Ventricular premature complex Right bundle branch block Nonspecific repol abnormality, lateral leads No echocardiogram results found for the past 12 months [facility] 08-13-2022 History and physical note Images from the original note were not included. [facility] History and Physical Note Symone Mcdonald : 1940(82 y.o.) PCP: [facility] Assessment and Plan: Principal Problem: Intractable abdominal pain # COOPER/CKD III, s/p IVF # Functional decline # Abdominal pain, resolved # Incidental polypoid lesion within the rectum, pathology status unknown # Recent COVID infection out of isolation 08/13/22 (completed paxlovid at facility) # Alzheimer's dementia # Decubitus pressure ulcer, POA-wound care cs # Chronic diarrhea # CAD # Goals of care discussion # DNR-CCA -pt 's daughter agreed with not proceeding with colonoscopy to evaluate incidental polypoid lesion within the rectum as the patient will not be able to tolerate bowel prep in the setting of advanced dementia. -Pt's daughter is open to discussion regarding hospice enrollment - Will not consult GI on this admission -resume rest of home meds as indicated -Palliative/hospice recs appreciated DVT Prophylaxis: Subq Lovenox Ban Mcduffie/SUKH: [phone] BMI Classification: BMI 37.4 There is no height or weight on file to calculate BMI. obesity BMI 30-39.9 Disposition: await principal consultant recommendations and await placement patient and family updated, I personally examined the patient, and I personally reviewed chart, data, labs radiology reports Total time spent: 75 minutes, over 51% of total time providing counseling or in coordination of care. Total time on this day of visit includes record and documentation review before and after visit including documentation and time not explicitly included on EMR time stamp. [phone]: Please page me for patient care issues. [phone]: Please page [facility] [place] for any issues. Subjective: Chief Complaint Patient presents with Abdominal Pain Nausea Pt is from [facility]. Pt was hypoxic at low 90's. C/o abd pain and nausea. Bgt 119. Hx of dementia A&O x1 at baseline. DNRCC Patient is a poor historian due to dementia. Rest of history were obtained from daughter, facility and chart review. Interval History: Symone Mcdonald is a 82 y.o. 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 Patient presented from [facility] wit h2 days of nausea and abdominal pain. Worse with with palpation. Facility decided to bring the patient into the hospital due to hypoxia (90%) which improved with 2L NC at facility Patient recently tested positive for COVID infection s/p Paxlovid. Per pt's daughter and facility no reported COVID related symptoms (eg cough, dyspnea, URI, bowel changes) Per chart pt's abdominal pain seems to have resolved following a large bowel movement. However, CT scan showed incidental polypoid lesion within the rectum. Pt's daughter reported that the last colonoscopy was around the time of ileostomy surgery~7 years ago. Pt's daughter also reported chronic loose stool, however the facility was unable to confirm frequent bowel movement in the last few days Temp: [36.9 C (98.5 F)] 36.9 C (98.5 F) Heart Rate: [69-80] 71 Resp: [18] 18 BP: (107-151)/(49-75) 151/71 Lab Results Component Value Date GLUCOSE 107 (H) 08/13/2022 CALCIUM 9.0 08/13/2022 NA 142 08/13/2022 K 4.2 08/13/2022 CO2 28 08/13/2022 CL 109 (H) 08/13/2022 BUN 45 (H) 08/13/2022 CREATININE 1.45 (H) 08/13/2022 Lab Results Component Value Date WBC 9.1 08/13/2022 HGB 15.8 08/13/2022 HCT 47.9 (H) 08/13/2022 MCV 94.2 08/13/2022 PLT 252 08/13/2022 CT abdomen pelvis w contrast Narrative: [id number] Exam Date/Time: 08/13/2022 05:19 Procedure: CT ABDOMEN PELVIS W CONTRAST Ordering Provider: BIANCHI MARY Reason For Exam: CT ABDOMEN AND PELVIS Indication: 82-year-old. Abdominal pain Scan Parameters: Multiple axial CT images were obtained of the abdomen and pelvis. Coronal and sagittal reconstructions were reviewed as well. ALARA protocol. Dose reduction was employed with automated exposure control. Contrast: 75 mL of Isovue-370 IV Comparison: None. FINDINGS: Lung bases: The lung bases are clear. Osseous structures: T10 vertebral body hemangioma. Multilevel endplate degenerative changes with endplate spurring and osteophyte formation. Loss of disc space height most prominent at L5-S1 and L2-L3 and L1-L2. Narrowing of neural foraminal canal most prominent at L5-S1. Liver: Hepatic probable cysts with the largest measuring 8 mm. Gallbladder/Biliary tree: Cholecystectomy clips. Mild intrahepatic and extra hepatic biliary duct distention. Spleen: Normal. Adrenals: Normal. Pancreas: Normal. Kidneys/bladder: No hydronephrosis. Bilateral renal cysts. Mild thinning of the renal cortex. No obstructing renal or ureteral calculus. Bladder contour is normal. Uterus: The uterus has been surgically removed. Peritoneal Cavity/Retroperitoneum: No lymphadenopathy. GI Tract: Postsurgical changes of the rectosigmoid colon. Multiple colonic diverticuli. No oral contrast limits evaluation of loops of bowel. There is polypoid thickening of the wall of the rectum on the left (image 70:6). The appendix is not identified with certainty at the level of the cecum. The terminal ileum is patent with intraluminal fluid. Postsurgical changes distal small bowel. Bowel gas pattern is nonspecific. Vasculature: Atherosclerotic calcifications. Impression: 1. Postsurgical changes of the large and small bowel. Appearance of a polyploid lesion of the left rectal wall, as above. Recommend direct visualization when feasible. 2. Colonic diverticulosis. 3. Additional nonacute findings including hepatic cysts, renal cysts, cholecystectomy, atherosclerotic disease. Report Dictated on Electronically Signed By: Hortensia Jacobs Electronically Signed Date/Time: 08/13/2022 5:35 AM EST XR chest 1 view Narrative: [id number] Exam Date/Time: 08/13/2022 01:28 Procedure: XR CHEST 1 VIEW Ordering Provider: BIANCHI MARY Reason For Exam: INDICATION: 82-year-old. Shortness of breath. VIEWS: Chest portable COMPARISON: 05/03/2015 FINDINGS: The trachea is midline. The cardiac silhouette is within normal limits. The right hemidiaphragm is mildly elevated. Left costophrenic angle is excluded from [id number]. No confluent consolidation. No sizable pneumothorax. Atherosclerotic changes of the aorta. Impression: No confluent consolidation, as above. Exclusion of left costophrenic angle. Report Dictated on Electronically Signed By: Hortensia Jacobs Electronically Signed Date/Time: 08/13/2022 1:28 AM EST ECG 12 lead Sinus rhythm Ventricular premature complex Right bundle branch block Nonspecific repol abnormality, lateral leads Past Medical History: Diagnosis Date Anxiety Bowel obstruction (CMS/HCC) (HCC) CAD (coronary artery disease) Dementia (HCC) Depression Diverticulitis Hypertension Urinary incontinence UTI (urinary tract infection) Past Surgical History: Procedure Laterality Date APPENDECTOMY CHOLECYSTECTOMY HYSTERECTOMY No family history on file. Social History Socioeconomic History Marital status: Spouse name: Not on file Number of children: Not on file Years of education: Not on file Highest education level: Not on file Occupational History Not on file Tobacco Use Smoking status: Former Packs/day: 0.50 Types: Cigarettes Smokeless tobacco: Not on file Substance and Sexual Activity Alcohol use: No Alcohol/week: 0.0 standard drinks Drug use: No Sexual activity: Not on file Other Topics Concern Not on file Social History Narrative Lived in [facility] [place] Smoked for years, quit in late , but has smoked again the last couple years, first 2-3 packs per day, then 10 cigarettes per day Social Determinants of Health Financial Resource Strain: Not on file Food Insecurity: Not on file Transportation Needs: Not on file Physical Activity: Not on file Stress: Not on file Social Connections: Not on file Intimate Partner Violence: Not on file Housing Stability: Not on file Allergies Allergen Reactions Latex Erythromycin Rash Prior to Admission medications Medication Sig Start Date End Date Taking? Authorizing Provider acetaminophen (Tylenol) 325 MG tablet Take by mouth. Historical Provider, ammonium lactate (Lac-Hydrin) 12 % lotion Apply topically if needed for dry skin. Historical Provider, aspirin 81 MG EC tablet Take 81 mg by mouth daily. 08/12/16 Historical Provider, buPROPion SR (Wellbutrin SR) 100 MG 12 hr tablet Take 100 mg by mouth daily. Historical Provider, carvedilol (Coreg) 3.125 MG tablet Take 3.125 mg by mouth. Historical Provider, cholecalciferol (Vitamin D-3) 1.25 MG (30323 UT) capsule Take 50,000 Units by mouth. Historical Provider, cyanocobalamin (Vitamin B-12) 1000 MCG tablet Take 1,000 mcg by mouth daily. Historical Provider, donepezil (Aricept) 10 MG tablet Take 10 mg by mouth Nightly. Historical Provider, famotidine (Pepcid) 20 MG tablet Take 20 mg by mouth daily. Historical Provider, levothyroxine (Synthroid, Levoxyl) 50 MCG tablet Take 50 mcg by mouth daily. Historical Provider, lisinopril 20 MG tablet Take 1 tablet by mouth every morning. 01/27/22 Historical Provider, memantine (Namenda) 10 MG tablet Take 10 mg by mouth 2 times daily. Historical Provider, nystatin (Mycostatin) cream Apply 1 g topically. Historical Provider, sertraline (Zoloft) 100 MG tablet Take 100 mg by mouth Nightly. Historical Provider, Skin Protectants, Misc. (Basis Facial Moisturizer) cream Apply 1 application topically daily. 01/26/22 Historical ProviderMD Review of Systems Unable to perform ROS: Dementia Objective: Vitals: 08/12/22 2332 08/13/22 0210 08/13/22 0541 08/13/22 0700 BP: 129/75 (!) 118/49 (!) 107/49 (!) 151/71 Pulse: 80 69 72 71 Resp: 18 18 18 18 Temp: 36.9 C (98.5 F) TempSrc: Oral SpO2: 97% 96% 93% 95% Physical Exam Vitals and nursing note reviewed. Constitutional: General: She is not in acute distress. Appearance: Normal appearance. She is not ill-appearing, toxic-appearing or diaphoretic. HENT: Head: Normocephalic and atraumatic. Right Ear: External ear normal. Left Ear: External ear normal. Nose: No congestion or rhinorrhea. Mouth/Throat: Pharynx: Oropharynx is clear. No oropharyngeal exudate or posterior oropharyngeal erythema. Eyes: General: No scleral icterus. Right eye: No discharge. Left eye: No discharge. Conjunctiva/sclera: Conjunctivae normal. Pupils: Pupils are equal, round, and reactive to light. Neck: Vascular: No carotid bruit. Cardiovascular: Rate and Rhythm: Normal rate and regular rhythm. Pulmonary: Effort: Pulmonary effort is normal. No respiratory distress. Breath sounds: Normal breath sounds. No stridor. No wheezing, rhonchi or rales. Chest: Chest wall: No tenderness. Abdominal: General: Bowel sounds are normal. There is no distension. Palpations: Abdomen is soft. There is no mass. Tenderness: There is no abdominal tenderness. There is no right CVA tenderness, left CVA tenderness, guarding or rebound. Hernia: No hernia is present. Musculoskeletal: General: No swelling, tenderness, deformity or signs of injury. Cervical back: No rigidity or tenderness. Right lower leg: No edema. Left lower leg: No edema. Lymphadenopathy: Cervical: No cervical adenopathy. Skin: General: Skin is warm and dry. Capillary Refill: Capillary refill takes less than 2 seconds. Coloration: Skin is not jaundiced or pale. Findings: No bruising, erythema, lesion or rash. Neurological: General: No focal deficit present. Mental Status: She is alert. Sensory: No sensory deficit. Motor: No weakness. Gait: Gait normal. Deep Tendon Reflexes: Reflexes normal. Psychiatric: Attention and Perception: She is attentive. She does not perceive auditory hallucinations. Mood and Affect: Mood normal. Behavior: Behavior is cooperative. Cognition and Memory: Cognition is impaired. Memory is impaired. Lab Results Component Value Date NA 142 08/13/2022 K 4.2 08/13/2022 CL 109 (H) 08/13/2022 CO2 28 08/13/2022 BUN 45 (H) 08/13/2022 CREATININE 1.45 (H) 08/13/2022 GLUCOSE 107 (H) 08/13/2022 CALCIUM 9.0 08/13/2022 PROT 7.8 08/13/2022 BILITOT 0.6 08/13/2022 ALKPHOS 47 08/13/2022 AST 24 08/13/2022 ALT 17 08/13/2022 Lab Results Component Value Date WBC 9.1 08/13/2022 HGB 15.8 08/13/2022 HCT 47.9 (H) 08/13/2022 MCV 94.2 08/13/2022 PLT 252 08/13/2022 Additional results since admission have been reviewed. No components found for: LABA1C No components found for: LFT IMAGES: CT abdomen pelvis w contrast Narrative: Patient Name: SYMONE MCDONALD Exam Date/Time: 08/13/2022 05:19 Procedure: CT ABDOMEN PELVIS W CONTRAST Ordering Provider: BIANCHI MARY Reason For Exam: CT ABDOMEN AND PELVIS Indication: 82-year-old. Abdominal pain Scan Parameters: Multiple axial CT images were obtained of the abdomen and pelvis. Coronal and sagittal reconstructions were reviewed as well. ALARA protocol. Dose reduction was employed with automated exposure control. Contrast: 75 mL of Isovue-370 IV Comparison: None. FINDINGS: Lung bases: The lung bases are clear. Osseous structures: T10 vertebral body hemangioma. Multilevel endplate degenerative changes with endplate spurring and osteophyte formation. Loss of disc space height most prominent at L5-S1 and L2-L3 and L1-L2. Narrowing of neural foraminal canal most prominent at L5-S1. Liver: Hepatic probable cysts with the largest measuring 8 mm. Gallbladder/Biliary tree: Cholecystectomy clips. Mild intrahepatic and extra hepatic biliary duct distention. Spleen: Normal. Adrenals: Normal. Pancreas: Normal. Kidneys/bladder: No hydronephrosis. Bilateral renal cysts. Mild thinning of the renal cortex. No obstructing renal or ureteral calculus. Bladder contour is normal. Uterus: The uterus has been surgically removed. Peritoneal Cavity/Retroperitoneum: No lymphadenopathy. GI Tract: Postsurgical changes of the rectosigmoid colon. Multiple colonic diverticuli. No oral contrast limits evaluation of loops of bowel. There is polypoid thickening of the wall of the rectum on the left (image 70:6). The appendix is not identified with certainty at the level of the cecum. The terminal ileum is patent with intraluminal fluid. Postsurgical changes distal small bowel. Bowel gas pattern is nonspecific. Vasculature: Atherosclerotic calcifications. Impression: 1. Postsurgical changes of the large and small bowel. Appearance of a polyploid lesion of the left rectal wall, as above. Recommend direct visualization when feasible. 2. Colonic diverticulosis. 3. Additional nonacute findings including hepatic cysts, renal cysts, cholecystectomy, atherosclerotic disease. Report Dictated on Electronically Signed By: Hortensia Jacobs Electronically Signed Date/Time: 08/13/2022 5:35 AM EST XR chest 1 view Narrative: Patient Name: SYMONE MCDONALD Exam Date/Time: 08/13/2022 01:28 Procedure: XR CHEST 1 VIEW Ordering Provider: BIANCHI MARY Reason For Exam: INDICATION: 82-year-old. Shortness of breath. VIEWS: Chest portable COMPARISON: 05/03/2015 FINDINGS: The trachea is midline. The cardiac silhouette is within normal limits. The right hemidiaphragm is mildly elevated. Left costophrenic angle is excluded from [id number]. No confluent consolidation. No sizable pneumothorax. Atherosclerotic changes of the aorta. Impression: No confluent consolidation, as above. Exclusion of left costophrenic angle. Report Dictated on Electronically Signed By: Hortensia Jacobs Electronically Signed Date/Time: 08/13/2022 1:28 AM EST ECG 12 lead Sinus rhythm Ventricular premature complex Right bundle branch block Nonspecific repol abnormality, lateral leads No echocardiogram results found for the past 12 months documented in this encounter [facility] 08-13-2022 Emergency department Note Patient being admitted. Patient and family updated Delicia Jacobs RN 08/13/22 0847 [facility] [employer] [facility] 08-13-2022 Emergency department Note Patient resting with family at bedside. Respirations even and unlabored. Waiting for orders Delicia Jacobs RN 08/13/22 0737 [employer] 08-13-2022 Emergency department Note Assist surgeon with rectal exam. Patient cleaned up after exam. Patient tolerated. Daughter at bedside. Surgeon updated family that she may need colonoscopy and will consult GI. Delicia Jacobs RN 08/13/22 0733 [facility] [employer] 08-13-2022 Emergency department Note Received report from previous shift Delicia Jacobs RN 08/13/22 0720 [employer] 08-13-2022 Emergency department Note Pt straight cath'd for urine. Urine return noted. Urine sample collected and sent to lab. Pt tolerated procedure well. Irasema Renteria RN 08/13/22 0712 [employer] 08-13-2022 Emergency department Note Pt resting in room. Respirations even and non labored. Daughter at bedside. Irasema Renteria RN 08/13/22 0543 [facility] [employer] 08-13-2022 Emergency department Note Pt resting in room. Respirations even and non labored. Daughter at bedside. Irasema Renteria RN 08/13/22 0212 [employer] 08-13-2022 Emergency department Note Report to TYSON Campos. Amaya Conley RN 08/13/22 0106 [employer] 08-12-2022 Emergency department Note Bed: 17 Expected date: Expected time: Means of arrival: Comments: EMS Nicole Seaman RN [id number]/12/222322 [employer] 08-12-2022 Physician Emergency department Note Emergency Department Encounter Location: [facility] EMERGENCY DEPT Patient: Symone Mcdonald : 1940 Date of evaluation: 08/12/2022 ED Provider: Regina Dover PA-C [id number] Symone Mcdonald was checked out to me by Dr. Suresh. Please see his/her initial documentation for details of the patient's initial ED presentation, physical exam and completed studies. In brief, Symone Mcdonald is a 82 y.o. female that presented to the emergency department for evaluation of abdominal pain. Patient with history of dementia, coming from nursing facility. She tested positive for COVID and therefore family has not seen her for over one week. Facility called stating that patient seemed to be having abdominal pain as she was holding her stomach and winces when pressure is applied. No vomiting. No fevers. History primarily obtained from family as patient is disoriented secondary to dementia. I have reviewed and interpreted all of the currently available lab results and diagnostics from this visit: Results for orders placed or performed during the hospital encounter of 08/12/22 Comprehensive metabolic panel Result Value Ref Range SODIUM 142 135 - 145 mmol/L POTASSIUM 4.2 3.5 - 5.1 mmol/L CHLORIDE 109 (H) 98 - 107 mmol/L CARBON DIOXIDE 28 22 - 30 mmol/L ANION GAP 5 3 - 13 mmol/L UREA NITROGEN 45 (H) 7 - 17 mg/dL CREATININE 1.45 (H) 0.52 - 1.04 mg/dL GLUCOSE 107 (H) 70 - 100 mg/dL CALCIUM 9.0 8.4 - 10.4 mg/dL AST (SGOT) 24 15 - 46 U/L ALT 17 0 - 34 U/L ALKALINE PHOSPHATASE 47 38 - 126 U/L ALBUMIN 3.9 3.5 - 5.0 g/dL BILIRUBIN, TOTAL 0.6 0.2 - 1.3 mg/dL TOTAL PROTEIN 7.8 6.3 - 8.2 g/dL eGFR 36.1 (L) >60.0 mL/min/1.73m*2 CBC Result Value Ref Range Auto WBC 9.1 3.6 - 10.7 10*3/uL RBC 5.08 3.8 - 5.20 10*6/uL Hemoglobin 15.8 11.7 - 16.0 g/dL Hematocrit 47.9 (H) 35.0 - 47.0 % MCV 94.2 80.0 - 98.0 fL MCH 31.1 26.0 - 34.0 pg MCHC 33.0 32.0 - 36.0 % RDW 13.8 11.5 - 14.5 % Platelets 252 140 - 440 10*3/uL MPV 9.9 7.4 - 12.4 fL Lipase Result Value Ref Range LIPASE 278 23 - 300 U/L Complete Urinalysis Result Value Ref Range Color, Urine Light Yellow Lt. Yellow Clarity, Urine Clear Clear pH, Urine 5.5 5.0 - 8.0 pH Leukocytes, Urine Negative Negative Antonio/uL Nitrite, Urine Negative Negative Protein, Urine 10 (A) Negative mg/dL Glucose, Urine Normal Normal (<70) mg/dL Bilirubin, Urine Negative Negative mg/dL Ketones, Urine 10 (A) Negative mg/dL Urobilinogen, Urine Normal Normal (0-1) mg/dL Blood, Urine Negative Negative mg/dL RBC, Urine 3-5 (A) 0 - 2 /HPF WBC, Urine 0-2 0 - 5 /HPF Squamous Epithelial, Urine 0-2 3 - 5 /HPF Bacteria, Urine Few (A) Negative /HPF Mucus, Urine Few Negative /LPF Hyaline Casts, Urine Negative Negative /LPF SPECIFIC GRAVITY OF URINE (NUMERIC) >1.030 (H) 1.005 - 1.030 Lactic acid, plasma Result Value Ref Range LACTIC ACID 0.9 0.7 - 2.0 mmol/L Troponin I Result Value Ref Range TROPONIN I <0.012 0.000 - 0.034 ng/mL ECG 12 lead Result Value Ref Range Heart Rate 72 bpm QRSD Interval 139 ms QT Interval 442 ms QTC Interval 485 ms P [place] 48 degrees QRS [place] 55 degrees T Wave [place] -51 degrees [place] Interval [address] abdomen pelvis w contrast Final Result 1. Postsurgical changes of the large and small bowel. Appearance of a polyploid lesion of the left rectal wall, as above. Recommend direct visualization when feasible. 2. Colonic diverticulosis. 3. Additional nonacute findings including hepatic cysts, renal cysts, cholecystectomy, atherosclerotic disease. Report Dictated on Electronically Signed By: Hortensia Jacobs Electronically Signed Date/Time: 08/13/2022 5:35 AM EST XR chest 1 view Final Result No confluent consolidation, as above. Exclusion of left costophrenic angle. Report Dictated on Electronically Signed By: Hortensia Jacobs Electronically Signed Date/Time: 08/13/2022 1:28 AM EST Final ED Course and MDM: In brief, Symone Mcdonald is a 82 y.o. female whose care was signed out to me by the outgoing provider. In brief, patient from nursing facility, recent covid positive, brought in for evaluation of abdominal pain. Patient given IV fluids. Diagnostics reviewed. Troponin negative. Lipase not elevated. No lactic acidosis. No leukocytosis. Hemoglobin 15.8. Mild acute kidney injury. EKG with sinus rhythm, right bundle branch block. Chest x-ray noncontributory. CT abd/pelvis significant for "postsurgical changes of the large and small bowel. Appearance of a polyploid lesion of the left rectal wall, as above. Recommend direct visualization when feasible." At time of sign out, pending general surgery evaluation and recommendations. General surgery team evaluated patient in ED, see their note for details. Recommended further testing in the outpatient setting and GI involvement due to diarrhea. On reevaluation, patient continues to express pain when abdomen is palpated; she appears fatigued and there is a severely macerated area of her buttock that may require wound care. I spoke with daughter regarding all of the above, stated that this may be able to be arranged in the outpatient setting however she was concerned regarding a decline in her mother's state of health over the past week or so. Requested admission for further evaluation and improvement prior to sending back to detention as she does not believe she gets adequate care at the facility. Discussed patient's history, physical examination and work up thus far with Dr. Nogueira who accepted patient for admission to medicine team. Patient and family agreeable with plan. Admitted in stable condition. Final Impression 1. Intractable abdominal pain 2. Diarrhea, unspecified type DISPOSITION Admit 08/13/2022 08:43:34 AM (Please note that portions of this note may have been completed with a voice recognition program. Efforts were made to edit the dictations but occasionally words are mis-transcribed.) eRgina Dover PA-C [employer] Regina Dover PA-C 08/13/22 0928 [facility] 07-27-2022 History of Presen t illness Narrative Images from the original note were not included. [facility] [place] [address] [place] [address] [place] [address] Dept: [phone] Dept Chief Complaint Patient presents with Shoulder Pain Right shoulder and arm pain Subjective History of Present Illness: Symone Mcdonald is a 82 y.o. right hand dominant female who presents today for evaluation of right shoulder pain. Jun 28 fell, no known mechanism of injury Location: anterior, superior Onset: 06/28/2022 Injury: yes - fell in detention. Work related? no Quality: aching, throbbing, and sharp Mechanical symptoms: no Radiation of symptoms: no Exacerbating factor(s): abduction and flexion, ADLs- requires assistance Relieving factor(s): rest and activity modification Timing: intermittently Imaging to date: X-ray July 2022 New shoulder and humerus x-rays were obtained today. There appears to be a bony fragment just inferior to a minimally displaced scapular neck fracture. Due to pain her axillary view was unable to included scapular neck Treatment to date: PT/OT/HEP: no Ice: yes, helpful Heat: no Medications: Tylenol: yes, helpful NSAIDs: no Oral steroids: no Muscle relaxants: no Nerve medications: no Targeted injections: none Assistive devices: walker Prior surgery: no Objective Visit Vitals Temp 35.8 C (96.4 F) Ht 5' 4" (1.626 m) Wt 218 lb (98.9 kg) BMI 37.42 kg/m Smoking Status Former BSA 2.11 m Physical Exam: General: Alert, well appearing, no acute distress. Respiratory: Breathing comfortably on room air. No respiratory distress. Skin: Warm, dry, intact. No visible rashes or erythema overlying area of focused exam. Physical Exam Musculoskeletal: Right shoulder: Tenderness and bony tenderness present. No swelling or deformity. Decreased range of motion. Decreased strength. Arms: Comments: Decreased weakness right arm secondary to discomfort. Limited abduction to 40. Pain to palpation anterior posterior glenohumeral joint External Notes I personally reviewed external notes from: detention Labs No results found for: HGBA1C Lab Results Component Value Date CREATININE 1.2 (H) 01/25/2022 Imaging Images reviewed with patient today I have personally reviewed the images pertinent to the appointment today See above suspected scapular neck fracture EMG/NCT No interval studies Procedure No procedures completed today Assessment Diagnosis Plan 1. Closed nondisplaced fracture of neck of right scapula, initial encounter 2. Acute shoulder pain due to trauma, right XR shoulder 2+ views right XR humerus right Plan High degree suspicion scapular neck fracture. She continues to be immobile and self splinting of her scapular fracture. There is no secondary neurovascular compromise. Continue to conservatively treat. She is already approximately 4 weeks into her injury process. Recheck in 4 weeks. No follow-ups on file. Criselda Johnson MD 07/30/2022 11:00 AM Please note that portions of this note may have been completed with voice recognition software. Documentation reviewed prior to signing but minor errors in retail center receptionist may have occurred. documented in this encounter [facility] Evaluation note No assessment inform ation available [facility] Work Phone: Evaluation note Diagnosis Acute shoulder pain due to trauma, right [facility] Closed nondisplaced fracture of neck of right scapula, initial encounter- Primary Acute shoulder pain due to trauma, right Acute shoulder pain due to trauma, right [facility] Diagnosis Intractable abdominal pain- Primary Intractable abdominal pain Diarrhea, unspecified type Pressure injury of skin of buttock, unspecified injury stage, unspecified laterality Decubitus ulcer of sacral region, stage 1 COOPER (acute kidney injury) (CMS/HCC) (HCC) [facility] (n[facility]ative[facility] Consultation (Routine) - Pending Review Specialty Diagnoses / Procedures Referred By Contac t Referred To Contact Wound Care Diagnoses Decubitus ulcer of sacral region, stage 1 Procedures [place] OFFICE/OUTPATIENT [facility] MDM 60-74 MINUTES Leidy Win APRN [address] [place] [address] [facility] [address] [place] [address] Referral ID Status Reason Start Date Expiration Date Visits Requested Visits Authorized [id number] Pending Review Specialty Services Required 08/15/2022 08/15/2023 1 1 [facility] (narrative)No reason for referral information availableWSelect [facility] Work Phone: Summary Purpose Family History No Family History Records FoundNo Family History Records FoundNo Family History Records Found Advance Directives No Advanced Directives Records FoundDocuments on File Type Date Recorded Patient Bar Catcher Expl anation Advance Directives and Livin g Will 08/13/2022 12:20 AM Power of Logistics Specialist 08/13/2022 12:21 AM Latest Code Status on File Code Status Date Activated Date Inactivated Comments DNR-CCA 08/13/2022 12:11 PM Question Answer Comments ICU transfer: No Healthcare Agents on File Name Relationship Healthcare Agent Relationshi p Communication Ban (POA) Froy Child Health Care Agent Latest Code Status on File Code Status Date Activated Date Inactivated Comments DNR-CCA 08/13/2022 12:11 PM 08/15/2022 5:01 PM Question Answer Comments ICU transfer: No Healthcare Agents on File Name Relationship Healthcare Agent Relationshi p Communication Ban (POA) Froy Child Health Care Agent Documents on File Type Date Recorded Patient Bar Catcher Expl anation Advance Directives and Livin g Will 08/13/2022 12:20 AM Power of Logistics Specialist 08/13/2022 12:21 AM Latest Code Status on File Code Status Date Activated Date Inactivated Comments DNR-CCA 08/13/2022 12:11 PM 08/15/2022 5:01 PM Question Answer Comments ICU transfer: No Healthcare Agents on File Name Relationship Healthcare Agent Relationshi p Communication Ban (POA) Froy Child Health Care Agent Chief Complaint and Reason for Visit Chief Complaint DETENTION LAB WOR K DETENTION LABWORK LABWORK Chief Complaint DETENTION LABWORK LABWORK DETENTION LAB WORK Chief Complaint LAB WORK LABWORK Chief Complaint Admit Date LABWORK October 02, 2024 11: 00am Additional Source Comments INFORMATION SOURCE (unrecogn ized section and content) DATE CREATED AUTHOR 01/31/2022 [facility] DATE CREATED AUTHOR AUTHOR'S ORGANIZ ATION 01/19/2023 [facility] DATE CREATED AUTHOR AUTHOR'S ORGANIZ ATION [facility] Goals (unrecognized section and content) Goals may be documented in a n alternate sectionGoals may be documented in an alternate sectionGoals may be documented in an alternate sectionGoals may be documented in an alternate sectionGoals may be documented in an alternate sectionGoals may be documented in an alternate section Care Teams (unrecognized sec tion and content) Team Status: Inactive Member Role Status Dates Toy HUMPHREY Attending Provider, Referring Provi ita Active Team Status: Active Member Role Status Dates Toy HUMPHREY Attending Provider Active Gleason Operator Relationship Specialty Start Date End Date Brandon Downey MD PCP - General 03/09/15 Gleason Operator Relationship Specialty Start Date End Date Brandon Downey MD PCP - General 03/09/15 Gleason Operator Relationship Specialty Start Date End Date Toy Temple [address] [place] [address] PCP - General Internal Medicine 08/13/22 Gleason Operator Relationship Specialty Start Date End Date Brandon Downey MD PCP - General 03/09/15 3 Toy Temple [address] [place] [id number] PCP - General Internal Medicine 08/13/22 Gleason Operator Relationship Specialty Start Date End Date Toy Temple [address] [place] [phone] PCP - General Internal Medicine 08/13/22 Team Status: Inactive Member Role Status Dates Toy Temple MILAGRO Attending Provider Active Sta rt: October 02, 2024 End: October 02, 2024 Reason for Visit (unrecogniz ed section and content) Reason Comments Shoulder Pain Right shoulder and a rm pain Specialty Diagnoses / Procedures Referred By Marguerite falcon Referred To Contact Diagnoses Intractable abdominal pain Procedures dj 21971 08/13/22 Active [place] Medicare per online AUTH REQ pending ref#[id number] UM TO [facility] TO [phone]. Gomez Nogueira, [address] [facility] [address] [place] [id number] [facility] Emergency Dept [address] [place] [id number] Referral ID Status Reason Start Date Expiration Date Visits Re quested Visits Authorized [id number] 1 1 Reason Comments Abdominal Pain Nausea Pt is from [facility]. Pt was hypoxic at low 90's. C/o abd pain and nausea. Bgt 119. Hx of dementia A&O x1 at baseline. DNC Reason Onset Date Comments Other 08/16/2022 [facility] Scheduled Active and Recently Administ ered Medications (unrecognized section and content) Medication Order 08/13/2022 08/14/2022 08/15/2022 aspirin EC tablet 81 mg 81 mg, Oral, Daily, First dose on Sat08/13/22 at 1200, Do not crush, chew, or split. 1353 (Given - Provider: Lyudmila Blanco, TYSON) 0919 (Given - Provider: Jeaneth Esquivel RN) 0923 (Given - Provider: Carlos Dickson RN) buPROPion SR (Wellbutrin SR) 12 hr tablet 100 mg 100 mg, Oral, Daily, First dose on Sat08/13/22 at 1200, Do not crush, chew, or split. 1354 (Given - Provider: Lyudmila Blanco RN) 0919 (Given - Provider: Jeaneth Esquivel RN) 09 (Given - Provider: Carlos Dickson, RN) carvedilol (Coreg) tablet 3.125 mg 3.125 mg, Oral, 2 times daily with meals, First dose on Sat08/13/22 at 1200 1354 (Given - Provider: Lyudmila Blanco RN)1437 (Held by provider - Provider: Gomez Nogueira DO - Reason: Other)1700 (Dose Auto Held - Provider: Gomez Nogueira DO) 0800 (Dose Auto Held - Provider: Gomez Nogueira DO)1700 (Dose Auto Held - Provider: Gomez Nogueira DO) 0800 (Not Given - Provider: Carlos Dickson RN - Reason: Other - Comment: held per provider)1701 (Unheld by provider - Provider: Automatic Discharge Provider) cyanocobalamin (Vitamin B-12) tablet 1,000 mcg 1,000 mcg, Oral, Daily, First dose on Sat08/13/22 at 1200 1354 (Given - Provider: Lyudmila Blanco RN) 0919 (Given - Provider: Jeaneth Esquivel RN) 09 (Given - Provider: Carlos Dickson, RN) donepezil (Aricept) tablet 10 mg 10 mg, Oral, Nightly, First dose on Sat08/13/22 at 2100 2139 (Given - Provider: Libra Perry RN) 2047 (Given - Provider: Libra Perry, TYSON) enoxaparin (Lovenox) syringe 40 mg 40 mg, SubCUTAneous, Daily, First dose on Sat08/14/22 at 0900, Indication of Use: Prophylaxis-DVT/PE, Indications: Prophylaxis of Venous Thromboembolism 0919 (Given - Provider: Jeaneth Esquivel RN) 09 (Given - Provider: Carlos Dickson, TYSON) famotidine (Pepcid) tablet 20 mg 20 mg, Oral, Daily, First dose on Sat08/13/22 at 1200 1353 (Given - Provider: Lyudmila Blanco RN) 0919 (Given - Provider: Jeaneth Esquivel RN) 0922 (Given - Provider: Carlos Dickson, TYSON) lactated Ringer's bolus 1,000 mL 1,000 mL, IntraVENous, at 125 mL/hr, Administer over 8 Hours, Once, On Sat08/13/22 at 1440, For 1 dose 1440 (Not Given - Provider: Kitty Brand RN - Reason: Other - Comment: Not hung in ER per AGRICULTURAL EXTENSION SPECIALIST due to loss of IV access and Dr. Nogueira said not to give) levothyroxine (Synthroid, Levoxyl) tablet 50 mcg 50 mcg, Oral, Daily, First dose on Sat08/13/22 at 1200, Tube feeding (TF) interaction, obtain physician order to manage, recommend holding TF for 30 minutes before and after dose. 1354 (Given - Provider: Lyudmila Blanco RN) 0919 (Given - Provider: Jeaneth Esquivel RN) 09 (Given - Provider: Carlos Dickson, TYSON) lisinopril tablet 20 mg 20 mg, Oral, Every morning, First dose on Sat08/13/22 at 1200 1353 (Given - Provider: Lyudmila Blanco RN)1437 (Held by provider - Provider: Gomez Nogueira DO - Reason: Other) 0900 (Dose Auto Held - Provider: Gomez Nogueira DO) 0900 (Not Given - Provider: Carlos Dickson RN - Reason: Other - Comment: held per provider)1701 (Unheld by provider - Provider: Automatic Discharge Provider) memantine (Namenda) tablet 10 mg 10 mg, Oral, 2 times daily, First dose on Sat08/13/22 at 1200 1354 (Given - Provider: Lyudmila Blanco RN)2140 (Given - Provider: Libra Perry RN) 0919 (Given - Provider: Jeaneth Esquivel RN)204 (Given - Provider: Libra Perry RN) 0923 (Given - Provider: Carlos Dickson, TYSON) sertraline (Zoloft) tablet 100 mg 100 mg, Oral, Nightly, First dose on Sat08/13/22 at 2100 2139 (Given - Provider: Libra Perry RN) 2046 (Given - Provider: Libra Perry RN) sodium chloride 0.9 % bolus 1,000 mL (COMPLETED) 1,000 mL, IntraVENous, at 2,000 mL/hr, Administer over 0.5 Hours, Once, On Sat08/13/22 at 0015, For 1 dose 0037 (New Bag - Provider: Irasema Renteria, RN)0420 (Stopped - Provider: Irasema Renteria, RN) stomahesive in petrolatum (ET Mix) Topical, 3 times daily, First dose on Sat08/14/22 at 1400 1400 (Not Given - Provider: Jeaneth Esquivel RN - Reason: Other - Comment: pt sleeping, given when patient incontinent)2050 (Given - Provider: Libra Perry RN) 921 (Given - Provider: Carlos Dickson, TYSON)1400 (Canceled Entry - Provider: Carlos Dickson RN) PRN Medication Order 08/13/2022 08/14/2022 08/15/2022 acetaminophen (Tylenol) suppository 650 mg(Linked Group 1) 650 mg, Rectal, Every 6 hours PRN, mild pain (1-3), fever, For temp greater than 100.4 F (38 C), Starting on Sat08/13/22 at 1211, Administer if oral route cannot be used. Maximum dose of acetaminophen is 4000 mg from all sources in 24 hours. 2157 (See Alternative - Provider: Libra Perry RN) acetaminophen (Tylenol) tablet 650 mg(Linked Group 1) 650 mg, Oral, Every 6 hours PRN, mild pain (1-3), fever, For temp greater than 100.4 F (38 C), Starting on Sat08/13/22 at 1211, Maximum dose of acetaminophen is 4000 mg from all sources in 24 hours. 2157 (Given - Provider: Libra Perry RN) iopamidol (Isovue-370) 76 % injection 75 mL (COMPLETED) 75 mL, IntraVENous, IMG once PRN, contrast, Starting on Sat08/13/22 at 0518, For 1 dose 0518 (Given - Provider: Donal Weiss) ondansetron (Zofran) injection 4 mg 4 mg, IntraVENous, Every 6 hours PRN, nausea, vomiting, Starting on Sat08/13/22 at 1211, 1st Line. Give IV if patient is unable to take orally. If inadequate response within 60 minutes, proceed to next-line agent or contact provider if no further options ordered. oxyCODONE (Roxicodone) immediate release tablet 5 mg 5 mg, Oral, Every 4 hours PRN, moderate pain (4-6), severe pain (7-10), Starting on Sat08/13/22 at 1354 0543 (Given - Provider: Libra Perry RN) 0008 (Given - Provider: Libra Perry RN)0921 (Given - Provider: Carlos Dickson, TYSON)1434 (Given - Provider: Carlos Dickson, TYSON) polyethylene glycol (PEG) 3350 (Miralax) packet 17 g 17 g, Oral, 2 times daily PRN, constipation, Starting on Sat08/13/22 at 1211, 1st line for treatment of constipation - give scheduled if no bowel movement in past 24 hours. stomahesive in petrolatum (ET Mix) Topical, As needed, dry skin, Starting on Sat08/13/22 at 1351 0545 (Self Administered Via Pump - Provider: Libra Perry RN) Zinc Oxide 30 % ointment Topical, PRN, irritation, Starting on Sat08/13/22 at 1351, Apply to buttocks 0545 (Self Administered Via Pump - Provider: Libra Perry RN - Comment: buttock) 0010 (Self Administered Via Pump - Provider: Libra Perry RN) Linked Groups Order Group 1: acetaminophen (Tylenol) tablet 650 mgJump to med 650 mg, Oral, Every 6 hours PRN, mild pain (1-3), fever, For temp greater than 100.4 F (38 C), Starting on Sat08/13/22 at 1211
Maximum dose of acetaminophen is 4000 mg from all sources in 24 hours.
Or acetaminophen (Tylenol) suppository 650 mgJump to med 650 mg, Rectal, Every 6 hours PRN, mild pain (1-3), fever, For temp greater than 100.4 F (38 C), Starting on Sat08/13/22 at 1211
Administer if oral route cannot be used. Maximum dose of acetaminophen is 4000 mg from all sources in 24 hours.
FOR RECORDS PERTAINING TO PATIENTS WHO ARE OR HAVE BEEN ENROLLED IN A CHEMICAL DEPENDENCY/SUBSTANCEABUSE PROGRAM, SOME INFORMATION MAY BE OMITTED. This clinical summary was aggregated from multiple sources. Caution should be exercised in using it in the provision of clinical care. This summary normalizes information from multiple sources, and as a consequence, information in this document may materially change the coding, format and clinical context of patient data. In addition, data may be omitted in some cases. CLINICAL DECISIONS SHOULD BE BASED ON THE PRIMARY CLINICAL RECORDS. [facility] [employer] [facility]. provides no warranty or guarantee of the accuracy or completeness of information in this document.
[2025-03-16 09:23] LABS: Hematocrit 38.6 % (37-47); Hemoglobin 12.2 g/dL (12.0-15.0); Mean Corp Hgb Conc 31.6 g/dL (32-36); Mean Corpuscular Volume 95.1 fL (81-99); Mean Platelet Vol. 11.3 fl (6.2-12.0); Platelet Count 266 K/mm3 (150-450); RBC Distribution Width CV 12.5 % (11.6-14.6); RBC Distribution Width SD 43.9 fl (35.1-43.9); Red Blood Count 4.06 M/mm3 (4.2-5.4); White Blood Count 6.2 K/mm3 (4.4-11.0)
[2025-03-16 10:19] LABS: AST(SGOT) 15 U/L (<=31); Alanine Aminotransfer ALT/SGPT 7 U/L (<=34); Albumin, Serum 3.3 g/dL (3.4-4.8); Alkaline Phosphatase 49 U/L (35-104); Anion Gap 7 (5-15); BUN 17 mg/dL (4-19); BUN/Creat Ratio 15.9 RATIO (10-20); Calcium,Total 8.9 mg/dL (7.6-11.0); Carbon Dioxide 29.6 mmol/L (21.0-32.0); Chloride 108 mmol/L (98-108); Globulin 3.4 g/dL (2.2-4.2); Glucose 86 mg/dL (70-99); Potassium 4.2 mmol/L (3.3-5.1)
== END ==
LOC: OLS.SANC 05:00
PROVIDERS: Visit Provider Internal Medicine
DX: N17.9 Acute kidney failure, unspecified (principal); Z79.899 Other long term (current) drug therapy
CPT/HCPCS: 36415; 80053; 84443; 85027

== ENCOUNTER → 2025-04-06 | Outpatient (REF) | payer MEDICARE, MEDICAID, SELFPAY ==
--- OUTSIDE RECORDS SUMMARY | 2025-04-06 04:03 | XMS RPT_ITS | CCD ---
Author Organization [facility] Inform ion [facility] Care Team Providers Care Farmworker Animal Name Role Phone BLAINEJORDYNNAYLA MORALES Attending Unavailable DUDLEY CAMPBELL Consulting Unavailable ZAK HOANG Admitting Unavailable SNEHAL BIANCHI Referring Unavailable TOY TEMPLE Primary Care Unavailable CRISELDA JOHNSON Attending Unavailable GOMEZ NOGUEIRA Attending Unavailable GOMEZ NOGUEIRA Admitting Unavailable TOY TEMPLE Primary Care Unavailable CRISELDA JOHNSON Referring Unavailable CRISELDA JOHNSON Attending Unavailable Brandon Downey MD Primary Care Provider U Toy Ovalle Primary Care Provider [phone] Brandon Downey MD Primary Care Provider U Toy Mcghee Attending Provider Unavailab Toy Saenz Attending Unavailable Chilo Loredo Attending Unavail able Toy Espino Attending Unavailable Toy Espino Referring Unavailable Toy Espino Attending Unavailable Windy HUMPHREY, Toy Attending Unavailable Allergies Allergy Classification Reported Allergen(s) Allergy Type Date of Onset Reaction(s) Facility (8 sources) Erythromycin Drug Allergy 07-06-2015 Rash [facility] (8 sources) Latex Propensity to adverse reactions 01-16-2022 [facility] Medications Current Medications Medication Drug Class(es) Dates [...] 08-13-2022 cholecalciferol (Vitamin D-3 ) 1.25 MG (24796 UT) capsule Take 50,000 Units by mouth. [...] mouth Daily as needed. 0 Suspended nystatin 511032 unt/ml topical cream (8 sources) Polyene Antifungal [...] 650 mg take 2 tablets by mo uth every six hours as needed for fever [...] hydrochloride 10 mg oral tablet (10 sources) Z-zkjnvc-D-aspartate Receptor Antagonist Start: 08-13-2022 End: 08-15-2022 take [...] 08/14/2022 08/15/2022 Discontinued (Reorder) polyethylene glycol 3350 80740 mg powder for oral solution (7 sources) [...] Coronary arteriosclerosis; Translations: [Atherosclerotic heart disease of [place] coronary artery without angina pectoris] Onset: 07-06-2015 [...] source) Hypothyroidism, unspecified; Translations: [Hypothyroidism, unspecified] Onset: 03-16-2025 Chronic Past or Other Problems Problem Classification [...] Test Name Value Interpretation Reference Range Facility CBC-Complete Blood Cnt No Di ffon 03-16-2025 Erythrocyte distribution width (RBC) [Ratio] 12.5 % Normal 11.6-14.6 [facility] Comment on above: Order Comment: 305.2 Performed By: #### L 501.9520, L100.0500, L500.4050 #### [facility] [address] [place], [address] Hematocrit (Bld) [Volume fraction] 38.6 % Normal 37-47 [facility] Comment on above: Order Comment: 305.2 Performed By: #### L 501.9520, L100.0500, L500.4050 #### [facility] [address] [place], [address] Hemoglobin (Bld) [Mass/Vol] 12.2 g/dL Normal 12.0-15.0 [facility] Comment on above: Order Comment: 305.2 Performed By: #### L 501.9520, L100.0500, L500.4050 #### [facility] [address] [place], [address] MCH (RBC) [Entitic mass] 30.0 pg Normal 27.0-32.0 [facility] Comment on above: Order Comment: 305.2 Performed By: #### L 501.9520, L100.0500, L500.4050 #### [facility] [address] [place], [address] MCHC (RBC) [Mass/Vol] 31.6 g/dL Low 32-[address] [facility] Comment on above: Order Comment: 305.2 Performed By: #### L 501.9520, L100.0500, L500.4050 #### [facility] [address] [place], [address] MCV (RBC) [Entitic vol] 95.1 fL Normal 81-99 [facility] Comment on above: Order Comment: 305.2 Performed By: #### L 501.9520, L100.0500, L500.4050 #### [facility] [address] [place], [address] Platelet mean volume (Bld) [Entitic vol] 11.3 fL Normal 6.2-12.0 [facility] Comment on above: Order Comment: 305.2 Performed By: #### L 501.9520, L100.0500, L500.4050 #### [facility] [address] [place], [address] Platelets (Bld) [#/Vol] 266 10*3/uL Normal 150-450 [facility] Comment on above: Order Comment: 305.2 Performed By: #### L 501.9520, L100.0500, L500.4050 #### [facility] [address] [place], [address] RBC (Bld) [#/Vol] 4.06 10*6/uL Low 4.2-5.4 [facility] Comment on above: Order Comment: 305.2 Performed By: #### L 501.9520, L100.0500, L500.4050 #### [facility] [address] [place], [address] RDW SD 43.9 fl Normal 35.1-43.9 [facility] Comment on above: Order Comment: 305.2 Performed By: #### L 501.9520, L100.0500, L500.4050 #### [facility] [address] [place], [address] WBC (Bld) [#/Vol] 6.2 10*3/uL Normal 4.4-11.0 [facility] Comment on above: Order Comment: 305.2 Performed By: #### L 501.9520, L100.0500, L500.4050 #### [facility] [address] [place], [address] Comprehensive Metabolic Prof ilon 03-16-2025 Albumin [Mass/Vol] 3.3 g/dL Low 3.4-4.8 [facility] Comment on above: Order Comment: 305.2 Performed By: #### L 501.9520, L100.0500, L500.4050 #### [facility] [address] [place], [address] Albumin/Globulin [Mass ratio] 1.0 {ratio} Normal 0.9-2.4 [facility] Comment on above: Order Comment: 305.2 Performed By: #### L 501.9520, L100.0500, L500.4050 #### [facility] [address] [place], [address] ALK PHOS 49 U/L Normal 35-104 [facility] Comment on above: Order Comment: 305.2 Performed By: #### L 501.9520, L100.0500, L500.4050 #### [facility] [address] [place], [address] ALT [Catalytic activity/Vol] 7 U/L Normal <=34 [facility] Comment on above: Order Comment: 305.2 Performed By: #### L 501.9520, L100.0500, L500.4050 #### [facility] [address] [place], [address] AST [Catalytic activity/Vol] 15 U/L Normal <=31 [facility] Comment on above: Order Comment: 305.2 Result Comment: Hemo lysis present, Results??could be affected. ?? Performed By: #### L 501.9520, L100.0500, L500.4050 #### [facility] [address] [place], [address] Bilirubin [Mass/Vol] 0.61 mg/dL Normal 0.00-1.30 [facility] Comment on above: Order Comment: 305.2 Performed By: #### L 501.9520, L100.0500, L500.4050 #### [facility] [address] [place], [address] BUN/CRE 15.9 RATIO Normal 10-20 [facility] Comment on above: Order Comment: 305.2 Performed By: #### L 501.9520, L100.0500, L500.4050 #### [facility] [address] [place], [address] Calcium [Mass/Vol] 8.9 mg/dL Normal 7.6-11.0 [facility] Comment on above: Order Comment: 305.2 Performed By: #### L 501.9520, L100.0500, L500.4050 #### [facility] [address] [place], [address] Chloride [Moles/Vol] 108 mmol/L Normal 98-108 [facility] Comment on above: Order Comment: 305.2 Performed By: #### L 501.9520, L100.0500, L500.4050 #### [facility] [address] [place], [address] CO2 [Moles/Vol] 29.6 mmol/L Normal 21.0-32.0 [facility] Comment on above: Order Comment: 305.2 Performed By: #### L 501.9520, L100.0500, L500.4050 #### [facility] [address] [place], [address] Creatinine [Mass/Vol] 1.05 mg/dL Normal 0.70-1.[address] [facility] Comment on above: Order Comment: 305.2 Performed By: #### L 501.9520, L100.0500, L500.4050 #### [facility] [address] [place], [address] GAP 7 Normal 5-15 [facility] Comment on above: Order Comment: 305.2 Performed By: #### L 501.9520, L100.0500, L500.4050 #### [facility] [address] [place], [address] GFR/1.73 sq M.predicted among non-blacks MDRD (S/P/Bld) [Vol rate/Area] 52 mL/min/{1.73_m2} Low >60 [facility] Comment on above: Order Comment: 305.2 Result Comment: mL/m in/1.73m2 CKD-EPI Creatinine Equation (2020) Performed By: #### L 501.9520, L100.0500, L500.4050 #### [facility] [address] [place], [address] Globulin (S) [Mass/Vol] 3.4 g/dL Normal 2.2-4.2 [facility] Comment on above: Order Comment: 305.2 Performed By: #### L 501.9520, L100.0500, L500.4050 #### [facility] [address] [place], [address] Glucose [Mass/Vol] 86 mg/dL Normal 70-99 [facility] Comment on above: Order Comment: 305.2 Performed By: #### L 501.9520, L100.0500, L500.4050 #### [facility] [address] [place], [address] Potassium [Moles/Vol] 4.2 mmol/L Normal 3.3-5.[address] [facility] Comment on above: Order Comment: 305.2 Result Comment: Hemo lysis present, Results??could be affected. ?? Performed By: #### L 501.9520, L100.0500, L500.4050 #### [facility] [address] [place], [address] Sodium [Moles/Vol] 145 mmol/L Normal 133-145 [facility] Comment on above: Order Comment: 305.2 Performed By: #### L 501.9520, L100.0500, L500.4050 #### [facility] [address] [place], [address] T PROT 6.6 g/dL Normal 5.9-8.4 [facility] Comment on above: Order Comment: 305.2 Performed By: #### L 501.9520, L100.0500, L500.4050 #### [facility] [address] [place], [address] Urea nitrogen [Mass/Vol] 17 mg/dL Normal 4-19 [facility] Comment on above: Order Comment: 305.2 Performed By: #### L 501.9520, L100.0500, L500.4050 #### [facility] [address] [place], [address] Thyroid Stim Hormone (TSH)on 03-16-2025 TSH 1.650 uIU/mL Normal 0.300-4.200 [facility] Comment on above: Order Comment: 305.2 Performed By: #### L 501.9520, L100.0500, L500.4050 #### [facility] [address] [place], [address] Basic Metabolic Profile (BMP )on 03-01-2025 BUN/CRE 20.1 RATIO High 10-20 [facility] Comment on above: Order Comment: 305.2 Performed By: #### L 500.2500, L100.0500 #### [facility] [address] [place], [address] Calcium [Mass/Vol] 9.0 mg/dL Normal 7.6-11.0 [facility] Comment on above: Order Comment: 305.2 Performed By: #### L 500.2500, L100.0500 #### [facility] [address] [place], [address] Chloride [Moles/Vol] 106 mmol/L Normal 98-108 [facility] Comment on above: Order Comment: 305.2 Performed By: #### L 500.2500, L100.0500 #### [facility] [address] [place], [address] CO2 [Moles/Vol] 26.4 mmol/L Normal 21.0-32.0 [facility] Comment on above: Order Comment: 305.2 Performed By: #### L 500.2500, L100.0500 #### [facility] [address] [place], [address] Creatinine [Mass/Vol] 1.13 mg/dL Normal 0.70-1.[address] [facility] Comment on above: Order Comment: 305.2 Performed By: #### L 500.2500, L100.0500 #### [facility] [address] [place], [address] GAP 10 Normal 5-15 [facility] Comment on above: Order Comment: 305.2 Performed By: #### L 500.2500, L100.0500 #### [facility] [address] [place], [address] GFR/1.73 sq M.predicted among non-blacks MDRD (S/P/Bld) [Vol rate/Area] 48 mL/min/{1.73_m2} Low >60 [facility] Comment on above: Order Comment: 305.2 Result Comment: mL/m in/1.73m2 CKD-EPI Creatinine Equation (2020) Performed By: #### L 500.2500, L100.0500 #### [facility] [address] [place], [address] Glucose [Mass/Vol] 115 mg/dL High 70-99 [facility] Comment on above: Order Comment: 305.2 Performed By: #### L 500.2500, L100.0500 #### [facility] [address] [place], [address] Potassium [Moles/Vol] 3.4 mmol/L Normal 3.3-5.[address] [facility] Comment on above: Order Comment: 305.2 Performed By: #### L 500.2500, L100.0500 #### [facility] [address] [place], [address] Sodium [Moles/Vol] 143 mmol/L Normal 133-145 [facility] Comment on above: Order Comment: 305.2 Performed By: #### L 500.2500, L100.0500 #### [facility] [address] [place], [address] Urea nitrogen [Mass/Vol] 23 mg/dL High 4-19 [facility] Comment on above: Order Comment: 305.2 Performed By: #### L 500.2500, L100.0500 #### [facility] [address] [place], [address] CBC-Complete Blood Cnt No Di ffon 03-01-2025 Erythrocyte distribution width (RBC) [Ratio] 12.4 % Normal 11.6-14.6 [facility] Comment on above: Order Comment: 305.2 Performed By: #### L 500.2500, L100.0500 #### [facility] [address] [place], [address] Hematocrit (Bld) [Volume fraction] 37.4 % Normal 37-47 [facility] Comment on above: Order Comment: 305.2 Performed By: #### L 500.2500, L100.0500 #### [facility] [address] [place], [address] Hemoglobin (Bld) [Mass/Vol] 12.0 g/dL Normal 12.0-15.0 [facility] Comment on above: Order Comment: 305.2 Performed By: #### L 500.2500, L100.0500 #### [facility] [address] [place], [address] MCH (RBC) [Entitic mass] 30.5 pg Normal 27.0-32.0 [facility] Comment on above: Order Comment: 305.2 Performed By: #### L 500.2500, L100.0500 #### [facility] [address] [place], [address] MCHC (RBC) [Mass/Vol] 32.1 g/dL Normal 32-[address] [facility] Comment on above: Order Comment: 305.2 Performed By: #### L 500.2500, L100.0500 #### [facility] [address] [place], [address] MCV (RBC) [Entitic vol] 94.9 fL Normal 81-99 [facility] Comment on above: Order Comment: 305.2 Performed By: #### L 500.2500, L100.0500 #### [facility] [address] [place], [address] Platelet mean volume (Bld) [Entitic vol] 11.2 fL Normal 6.2-12.0 [facility] Comment on above: Order Comment: 305.2 Performed By: #### L 500.2500, L100.0500 #### [facility] [address] [place], [address] Platelets (Bld) [#/Vol] 287 10*3/uL Normal 150-450 [facility] Comment on above: Order Comment: 305.2 Performed By: #### L 500.2500, L100.0500 #### [facility] [address] [place], [address] RBC (Bld) [#/Vol] 3.94 10*6/uL Low 4.2-5.4 [facility] Comment on above: Order Comment: 305.2 Performed By: #### L 500.2500, L100.0500 #### [facility] [address] [place], [address] RDW SD 43.8 fl Normal 35.1-43.9 [facility] Comment on above: Order Comment: 305.2 Performed By: #### L 500.2500, L100.0500 #### [facility] [address] [place], [address] WBC (Bld) [#/Vol] 10.7 10*3/uL Normal 4.4-11.0 [facility] Comment on above: Order Comment: 305.2 Performed By: #### L 500.2500, L100.0500 #### [facility] [address] [place], [address] Basic Metabolic Profile (BMP )on 02-24-2025 BUN/CRE 15.2 RATIO Normal 10-20 [facility] Comment on above: Order Comment: 305.2 Performed By: #### L 100.0500, L500.2500 #### [facility] [address] [place], [address] Calcium [Mass/Vol] 9.0 mg/dL Normal 7.6-11.0 [facility] Comment on above: Order Comment: 305.2 Performed By: #### L 100.0500, L500.2500 #### [facility] [address] [place], [address] Chloride [Moles/Vol] 103 mmol/L Normal 98-108 [facility] Comment on above: Order Comment: 305.2 Performed By: #### L 100.0500, L500.2500 #### [facility] [address] [place], [address] CO2 [Moles/Vol] 24.5 mmol/L Normal 21.0-32.0 [facility] Comment on above: Order Comment: 305.2 Performed By: #### L 100.0500, L500.2500 #### [facility] [address] [place], [address] Creatinine [Mass/Vol] 1.23 mg/dL High 0.70-1.[address] [facility] Comment on above: Order Comment: 305.2 Performed By: #### L 100.0500, L500.2500 #### [facility] [address] [place], [address] GAP 13 Normal 5-15 [facility] Comment on above: Order Comment: 305.2 Performed By: #### L 100.0500, L500.2500 #### [facility] [address] [place], [address] GFR/1.73 sq M.predicted among non-blacks MDRD (S/P/Bld) [Vol rate/Area] 43 mL/min/{1.73_m2} Low >60 [facility] Comment on above: Order Comment: 305.2 Result Comment: mL/m in/1.73m2 CKD-EPI Creatinine Equation (2020) Performed By: #### L 100.0500, L500.2500 #### [facility] [address] [place], [address] Glucose [Mass/Vol] 116 mg/dL High 70-99 [facility] Comment on above: Order Comment: 305.2 Performed By: #### L 100.0500, L500.2500 #### [facility] [address] [place], [address] Potassium [Moles/Vol] 3.7 mmol/L Normal 3.3-5.[address] [facility] Comment on above: Order Comment: 305.2 Performed By: #### L 100.0500, L500.2500 #### [facility] [address] [place], [address] Sodium [Moles/Vol] 140 mmol/L Normal 133-145 [facility] Comment on above: Order Comment: 305.2 Performed By: #### L 100.0500, L500.2500 #### [facility] [address] [place], [address] Urea nitrogen [Mass/Vol] 19 mg/dL Normal 4-19 [facility] Comment on above: Order Comment: 305.2 Performed By: #### L 100.0500, L500.2500 #### [facility] [address] [place], [address] CBC-Complete Blood Cnt No Di ffon 02-24-2025 Erythrocyte distribution width (RBC) [Ratio] 12.6 % Normal 11.6-14.6 [facility] Comment on above: Order Comment: 305.2 Performed By: #### L 100.0500, L500.2500 #### [facility] [address] [place], [address] Hematocrit (Bld) [Volume fraction] 40.9 % Normal 37-47 [facility] Comment on above: Order Comment: 305.2 Performed By: #### L 100.0500, L500.2500 #### [facility] [address] [place], [address] Hemoglobin (Bld) [Mass/Vol] 13.6 g/dL Normal 12.0-15.0 [facility] Comment on above: Order Comment: 305.2 Performed By: #### L 100.0500, L500.2500 #### [facility] [address] [place], [address] MCH (RBC) [Entitic mass] 30.8 pg Normal 27.0-32.0 [facility] Comment on above: Order Comment: 305.2 Performed By: #### L 100.0500, L500.2500 #### [facility] [address] [place], [address] MCHC (RBC) [Mass/Vol] 33.3 g/dL Normal 32-[address] [facility] Comment on above: Order Comment: 305.2 Performed By: #### L 100.0500, L500.2500 #### [facility] [address] [place], [address] MCV (RBC) [Entitic vol] 92.7 fL Normal 81-99 [facility] Comment on above: Order Comment: 305.2 Performed By: #### L 100.0500, L500.2500 #### [facility] [address] [place], [address] Platelet mean volume (Bld) [Entitic vol] 11.6 fL Normal 6.2-12.0 [facility] Comment on above: Order Comment: 305.2 Performed By: #### L 100.0500, L500.2500 #### [facility] [address] [place], [address] Platelets (Bld) [#/Vol] 246 10*3/uL Normal 150-450 [facility] Comment on above: Order Comment: 305.2 Performed By: #### L 100.0500, L500.2500 #### [facility] [address] [place], [address] RBC (Bld) [#/Vol] 4.41 10*6/uL Normal 4.2-5.4 [facility] Comment on above: Order Comment: 305.2 Performed By: #### L 100.0500, L500.2500 #### [facility] [address] [place], [address] RDW SD 43.2 fl Normal 35.1-43.9 [facility] Comment on above: Order Comment: 305.2 Performed By: #### L 100.0500, L500.2500 #### [facility] [address] [place], [address] WBC (Bld) [#/Vol] 14.0 10*3/uL High 4.4-11.0 [facility] Comment on above: Order Comment: 305.2 Performed By: #### L 100.0500, L500.2500 #### [facility] [address] [place], [address] Basic Metabolic Profile (BMP )on 01-21-2025 BUN/CRE 18.7 RATIO Normal 10-20 [facility] Comment on above: Order Comment: 305.2 Performed By: #### L 500.2500, L100.0500 #### [facility] [address] [place], [address] Calcium [Mass/Vol] 8.5 mg/dL Normal 7.6-11.0 [facility] Comment on above: Order Comment: 305.2 Performed By: #### L 500.2500, L100.0500 #### [facility] [address] [place], [address] Chloride [Moles/Vol] 107 mmol/L Normal 98-108 [facility] Comment on above: Order Comment: 305.2 Performed By: #### L 500.2500, L100.0500 #### [facility] [address] [place], [address] CO2 [Moles/Vol] 24.9 mmol/L Normal 21.0-32.0 [facility] Comment on above: Order Comment: 305.2 Performed By: #### L 500.2500, L100.0500 #### [facility] [address] [place], [address] Creatinine [Mass/Vol] 1.31 mg/dL High 0.70-1.[address] [facility] Comment on above: Order Comment: 305.2 Performed By: #### L 500.2500, L100.0500 #### [facility] [address] [place], [address] GAP 10 Normal 5-15 [facility] Comment on above: Order Comment: 305.2 Performed By: #### L 500.2500, L100.0500 #### [facility] [address] [place], [address] GFR/1.73 sq M.predicted among non-blacks MDRD (S/P/Bld) [Vol rate/Area] 40 mL/min/{1.73_m2} Low >60 [facility] Comment on above: Order Comment: 305.2 Result Comment: mL/m in/1.73m2 CKD-EPI Creatinine Equation (2020) Performed By: #### L 500.2500, L100.0500 #### [facility] [address] [place], [address] Glucose [Mass/Vol] 159 mg/dL High 70-99 [facility] Comment on above: Order Comment: 305.2 Performed By: #### L 500.2500, L100.0500 #### [facility] [address] [place], [address] Potassium [Moles/Vol] 3.6 mmol/L Normal 3.3-5.[address] [facility] Comment on above: Order Comment: 305.2 Performed By: #### L 500.2500, L100.0500 #### [facility] [address] [place], [address] Sodium [Moles/Vol] 142 mmol/L Normal 133-145 [facility] Comment on above: Order Comment: 305.2 Performed By: #### L 500.2500, L100.0500 #### [facility] [address] [place], [address] Urea nitrogen [Mass/Vol] 25 mg/dL High 4-19 [facility] Comment on above: Order Comment: 305.2 Performed By: #### L 500.2500, L100.0500 #### [facility] [address] [place], [address] CBC-Complete Blood Cnt No Di ffon 01-21-2025 Erythrocyte distribution width (RBC) [Ratio] 12.7 % Normal 11.6-14.6 [facility] Comment on above: Order Comment: 305.2 Performed By: #### L 500.2500, L100.0500 #### [facility] [address] [place], [address] Hematocrit (Bld) [Volume fraction] 41.2 % Normal 37-47 [facility] Comment on above: Order Comment: 305.2 Performed By: #### L 500.2500, L100.0500 #### [facility] [address] [place], [address] Hemoglobin (Bld) [Mass/Vol] 13.3 g/dL Normal 12.0-15.0 [facility] Comment on above: Order Comment: 305.2 Performed By: #### L 500.2500, L100.0500 #### [facility] [address] [place], [address] MCH (RBC) [Entitic mass] 30.3 pg Normal 27.0-32.0 [facility] Comment on above: Order Comment: 305.2 Performed By: #### L 500.2500, L100.0500 #### [facility] [address] [place], [address] MCHC (RBC) [Mass/Vol] 32.3 g/dL Normal 32-[address] [facility] Comment on above: Order Comment: 305.2 Performed By: #### L 500.2500, L100.0500 #### [facility] [address] [place], [address] MCV (RBC) [Entitic vol] 93.8 fL Normal 81-99 [facility] Comment on above: Order Comment: 305.2 Performed By: #### L 500.2500, L100.0500 #### [facility] [address] [place], [address] Platelet mean volume (Bld) [Entitic vol] 11.3 fL Normal 6.2-12.0 [facility] Comment on above: Order Comment: 305.2 Performed By: #### L 500.2500, L100.0500 #### [facility] [address] [place], [address] Platelets (Bld) [#/Vol] 224 10*3/uL Normal 150-450 [facility] Comment on above: Order Comment: 305.2 Performed By: #### L 500.2500, L100.0500 #### [facility] [address] [place], [address] RBC (Bld) [#/Vol] 4.39 10*6/uL Normal 4.2-5.4 [facility] Comment on above: Order Comment: 305.2 Performed By: #### L 500.2500, L100.0500 #### [facility] [address] [place], [address] RDW SD 43.7 fl Normal 35.1-43.9 [facility] Comment on above: Order Comment: 305.2 Performed By: #### L 500.2500, L100.0500 #### [facility] [address] [place], [address] WBC (Bld) [#/Vol] 9.6 10*3/uL Normal 4.4-11.0 [facility] Comment on above: Order Comment: 305.2 Performed By: #### L 500.2500, L100.0500 #### [facility] [address] [place], [address] C. difficile DNA MARIO+probe Q l (Unsp spec)Ordered By: Toy Temple on 10-02-2024 Clostridioides difficile (PCR) [facility] CDIFF (PCR)on 10-02-2024 CDIFF Pending [id number] [id number] Presumptive Negative *for epidemiolologic???use C. Diff PCR Negative- No toxigenic C. Diff Detected Normal [facility] Comment on above: Performed By: #### M 233.4487 #### [facility] [address] [place], [address] No Panel InformationOrdered By: Toy Temple on 10-22-2022 Thyroid Stimulating Hormone (TSH) 2.44 uIU/mL 0.358-3.74 [facility] Whole blood hemoglobin A1c/t otal hemoglobin ratio (mass fraction)Ordered By: Toy Temple on 10-22-2022 HbA1c (Bld) [Mass fraction] 5.3 % 3.8-5.6 [facility] Comment on above: Normal < 5.7 % Predi abetic 5.7 - 6.4 % Diabetic >or= 6.5 % Please note range changes. Basophil percentageOrdered B y: Nickolas Lyn on 09-13-2022 Chloride [Moles/Vol] 105 mmol/L 98-107 [facility] Glucose [Mass/Vol] 92 mg/dL 74-106 [facility] Potassium [Moles/Vol] 3.8 mmol/L 3.5-5.[address] [facility] Sodium [Moles/Vol] 144 mmol/L 136-145 [facility] WBC (Bld) [#/Vol] 8.8 10*3/uL 4.4-11.0 [facility] Blood erythrocytes count (nu mber/volume)Ordered By: Nickolas Lyn on 09-13-2022 RBC (Bld) [#/Vol] 3.91 10*6/uL 4.2-5.4 [facility] Blood hemoglobin measurement (mass/volume)Ordered By: Nickolas Lyn on 09-13-2022 Hemoglobin (Bld) [Mass/Vol] 11.8 g/dL 12.0-15.0 [facility] Blood platelet mean volumeOr dered By: Nickolas Lyn on 09-13-2022 Platelet mean volume (Bld) [Entitic vol] 11.5 fL 6.2-12.0 [facility] Determination of erythrocyte mean corpuscular volume (MCV)Ordered By: Nickolas Lyn on 09-13-2022 MCV (RBC) [Entitic vol] 96.9 fL 81-99 [facility] Hematocrit Auto (Bld) [Volum e fraction]Ordered By: Nickolas Lyn on 09-13-2022 Hematocrit (Bld) [Volume fraction] 37.9 % 37-47 [facility] - Chemistry and C hemistry - challengeOrdered By: Nickolas Lyn on 09-13-2022 CO2 [Moles/Vol] 33.0 mmol/L 21.0-32.0 [facility] Urea nitrogen/Creatinine [Mass ratio] 20.9 mg/mg 10-20 [facility] - Hematology and Cell countsOrdered By: Nickolas Lyn on 09-13-2022 Erythrocyte distribution width (RBC) [Entitic vol] 46.1 fL 35.1-43.9 [facility] Erythrocyte distribution width (RBC) [Ratio] 12.9 % 11.6-14.6 [facility] MCH (RBC) [Entitic mass] 30.2 pg 27.0-32.0 [facility] MCHC Auto (RBC) [Mass/Vol]Or dered By: Nickolas Lyn on 09-13-2022 MCHC (RBC) [Mass/Vol] 31.1 g/dL 32-[address] [facility] No Panel InformationOrdered By: Nickolas Lyn on 09-13-2022 Estimated GFR (MDRD) Amer 61 mL/min >60 [facility] Comment on above: GFR Calc Estimated GFR (MDRD) Non-Af Amer 51 mL/min >60 [facility] Comment on above: Non- GFR Calc Platelets bldOrdered By: Lyudmila Lyn on 09-13-2022 Platelets (Bld) [#/Vol] 218 10*3/uL 150-450 [facility] Serum or plasma calcium mk urement (mass/volume)Ordered By: Nickolas Lyn on 09-13-2022 Calcium [Mass/Vol] 8.9 mg/dL 8.5-10.1 [facility] Serum or plasma creatinine m easurement (mass/volume)Ordered By: Nickolas Lyn on 09-13-2022 Creatinine [Mass/Vol] 1.10 mg/dL 0.55-1.[address] [facility] Comment on above: The validity of the calculated GFR & GFRAA in patients over 70 years has not been determined. Clinical correlation is essential. Serum or plasma urea nitroge n measurement (mass/volume)Ordered By: Nickolas Lyn on 09-13-2022 Urea nitrogen [Mass/Vol] 23 mg/dL 7-18 [facility] Thin prep Papanicolaou smear with manual screeningOrdered By: Nickolas Lyn on 09-13-2022 Thin prep Papanicolaou smear with manual screening 6 5-15 [facility] 36on 08-16-2022 36 [place] patient. Staff to call patient after discharge to arrange a hospital follow up. Normal [facility] Basic metabolic 1998 panelon 08-15-2022 Anion gap [Moles/Vol] 2 mmol/L Low 3 - 13 mmol/L [facility] Calcium [Mass/Vol] 8.3 mg/dL Low 8.4 - 10. 4 mg/dL [facility] Chloride [Moles/Vol] 105 mmol/L 98 - 10 7 mmol/L [facility] CO2 [Moles/Vol] 30 mmol/L 22 - 30 mmol/L [facility] Creatinine [Mass/Vol] 1.24 mg/dL High 0.52 - 1.04 mg/dL [facility] GFR/1.73 sq M.predicted MDRD (S/P/Bld) [Vol rate/Area] 43.5 mL/min/{1.73_m2} Low - PINF [facility] Comment on above: Calculation based on the Chronic Kidney Disease Epidemiology Collaboration (CKD-EPI) equation refit without adjustment for race Glucose [Mass/Vol] 91 mg/dL 70 - 100 mg/dL [facility] Interpretation and review of laboratory results Abnormal [facility] Potassium [Moles/Vol] 4.2 mmol/L 3.5 - 5.1 mmol/L [facility] Sodium [Moles/Vol] 137 mmol/L 135 - 145 mmol/L [facility] Urea nitrogen [Mass/Vol] 30 mg/dL High 7 - 17 mg/dL [facility] CARECOORDon 08-15-2022 [facility] Palliative Care Transitions of Care Note Symone Mcdonald : 1940 ADMIT DATE: 08/12/2022 DISCHARGE DATE: 08/15/22 PRIMARY CARE PHYSICIAN: Toy Temple CODE STATUS: DNR-CCA DISCHARGE DIAGNOSES: Principal Problem: Intractable abdominal pain HOSPITAL COURSE: Symone Mcdonald is an 82 y/o F with PMHx CAD, HTN, diverticulitis, recent COVID-19 infection (s/p paxlovid at the facility), and Alzheimer's dementia who presented to [facility] ED from facility due to concerns [...] NEXT STEPS: Follow up with facility physician, [facility] (referral sent by [employer] prior to patient discharge) FOLLOW UP TESTING, PENDING RESULTS OR REFERRALS AT TRANSITIONAL CARE VISIT: No PENDING STUDIES: No DISPOSITION: Radiology Receptionist Care Facility (Non-Skilled) FACILITY/HOME CARE AGENCY NAME: [facility] Follow up with Nursing facility on appointment scheduled. Reason for Outpatient/Home/ECF Palliative Care follow-up: Continue goals of care discussion Opiate Prescribing NA - prescribed per primary service SIGNED: Natan Waterman MD 08/14/2022, 9:04 AM Normal [facility] DOMITILA [facility] is able to accept back today. Call placed to daughter, Ban, to review. Ban is agreeable to returning to [facility] today. Ambulance scheduled for a 2pm discharge with Aureliano Angulo. Daughter agreeable to a referral being sent to a palliative care company. [facility] and [facility] both have contracts there. Daughter requested a referral be sent to [facility]. Referral faxed to Loraine Schmitt as requested. Support provided to Ban who shared frustration with the medicaid and nursing spend down process. She also shared grief her family has survived (she provided end of life care for her father, her brother is , she has a son who is ). AVS sent to [facility] via [employer]. Number for report: [phone] [facility] CAREPLNon 08-15-2022 CAREPLN The patient is [...] maintained or improved Outcome: Progressing . Normal [facility] CBC W Auto Differential pane l (Bld)on 08-15-2022 Basophils (Bld) [#/Vol] 0.1 10*3/uL 0.0 - 0.2 10*3/uL [facility] Basophils/100 WBC (Bld) 0.7 % 0.0 - 2.0 % [facility] Eosinophils (Bld) [#/Vol] 0.4 10*3/uL 0.0 - 0.5 10*3/uL [facility] Eosinophils/100 WBC (Bld) 3.7 % 1.0 - 6.0 % [facility] Erythrocyte distribution width (RBC) [Ratio] 13.4 % 11.5 - 14.5 % [facility] Hematocrit (Bld) [Volume fraction] 38.9 % 35.0 - 47.0 % [facility] Hemoglobin (Bld) [Mass/Vol] 13.1 g/dL 11.7 - 16.0 g/dL [facility] Interpretation and review of laboratory results Normal [facility] Lymphocytes (Bld) [#/Vol] 2.6 10*3/uL 1.0 - 4.3 10*3/uL [facility] Lymphocytes/100 WBC (Bld) 25.5 % 20.0 - 40.0 % [facility] MCH (RBC) [Entitic mass] 31.4 pg 26.0 - 34.0 pg [facility] MCHC (RBC) [Mass/Vol] 33.7 % 32.0 - 36.0 % [facility] MCV (RBC) [Entitic vol] 93.1 fL 80.0 - 98.0 fL [facility] Monocytes (Bld) [#/Vol] 0.8 10*3/uL 0.0 - 0.8 10*3/uL [facility] Monocytes/100 WBC (Bld) 7.7 % 2.0 - 10.0 % [facility] Neutrophils (Bld) [#/Vol] 6.4 10*3/uL 1.8 - 7.0 10*3/uL [facility] Neutrophils/100 WBC (Bld) 62.4 % 40.0 - 80.0 % [facility] Nucleated RBC/100 WBC (Bld) [Ratio] 0.0 % [facility] Platelet mean volume (Bld) [Entitic vol] 9.4 fL 7.4 - 12.4 fL [facility] Platelets (Bld) [#/Vol] 228 10*3/uL 140 - 440 10*3/uL [facility] RBC (Bld) [#/Vol] 4.18 10*6/uL 3.8 - 5.20 10*6/uL [facility] WBC (Bld) [#/Vol] 10.3 10*3/uL 3.6 - 10.7 10*3/uL [facility] Progress Noteon 08-15-2022 Progress Note Palliative Care Interdisciplinary Team Note: Diagnosis: @[id number]@ Chief Complaint: Symone Mcdonald is a 82 y.o. female with chief complaint of: abdominal pain, Alzheimer's dementia Reason Palliative Following: Goals of Care Plan: Ongoing Goals of Care Discussion Code Status: DNR-CCA Medications: Oxycodone Nursing: Decrease Fall Risk, Halfway Care, and Skin Integrity Social Work: Palliative SW Following, Emotional Support, and Help with Discharge Planning Spiritual Care: No Unmet Needs Pharmacy: No Unmet Needs Psychology/Psychiatry : No Unmet Needs Normal [facility] Basic metabolic 1998 panelon 08-14-2022 Anion gap [Moles/Vol] 5 mmol/L 3 - 13 mmol/L [facility] Calcium [Mass/Vol] 8.5 mg/dL 8.4 - 10. 4 mg/dL [facility] Chloride [Moles/Vol] 106 mmol/L 98 - 10 7 mmol/L [facility] CO2 [Moles/Vol] 28 mmol/L 22 - 30 mmol/L [facility] Creatinine [Mass/Vol] 1.21 mg/dL High 0.52 - 1.04 mg/dL [facility] GFR/1.73 sq M.predicted MDRD (S/P/Bld) [Vol rate/Area] 44.8 mL/min/{1.73_m2} Low - PINF [facility] Comment on above: Calculation based on the Chronic Kidney Disease Epidemiology Collaboration (CKD-EPI) equation refit without adjustment for race Glucose [Mass/Vol] 94 mg/dL 70 - 100 mg/dL [facility] Potassium [Moles/Vol] 3.9 mmol/L 3.5 - 5.1 mmol/L [facility] Sodium [Moles/Vol] 140 mmol/L 135 - 145 mmol/L [facility] Urea nitrogen [Mass/Vol] 35 mg/dL High 7 - 17 mg/dL [facility] CAREPLNon 08-14-2022 CAREPLN The patient is Moderately [...] maintained or improved Outcome: Progressing . Normal [facility] CBC W Auto Differential pane l (Bld)Ordered By: Jeaneth Castillo on 08-14-2022 Basophils (Bld) [#/Vol] 0.1 10*3/uL 0.0 - 0.2 10*3/uL [facility] Basophils/100 WBC (Bld) 0.8 % 0.0 - 2.0 % [facility] Eosinophils (Bld) [#/Vol] 0.5 10*3/uL 0.0 - 0.5 10*3/uL [facility] Eosinophils/100 WBC (Bld) 4.8 % 1.0 - 6.0 % [facility] Erythrocyte distribution width (RBC) [Ratio] 13.1 % 11.5 - 14.5 % [facility] Hematocrit (Bld) [Volume fraction] 41.0 % 35.0 - 47.0 % [facility] Hemoglobin (Bld) [Mass/Vol] 13.4 g/dL 11.7 - 16.0 g/dL [facility] Interpretation and review of laboratory results Abnormal [facility] Lymphocytes (Bld) [#/Vol] 2.5 10*3/uL 1.0 - 4.3 10*3/uL [facility] Lymphocytes/100 WBC (Bld) 23.9 % 20.0 - 40.0 % [facility] MCH (RBC) [Entitic mass] 30.5 pg 26.0 - 34.0 pg [facility] MCHC (RBC) [Mass/Vol] 32.7 % 32.0 - 36.0 % [facility] MCV (RBC) [Entitic vol] 93.3 fL 80.0 - 98.0 fL [facility] Monocytes (Bld) [#/Vol] 0.9 10*3/uL High 0.0 - 0.8 10*3/uL [facility] Monocytes/100 WBC (Bld) 8.6 % 2.0 - 10.0 % [facility] Neutrophils (Bld) [#/Vol] 6.4 10*3/uL 1.8 - 7.0 10*3/uL [facility] Neutrophils/100 WBC (Bld) 61.9 % 40.0 - 80.0 % [facility] Nucleated RBC/100 WBC (Bld) [Ratio] 0.0 % [facility] Platelet mean volume (Bld) [Entitic vol] 9.4 fL 7.4 - 12.4 fL [facility] Platelets (Bld) [#/Vol] 237 10*3/uL 140 - 440 10*3/uL [facility] RBC (Bld) [#/Vol] 4.39 10*6/uL 3.8 - 5.20 10*6/uL [facility] WBC (Bld) [#/Vol] 10.4 10*3/uL 3.6 - 10.7 10*3/uL [facility] Consulton 08-14-2022 Consult [facility] Wound Care CONSULT Note Symone Mcdonald AGE: [...] with subsequent reversal. Wound care consulted for perineum wound. Patients family at bedside. PAST MEDICAL [...] daily. [DISCONTINUED] cholecalciferol (Vitamin D-3) 1.25 MG (89857 UT) capsule Take 50,000 Units by mouth. [...] Cleanse with NS. Apply ET mix. Leave TRANSPLANT NURSE. Apply TID and PRN. (more content not included)... Normal [facility] Consult Palliative Care Initial Consult Chief Complaint: Symone Mcdonald is a 82 y.o. female with chief complaint of intractable abdominal pain. Palliative Care is actively following. Assessment/Plan Goals of Care - Patient is unable to participate meaningfully in goals of care discussions due to dementia - HCPOA and surrogate decision maker is the patient's daughter, Ban Mcduffie ([phone]) - Current code status: DNR-CCA, not okay [...] mother to return to her current facility, [facility], upon discharge as the facility is [...] facility), and Alzheimer's dementia who presented to [facility] ED from facility due to concerns [...] for s (more content not included)... Normal [facility] Hepatic function 2000 panelo n 08-14-2022 Albumin [Mass/Vol] 3.3 g/dL Low 3.5 - 5.0 g/dL [facility] ALP [Catalytic activity/Vol] 50 U/L 38 - 126 U/L [facility] ALT [Catalytic activity/Vol] 14 U/L 0 - 34 U/L [facility] AST [Catalytic activity/Vol] 22 U/L 15 - 46 U/L [facility] Bilirubin [Mass/Vol] 0.3 mg/dL 0.2 - 1 .3 mg/dL [facility] Bilirubin.conjugated [Mass/Vol] 0.0 mg/dL 0.0 - 0.3 mg/dL [facility] Protein [Mass/Vol] 6.6 g/dL 6.3 - 8.2 g/dL [facility] No Panel Informationon 08-14 Interpretation and review of laboratory results Abnormal [facility] Progress Noteon 08-14-2022 Progress Note Spiritual Care Note [facility] Palliative Care Patient Name:Symone Mcdonald Chief Complaint: Chief Complaint Patient presents with Abdominal Pain Nausea Pt is from [facility]. Pt was hypoxic at low 90's. C/o abd pain and nausea. Bgt 119. Hx of dementia A&O x1 at baseline. DNRCC Reason for visit: Initial Visit Services Provided To:patient Background and visit note: Checked on this patient who is in the [facility] and is listed as palliative. Unknown as to mormon needs of patient. No family in room at time of visit. Also tried to find out via team members. Will attempt to call patient's family member to try to find mormon information. Is there spiritual distress? YES Trying to contact family members. Care Plan: Visited room. Patient is not responsive at this time. Follow Up: when patient is able. Additional: N/A Debriefed: N/A. Geneva Barker 08/15/22 Normal [facility] Progress Note Physical Therapy Facility/Department: 3E [...] medical history of Anxiety, Bowel obstruction (CMS/HCC) ([facility]), CAD (coronary artery disease), Dementia (HCC), Depression, [...] time Memory: Decreased short term memory, Decreased half-way memory, Decreased recall of biographical Information, Decreased [...] Static: (unable t (more content not included)... [facility] Progress Note Nutrition rescreen completed. Patient referred to the Dietitian. Wound. [facility] CARECOORDon 08-13-2022 CARECOORD Next Site of Care Admission Date: 08/12/2022 11:23 PM Patient Name: SYMONE MCDONALD Location: [facility] PALLIATIVE/[facility] [id number] A Date of : 1940 ------- Placement Information ------- Referral Type:Intermediate ICF - Return Referral ID:[id number] Provider Name:Yanira [place] [facility] Address 1:[address] [place] [address] Address 2: City:[place] Selection Factors:Returning to Facility State:[place] Normal [facility] [employer] CBC panel Auto (Bld)Ordered By: Siri Corona on 08-13-2022 Erythrocyte distribution width (RBC) [Ratio] 13.8 % 11.5 - 14.5 % [facility] Hematocrit (Bld) [Volume fraction] 47.9 % High 35.0 - 47.0 % [facility] Hemoglobin (Bld) [Mass/Vol] 15.8 g/dL 11.7 - 16.0 g/dL [facility] Interpretation and review of laboratory results Abnormal [facility] MCH (RBC) [Entitic mass] 31.1 pg 26.0 - 34.0 pg [facility] MCHC (RBC) [Mass/Vol] 33.0 % 32.0 - 36.0 % [facility] MCV (RBC) [Entitic vol] 94.2 fL 80.0 - 98.0 fL [facility] Platelet mean volume (Bld) [Entitic vol] 9.9 fL 7.4 - 12.4 fL [facility] Platelets (Bld) [#/Vol] 252 10*3/uL 140 - 440 10*3/uL [facility] RBC (Bld) [#/Vol] 5.08 10*6/uL 3.8 - 5.20 10*6/uL [facility] WBC (Bld) [#/Vol] 9.1 10*3/uL 3.6 - 10.7 10*3/uL [facility] CT ABDOMEN PELVIS W CONTRAST on 08-13-2022 [...] Electronically Signed Date/Time: 08/13/2022 5:35 AM EST [facility] CT Abdomen and Pelvis W cont [...] Jacobs Electronically Signed Date/Time: 08/13/2022 5:35 AM [facility] [employer] [id number] Exam Date/Time: 08/13/2022 05:19 Procedure: CT ABDOMEN [...] gas pattern is nonspecific. Vasculature: Atherosclerotic calcifications. [facility] Hortensia Jacobs MD - 08/13/2022 [...] Electronically Signed Date/Time: 08/13/2022 5:35 AM EST [facility] Radiology Study observation (narrative) [facility] Comprehensive metabolic 1998 panelon 08-13-2022 Albumin [Mass/Vol] 3.9 g/dL 3.5 - 5.0 g/dL [facility] ALP [Catalytic activity/Vol] 47 U/L 38 - 126 U/L [facility] ALT [Catalytic activity/Vol] 17 U/L 0 - 34 U/L [facility] Anion gap [Moles/Vol] 5 mmol/L 3 - 13 mmol/L [facility] AST [Catalytic activity/Vol] 24 U/L 15 - 46 U/L [facility] Bilirubin [Mass/Vol] 0.6 mg/dL 0.2 - 1 .3 mg/dL [facility] Calcium [Mass/Vol] 9.0 mg/dL 8.4 - 10. 4 mg/dL [facility] Chloride [Moles/Vol] 109 mmol/L High 98 - 10 7 mmol/L [facility] CO2 [Moles/Vol] 28 mmol/L 22 - 30 mmol/L [facility] Creatinine [Mass/Vol] 1.45 mg/dL High 0.52 - 1.04 mg/dL [facility] GFR/1.73 sq M.predicted MDRD (S/P/Bld) [Vol rate/Area] 36.1 mL/min/{1.73_m2} Low - PINF [facility] Comment on above: Calculation based on the Chronic Kidney Disease Epidemiology Collaboration (CKD-EPI) equation refit without adjustment for race Glucose [Mass/Vol] 107 mg/dL High 70 - 100 mg/dL [facility] Interpretation and review of laboratory results Abnormal [facility] Potassium [Moles/Vol] 4.2 mmol/L 3.5 - 5.1 mmol/L [facility] Protein [Mass/Vol] 7.8 g/dL 6.3 - 8.2 g/dL [facility] Sodium [Moles/Vol] 142 mmol/L 135 - 145 mmol/L [facility] Urea nitrogen [Mass/Vol] 45 mg/dL High 7 - 17 mg/dL [facility] Consulton 08-13-2022 Consult - Attestation signed by [...] day (including chart review, care coordination, and [id number] encounter) was spent discussing/counseling the patient/family regarding the care plan for Symone Mcdonald. I examined the patient independently and reviewed relevant data myself and may have done so in the context of team rounds. A full chart review was performed. Diego Major MD Trauma, Surgical Critical Care, & General Surgery Division of Trauma Department of Surgery [facility] Department of Surgery Surgical Service: ACS Consult Note PATIENT NAME: Symone Mcdonald : 1940 ATTENDING PHYSICIAN: Snehal Bianchi, * ADMIT DATE: 08/12/2022 TODAY'S DATE: 08/13/2022 CHIEF COMPLAINT: Chief Complaint Patient presents with Abdominal Pain Nausea Pt is from [facility]. Pt was hypoxic at low 90's. C/o abd pain and nausea. Bgt 119. Hx of dementia A&O x1 at baseline. DNRCC Reason for Consult: Abnormal CT, Abdominal Pain [...] facility-administered medications (more content not included)... Normal [facility] ECG 12-LEADon 08-13-2022 ECG 12-LEAD IMPRESSION: Sinus rhythm Ventricular premature complex Right bundle branch block Nonspecific repol abnormality, lateral leads Electronically Signed On 08-13-2022 9:13:32 EST by Cullen Malin [facility] ED Nursing Noteon 08-13-2022 ED Nursing Note Report given to Carmen Blanco RN 08/13/22 1752 [facility] ED Nursing Note Pt transported to inpatient floor via medic. No distress noted at this time Lyudmila Blanco RN 08/13/22 1633 [facility] ED Nursing Note Pt incontinent of stool. Complete bed change competed. Pt cleaned up and new pads placed under pt. Pts buttocks is excoriated and painful to touch. Call light within reach Lyudmila Blanco RN 08/13/22 1446 [facility] ED Nursing Note Walked into pts room and IV was on the floor, pt states she didn't realize it was no longer in her arm. IV was still intact and discarded, Guaze applied to pts arm where IV site was. Pt in no distress at this time. Lyudmila Blanco RN 08/13/22 1400 [facility] ED Nursing Note Ordered patient a hospital bed. Alona Tam RN 08/13/22 1351 [facility] ED Nursing Note Pt resting in bed, n o distress noted. Call light within reach Lyudmila Blanco RN 08/13/22 1240 [facility] ED Nursing Note Tray ordered Delicia Jacobs RN 08/13/22 1055 [facility] ED Nursing Note Patient being admitted. Patient and family updated Delicia Jacobs RN 08/13/22 0817 [facility] ED Nursing Note Patient resting with family at bedside. Respirations even and unlabored. Waiting for orders Delicia Jacobs RN 08/13/22 0737 [facility] ED Nursing Note Assist surgeon with rectal exam. Patient cleaned up after exam. Patient tolerated. Daughter at bedside. Surgeon updated family that she may need colonoscopy and will consult GI. Delicia Jacobs RN 08/13/22 0733 [facility] ED Nursing Note Received report from previous shift Delicia Jacobs RN 08/13/22 0720 [facility] ED Nursing Note Pt resting in room. Respirations even and non labored. Daughter at bedside. Irasema Renteria RN 08/13/22 0543 [facility] ED Nursing Note Pt resting in room. Respirations even and non labored. Daughter at bedside. Irasema Renteria RN 08/13/22 0212 [facility] ED Nursing Note Report to TYSON Campos. Amaya Conley RN 08/13/22 0106 [facility] ED Nursing Note Bed: 17 Expected date: Expected time: Means of arrival: Comments: EMS Nicole Seaman RN 08/12/22 2323 [facility] ED Provider Noteon ED Provider Note EMERGENCY DEPARTMENT ENCOUNTER Pt Name: Symone Mcdonald Birthdate 1940 Date of evaluation: 08/12/2022 ED Provider: NISHA SURESH DO CHIEF COMPLAINT Chief Complaint Patient presents with Abdominal Pain Nausea Pt is from [facility]. Pt was hypoxic at low 90's. C/o abd pain and nausea. Bgt 119. Hx of dementia A&O x1 at baseline. DNRCC HISTORY OF PRESENT ILLNESS (Location/Symptom, Timing/Onset, Context/Setting, Quality, Duration, Modifying Factors, Severity) Note limiting factors. I wore appropriate PPE for the entirety of this encounter. HPI Symone Harry is a 82 y.o. female who presents to the emergency department with chief complaint of nausea and abdominal pain for 2 days. She was sent from [facility]. Facility wanted patient to be evaluated because [...] use: No Social History Narrative Lived in [facility] [place] Smoked for years, quit in late [...] EOM's grossl (more content not included)... Normal [facility] ED Provider Note Emergency Department Encounter Location: [facility] EMERGENCY DEPT Patient: Symone Mcdonald : 1940 Date of evaluation: 08/12/2022 ED Provider: Regina Dover PA-C [id number] Symone Mcdonald was checked out to me [...] 442 ms QTC Interval 485 ms P Otho 48 degrees QRS Otho 55 degrees T Wave Otho -51 degrees [place] Interval [address] abdomen pelvis w [...] as above. Recommend direct visualization when feasible. At time of sign out, pending general surgery evaluation and recommendations. General surgery team evaluated patient in ED, see their note for details. Recommended further testing in the outpatient setting and GI involvement due to diarrhea. On reevaluation, patient continues to express sarahy (more content not included)... Normal exoro system [facility] Laboratory - Chemistry and C hemistry - challengeon 08-13-2022 Troponin I.cardiac [Mass/Vol] ng/mL 0.000 - 0.034 ng/mL [employer] system Lipase [Catalytic activity/Vol] 278 U/L 23 - 300 U/L [employer]oro system Lactate [Moles/Vol] 0.9 mmol/L 0.7 - 2. 0 mmol/L [employer]oro system Lipase [Catalytic activity/V ol]on 08-13-2022 Interpretation and review of laboratory results Normal [employer] Panel InformationOrdered By: Cullen Malin on 08-13-2022 P Otho 48 degrees exoro system Work Phone: [place] Interval 157 ms [employer] system Work Phone: QRS Otho 55 degrees exoro system Work Phone: QRSD Interval 139 ms [employer] Work Phone: QT Interval 442 ms [employer] Phone: QTC Interval 485 ms [employer] Phone: T Wave Otho -51 degrees [employer] Phone: [employer] Phone: No Panel Informationon 08-13 Sinus rhythm Ventricular premature complex Right bundle branch block Nonspecific repol abnormality, lateral leads Electronically Signed On 08-13-2022 9:13:32 EST by Cullen Malin CV Cullen Day MD - 08/13/2022 IMPRESSION: Sinus rhythm Ventricular premature complex Right bundle branch block Nonspecific repol abnormality, lateral leads Electronically Signed On 08-13-2022 9:13:32 EST by Cullen Malin [facility] Interpretation and review of laboratory results Normal [facility] Nursing Noteon 08-13-2022 Nursing Note [address] Nogueira advised that patient has no IV , asked if still needed LR and stated that it was no loner needed. Normal [facility] Progress Noteon 08-13-2022 Progress Note Emergency Department [...] Bianchi, DO [employer] Snehal Bianchi, DO 08/21/22 1630 Normal [facility] Troponin I.cardiac [Mass/Vol ]on 08-13-2022 Interpretation and review of laboratory results Normal [facility] Patients with high levels of Biotin oral intake (ie >5 mg/day) may have falsely decreased Troponin levels. [facility] Urinalysis complete panel (U )Ordered By: Lisandro Swab on 08-13-2022 Bacteria LM.HPF (Urine sed) [#/Area] Few Abnormal Negative /HPF [facility] Bilirubin Ql (U) Negative Negative mg/dL [facility] Clarity (U) Clear Clear [facility] Color (U) Light Yellow Lt. Yellow [facility] Epithelial cells.squamous LM.HPF (Urine sed) [#/Area] 0-2 [facility] Glucose Ql (U) Normal Normal (<70) mg/dL [facility] Hemoglobin Ql (U) Negative Negative mg/dL [facility] Hyaline casts Auto (Urine sed) [#/Area] Negative Negative /LPF [facility] Interpretation and review of laboratory results Abnormal [facility] Ketones (U) [Mass/Vol] 10 mg/dL Abnormal Negative [facility] Leukocyte esterase Test strip Ql (U) Negative Negative Antonio/uL [facility] Mucus LM.HPF (Urine sed) [#/Area] Few Negative /LPF [facility] Nitrite Ql (U) Negative Negative [facility] th pH (U) 5.5 [pH] 5.0 - 8.0 pH [facility] Protein (U) [Mass/Vol] 10 mg/dL Abnormal Negative [facility] RBC LM.HPF (Urine sed) [#/Area] 3-5 Abnormal [facility] Specific gravity (U) [Rel density] High 1.005 - 1.030 [facility] Urobilinogen (U) [Mass/Vol] Normal Normal (0-1) mg/dL [facility] WBC LM.HPF (Urine sed) [#/Area] 0-2 [facility] Vital signsOrdered By: Cullen Malin on 08-13-2022 Heart rate 72 /min bpm [facility] Work Phone: XR Chest Single viewon 08-13 No confluent consolidation, as above. Exclusion of left costophrenic angle. Report Dictated on Electronically Signed By: Hortensia Jacobs Electronically Signed Date/Time: 08/13/2022 1:28 AM EST [employer] Patient Name: SYMONE MCDONALD Exam Date/Time: 08/13/2022 01:28 Procedure: XR CHEST 1 VIEW Ordering Provider: BIANCHI MARY Reason For Exam: INDICATION: 82-year-old. Shortness of breath. VIEWS: Chest portable COMPARISON: 05/03/2015 FINDINGS: The trachea is midline. The cardiac silhouette is within normal limits. The right hemidiaphragm is mildly elevated. Left costophrenic angle is excluded from [id number]. No confluent consolidation. No sizable pneumothorax. Atherosclerotic changes of the aorta. [facility] [employer] Hortensia Jacobs MD - 08/13/2022 Patient Name: SYMONE MCDONALD Exam Date/Time: 08/13/2022 01:28 Procedure: XR CHEST 1 VIEW Ordering Provider: BIANCHI MARY Reason For Exam: INDICATION: 82-year-old. Shortness of breath. VIEWS: Chest portable COMPARISON: 05/03/2015 FINDINGS: The trachea is midline. The cardiac silhouette is within normal limits. The right hemidiaphragm is mildly elevated. Left costophrenic angle is excluded from [id number]. No confluent consolidation. No sizable pneumothorax. Atherosclerotic changes of the aorta. IMPRESSION: No confluent consolidation, as above. Exclusion of left costophrenic angle. Report Dictated on Electronically Signed By: Hortensia Jacobs Electronically Signed Date/Time: 08/13/2022 1:28 AM EST [facility] system Radiology Study observation (narrative) [employer] system XR Chest Single viewOrdered By: Hortensia Jacobs on 08-13-2022 [employer] Phone: No Panel Informationon 07-27 Ossification projecting inferiorly from the glenoid or possibly bony spurring or vascular calcification. Minor arthritic change about the acromioclavicular joint. Report Dictated on Electronically Signed By: Lui Yun Electronically Signed Date/Time: 07/27/2022 2:12 PM EST [facility] [employer] Radiology Study observation (narrative) [employer] system No Panel InformationOrdered By: Lui Yun on 07-27-2022 [employer] Phone: Office Visiton 07-27-2022 Follow-up visit [id number] Symone Mcdonald 1940 F Date Provider Department Center 07/27/2022 [id number] JOHNSON MG SM WAD None Family History Family Status - Relation Status Age at Father Mother Level of Service:86226 [place] OFFICE/OUTPATIENT NEW LOW MDM 30-44 MINUTES Reason for Visit and Comments: Shoulder Pain [103228] - Right shoulder and arm pain [facility] [place] [employer] [facility] Progress Noteon 07-27-2022 Progress Note [facility] MARIA LUISA [facility] [place] [address] [place] [address] Dept: [phone] Dept Chief Complaint Patient presents with Shoulder [...] Temp 35.8 ?C (96.4 ?F) Ht 5' 4 (1.626 m) Wt 218 lb (98.9 kg) [...] prior to signing but minor errors in pharmacy technician per diem may have occurred. [facility] XR Humerus - right Viewson 0 07-27-2022 [...] There is no other soft tissue abnormality. [facility] Lui Yun MD - 07/27/2022 Patient [...] Electronically Signed Date/Time: 07/27/2022 2:12 PM EST [employer] system XR Shoulder - right 2 Viewso n [...] There is no other soft tissue abnormality. [facility] Lui Yun MD - 07/27/2022 Patient [...] Yun Electronically Signed Date/Time: 07/27/2022 2:12 PM [facility] Basophil percentageon 2021 Chloride [Moles/Vol] 109 mmol/L 98-107 [facility] Work Phone: Glucose [Mass/Vol] 95 mg/dL 74-106 [facility] Work Phone: Potassium [Moles/Vol] 3.7 mmol/L 3.5-5.[address] [facility] Work Phone: Sodium [Moles/Vol] 142 mmol/L 136-145 [facility] Work Phone: WBC (Bld) [#/Vol] 8.9 10*3/uL 4.4-11.0 [facility] Work Phone: Blood erythrocytes count (nu mber/volume)on 06-15-2022 RBC (Bld) [#/Vol] 4.40 10*6/uL 4.2-5.4 [facility] Work Phone: Blood hemoglobin measurement (mass/volume)on 06-15-2022 Hemoglobin (Bld) [Mass/Vol] 13.3 g/dL 12.0-15.0 [facility] Work Phone: Blood platelet mean volumeon 06-15-2022 Platelet mean volume (Bld) [Entitic vol] 11.2 fL 6.2-12.0 [facility] Work Phone: Determination of erythrocyte mean corpuscular volume (MCV)on 06-15-2022 MCV (RBC) [Entitic vol] 95.0 fL 81-99 [facility] Work Phone: Hematocrit Auto (Bld) [Volum e fraction]on 06-15-2022 Hematocrit (Bld) [Volume fraction] 41.8 % 37-47 [facility] Work Phone: Laboratory - Chemistry and C hemistry - challengeon 06-15-2022 CO2 [Moles/Vol] 32.0 mmol/L 21.0-32.0 [facility] Work Phone: Urea nitrogen/Creatinine [Mass ratio] 15.8 mg/mg 10-20 [facility] Work Phone: Laboratory - Hematology and Cell countson 06-15-2022 Erythrocyte distribution width (RBC) [Entitic vol] 45.3 fL 35.1-43.9 [facility] Work Phone: Erythrocyte distribution width (RBC) [Ratio] 13.0 % 11.6-14.6 [facility] Work Phone: MCH (RBC) [Entitic mass] 30.2 pg 27.0-32.0 [facility] Work Phone: MCHC Auto (RBC) [Mass/Vol]on 06-15-2022 MCHC (RBC) [Mass/Vol] 31.8 g/dL 32-[address] [facility] Work Phone: No Panel Informationon 06-15 Estimated GFR (MDRD) Amer 67 mL/min >60 [facility] Work Phone: Comment on above: GFR Calc Estimated GFR (MDRD) Non-Af Amer 56 mL/min >60 [facility] Work Phone: Comment on above: Non- GFR Calc Platelets bldon 06-15-2022 Platelets (Bld) [#/Vol] 213 10*3/uL 150-450 [facility] Work Phone: Serum or plasma calcium mk urement (mass/volume)on 06-15-2022 Calcium [Mass/Vol] 8.9 mg/dL 8.5-10.1 [facility] Work Phone: Serum or plasma creatinine m easurement (mass/volume)on 06-15-2022 Creatinine [Mass/Vol] 1.01 mg/dL 0.55-1.[address] [facility] Work Phone: Comment on above: The validity of the calculated GFR & GFRAA in patients over 70 years has not been determined. Clinical correlation is essential. Serum or plasma urea nitroge n measurement (mass/volume)on 06-15-2022 Urea nitrogen [Mass/Vol] 16 mg/dL 7-18 [facility] Work Phone: Thin prep Papanicolaou smear with manual screeningon 06-15-2022 Thin prep Papanicolaou smear with manual screening 1 5-15 [facility] Work Phone: Basophil percentageon 2021 Chloride [Moles/Vol] 107 mmol/L 98-107 [facility] Work Phone: Glucose [Mass/Vol] 97 mg/dL 74-106 [facility] Work Phone: Potassium [Moles/Vol] 3.8 mmol/L 3.5-5.[address] [facility] Work Phone: Sodium [Moles/Vol] 141 mmol/L 136-145 [facility] Work Phone: WBC (Bld) [#/Vol] 8.8 10*3/uL 4.4-11.0 [facility] Work Phone: Blood erythrocytes count (nu mber/volume)on 05-04-2022 RBC (Bld) [#/Vol] 4.54 10*6/uL 4.2-5.4 [facility] Work Phone: Blood hemoglobin measurement (mass/volume)on 05-04-2022 Hemoglobin (Bld) [Mass/Vol] 13.9 g/dL 12.0-15.0 [facility] Work Phone: Blood platelet mean volumeon 05-04-2022 Platelet mean volume (Bld) [Entitic vol] 11.4 fL 6.2-12.0 [facility] Work Phone: Determination of erythrocyte mean corpuscular volume (MCV)on 05-04-2022 MCV (RBC) [Entitic vol] 94.3 fL 81-99 [facility] Work Phone: Hematocrit Auto (Bld) [Volum e fraction]on 05-04-2022 Hematocrit (Bld) [Volume fraction] 42.8 % 37-47 [facility] Work Phone: Laboratory - Chemistry and C hemistry - challengeon 05-04-2022 CO2 [Moles/Vol] 30.0 mmol/L 21.0-32.0 [facility] Work Phone: Urea nitrogen/Creatinine [Mass ratio] 19.4 mg/mg 10 [facility] Work Phone: Laboratory - Hematology and Cell countson 05-04-2022 Erythrocyte distribution width (RBC) [Entitic vol] 45.1 fL 35.1-43.9 [facility] Work Phone: Erythrocyte distribution width (RBC) [Ratio] 13.0 % 11.6-14.6 [facility] Work Phone: MCH (RBC) [Entitic mass] 30.6 pg 27.0-32.0 [facility] Work Phone: MCHC Auto (RBC) [Mass/Vol]on 05-04-2022 MCHC (RBC) [Mass/Vol] 32.5 g/dL 32-[address] [facility] Work Phone: No Panel Informationon 05-04 Estimated GFR (MDRD) Amer 70 mL/min >60 [facility] Work Phone: Comment on above: GFR Calc Estimated GFR (MDRD) Non-Af Amer 58 mL/min >60 [facility] Work Phone: Comment on above: Non- GFR Calc Platelets bldon 05-04-2022 Platelets (Bld) [#/Vol] 233 10*3/uL 150-450 [facility] Work Phone: Serum or plasma calcium mk urement (mass/volume)on 05-04-2022 Calcium [Mass/Vol] 8.8 mg/dL 8.5-10.1 [facility] Work Phone: Serum or plasma creatinine m easurement (mass/volume)on 05-04-2022 Creatinine [Mass/Vol] 0.98 mg/dL 0.55-1.[address] [facility] Work Phone: Comment on above: The validity of the calculated GFR & GFRAA in patients over 70 years has not been determined. Clinical correlation is essential. Serum or plasma urea nitroge n measurement (mass/volume)on 05-04-2022 Urea nitrogen [Mass/Vol] 19 mg/dL 7-18 [facility] Work Phone: Thin prep Papanicolaou smear with manual screeningon 05-04-2022 Thin prep Papanicolaou smear with manual screening 4 5-15 [facility] Work Phone: Basophil percentageon 2021 Bilirubin [Mass/Vol] 1.00 mg/dL 0.20-1.00 [facility] Work Phone: Comment on above: For patients on eltr ombopag therapy, use of Dimension [place] TBIL is not recommended. Chloride [Moles/Vol] 109 mmol/L 98-107 [facility] Work Phone: Glucose [Mass/Vol] 101 mg/dL 74-106 [facility] Work Phone: Comment on above: Fasting Glucose resu lt from 100 to 125 mg/dL suggests IMPAIRED HOMEOSTASIS per A.D.A. criteria. Potassium [Moles/Vol] 3.5 mmol/L 3.5-5.[address] [facility] Work Phone: Protein [Mass/Vol] 6.6 g/dL 6.4-8.2 [facility] Work Phone: Sodium [Moles/Vol] 144 mmol/L 136-145 [facility] Work Phone: WBC (Bld) [#/Vol] 8.9 10*3/uL 4.4-11.0 [facility] Work Phone: Blood erythrocytes count (nu mber/volume)on 04-27-2022 RBC (Bld) [#/Vol] 4.49 10*6/uL 4.2-5.4 [facility] Work Phone: Blood hemoglobin measurement (mass/volume)on 04-27-2022 Hemoglobin (Bld) [Mass/Vol] 14.3 g/dL 12.0-15.0 [facility] Work Phone: Blood platelet mean volumeon 04-27-2022 Platelet mean volume (Bld) [Entitic vol] 11.2 fL 6.2-12.0 [facility] Work Phone: Determination of erythrocyte mean corpuscular volume (MCV)on 04-27-2022 MCV (RBC) [Entitic vol] 95.1 fL 81-99 [facility] Work Phone: Hematocrit Auto (Bld) [Volum e fraction]on 04-27-2022 Hematocrit (Bld) [Volume fraction] 42.7 % 37-47 [facility] Work Phone: Laboratory - Chemistry and C hemistry - challengeon 04-27-2022 ALP [Catalytic activity/Vol] 46 U/L 45-117 [facility] Work Phone: ALT [Catalytic activity/Vol] 15 U/L 13-56 [facility] Work Phone: CO2 [Moles/Vol] 31.0 mmol/L 21.0-32.0 [facility] Work Phone: Globulin (S) [Mass/Vol] 3.9 g/dL 2.2-4.2 [facility] Work Phone: Urea nitrogen/Creatinine [Mass ratio] 17.2 mg/mg 10-20 [facility] Work Phone: Laboratory - Hematology and Cell countson 04-27-2022 Erythrocyte distribution width (RBC) [Entitic vol] 45.4 fL 35.1-43.9 [facility] Work Phone: Erythrocyte distribution width (RBC) [Ratio] 13.2 % 11.6-14.6 [facility] Work Phone: MCH (RBC) [Entitic mass] 31.8 pg 27.0-32.0 [facility] Work Phone: MCHC Auto (RBC) [Mass/Vol]on 04-27-2022 MCHC (RBC) [Mass/Vol] 33.5 g/dL 32-[address] [facility] Work Phone: No Panel Informationon 04-27 Estimated GFR (MDRD) Amer 74 mL/min >60 [facility] Work Phone: Comment on above: GFR Calc Estimated GFR (MDRD) Non-Af Amer 61 mL/min >60 [facility] Work Phone: Comment on above: Non- GFR Calc Thyroid Stimulating Hormone (TSH) 2.22 uIU/mL 0.358-3.74 [facility] Work Phone: Vitamin D 25-Hydroxy 56.2 ng/mL [facility] Work Phone: Comment on above: Vitamin D 25(OH) Sta tus Range Deficiency <20 ng/mL (50nmol/L) Insufficiency 20 - 30 ng/mL (50 - 75 nmol/L) Sufficiency 30 - 100 ng/mL (75 - 250 nmol/L) Toxicity >100 ng/mL (>250 nmol/L) Platelets bldon 04-27-2022 Platelets (Bld) [#/Vol] 214 10*3/uL 150-450 [facility] Work Phone: Serum or plasma albumin mk urement (mass/volume)on 04-27-2022 Albumin [Mass/Vol] 2.7 g/dL 3.2-5.0 [facility] Work Phone: Serum or plasma albumin/glob ulin mass ratioon 04-27-2022 Albumin/Globulin [Mass ratio] 0.7 {ratio} 0.9-2.4 [facility] Work Phone: Serum or plasma calcium mk urement (mass/volume)on 04-27-2022 Calcium [Mass/Vol] 8.7 mg/dL 8.5-10.1 [facility] Work Phone: Serum or plasma creatinine m easurement (mass/volume)on 04-27-2022 Creatinine [Mass/Vol] 0.93 mg/dL 0.55-1.[address] [facility] Work Phone: Comment on above: The validity of the calculated GFR & GFRAA in patients over 70 years has not been determined. Clinical correlation is essential. Serum or plasma urea nitroge n measurement (mass/volume)on 04-27-2022 Urea nitrogen [Mass/Vol] 16 mg/dL 7-18 [facility] Work Phone: Thin prep Papanicolaou smear with manual screeningon 04-27-2022 Thin prep Papanicolaou smear with manual screening 5 U/L 15-37 [facility] Work Phone: Thin prep Papanicolaou smear with manual screening 4 5-15 [facility] Work Phone: Whole blood hemoglobin A1c/t otal hemoglobin ratio (mass fraction)on 04-27-2022 HbA1c (Bld) [Mass fraction] 5.7 % 3.8-5.6 [facility] Work Phone: Comment on above: Normal < 5.7 % Predi abetic 5.7 - 6.4 % Diabetic >or= 6.5 % Please note range changes. Absolute lymphocyte counton 01-31-2022 Lymphocytes Auto (Unsp spec) [#/Vol] 2.13 10*3/uL 0.83-4.51 [facility] Work Phone: Basophil percentageon 2021 Basophils/100 WBC (Bld) 0.4 % 0-1 [facility] Work Phone: Bilirubin [Mass/Vol] 1.50 mg/dL 0.20-1.00 [facility] Work Phone: Comment on above: For patients on eltr ombopag therapy, use of Dimension [place] TBIL is not recommended. Chloride [Moles/Vol] 105 mmol/L 98-107 [facility] Work Phone: Eosinophils/100 WBC (Bld) 3.5 % 0-5 [facility] Work Phone: Glucose [Mass/Vol] 98 mg/dL 74-106 [facility] Work Phone: Neutrophils (Bld) [#/Vol] 4.9 10*3/uL 2.0-7.7 [facility] Work Phone: Neutrophils/100 WBC (Bld) 60.1 % 47-70 [facility] Work Phone: Potassium [Moles/Vol] 3.6 mmol/L 3.5-5.1 [facility] Work Phone: Protein [Mass/Vol] 6.7 g/dL 6.4-8.2 [facility] Work Phone: Sodium [Moles/Vol] 141 mmol/L 136-145 [facility] Work Phone: WBC (Bld) [#/Vol] 8.1 10*3/uL 4.4-11.0 [facility] Work Phone: Blood erythrocytes count (nu mber/volume)on 01-31-2022 RBC (Bld) [#/Vol] 4.69 10*6/uL 4.2-5.4 [facility] Work Phone: Blood hemoglobin measurement (mass/volume)on 01-31-2022 Hemoglobin (Bld) [Mass/Vol] 14.0 g/dL 12.0-15.0 [facility] Work Phone: Blood lymphocytes/100 leukoc yteson 01-31-2022 Lymphocytes/100 WBC (Bld) 26.4 % 19-41 [facility] Work Phone: Blood monocytes/100 leukocyt eson 01-31-2022 Monocytes/100 WBC (Bld) 9.4 % 0-10 [facility] Work Phone: Blood platelet mean volumeon 01-31-2022 Platelet mean volume (Bld) [Entitic vol] 11.7 fL 6.2-12.0 [facility] Work Phone: Determination of erythrocyte mean corpuscular volume (MCV)on 01-31-2022 MCV (RBC) [Entitic vol] 94.9 fL 81-99 [facility] Work Phone: Hematocrit Auto (Bld) [Volum e fraction]on 01-31-2022 Hematocrit (Bld) [Volume fraction] 44.5 % 37-47 [facility] Work Phone: Laboratory - Chemistry and C hemistry - challengeon 01-31-2022 ALP [Catalytic activity/Vol] 41 U/L 45-117 [facility] Work Phone: ALT [Catalytic activity/Vol] 19 U/L 13-56 [facility] Work Phone: CO2 [Moles/Vol] 30.0 mmol/L 21.0-32.0 [facility] Work Phone: Globulin (S) [Mass/Vol] 3.7 g/dL 2.2-4.2 [facility] Work Phone: Urea nitrogen/Creatinine [Mass ratio] 21.6 mg/mg 10-20 [facility] Work Phone: Laboratory - Hematology and Cell countson 01-31-2022 Erythrocyte distribution width (RBC) [Entitic vol] 45.9 fL 35.1-43.9 [facility] Work Phone: Erythrocyte distribution width (RBC) [Ratio] 13.2 % 11.6-14.6 [facility] Work Phone: Immature granulocytes/100 WBC (Bld) 0.200 % 0.0-0.9 [facility] Work Phone: Comment on above: IG% - Immature Granu locytes (promyelocytes, myelocytes and metamyelocytes) > 1% indicates that a LEFT SHIFT is Present. MCH (RBC) [Entitic mass] 29.9 pg 27.0-32.0 [facility] Work Phone: Nucleated RBC/100 WBC (Bld) [Ratio] 0 % 0-5 [facility] Work Phone: MCHC Auto (RBC) [Mass/Vol]on 01-31-2022 MCHC (RBC) [Mass/Vol] 31.5 g/dL 32-[address] [facility] Work Phone: No Panel Informationon 01-31 Estimated GFR (MDRD) Amer 67 mL/min >60 [facility] Work Phone: Comment on above: GFR Calc Estimated GFR (MDRD) Non-Af Amer 55 mL/min >60 [facility] Work Phone: Comment on above: Non- GFR Calc Platelets bldon 01-31-2022 Platelets (Bld) [#/Vol] 214 10*3/uL 150-450 [facility] Work Phone: Serum or plasma albumin mk urement (mass/volume)on 01-31-2022 Albumin [Mass/Vol] 3.0 g/dL 3.2-5.0 [facility] Work Phone: Serum or plasma albumin/glob ulin mass ratioon 01-31-2022 Albumin/Globulin [Mass ratio] 0.8 {ratio} 0.9-2.4 [facility] Work Phone: Serum or plasma calcium mk urement (mass/volume)on 01-31-2022 Calcium [Mass/Vol] 8.9 mg/dL 8.5-10.1 [facility] Work Phone: Serum or plasma creatinine m easurement (mass/volume)on 01-31-2022 Creatinine [Mass/Vol] 1.02 mg/dL 0.55-1.[address] [facility] Work Phone: Comment on above: The validity of the calculated GFR & GFRAA in patients over 70 years has not been determined. Clinical correlation is essential. Serum or plasma urea nitroge n measurement (mass/volume)on 01-31-2022 Urea nitrogen [Mass/Vol] 22 mg/dL 7-18 [facility] Work Phone: Thin prep Papanicolaou smear with manual screeningon 01-31-2022 Thin prep Papanicolaou smear with manual screening 9 U/L 15-37 [facility] Work Phone: Thin prep Papanicolaou smear with manual screening 6 5-15 [facility] Work Phone: COVID-19on 01-26-2022 SARS-CoV-2 (COVID-19) RNA MARIO+probe Ql (Unsp spec) Not detected Normal Not Detected [facility] Comment on above: Result Comment: Rapi d NAAT: Negative results should be treated as [...] authorized laboratories. Fact sheet for Healthcare Providers: https://www.fda.gov/media/348330/download Fact sheet for Patients: https://www.fda.gov/media/640763/download METHODOLOGY: Isothermal Nucleic Acid Amplification Basic Metabolic Panelon 01-12 Anion gap [Moles/Vol] 9 mmol/L Normal 7-16 [facility] Calcium [Mass/Vol] 9.2 mg/dL Normal 8.6-10.2 [facility] Chloride [Moles/Vol] 101 mmol/L Normal 98-107 [facility] CO2 [Moles/Vol] 30 mmol/L High 22-29 [facility] Creatinine [Mass/Vol] 1.2 mg/dL High 0.5-1.0 [facility] GFR/1.73 sq M.predicted among blacks MDRD (S/P/Bld) [Vol rate/Area] 52 mL/min/{1.73_m2} Normal [facility] GFR/1.73 sq M.predicted among non-blacks MDRD (S/P/Bld) [Vol rate/Area] 43 mL/min/{1.73_m2} Normal >=60 [facility] Comment on above: Result Comment: Director Organizational bc Kidney Disease: less than 60 ml/min/1.73 sq.m. Kidney Failure: less than 15 ml/min/1.73 sq.m. Results valid for patients 18 years and older. Glucose [Mass/Vol] 101 mg/dL High 74-99 [facility] Potassium [Moles/Vol] 3.8 mmol/L Normal 3.5-5.0 [facility] Sodium [Moles/Vol] 140 mmol/L Normal 132-146 [facility] Urea nitrogen [Mass/Vol] 24 mg/dL High 6-23 [facility] CBC With Platelet and Differ entialon 01-25-2022 Abs Imm Granulocytes 0.03 E9/L Normal [facility] Absolute Basophils 0.03 E9/L Normal 0.00-0.20 [facility] Absolute Eosinophils 0.42 E9/L Normal 0.05-0.50 [facility] Absolute Lymphocytes 2.14 E9/L Normal 1.50-4.00 [facility] Absolute Monocytes 0.68 E9/L Normal 0.10-0.95 [facility] Absolute Neutrophils 4.52 E9/L Normal 1.80-7.30 [facility] Basophils/100 WBC (Bld) 0.4 % Normal 0.0-2.0 [facility] Eosinophils/100 WBC (Bld) 5.4 % Normal 0.0-6.0 [facility] Hematocrit (Bld) [Volume fraction] 44.4 % Normal 34.0-48.0 [facility] Hemoglobin (Bld) [Mass/Vol] 13.9 g/dL Normal 11.5-15.5 [facility] Imm Granulocytes 0.4 % Normal 0.0-5.0 [facility] Lymphocytes/100 WBC (Bld) 27.4 % Normal 20.0-42.0 [facility] MCH (RBC) [Entitic mass] 30.2 pg Normal 26.0-35.0 [facility] MCHC 31.3 % Low 32.0-34.5 [facility] MCV (RBC) [Entitic vol] 96.5 fL Normal 80.0-99.9 [facility] Monocytes/100 WBC (Bld) 8.7 % Normal 2.0-12.0 [facility] Neutrophils/100 WBC (Bld) 57.7 % Normal 43.0-80.0 [facility] Platelet Count 228 E9/L Normal 130-450 [facility] Platelet mean volume (Bld) [Entitic vol] 11.3 fL Normal 7.0-12.0 [facility] RBC 4.60 E12/L Normal 3.50-5.50 [facility] RDW 13.4 fL Normal 11.5-15.0 [facility] WBC 7.8 E9/L Normal 4.5-11.5 [facility] Basic Metabolic Panelon 01-12 Anion gap [Moles/Vol] 7 mmol/L Normal 7-16 [facility] Calcium [Mass/Vol] 9.0 mg/dL Normal 8.6-10.2 [facility] Chloride [Moles/Vol] 103 mmol/L Normal 98-107 [facility] CO2 [Moles/Vol] 32 mmol/L High 22-29 [facility] Creatinine [Mass/Vol] 1.2 mg/dL High 0.5-1.0 [facility] GFR/1.73 sq M.predicted among blacks MDRD (S/P/Bld) [Vol rate/Area] 52 mL/min/{1.73_m2} Normal [facility] GFR/1.73 sq M.predicted among non-blacks MDRD (S/P/Bld) [Vol rate/Area] 43 mL/min/{1.73_m2} Normal >=60 [facility] Comment on above: Result Comment: Director Organizational bc Kidney Disease: less than 60 ml/min/1.73 sq.m. Kidney Failure: less than 15 ml/min/1.73 sq.m. Results valid for patients 18 years and older. Glucose [Mass/Vol] 102 mg/dL High 74-99 [facility] Potassium [Moles/Vol] 3.8 mmol/L Normal 3.5-5.0 [facility] Sodium [Moles/Vol] 142 mmol/L Normal 132-146 [facility] Urea nitrogen [Mass/Vol] 22 mg/dL Normal 6-23 [facility] CBC With Platelet No Differe ntialon 01-24-2022 Hematocrit (Bld) [Volume fraction] 44.3 % Normal 34.0-48.0 [facility] Hemoglobin (Bld) [Mass/Vol] 14.1 g/dL Normal 11.5-15.5 [facility] MCH (RBC) [Entitic mass] 30.3 pg Normal 26.0-35.0 [facility] MCHC 31.8 % Low 32.0-34.5 [facility] MCV (RBC) [Entitic vol] 95.1 fL Normal 80.0-99.9 [facility] Platelet Count 224 E9/L Normal 130-450 [facility] Platelet mean volume (Bld) [Entitic vol] 11.1 fL Normal 7.0-12.0 [facility] RBC 4.66 E12/L Normal 3.50-5.50 [facility] RDW 13.3 fL Normal 11.5-15.0 [facility] WBC 8.5 E9/L Normal 4.5-11.5 [facility] Urinalysis, reflex to micros copicon 01-23-2022 Bilirubin Ql (U) SMALL Abnormal Negative [facility] Clarity (U) Clear Normal Clear [facility] Color (U) Yellow Normal Straw/Yellow [facility] Glucose Ql (U) Negative Normal Negative [facility] Hemoglobin Ql (U) Negative Normal Negative [facility] Ketones Ql (U) Negative Normal Negative [facility] Leukocyte esterase Test strip Ql (U) Negative Normal Negative [facility] Nitrite Ql (U) Negative Normal Negative [facility] pH (U) 6.0 [pH] Normal 5.0-9.0 [facility] Protein Ql (U) Negative Normal Negative [facility] Specific gravity (U) [Rel density] >=1.030 Normal 1.005-1.030 [facility] Urobilinogen Qn (U) 0.2 {Daria'U}/dL Normal < 2.0 [facility] Basic Metabolic Panelon 01-12 Anion gap [Moles/Vol] 8 mmol/L Normal 7-16 [facility] Calcium [Mass/Vol] 9.0 mg/dL Normal 8.6-10.2 [facility] Chloride [Moles/Vol] 101 mmol/L Normal 98-107 [facility] CO2 [Moles/Vol] 31 mmol/L High 22-29 [facility] Creatinine [Mass/Vol] 0.9 mg/dL Normal 0.5-1.0 [facility] GFR/1.73 sq M.predicted among blacks MDRD (S/P/Bld) [Vol rate/Area] mL/min/{1.73_m2} Normal [facility] GFR/1.73 sq M.predicted among non-blacks MDRD (S/P/Bld) [Vol rate/Area] 60 mL/min/{1.73_m2} Normal >=60 [facility] Comment on above: Result Comment: Director Organizational bc Kidney Disease: less than 60 ml/min/1.73 sq.m. Kidney Failure: less than 15 ml/min/1.73 sq.m. Results valid for patients 18 years and older. Glucose [Mass/Vol] 93 mg/dL Normal 74-99 [facility] Potassium [Moles/Vol] 3.5 mmol/L Normal 3.5-5.0 [facility] Sodium [Moles/Vol] 140 mmol/L Normal 132-146 [facility] Urea nitrogen [Mass/Vol] 13 mg/dL Normal 6-23 [facility] CBC With Platelet No Dorothy blanco 01-22-2022 Hematocrit (Bld) [Volume fraction] 43.5 % Normal 34.0-48.0 [facility] Hemoglobin (Bld) [Mass/Vol] 14.0 g/dL Normal 11.5-15.5 [facility] MCH (RBC) [Entitic mass] 30.4 pg Normal 26.0-35.0 [facility] MCHC 32.2 % Normal 32.0-34.5 [facility] MCV (RBC) [Entitic vol] 94.6 fL Normal 80.0-99.9 [facility] Platelet Count 216 E9/L Normal 130-450 [facility] Platelet mean volume (Bld) [Entitic vol] 11.1 fL Normal 7.0-12.0 [facility] RBC 4.60 E12/L Normal 3.50-5.50 [facility] RDW 13.2 fL Normal 11.5-15.0 [facility] WBC 7.6 E9/L Normal 4.5-11.5 [facility] Basic Metabolic Panelon 01-12 Anion gap [Moles/Vol] 8 mmol/L Normal 7-16 [facility] Calcium [Mass/Vol] 8.7 mg/dL Normal 8.6-10.2 [facility] Chloride [Moles/Vol] 102 mmol/L Normal 98-107 [facility] CO2 [Moles/Vol] 31 mmol/L High 22-29 [facility] Creatinine [Mass/Vol] 0.9 mg/dL Normal 0.5-1.0 [facility] GFR/1.73 sq M.predicted among blacks MDRD (S/P/Bld) [Vol rate/Area] mL/min/{1.73_m2} Normal [facility] GFR/1.73 sq M.predicted among non-blacks MDRD (S/P/Bld) [Vol rate/Area] 60 mL/min/{1.73_m2} Normal >=60 [facility] Comment on above: Result Comment: Director Organizational bc Kidney Disease: less than 60 ml/min/1.73 sq.m. Kidney Failure: less than 15 ml/min/1.73 sq.m. Results valid for patients 18 years and older. Glucose [Mass/Vol] 96 mg/dL Normal 74-99 [facility] Potassium [Moles/Vol] 3.7 mmol/L Normal 3.5-5.0 [facility] Sodium [Moles/Vol] 141 mmol/L Normal 132-146 [facility] Urea nitrogen [Mass/Vol] 13 mg/dL Normal 6-23 [facility] CBC With Platelet No Differe ntialon 01-21-2022 Hematocrit (Bld) [Volume fraction] 42.1 % Normal 34.0-48.0 [facility] Hemoglobin (Bld) [Mass/Vol] 13.4 g/dL Normal 11.5-15.5 [facility] MCH (RBC) [Entitic mass] 29.9 pg Normal 26.0-35.0 [facility] MCHC 31.8 % Low 32.0-34.5 [facility] MCV (RBC) [Entitic vol] 94.0 fL Normal 80.0-99.9 [facility] Platelet Count 216 E9/L Normal 130-450 [facility] Platelet mean volume (Bld) [Entitic vol] 11.0 fL Normal 7.0-12.0 [facility] RBC 4.48 E12/L Normal 3.50-5.50 [facility] RDW 13.2 fL Normal 11.5-15.0 [facility] WBC 7.5 E9/L Normal 4.5-11.5 [facility] Basic Metabolic Panelon Anion gap [Moles/Vol] 10 mmol/L Normal 7-16 [facility] Calcium [Mass/Vol] 8.9 mg/dL Normal 8.6-10.2 [facility] Chloride [Moles/Vol] 105 mmol/L Normal 98-107 [facility] CO2 [Moles/Vol] 28 mmol/L Normal 22-29 [facility] Creatinine [Mass/Vol] 1.0 mg/dL Normal 0.5-1.0 [facility] GFR/1.73 sq M.predicted among blacks MDRD (S/P/Bld) [Vol rate/Area] mL/min/{1.73_m2} Normal [facility] GFR/1.73 sq M.predicted among non-blacks MDRD (S/P/Bld) [Vol rate/Area] 53 mL/min/{1.73_m2} Normal >=60 [facility] Comment on above: Result Comment: Director Organizational bc Kidney Disease: less than 60 ml/min/1.73 sq.m. Kidney Failure: less than 15 ml/min/1.73 sq.m. Results valid for patients 18 years and older. Glucose [Mass/Vol] 100 mg/dL High 74-99 [facility] Potassium [Moles/Vol] 3.7 mmol/L Normal 3.5-5.0 [facility] Sodium [Moles/Vol] 143 mmol/L Normal 132-146 [facility] Urea nitrogen [Mass/Vol] 15 mg/dL Normal 6-23 [facility] CBC With Platelet No Differe ntialon 01-20-2022 Hematocrit (Bld) [Volume fraction] 42.5 % Normal 34.0-48.0 [facility] Hemoglobin (Bld) [Mass/Vol] 13.8 g/dL Normal 11.5-15.5 [facility] MCH (RBC) [Entitic mass] 30.9 pg Normal 26.0-35.0 [facility] MCHC 32.5 % Normal 32.0-34.5 [facility] MCV (RBC) [Entitic vol] 95.1 fL Normal 80.0-99.9 [facility] Platelet Count 201 E9/L Normal 130-450 [facility] Platelet mean volume (Bld) [Entitic vol] 11.0 fL Normal 7.0-12.0 [facility] RBC 4.47 E12/L Normal 3.50-5.50 [facility] RDW 13.4 fL Normal 11.5-15.0 [facility] WBC 7.9 E9/L Normal 4.5-11.5 [facility] Basic Metabolic Panelon 07-0 Anion gap [Moles/Vol] 9 mmol/L Normal 7-16 [facility] Calcium [Mass/Vol] 8.5 mg/dL Low 8.6-10.2 [facility] Chloride [Moles/Vol] 105 mmol/L Normal 98-107 [facility] CO2 [Moles/Vol] 28 mmol/L Normal 22-29 [facility] Creatinine [Mass/Vol] 0.9 mg/dL Normal 0.5-1.0 [facility] GFR/1.73 sq M.predicted among blacks MDRD (S/P/Bld) [Vol rate/Area] mL/min/{1.73_m2} Normal [facility] GFR/1.73 sq M.predicted among non-blacks MDRD (S/P/Bld) [Vol rate/Area] 60 mL/min/{1.73_m2} Normal >=60 [facility] Comment on above: Result Comment: Director Organizational bc Kidney Disease: less than 60 ml/min/1.73 sq.m. Kidney Failure: less than 15 ml/min/1.73 sq.m. Results valid for patients 18 years and older. Glucose [Mass/Vol] 102 mg/dL High 74-99 [facility] Potassium [Moles/Vol] 3.2 mmol/L Low 3.5-5.0 [facility] Sodium [Moles/Vol] 142 mmol/L Normal 132-146 [facility] Urea nitrogen [Mass/Vol] 10 mg/dL Normal 6-23 [facility] CBC With Platelet No Differe francis 01-19-2022 Hematocrit (Bld) [Volume fraction] 41.2 % Normal 34.0-48.0 [facility] Hemoglobin (Bld) [Mass/Vol] 13.4 g/dL Normal 11.5-15.5 [facility] MCH (RBC) [Entitic mass] 30.2 pg Normal 26.0-35.0 [facility] MCHC 32.5 % Normal 32.0-34.5 [facility] MCV (RBC) [Entitic vol] 92.8 fL Normal 80.0-99.9 [facility] Platelet Count 206 E9/L Normal 130-450 [facility] Platelet mean volume (Bld) [Entitic vol] 10.8 fL Normal 7.0-12.0 [facility] RBC 4.44 E12/L Normal 3.50-5.50 [facility] RDW 13.0 fL Normal 11.5-15.0 [facility] WBC 8.9 E9/L Normal 4.5-11.5 [facility] MRI THORACIC SPINE W WO CONT RASTon 01-19-2022 MRI THORACIC SPINE W WO CONTRAST [...] by: Av Moncada DO Signed by: Av Moncada DO 01/19/[address] [facility] Comment on above: Order Comment: Reaso n for exam:->lytic lesions Basic Metabolic Panelon 07- Anion gap [Moles/Vol] 8 mmol/L Normal 7-16 [facility] Calcium [Mass/Vol] 8.3 mg/dL Low 8.6-10.2 [facility] Chloride [Moles/Vol] 108 mmol/L High 98-107 [facility] CO2 [Moles/Vol] 27 mmol/L Normal 22-29 [facility] Creatinine [Mass/Vol] 0.8 mg/dL Normal 0.5-1.0 [facility] GFR Calculated >60 Normal >=60 [facility] Comment on above: Result Comment: Director Organizational bc Kidney Disease: less than 60 ml/min/1.73 sq.m. Kidney Failure: less than 15 ml/min/1.73 sq.m. Results valid for patients 18 years and older. GFR/1.73 sq M.predicted among blacks MDRD (S/P/Bld) [Vol rate/Area] mL/min/{1.73_m2} Normal [facility] Glucose [Mass/Vol] 102 mg/dL High 74-99 [facility] Potassium [Moles/Vol] 3.5 mmol/L Normal 3.5-5.0 [facility] Sodium [Moles/Vol] 143 mmol/L Normal 132-146 [facility] Urea nitrogen [Mass/Vol] 11 mg/dL Normal 6-23 [facility] CBC With Platelet No Differe ntialon 01-18-2022 Hematocrit (Bld) [Volume fraction] 41.0 % Normal 34.0-48.0 [facility] Hemoglobin (Bld) [Mass/Vol] 13.0 g/dL Normal 11.5-15.5 [facility] MCH (RBC) [Entitic mass] 30.1 pg Normal 26.0-35.0 [facility] MCHC 31.7 % Low 32.0-34.5 [facility] MCV (RBC) [Entitic vol] 94.9 fL Normal 80.0-99.9 [facility] Platelet Count 187 E9/L Normal 130-450 [facility] Platelet mean volume (Bld) [Entitic vol] 10.9 fL Normal 7.0-12.0 [facility] RBC 4.32 E12/L Normal 3.50-5.50 [facility] RDW 13.2 fL Normal 11.5-15.0 [facility] WBC 8.6 E9/L Normal 4.5-11.5 [facility] MRI LUMBAR SPINE WO CONTRAST on 01-18-2022 MRI LUMBAR SPINE WO CONTRAST EXAMINATION: MRI OF THE LUMBAR SPINE WITHOUT CONTRAST, 01/18/2022 4:38 pm TECHNIQUE: Multiplanar multisequence MRI of the lumbar spine was performed without the administration of intravenous contrast. COMPARISON: None. 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 Comment on above: Order Comment: Reaso n [...] by: Sam Goetz 01/18/[address] [facility] Comment on above: Order Comment: Reaso n for exam:->pain Basic Metabolic Panelon Anion gap [Moles/Vol] 7 mmol/L Normal -16 [facility] Calcium [Mass/Vol] 8.2 mg/dL Low 8.6-10.2 [facility] Chloride [Moles/Vol] 108 mmol/L High 98-107 [facility] CO2 [Moles/Vol] 29 mmol/L Normal 22-29 [facility] Creatinine [Mass/Vol] 1.0 mg/dL Normal 0.5-1.0 [facility] GFR/1.73 sq M.predicted among blacks MDRD (S/P/Bld) [Vol rate/Area] mL/min/{1.73_m2} Normal [facility] GFR/1.73 sq M.predicted among non-blacks MDRD (S/P/Bld) [Vol rate/Area] 53 mL/min/{1.73_m2} Normal >=60 [facility] Comment on above: Result Comment: Director Organizational bc Kidney Disease: less than 60 ml/min/1.73 sq.m. Kidney Failure: less than 15 ml/min/1.73 sq.m. Results valid for patients 18 years and older. Glucose [Mass/Vol] 109 mg/dL High 74-99 [facility] Potassium [Moles/Vol] 3.5 mmol/L Normal 3.5-5.0 [facility] Sodium [Moles/Vol] 144 mmol/L Normal 132-146 [facility] Urea nitrogen [Mass/Vol] 15 mg/dL Normal 6-23 [facility] CBC With Platelet No Dorothy sageon 01-17-2022 Hematocrit (Bld) [Volume fraction] 41.7 % Normal 34.0-48.0 [facility] Hemoglobin (Bld) [Mass/Vol] 13.3 g/dL Normal 11.5-15.5 [facility] MCH (RBC) [Entitic mass] 30.0 pg Normal 26.0-35.0 [facility] MCHC 31.9 % Low 32.0-34.5 [facility] MCV (RBC) [Entitic vol] 94.1 fL Normal 80.0-99.9 [facility] Platelet Count 199 E9/L Normal 130-450 [facility] Platelet mean volume (Bld) [Entitic vol] 10.9 fL Normal 7.0-12.0 [facility] RBC 4.43 E12/L Normal 3.50-5.50 [facility] RDW 13.3 fL Normal 11.5-15.0 [facility] WBC 8.6 E9/L Normal 4.5-11.5 [facility] CBC With Platelet and Differ entialon 01-16-2022 Abs Imm Granulocytes 0.04 E9/L Normal [facility] Absolute Basophils 0.02 E9/L Normal 0.00-0.20 [facility] Absolute Eosinophils 0.11 E9/L Normal 0.05-0.50 [facility] Absolute Lymphocytes 1.68 E9/L Normal 1.50-4.00 [facility] Absolute Monocytes 0.64 E9/L Normal 0.10-0.95 [facility] Absolute Neutrophils 7.79 E9/L High 1.80-7.30 [facility] Basophils/100 WBC (Bld) 0.2 % Normal 0.0-2.0 [facility] Eosinophils/100 WBC (Bld) 1.1 % Normal 0.0-6.0 [facility] Hematocrit (Bld) [Volume fraction] 44.5 % Normal 34.0-48.0 [facility] Hemoglobin (Bld) [Mass/Vol] 14.5 g/dL Normal 11.5-15.5 [facility] Imm Granulocytes 0.4 % Normal 0.0-5.0 [facility] Lymphocytes/100 WBC (Bld) 16.3 % Low 20.0-42.0 [facility] MCH (RBC) [Entitic mass] 30.1 pg Normal 26.0-35.0 [facility] MCHC 32.6 % Normal 32.0-34.5 [facility] MCV (RBC) [Entitic vol] 92.3 fL Normal 80.0-99.9 [facility] Monocytes/100 WBC (Bld) 6.2 % Normal 2.0-12.0 [facility] Neutrophils/100 WBC (Bld) 75.8 % Normal 43.0-80.0 [facility] Platelet Count 214 E9/L Normal 130-450 [facility] Platelet mean volume (Bld) [Entitic vol] 10.9 fL Normal 7.0-12.0 [facility] RBC 4.82 E12/L Normal 3.50-5.50 [facility] RDW 13.1 fL Normal 11.5-15.0 [facility] WBC 10.3 E9/L Normal 4.5-11.5 [facility] COVID-19on 01-16-2022 SARS-CoV-2 (COVID-19) RNA MARIO+probe Ql (Unsp spec) Not detected Normal Not Detected [facility] Comment on above: Result Comment: Narendra rios [...] authorized laboratories. Fact sheet for Healthcare Providers: https://www.fda.gov/media/321143/download Fact sheet for Patients: https://www.fda.gov/media/493647/download METHODOLOGY: Isothermal Nucleic Acid Amplification CT ABDOMEN [...] by: Sam Goetz 01/16/[address] [facility] Comment on above: Order Comment: Addit ional Contrast?->NoneReason for exam:->abdominal pain, diarrhea, amsDecision Support Exception - unselect if not a suspected or confirmed emergency medical condition->Emergency Medical Condition ([place]) Clostridium difficile Toxin Antigenon 01-16-2022 Clostridium difficile Toxin Antigen Clostridium difficile Toxin Antigen-: C. Difficile Toxin A and/or B NOT detected Normal Range: Not detected Normal [facility] Comprehensive Metabolic Pane violeta 01-16-2022 Albumin [Mass/Vol] 3.5 g/dL Normal 3.5-5.2 [facility] ALP [Catalytic activity/Vol] 48 U/L Normal 35-104 [facility] ALT [Catalytic activity/Vol] 8 U/L Normal 0-32 [facility] Anion gap [Moles/Vol] 10 mmol/L Normal 7-16 [facility] AST [Catalytic activity/Vol] 10 U/L Normal 0-31 [facility] Bilirubin [Mass/Vol] 1.3 mg/dL High 0.0-1.2 [facility] Calcium [Mass/Vol] 8.9 mg/dL Normal 8.6-10.2 [facility] Chloride [Moles/Vol] 103 mmol/L Normal 98-107 [facility] CO2 [Moles/Vol] 26 mmol/L Normal 22-29 [facility] Creatinine [Mass/Vol] 1.2 mg/dL High 0.5-1.0 [facility] GFR/1.73 sq M.predicted among blacks MDRD (S/P/Bld) [Vol rate/Area] 52 mL/min/{1.73_m2} Normal [facility] [facility] GFR/1.73 sq M.predicted among non-blacks MDRD (S/P/Bld) [Vol rate/Area] 43 mL/min/{1.73_m2} Normal >=60 [facility] Comment on above: Result Comment: Director Organizational bc Kidney Disease: less than 60 ml/min/1.73 sq.m. Kidney Failure: less than 15 ml/min/1.73 sq.m. Results valid for patients 18 years and older. Glucose [Mass/Vol] 147 mg/dL High 74-99 [facility] Potassium [Moles/Vol] 3.6 mmol/L Normal 3.5-5.0 [facility] Protein [Mass/Vol] 6.9 g/dL Normal 6.4-8.3 [facility] Sodium [Moles/Vol] 139 mmol/L Normal 132-146 [facility] Urea nitrogen [Mass/Vol] 20 mg/dL Normal 6-23 [facility] Culture, Bloodon 01-16-2022 Microscopic examination of blood, culture Culture, Blood-: 5 Days no growth Normal [facility] Culture, Blood 2on 07-05-202 2 Culture, Blood 2 Culture, Blood 2-: 5 Days no growth Normal [facility] Culture, Urineon 01-16-2022 Culture, Urine Culture, Urine-: [...] F Trimethoprim/Sulfamet hoxazole S <=[address] [facility] High Sensitivity Troponin To n 01-16-2022 High Sensitivity Troponin T 13 ng/L [facility] [address] Comment on above: Result Comment: High Sensitivity Troponin values cannot be compared with other Troponin methodologies. Patients with high levels of Biotin oral intake (i.e. >5 mg/day) may have falsely decreased Troponin levels. Samples collected within 8 hours of biotin intake may require additional information for diagnosis. High Sensitivity Troponin T 13 ng/L [facility] 09 [facility] Comment on above: Result Comment: High Sensitivity Troponin values cannot be compared with other Troponin methodologies. Patients with high levels of Biotin oral intake (i.e. >5 mg/day) may have falsely decreased Troponin levels. Samples collected within 8 hours of biotin intake may require additional information for diagnosis. High Sensitivity Troponin T 14 ng/L High 0-9 [facility] Comment on above: Result Comment: High Sensitivity Troponin values cannot be compared with other Troponin methodologies. Patients with high levels of Biotin oral intake (i.e. >5 mg/day) may have falsely decreased Troponin levels. Samples collected within 8 hours of biotin intake may require additional information for diagnosis. Lactate, Sepsison 01-16-2022 Lactate, Sepsis 1.0 mmol/L Normal 0.5-1.9 [facility] Lactate, Sepsis 2.4 mmol/L High 0.5-1.9 [facility] Magnesiumon 01-16-2022 Magnesium [Mass/Vol] 2.0 mg/dL [facility]2.6 [facility] Urinalysis, with microscopic on 01-16-2022 Epithelial cells LM Ql (Urine sed) MANY Normal [facility] Urine Bacteria MANY Abnormal None Seen [facility] Urine RBC 5-10 Abnormal 0-2 [facility] Urine WBC 10-20 Abnormal 0-5 [facility] Bilirubin Ql (U) Negative Normal Negative [facility] Clarity (U) SLCLOUDY Normal Clear [facility] Color (U) Yellow Normal Straw/Yellow [facility] Glucose Ql (U) Negative Normal Negative [facility] Hemoglobin Ql (U) TRACE Abnormal Negative [facility] Ketones Ql (U) Negative Normal Negative [facility] Leukocyte esterase Test strip Ql (U) TRACE Abnormal Negative [facility] Nitrite Ql (U) Positive Abnormal Negative [facility] pH (U) 5.5 [pH] Normal 5.0-9.0 [facility] Protein Ql (U) Negative Normal Negative [facility] Specific gravity (U) [Rel density] >=1.030 Normal 1.005-1.030 [facility] Urobilinogen Qn (U) 0.2 {Daria'U}/dL Normal < 2.0 [facility] XR CHEST PORTABLEon 01-17-20 22 XR CHEST PORTABLE EXAMINATION: ONE XRAY VIEW [...] Munir Carlos MD 01/16/[address] [facility] Comment on above: Order Comment: Reaso n for exam:->hypoxia Vital Signs Date Time Vital Sign Value Performing Clinician Faci lity 08-15-2022 05:36-0500 Body temperature 98.29 [degF] Snehal Loglygomez DO Work Phone: [employer] 08-15-2022 05:36-0500 Diastolic blood pressure 69 mm[Hg] Snehal Iquaffey DO Work Phone: [employer] [facility] 08-15-2022 05:36-0500 Heart rate 79 /min [employer] DO Work Phone: [employer] 08-15-2022 05:36-0500 Respiratory rate 16 /min Snehal Loglyy DO Work Phone: [employer] [facility] 08-15-2022 05:36-0500 SaO2% (BldA) [Mass fraction] 97 % Snehal Loglyy DO Work Phone: [employer] [facility] 08-15-2022 05:36-0500 Systolic blood pressure 124 mm[Hg] Snehal Loglyy DO Work Phone: [employer] [facility] 08-13-2022 16:51-0500 Body mass index (BMI) [Ratio] 32.15 kg/m2 Snehal Loglyy [employer] Work Phone: [employer] [facility] 08-13-2022 16:51-0500 Body weight 84.96 kg Snehal Loglyy [employer] Work Phone: [employer] [facility] 07-27-2022 11:08-0500 Body height 162.6 cm Criselda Johnson MD Work Phone: [employer] 07-27-2022 11:08-0500 Body mass index (BMI) [Ratio] 37.42 kg/m2 Criselda Johnson MD Work Phone: [facility] 07-27-2022 11:08-0500 Body temperature 96.4 [degF] Criselda Johnson MD Work Phone: [facility] 07-27-2022 11:08-0500 Body weight 98.88 kg Criselda Johnson MD Work Phone: [facility] Encounters Encounter Date Encounter Type Care Provider Facility Start: 03-16-2025 ambulatory Toy Mariangelscott HUMPHREY Faci lity:[facility] Start: 03-01-2025 ambulatory Toy Mariangelscott HUMPHREY Faci lity:[facility] Start: 02-24-2025 ambulatory Toy Mariangelscott HUMPHREY Faci lity:[facility] Start: 01-21-2025 ambulatory Chilo joe MILAGRO Facility:[facility] Start: 10-02-2024 End: 10-02-2024 ambulatory Tyo HUMPHREY [facility] Work Phone: Start: 10-02-2024 End: 10-02-2024 Departed Referred [facility] [facility] Start: 10-02-2024 End: 10-02-2024 ambulatory Toy Lorilance HUMPHREY Facility:[facility] Start: 10-22-2022 [facility] Start: 09-13-2022 End: 09-13-2022 ambulatory [facility] Work Phone: Start: 09-13-2022 End: 09-13-2022 [facility] Start: 08-16-2022 Telephone encounter Delicia Durand LPN [facility] Comment on above: Other ([place] [facility] Start: 08-13-2022 End: 08-14-2022 Emergency department patient visit SNEHAL BIANCHI [facility] Start: 08-13-2022 End: 08-15-2022 ambulatory GOMEZ NOGUEIRA [facility] Start: 08-13-2022 End: 08-13-2022 Subsequent hospital visit by physician [facility] Xr Portable [facility] Comment on above: Arrived Start: 08-12-2022 End: 02-01-2023 Emergency department patient visit Snehal Bianchi DO Work Phone: [facility] Comment on above: Intractable abdomina l pain (Primary Dx); Diarrhea, unspecified type; Pressure injury of skin of buttock, unspecified injury stage, unspecified laterality; Decubitus ulcer of sacral region, stage 1 Start: 07-27-2022 End: 07-28-2022 ambulatory CRISELDA JOHNSON [facility] Start: 07-27-2022 End: 07-27-2022 Office outpatient new 30 minutes Criselda Johnson MD Work Phone: [facility] Medical [facility] Maria Luisa Comment on above: Closed nondisplaced fracture of neck of right scapula, initial encounter (Primary Dx); Acute shoulder pain due to trauma, right Start: 07-27-2022 End: 07-27-2022 Subsequent hospital visit by physician Criselda Johnson MD Work Phone: [facility] Maria Luisa [facility] Comment on above: Acute shoulder pain due to trauma, right Start: 06-15-2022 End: 06-15-2022 ambulatory [facility] Work Phone: Start: 06-15-2022 End: 06-15-2022 Departed Referred [facility] Start: 05-04-2022 End: 05-04-2022 ambulatory [facility] Work Phone: Start: 05-04-2022 End: 05-04-2022 Departed Referred [facility] [employer] Start: 05-04-2022 Registered Referred [facility] Start: 04-27-2022 End: 04-27-2022 ambulatory [facility] Work Phone: Start: 04-27-2022 End: 04-27-2022 Departed Referred [facility] Start: 01-31-2022 End: 01-31-2022 Departed Referred [facility] [employer] Start: 01-16-2022 End: 01-26-2022 Evaluation and management of inpatient NAYLA THORPEU [facility] Procedures Date Procedure Procedure Detail Performing Clinician Start: 10-02-2024 Clostridium difficil e detection Toy Augustscott HUMPHREY Start: 08-15-2022 Basic metabolic pane l [...] Phone: Start: 01-26-2022 DISCHARGE PATIENT ROBERTH BROWN OFUNGWU Start: 01-26-2022 COVID-19, RAPID EMMANUE L OFUNGWU Start: 01-25-2022 Basic metabolic pane l calcium total NAYLA OFUNGWU Start: 01-24-2022 Basic metabolic pane l calcium total NAYLA OFUNGWU Start: 01-23-2022 Urnls dip stick/tabl et rgnt auto w/o microscopy NAYLA OFUNGWU Start: 01-23-2022 ADULT ORAL NUTRITION SUPPLEMENT NAYLA OFUNGWU Start: 01-22-2022 Basic metabolic pane l calcium total NAYLA OFUNGWU Start: 01-21-2022 Basic metabolic pane l calcium total NAYLA OFUNGWU Start: 01-20-2022 Basic metabolic pane l calcium total NAYLA OFUNGWU Start: 01-19-2022 IP CONSULT TO ORTHOP EDIC SURGERY NAYLA GOMEZ Start: 01-19-2022 Mri spinal canal tho racic w/o & w/contr matrl NAYLA GOMEZ Start: 01-19-2022 Basic metabolic pane l calcium total NAYLA VALLADARESJORDYNCARMEN Start: 01-18-2022 Mri spinal canal lum bar w/o contrast material NAYLA GOMEZ Start: 01-18-2022 Radex hip unilateral with pelvis 2-3 views NAYLA GOMEZ Start: 01-18-2022 IP CONSULT TO ORTHOP EDIC SURGERY NAYLA GOMEZ Start: 01-18-2022 Basic metabolic pane l calcium total NAYLA GOMEZ Start: 01-17-2022 Echo tthrc r-t 2d w/wom-mode compl spec&colr d NAYLA GOMEZ Start: 01-17-2022 IP CONSULT TO PHARMACY NAYLA GOMEZ Start: 01-17-2022 OT EVAL AND TREAT ROBERTH CHRISTOPHERJORDYNCARMEN Start: 01-17-2022 PT EVAL AND TREAT ROBERTH CHRISTOPHERJORDYNCARMEN Start: 01-17-2022 Ecg routine ecg w/le ast 12 lds w/i&r NAYLA GOMEZ Start: 01-17-2022 Basic metabolic pane l calcium total NAYLA GOMEZ Start: 01-16-2022 Assay of troponin quantitative NAYLA GOMEZ Start: 01-16-2022 Assay of lactate BUBBA GOMEZ Start: 01-16-2022 IP CONSULT TO PHARMACY NAYLA GOMEZ Start: 01-16-2022 ADULT DIET NAYLA APARICIO Start: 01-16-2022 REASON FOR NO CHEMIC AL VTE PROPHYLAXIS NAYLA GOMEZ Start: 01-16-2022 ADMIT TO INPATIENT JACKSON GOMEZ Start: 01-16-2022 BEDREST WITH BATHROO M PRIVILEGES NAYLA GOMEZ Start: 01-16-2022 DNR COMFORT CARE - ARREST NAYLA GOMEZ Start: 01-16-2022 NOTIFY PHYSICIAN (SPECIFY) NAYLA GOMEZ Start: 01-16-2022 VITAL SIGNS NAYLA APARICIO Start: 01-16-2022 ADMIT TO INPATIENT JACKSON GOMEZ Start: 01-16-2022 Ct abdomen & pelvis w/contrast material NAYLA THORPE Start: 01-16-2022 COVID-19, RAPID TIFFANIE Montanez JORDYN Start: 01-16-2022 Radiologic exam ches t single view NAYLA MARKS Start: 01-16-2022 Blood count complete auto&auto difrntl wbc NAYLA MARKS Start: 01-16-2022 Iaad ia clostridium difficile toxin NAYLA MARKS Start: 01-16-2022 CULTURE, BLOOD 1 BUBBA MARKS Start: 01-16-2022 Ecg routine ecg w/le ast 12 lds w/i&r NAYLA MARKS Plan of Treatment Date Care Activity Detail Author Start: 03-15-2022 Influenza vaccination Influenza Vacc ine (#1) [facility] Start: 1990 Zoster Vaccines (1 of 2) Zoster Vacc miller (1 of 2) [facility] Start: 1959 DTaP/Tdap/Td Vaccine s (1 - Tdap) DTaP/Tdap/Td Vaccines (1 - Tdap) [facility] Start: 1946 Pneumococcal Vaccine : 65+ Years (1 - PCV) Pneumococcal Vaccine: 65+ Years (1 - PCV) [facility] Start: 1940 COVID-19 Vaccine (#1) COVID-19 Vacci ne (#1) [facility] Start: 1940 Hepatitis B Vaccines (1 of 3 - 3-dose series) Hepatitis B Vaccines (1 of 3 - 3-dose series) [facility] Start: 1940 Lipid panel Lipid Panel [facility] Start: 1940 Screening for osteoporosis Bone Dens ity Scan [facility] Start: 1940 Thyroid stimulating hormone measurement TSH Level [facility] Payers Date Payer Category Payer Medicare [id number] 2024 Self-pay 2022 Medicare [employer] [id number] 2022-Present [address] [place] [address] Medicare HMO [id number] 2022 Medicaid [id number] 2022 Medicaid [place] [facility] [place] [id number] 2022-Present [address] [place] [address] Medicaid [id number] 2019 Unknown [id number] 1940 Unknown [id number] Unknown [id number] Unknown [id number] Unknown [id number] Unknown [id number] Unknown [id number] Social History Date Type Detail Facility Tobacco smoking stat [facility] Unknown if ever smoked [facility] Work Phone: Start: 1940 Sex Assigned At Female [facility] Tobacco smoking stat [facility] Ex-smoker [facility] History of tobacco use Current smoker [facility] History of tobacco use Cigarette Smoker [facility] Start: 07-27-2022 End: 08-14-2022 Alcohol intake Current non-drinker of alcohol (finding) [facility] Start: 07-27-2022 End: 08-14-2022 Alcohol intake [facility] Start: 1940 Sex Assigned At Not on file [facility] Start: 07-17-2022 End: 07-27-2022 Exposure to SARS-CoV-2 (event) Not sure [facility] Start: 08-02-2022 End: 08-13-2022 Exposure to SARS-CoV-2 (event) Unable to assess [facility] Tobacco smoking stat [facility] Unknown if ever smoked [facility] Work Phone: Start: 10-19-2024 Sex Female (finding) [facility] Clinical Notes 07-27-2022 to 08-16-2022 Telephone Encounter - Victoria Rendon - 08/16/2022 9:02 AM ESTTelephone Encounter - Victoria Rendon - 08/16/2022 9:02 AM ESTSenyo Agidi, DO - 08/15/2022 10:57 AM ESTDischarge Instr - DEVONTE Note Date & Type Note Facility 08-16-2022 Telephone encounter Note [facility] patient. Staff to call patient after discharge to arrange a hospital follow up. [facility] 08-16-2022 Miscellaneous Notes [facility] patient. Staff to call patient after discharge to arrange a hospital follow up. documented in this encounter [facility] 08-15-2022 Note [facility] Progress Note Symone Mcdonald AGE: 82 y.o. GENDER: [...] with subsequent reversal. Wound care consulted for perineum wound. Dressing applied per wound care service. [...] evening. [DISCONTINUED] cholecalciferol (Vitamin D-3) 1.25 MG (09239 UT) capsule Take 50,000 Units by mouth. [...] daily and P (more content not included)... [facility] 08-15-2022 Note [facility] Medical Group Discharge Summary and Transition Note Symone Mcdonald : 1940 ADMIT DATE: 08/12/2022 DISCHARGE DATE: 08/15/2022 PRIMARY CARE PHYSICIAN: [facility] VISIT STATUS: Admission CODE STATUS: DNR-CCA DISCHARGE DIAGNOSES: Principal Problem: Intractable abdominal pain Active Problems: COOPER (acute kidney injury) (CMS/HCC) ([facility]) HOSPITAL COURSE: Symone Mcdonald is a 82 y.o. 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 Patient presented from [facility] ([facility]) wit h2 days of nausea and [...] of advanced dementia. -pt fails to meet inpt/[facility] hospice criteria. Plan is to transition pt [...] to Get Your (more content not included)... [facility] 08-15-2022 Note [facility] Progress Note [phone]: Please page me for patient care issues. [phone]: Please page [facility] night hospitalist for any issues. Symone Mcdonald : 1940(82 y.o.) PCP: [facility] Assessment and Plan: Principal Problem: Intractable abdominal pain Active Problems: COOPER (acute kidney injury) (CMS/HCC) ([facility]) # COOPER/CKD III, s/p IVF # Functional [...] appreciated DVT Prophylaxis: Subq Lovenox Ban Mcduffie/POA: [phone] Disposition: DC to ECF upon availability of [...] ileostomy with subsequent reversal. Patient presented from [facility] ([facility]) wit h2 days of nausea and [...] [Urine:400 (0.1 mL/kg/hr)] (more content not included)... [facility] 08-15-2022 Hospital course Narrative Images from the original note were not included. [facility] Medical Group Discharge Summary and Transition Note Symone Mcdonald : 1940 ADMIT DATE: 08/12/2022 DISCHARGE DATE: 08/15/2022 PRIMARY CARE PHYSICIAN: [facility] Temple VISIT STATUS: Admission CODE STATUS: DNR-CCA DISCHARGE DIAGNOSES: Principal Problem: Intractable abdominal pain Active Problems: COOPER (acute kidney injury) (CMS/HCC) ([facility]) HOSPITAL COURSE: Symone Mcdonald is a 82 y.o. 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 Patient [facility] wit h2 days of nausea [...] Complexity: follow up within 7-14 calendar days (54650) [x] Severe Complexity: follow up within 7 calendar days (96056) FOLLOW UP TESTING, PENDING RESULTS OR REFERRALS AT TRANSITIONAL CARE VISIT: [] Yes Hospice refferal [] No DISPOSITION: [facility] FACILITY/HOME CARE AGENCY NAME: Follow up with [...] > 30 minutes documented in this encounter [facility] 08-15-2022 History of Presen t illness Narrative Images from the original note were not included. [facility] Progress Note [phone]: Please page me for patient care issues. [phone]: Please page [facility] night hospitalist for any issues. Symone Harry : 1940(82 y.o.) PCP: [facility] Assessment and Plan: Principal Problem: Intractable abdominal pain Active Problems: COOPER (acute kidney injury) (CMS/HCC) ([facility]) # COOPER/CKD III, s/p IVF # Functional [...] appreciated DVT Prophylaxis: Subq Lovenox Ban Mcduffie/SUKH: [phone] Disposition: DC to [facility] upon availability of bed I personally examined [...] ileostomy with subsequent reversal. Patient presented from [facility] ([facility]) wit h2 days of nausea and [...] hours have been reviewed. Spiritual Care Note [facility] Palliative Care Patient Name:Symone Mcdonald Chief Complaint: Chief Complaint Patient presents with Abdominal Pain Nausea Pt is from [facility]. Pt was hypoxic at low 90's. C/o abd pain and nausea. Bgt 119. Hx of dementia A&O x1 at baseline. DNRCC Reason for visit: Initial Visit Services Provided To:patient Background and visit note: Checked on this patient who is in the [facility] and is listed as palliative. Unknown as to mormon needs of patient. No family in room at time of visit. Also tried to find out via team members. Will attempt to call patient's family member to try to find mormon information. Is there spiritual distress? YES Trying to contact family members. Care Plan: Visited room. Patient is not responsive at this time. Follow Up: when patient is able. Additional: N/A Debriefed: N/A. Geneva Barker 08/15/22 Physical Therapy Facility/Department: 3E Physical Therapy Initial [...] time Memory: Decreased short term memory, Decreased half-way memory, Decreased recall of biographical Information, Decreased [...] Plan of Care supervision is transferred to [facility] Department Physical Therapist. Jimmie Parrish PT Images from the original note were not included. [facility] Progress Note [phone]: Please page me for patient care issues. [phone]: Please page [facility] hospitalist for any issues. Symone Mcdonald : [...] appreciated DVT Prophylaxis: Subq Lovenox Ban Mcduffie/STEPHENA: [phone] Disposition: DC to ECF upon availability of [...] with subsequent reversal. [facility] wit h2 days of nausea [...] the Dietitian. Wound. documented in this encounter [facility] 08-15-2022 Note Formatting of this n ote might be different from the original. Palliative Care Interdisciplinary Team Note: Diagnosis: @[id number]@ Chief Complaint: Symone Mcdonald is a 82 y.o. female with chief complaint of: abdominal pain, Alzheimer's dementia Reason Palliative Following: Goals of Care Plan: Ongoing Goals of Care Discussion Code Status: DNR-CCA Medications: Oxycodone Nursing: Decrease Fall Risk, Halfway Care, and Skin Integrity Social Work: Palliative SW Following, Emotional Support, and Help with Discharge Planning Spiritual Care: No Unmet Needs Pharmacy: No Unmet Needs Psychology/Psychiatry: No Unmet Needs [employer] 08-15-2022 Note Formatting of this n ote might be different from the original. Palliative Care Interdisciplinary Team Note: Diagnosis: @[id number]@ Chief Complaint: Symone Mcdonald is a 82 y.o. female with chief complaint of: abdominal pain, Alzheimer's dementia Reason Palliative Following: Goals of Care Plan: Ongoing Goals of Care Discussion Code Status: DNR-CCA Medications: Oxycodone Nursing: Decrease Fall Risk, Halfway Care, and Skin Integrity Social Work: Palliative SW Following, Emotional Support, and Help with Discharge Planning Spiritual Care: No Unmet Needs Pharmacy: No Unmet Needs Psychology/Psychiatry: No Unmet Needs [employer] 08-15-2022 Miscellaneous Notes Palliative Care Interdisciplinary Team Note: Diagnosis: @[id number]@ Chief Complaint: Symoen Mcdonald is a 82 y.o. female with chief complaint of: abdominal pain, Alzheimer's dementia Reason Palliative Following: Goals of Care Plan: Ongoing Goals of Care Discussion Code Status: DNR-CCA Medications: Oxycodone Nursing: Decrease Fall Risk, Halfway Care, and Skin Integrity Social Work: Palliative SW Following, Emotional Support, and Help with Discharge Planning Spiritual Care: No Unmet Needs Pharmacy: No Unmet Needs Psychology/Psychiatry: No Unmet Needs [facility] is able to accept back today. Call placed to daughter, Ban, to review. Ban is agreeable to returning to [facility] today. Ambulance scheduled for a 2pm discharge with Aureliano Angulo. Daughter agreeable to a referral being sent to a palliative care company. [facility] and [facility] both have contracts there. Daughter requested a referral be sent to [facility]. Referral faxed to Loraine Schmitt as requested. Support provided to Ban who shared frustration with the medicaid and nursing spend down process. She also shared grief her family has survived (she provided end of life care for her father, her brother is , she has a son who is ). AVS sent to [facility] via [employer]. Number for report: [phone] The patient is Moderately Unstable - Medium [...] Nogueira and Dr. Waterman. Referral back to [facility] placed in [facility]. Awaiting response. Plan to discharge back to [facility] with palliative care. Working to find [...] Outcome: Progressing . documented in this encounter [facility] 08-15-2022 Note Formatting of this n ote might be different from the original. [facility] is able to accept back today. Call placed to daughter, Ban, to review. Ban is agreeable to returning to [facility] today. Ambulance scheduled for a 2pm discharge with Aureliano Angulo. Daughter agreeable to a referral being sent to a palliative care company. [facility] and [facility] both have contracts there. Daughter requested a referral be sent to [facility]. Referral faxed to Loraine Schmitt as requested. Support provided to Ban who shared frustration with the medicaid and nursing spend down process. She also shared grief her family has survived (she provided end of life care for her father, her brother is , she has a son who is ). AVS sent to [facility] via [facility]. Number for report: [phone] [facility] [employer] 08-15-2022 Note Formatting of this n ote might be different from the original. [facility] is able to accept back today. Call placed to daughter, Ban, to review. Ban is agreeable to returning to [facility] today. Ambulance scheduled for a 2pm discharge with Aureliano Adele. Daughter agreeable to a referral being sent to a palliative care company. [facility] and [facility] both have contracts there. Daughter requested a referral be sent to [facility]. Referral faxed to Loraine Schmitt as requested. Support provided to Ban who shared frustration with the medicaid and nursing spend down process. She also shared grief her family has survived (she provided end of life care for her father, her brother is , she has a son who is ). AVS sent to [facility] via [employer]. Number for report: [phone] [facility] 08-15-2022 Plan of care note The patient [...] is maintained or improved Outcome: Progressing . [facility] 08-14-[address] Andrea savage and Dr. Waterman. Referral back to [facility] placed in [facility]. Awaiting response. Plan to discharge back to [facility] with palliative care. Working to find a palliative care team who can follow at her facility. [facility] 08-14-2022 Note Formatting of this n ote might be different from the original. Reviewed with Dr. Nogueira and Dr. Waterman. Referral back to [facility] placed in [facility]. Awaiting response. Plan to discharge back to [facility] with palliative care. Working to find a palliative care team who can follow at her facility. [facility] 08-14-2022 Note Formatting of this n ote might be different from the original. Reviewed with Dr. Nogueira and Dr. Waterman. Referral back to [facility] placed in [facility]. Awaiting response. Plan to discharge back to [facility] with palliative care. Working to find a palliative care team who can follow at her facility. [facility] 08-14-2022 Note [facility] Progress Note [phone]: Please page me for patient care issues. [phone]: Please page [facility] night hospitalist for any issues. Symone Mcdonald [...] appreciated DVT Prophylaxis: Subq Lovenox Ban Mcduffie/SUKH: [phone] Disposition: DC to ECF upon availability of [...] ileostomy with subsequent reversal. Patient presented [facility] wit h2 days of nausea [...] BLOOD PRESSURE RANGE: (more content not included)... [facility] 08-14-2022 Hospital Discharg e instructions IRINA Marcos - 08/14/2022 12:37 PM EST Continuity of Care Form Patient Name: Symone Mcdonald : 1940 Admit date: 08/12/2022 Discharge date: 08/15/2022 Code Status Order: DNR-CCA Advance Directives: N Admitting Physician: Gomez Nogueira DO PCP: [facility] Discharging Nurse: Wyatt MEHTA Discharging Hospital Unit/Room#: E3-301/E3-301 A Discharging Unit Phone Number: [phone] Emergency [...] assistance Toileting Total assistance Feeding Total assistance Financial Cost Analyst Total assistance Med Delivery yes Wound Care [...] Details Model IP RISK OF UNPLANNED READMISSION [[id number]] is not released. No score information can be retrieved Discharging to Facility/ Agency Name: [facility] Washburn Address: [address] [place] [address] Fax: Dialysis Facility (if applicable) Name: Address: Dialysis Schedule: Phone: Fax: Worm Farmer/Industrial Retrofit Designer signature: ICIAN SECTION Prognosis: poor Condition at [...] H&P PHYSICIAN SIGNATURE: documented in this encounter [facility] 08-14-2022 Consult note Associated Order (s): IP WOUND CARE NURSE CONSULT TO EVAL Images from the original note were not included. [facility] Wound Care CONSULT Note Symone Mcdonald AGE: [...] with subsequent reversal. Wound care consulted for perineum wound. Patients family at bedside. PAST MEDICAL [...] daily. [DISCONTINUED] cholecalciferol (Vitamin D-3) 1.25 MG (33869 UT) capsule Take 50,000 Units by mouth. [...] Cleanse with NS. Apply ET mix. Leave TRANSPLANT NURSE. Apply TID and PRN. - P500 mattress with wedges for offloading - Q2 hour turns - Nutritional support - Wound care to follow Recommend to follow up at [facility] wound care center after hospital discharge. Any questions or concerns please secure chat [facility] wound/ostomy. Thank you for the consult! I personally [...] my own independent evaluation of this patient. [facility] [employer] Work Phone: 08-14-2022 Consult note Associated Order (s): IP WOUND CARE NURSE CONSULT TO EVAL Images from the original note were not included. [facility] Wound Care CONSULT Note Symone Mcdonald AGE: 82 y.o. GENDER: female : 1940 Subjective: HISTORY of PRESENT ILLNESS MATIAS Mcdonald is a 82 y.o. female who presents for a wound consult. History of Wound Context: 82 y.o. 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 Wound care consulted for perineum wound. Patients family at bedside. PAST MEDICAL [...] daily. [DISCONTINUED] cholecalciferol (Vitamin D-3) 1.25 MG (41644 UT) capsule Take 50,000 Units by mouth. [...] Cleanse with NS. Apply ET mix. Leave TRANSPLANT NURSE. Apply TID and PRN. - P500 mattress with wedges for offloading - Q2 hour turns - Nutritional support - Wound care to follow Recommend to follow up at [facility] wound care center after hospital discharge. Any questions or concerns please secure chat [facility] wound/ostomy. Thank you for the consult! I personally [...] maker is the patient's daughter, Ban Mcduffie ([phone]) - Current code status: DNR-CCA, not okay [...] mother to return to her current facility, [facility], upon discharge as the facility is [...] facility), and Alzheimer's dementia who presented to [facility] ED from facility due to concerns [...] be obtained due to patient's mental status Fairdealing Symptom Assessment Score Fairdealing Score Pain Score 0 Tiredness Score 5 [...] to previous facility upon discharge We discussed olvtwdz-xp-zezt concerns identified by the patient/surrogate, including - NA Interventions reviewed: Resuscitation procedures (CPR) and Mechanical ventilator support Advance Care Planning Documents: Healthcare Power of Scow Derrick Operator: Completed Financial Power of Scow Derrick Operator: Other not assessed Living Will: Completed Code [...] with Abdominal Pain Nausea [facility]. Pt was hypoxic at low 90's. C/o abd pain and nausea. Bgt 119. Hx of dementia A&O x1 at baseline. DNRCC Reason for Consult: Abnormal CT, Abdominal Pain [...] , Rfl: cholecalciferol (Vitamin D-3) 1.25 MG (18540 UT) capsule, Take 50,000 Units by mouth., [...] use: No Social History Narrative Lived in [facility] [place] Smoked for years, quit in late [...] irritation to the gluteal skin. A nursing him coder was present as well as the patient's [...] This note may have been dictated using [employer] Practice Edition 2.6 and/or [employer] Voice Recognition Feature. The document was proofread; however, unrecognized voice recognition pharmacy technician per diem errors may be present. Mark Kinsey MD 08/13/2022 9:10 AM Associated attestation - Diego Major MD - 08/13/2022 1:35 PM EST ATTENDING ADDENDUM Active Diagnoses/Problems this Admission: Patient Active Problem List Diagnosis Hypoxia Declining functional status Bronchitis Muscle weakness Late onset Alzheimer's disease without behavioral disturbance (HCC) Diarrhea Nicotine abuse COPOER (acute kidney injury) (CMS/HCC) (HCC) Anxiety Trimalleolar [...] day (including chart review, care coordination, and ugvw-gk-bufl encounter) was spent discussing/counseling the patient/family regarding the care plan for Symone Mcdonald. I examined the patient independently and reviewed relevant data myself and may have done so in the context of team rounds. A full chart review was performed. Diego Major MD Trauma, Surgical Critical Care, & General Surgery Division of Trauma Department of Surgery [facility] documented in this encounter [facility] 08-14-2022 Consult note Associated Order (s): IP [...] maker is the patient's daughter, Ban Mcduffie ([phone]) - Current code status: DNR-CCA, not okay [...] mother to return to her current facility, [facility], upon discharge as the facility is [...] facility), and Alzheimer's dementia who presented to [facility] from facility due to concerns [...] be obtained due to patient's mental status Fairdealing Symptom Assessment Score Fairdealing Score Pain Score 0 Tiredness Score 5 [...] to previous facility upon discharge We discussed sxcuflq-ds-jczn concerns identified by the patient/surrogate, including - NA Interventions reviewed: Resuscitation procedures (CPR) and Mechanical ventilator support Advance Care Planning Documents: Healthcare Power of Scow Derrick Operator: Completed Financial Power of Scow Derrick Operator: Other not assessed Living Will: Completed Code [...] hospice appropriate? no Transition Note Initiated: yes. [employer] Work Phone: 08-14-2022 Plan of care note [...] is maintained or improved Outcome: Progressing . [facility] 08-13-2022 Nurse Note [address] Nogueira advised that patient has no IV , asked if still needed LR and stated that it was no loner needed. [employer] 08-13-2022 Nurse Note [address] Nogueira advised that patient has no IV , asked if still needed LR and stated that it was no loner needed. documented in this encounter [facility] 08-13-2022 Emergency department Note Report given to Carmen Blanco RN 08/13/22 175 [facility] 08-13-2022 Emergency department Note Report given to [...] labored. Daughter at bedside. Irasema Renteria RN 08/13/22211 Report to TYSON Campos. Amaya Conley RN 08/13/22 010 Emergency Department Encounter Location: [facility] EMERGENCY DEPT Patient: Symone Mcdonald : [...] 442 ms QTC Interval 485 ms P Otho 48 degrees QRS Otho 55 degrees T Wave Otho -51 degrees WV Interval [address] abdomen pelvis w [...] as above. Recommend direct visualization when feasible. At time of sign out, pending general [...] are mis-transcribed.) Regina Dover PA-C [employer] Regina Dover PA-C 08/13/22 0928 Bed: 17 Expected date: Expected time: Means of arrival: Comments: EMS Nicole Seaman RN 08/12/22 0133 documented in this encounter [facility] 08-13-2022 Emergency department Note Pt transported to inpatient floor via medic. No distress noted at this time Lyudmila Blanco RN 08/13/22 1633 [facility] 08-13-2022 Emergency department Note Pt incontinent of stool. Complete bed change competed. Pt cleaned up and new pads placed under pt. Pts buttocks is excoriated and painful to touch. Call light within reach Lyudmila Blanco RN 08/13/22 1446 [facility] 08-13-2022 Emergency department Note Walked into pts room and IV was on the floor, pt states she didn't realize it was no longer in her arm. IV was still intact and discarded, Guaze applied to pts arm where IV site was. Pt in no distress at this time. Lyudmila Blanco RN 08/13/22 1400 [facility] 01-30-2023 Emergency department Note Ordered patient a hospital bed. Alona Tam RN 08/13/22 1351 [facility] [employer] 08-13-2022 Emergency department Note Pt resting in bed, no distress noted. Call light within reach Lyudmila Blanco RN 08/13/22 1240 [facility] 08-13-2022 Note [facility] History and Physical Note Symone [...] appreciated DVT Prophylaxis: Subq Lovenox Ban Mcduffie/POA: [phone] BMI Classification: BMI 37.4 There is no height or weight on file to calculate BMI. obesity BMI 30-39.9 Disposition: await sales and service consultant recommendations and await placement patient and [...] not explicitly included on EMR time stamp. [phone]: Please page me for patient care issues. [phone]: Please page [facility] night hospitalist for any issues. Subjective: Chief Complaint Patient presents with Abdominal Pain Nausea Pt is from [facility]. Pt was hypoxic at low 90's. C/o abd pain and nausea. Bgt 119. Hx of dementia A&O x1 at baseline. DNC Patient is a poor historian due to [...] ileostomy with subsequent reversal. Patient presented from [facility] ([facility]) wit h2 days of nausea and [...] w contrast Narrative: [id number] Exam Date/Time: 08/13/2022 05:19 Procedure: CT ABDOMEN [...] Spleen: Normal. Adrenals: (more content not included)... [facility] 08-13-2022 Emergency department Note Tray ordered Delicia Jacobs RN 08/13/22 1055 [facility] 08-13-2022 Note Pt straight cath'd f or urine. Urine return noted. Urine sample collected and sent to lab. Pt tolerated procedure well. Irasema Renteria RN 08/13/22 0712 [facility] 08-13-2022 Consult note Formatting of th is note is different from the original. Images from the original note were not included. Department of Surgery Surgical Service: ACS Consult Note PATIENT NAME: Symone Mcdonald : 1940 ATTENDING PHYSICIAN: Snehal Bianchi, * ADMIT DATE: 08/12/2022 TODAY'S DATE: 08/13/2022 CHIEF COMPLAINT: Chief Complaint Patient presents with Abdominal Pain Nausea Pt is from [facility]. Pt was hypoxic at low 90's. C/o abd pain and nausea. Bgt 119. Hx of dementia A&O x1 at baseline. [facility] Reason for Consult: Abnormal CT, Abdominal Pain [...] , Rfl: cholecalciferol (Vitamin D-3) 1.25 MG (73868 UT) capsule, Take 50,000 Units by mouth., [...] use: No Social History Narrative Lived in [facility] [place] Smoked for years, quit in late [...] irritation to the gluteal skin. A nursing him coder was present as well as the patient's [...] This note may have been dictated using [employer] Practice Edition 2.6 and/or [employer] Voice Recognition Feature. The document was proofread; however, unrecognized voice recognition pharmacy technician per diem errors may be present. Mark Kinsey MD [...] day (including chart review, care coordination, and vvzq-ue-yzjd encounter) was spent discussing/counseling the patient/family regarding the care plan for Symone Mcdonald. I examined the patient independently and reviewed relevant data myself and may have done so in the context of team rounds. A full chart review was performed. Diego Major MD Trauma, Surgical Critical Care, & General Surgery Division of Trauma Department of Surgery [facility] Work Phone: 08-13-2022 History and physical note Images from the original note were not included. [facility] History and Physical Note Symone [...] appreciated DVT Prophylaxis: Subq Lovenox Ban Mcduffie/POA: [phone] BMI Classification: BMI 37.4 There is no height or weight on file to calculate BMI. obesity BMI 30-39.9 Disposition: await sales and service consultant recommendations and await placement patient and [...] not explicitly included on EMR time stamp. [phone]: Please page me for patient care issues. [phone]: Please page [facility] night hospitalist for any issues. Subjective: Chief Complaint Patient presents with Abdominal Pain Nausea Pt is from [facility]. Pt was hypoxic at low 90's. [...] ileostomy with subsequent reversal. Patient presented from [facility] ([facility]) wit h2 days of nausea and [...] elevated. Left costophrenic angle is excluded from ztaru-os-agct. No confluent consolidation. No sizable pneumothorax. Atherosclerotic [...] on file Social History Narrative Lived in [facility] [place] Smoked for years, quit in late [...] Historical Provider, cholecalciferol (Vitamin D-3) 1.25 MG (18728 UT) capsule Take 50,000 Units by mouth. [...] tablet by mouth every morning. 01/27/22 Historical ProviderMD memantine (Namenda) 10 MG tablet Take 10 mg by mouth 2 times daily. Historical Provider, nystatin (Mycostatin) cream Apply 1 g topically. Historical ProviderMD sertraline (Zoloft) 100 MG tablet Take 100 mg by mouth Nightly. Historical ProviderMD Skin Protectants, Misc. (Basis Facial Moisturizer) cream [...] elevated. Left costophrenic angle is excluded from gioax-fd-lsia. No confluent consolidation. No sizable pneumothorax. Atherosclerotic changes of the aorta. Impression: No confluent consolidation, as above. Exclusion of left costophrenic angle. Report Dictated on Electronically Signed By: Hortesnia Jacobs Electronically Signed Date/Time: 08/13/2022 1:28 AM EST ECG 12 lead Sinus rhythm Ventricular premature complex Right bundle branch block Nonspecific repol abnormality, lateral leads No echocardiogram results found for the past 12 months [facility] 08-13-2022 History and physical note Images from the original note were not included. [facility] History and Physical Note Symone [...] appreciated DVT Prophylaxis: Subq Lovenox Ban Mcduffie/SUKH: [phone] BMI Classification: BMI 37.4 There is no height or weight on file to calculate BMI. obesity BMI 30-39.9 Disposition: await sales and service consultant recommendations and await placement patient and [...] not explicitly included on EMR time stamp. [phone]: Please page me for patient care issues. [phone]: Please page [facility] night hospitalist for any issues. Subjective: Chief Complaint Patient presents with Abdominal Pain Nausea Pt is from [facility]. Pt was hypoxic at low 90's. [...] ileostomy with subsequent reversal. Patient presented from [facility] ([facility]) wit h2 days of nausea and [...] elevated. Left costophrenic angle is excluded from jzvwy-wr-brzt. No confluent consolidation. No sizable pneumothorax. Atherosclerotic [...] on file Social History Narrative Lived in [facility] [place] Smoked for years, quit in late [...] 81 mg by mouth daily. 08/12/16 Historical ProviderMD buPROPion SR (Wellbutrin SR) 100 MG 12 hr tablet Take 100 mg by mouth daily. Historical Provider, carvedilol (Coreg) 3.125 MG tablet Take 3.125 mg by mouth. Historical Provider, cholecalciferol (Vitamin D-3) 1.25 MG (88728 UT) capsule Take 50,000 Units by mouth. Historical ProviderMD cyanocobalamin (Vitamin B-12) 1000 MCG tablet Take 1,000 mcg by mouth daily. Historical Provider, donepezil (Aricept) 10 MG tablet Take 10 mg by mouth Nightly. Historical Provider, famotidine (Pepcid) 20 MG tablet Take 20 mg by mouth daily. Historical Provider, levothyroxine (Synthroid, Levoxyl) 50 MCG tablet Take 50 mcg by mouth daily. Historical ProviderMD lisinopril 20 MG tablet Take 1 tablet by mouth every morning. 01/27/22 Historical ProviderMD memantine (Namenda) 10 MG tablet Take 10 [...] w contrast Narrative: [id number] Exam Date/Time: 08/13/2022 05:19 Procedure: CT ABDOMEN [...] 1 view Narrative: Patient [facility]D [id number] Exam Date/Time: 08/13/2022 01:28 Procedure: XR CHEST 1 VIEW Ordering Provider: BIANCHI MARY Reason For Exam: INDICATION: 82-year-old. Shortness of breath. VIEWS: Chest portable COMPARISON: 05/03/2015 FINDINGS: The trachea is midline. The cardiac silhouette is within normal limits. The right hemidiaphragm is mildly elevated. Left costophrenic angle is excluded from uvyvw-ll-xjfs. No confluent consolidation. No sizable pneumothorax. Atherosclerotic [...] past 12 months documented in this encounter [facility] 08-13-2022 Emergency department Note Patient being admitted. Patient and family updated Delicia Jacobs RN 08/13/22 0847 [facility] 08-13-2022 Emergency department Note Patient resting with family at bedside. Respirations even and unlabored. Waiting for orders Delicia Jacobs RN 08/13/22 0737 [facility] [employer] 08-13-2022 Emergency department Note Assist surgeon with rectal exam. Patient cleaned up after exam. Patient tolerated. Daughter at bedside. Surgeon updated family that she may need colonoscopy and will consult GI. Delicia Jacobs RN 08/13/22 0733 [facility] [employer] 08-13-2022 Emergency department Note Received report from previous shift Delicia Jacobs RN 08/13/22 0720 [facility] 08-13-2022 Emergency department Note Pt straight cath'd for urine. Urine return noted. Urine sample collected and sent to lab. Pt tolerated procedure well. Irasema Renteria RN 08/13/22 0712 [facility] 08-13-2022 Emergency department Note Pt resting in room. Respirations even and non labored. Daughter at bedside. Irasema Renteria RN 08/13/22 0543 [facility] 08-13-2022 Emergency department Note Pt resting in room. Respirations even and non labored. Daughter at bedside. Irasema Renteria RN 08/13/22 0212 [facility] [employer] 08-13-2022 Emergency department Note Report to TYSON Campos. Amaya Conley RN 08/13/22 0106 [facility] [employer] 08-12-2022 Emergency department Note Bed: 17 Expected date: Expected time: Means of arrival: Comments: EMS Nicole Seaman RN 08/12/22 1928 [facility] 08-12-2022 Physician Emergency department Note Emergency Department Encounter Location: [facility] EMERGENCY DEPT Patient: Symone Mcdonald : [...] 442 ms QTC Interval 485 ms P Otho 48 degrees QRS Otho 55 degrees T Wave Otho -51 degrees [place] Interval [address] abdomen pelvis w [...] as above. Recommend direct visualization when feasible. At time of sign out, pending general [...] are mis-transcribed.) Regina Dover PA-C [employer] Regina Dover PA-C 08/13/22 0928 [facility] 07-27-2022 History of Presen t illness Narrative Images from the original note were not included. [facility] MARIA LUISA [facility] [place] [address] Dept: [phone] Dept Chief Complaint Patient presents with Shoulder [...] Temp 35.8 C (96.4 F) Ht 5' 4 (1.626 m) Wt 218 lb (98.9 kg) [...] prior to signing but minor errors in pharmacy technician per diem may have occurred. documented in this encounter [facility] Evaluation note No assessment inform ation available [facility] Work Phone: Evaluation note Diagnosis Acute shoulder pain due to trauma, right [facility] Diagnosis Closed nondisplaced fracture of neck of right scapula, initial encounter- Primary Acute shoulder pain due to trauma, right Acute shoulder pain due to trauma, right [facility] Intractable abdominal pain- Primary Intractable abdominal pain Diarrhea, unspecified type Pressure injury of skin of buttock, unspecified injury stage, unspecified laterality Decubitus ulcer of sacral region, stage 1 COOPER (acute kidney injury) (CMS/HCC) (HCC) [facility] Consultation (Routine) - Pending Review Specialty Diagnoses / Procedures Referred By Marguerite falcon Referred To Contact Wound Care Diagnoses Decubitus ulcer of sacral region, stage 1 Procedures [place] OFFICE[facility]PATIENT [facility] 60-74 MINUTES Leidy Win APRN [address] [place] [address] [facility] [address] [place] [address] Referral ID Status Reason Start Date Expiration Date Visits Requested Visits Authorized [id number] Pending Review Specialty Services Required 08/15/2022 08/15/2023 1 1 [facility] for referral (narrative)No reason for referral information [facility] Work Phone: Summary Purpose Family History No Family History Records FoundNo Family History Records FoundNo Family History Records Found Advance Directives No Advanced Directives Records FoundDocuments on File Type Date Recorded Patient Building Principal Expl anation Advance Directives and Livin g Will 08/13/2022 12:20 AM Power of Scow Derrick Operator 08/13/2022 12:21 AM Latest Code Status on [...] Documents on File Type Date Recorded Patient Building Principal Expl anation Advance Directives and Livin g Will 08/13/2022 12:20 AM Power of Scow Derrick Operator 08/13/2022 12:21 AM Latest Code Status on File Code Status Date Activated Date Inactivated Comments DNR-CCA 08/13/2022 12:11 PM 08/15/2022 5:01 PM Question Answer Comments ICU transfer: No Healthcare Agents on File Name Relationship Healthcare Agent Relationshi p Communication Ban (POA) Froy Child Health Care Agent Chief Complaint and Reason for Visit Chief Complaint [facility] LAB WOR K [facility] LABWORK LABWORK Chief Complaint [facility] LABWORK LABWORK [facility] LAB WORK Chief Complaint LAB WORK LABWORK Chief Complaint Admit Date LABWORK October 02, 2024 11: 00am Additional Source Comments INFORMATION SOURCE (unrecogn ized section and content) DATE CREATED AUTHOR 01/31/2022 [facility] DATE CREATED AUTHOR AUTHOR'S ORGANIZ ATION 01/19/2023 [facility] DATE CREATED AUTHOR AUTHOR'S ORGANIZ ATION 03/16/2025 [facility] Goals (unrecognized section and content) Goals may [...] Status Dates Toy HUMPHREY Attending Provider Active Farmworker Animal Relationship Specialty Start Date End Date Brandon Downey MD PCP - General 03/09/15 Farmworker Animal Relationship Specialty Start Date End Date Brandon Downey MD PCP - General 03/09/15 Farmworker Animal Relationship Specialty Start Date End Date [employer] [address] [place] [phone] PCP - General Internal Medicine 08/13/22 Farmworker Animal Relationship Specialty Start Date End Date Brandon Downey MD PCP - General 03/09/15 3 [employer] [address] [place] [phone] PCP - General Internal Medicine 08/13/22 Farmworker Animal Relationship Specialty Start Date End Date [employer] [address] [place] [phone] PCP - General Internal Medicine 08/13/22 Team Status: Inactive Member Role Status Dates Toy HUMPHREY Attending Provider Active Sta rt: October 02, 2024 End: October 02, 2024 Reason for Visit (unrecogniz ed section and content) Reason Comments Shoulder Pain Right shoulder and a rm pain Specialty Diagnoses / Procedures Referred By Marguerite falcon Referred To Contact Diagnoses Int[place] [id number] 08/13/22 Active CS Medicare per online AUTH REQ pending ref#[id number] UM TO [facility] TO [phone]. Gomez Nogueira, DO [address] [place] [address] [facility] Emergency Dept [address] [place] [id number] Referral ID Status Reason Start Date Expiration Date Visits Re quested Visits Authorized [id number] 1 1 Reason Comments Abdominal Pain Nausea Pt is from [facility]. Pt was hypoxic at low 90's. C/o abd pain and nausea. Bgt 119. Hx of dementia A&O x1 at baseline. DNRCC Reason Onset Date Comments Other 08/16/2022 [facility] Scheduled Active and Recently Administ ered Medications (unrecognized section and content) Medication Order 08/13/2022 08/14/2022 08/15/2022 aspirin EC tablet 81 mg 81 mg, Oral, Daily, First dose on Sat08/13/22 at 1200, Do not crush, chew, or split. 1353 (Given - Provider: Lyudmila Blanco RN) 0919 (Given - Provider: Jeaneth Esquivel, TYSON) 0923 (Given - Provider: Carlos Dickson, TYSON) buPROPion SR (Wellbutrin SR) 12 hr tablet 100 mg 100 mg, Oral, Daily, First dose on Sat08/13/22 at 1200, Do not crush, chew, or split. 1354 (Given - Provider: Lyudmila Blanco RN) 0919 (Given - Provider: Jeaneth Esquivel, TYSON) 0923 (Given - Provider: Carlos Dickson, TYSON) carvedilol (Coreg) tablet 3.125 mg 3.125 mg, [...] Nogueira DO) 0800 (Not Given - Provider: aCrlos Dickson RN - Reason: Other - Comment: held per provider)1701 (Unheld by provider - Provider: Automatic Discharge Provider) cyanocobalamin (Vitamin B-12) tablet 1,000 mcg 1,000 mcg, Oral, Daily, First dose on Sat08/13/22 at 1200 1354 (Given - Provider: Lyudmila Blanco RN) 0919 (Given - Provider: Jeaneth Esquivel RN) 0922 (Given - Provider: Carlos Dickson, TYSON) donepezil (Aricept) tablet 10 mg 10 mg, Oral, Nightly, First dose on Sat08/13/22 at 2100 2139 (Given - Provider: Libra Perry RN) 2047 (Given - Provider: Libra Perry RN) enoxaparin (Lovenox) syringe 40 mg 40 mg, SubCUTAneous, Daily, First dose on Sat08/14/22 at 0900, Indication of Use: Prophylaxis-DVT/PE, Indications: Prophylaxis of Venous Thromboembolism 0919 (Given - Provider: Jeaneth Esquivel RN) 0922 (Given - Provider: Carlos Dickson, TYSON) famotidine [...] - Comment: Not hung in ER per TASSEL MAKER due to loss of IV access and Dr. Nogueira said not to give) levothyroxine (Synthroid, Levoxyl) tablet 50 mcg 50 mcg, Oral, Daily, First dose on Sat08/13/22 at 1200, Tube feeding (TF) interaction, obtain physician order to manage, recommend holding TF for 30 minutes before and after dose. 1354 (Given - Provider: Lyudmila Blanco RN) 0919 (Given - Provider: Jeaneth Esquivel, RN) 09 (Given - Provider: Carlos Dickson, RN) lisinopril tablet 20 mg 20 mg, Oral, Every morning, First dose on Sat08/13/22 at 1200 1353 (Given - Provider: Lyudmila Blanco RN)1437 (Held by provider - Provider: Gomez Nogueira DO - Reason: Other) 0900 (Dose Auto Held - Provider: Gomez Nogueira DO) 0900 (Not Given - Provider: Carlos Dickson, RN - Reason: Other - Comment: held per provider)1701 (Unheld by provider - Provider: Automatic Discharge Provider) memantine (Namenda) tablet 10 mg 10 mg, Oral, 2 times daily, First dose on Sat08/13/22 at 1200 1354 (Given - Provider: Lyudmila Blanco RN)2140 (Given - Provider: Libra Perry RN) 0919 (Given - Provider: Jeaneth Esquivel, TYSON)2046 (Given - Provider: Libra Perry, TYSON) 09 (Given - Provider: Carlos Dickson, RN) sertraline (Zoloft) tablet 100 mg 100 mg, Oral, Nightly, First dose on Sat08/13/22 at 2100 2139 (Given - Provider: Libra Perry RN) 2046 (Given - Provider: Libra Perry, RN) sodium chloride 0.9 % bolus 1,000 [...] RN) 921 (Given - Provider: Carlos Dickson, RN)1400 (Canceled Entry - Provider: Carlos Dickson, RN) PRN Medication Order 08/13/2022 08/14/2022 08/15/2022 [...] Perry RN)0921 (Given - Provider: Carlos Dickson, RN)1434 (Given - Provider: Carlos Dickson, RN) polyethylene glycol (PEG) 3350 (Miralax) packet 17 [...] BE BASED ON THE PRIMARY CLINICAL RECORDS. [facility]. provides no warranty or guarantee of the accuracy or completeness of information in this document.
--- OUTSIDE RECORDS SUMMARY | 2025-04-06 04:03 | XMS RPT_ITS | CCD ---
Author Organization [facility] Inform ion [facility] Care Team Providers Care Director Of Conservation Name Role Phone BLAINEJORDYNNAYLA MORALES Attending Unavailable [...] (8 sources) Erythromycin Drug Allergy 07-06-2015 Rash [facility] (8 sources) Latex Propensity to adverse reactions 01-16-2022 [facility] Medications Current Medications Medication Drug Class(es) [...] 08-13-2022 cholecalciferol (Vitamin D-3 ) 1.25 MG (97763 UT) capsule Take 50,000 Units by mouth. [...] mouth Daily as needed. 0 Suspended nystatin 901653 unt/ml topical cream (8 sources) Polyene Antifungal [...] hydrochloride 10 mg oral tablet (10 sources) M-adsgvf-C-aspartate Receptor Antagonist Start: 08-13-2022 End: 08-15-2022 take [...] 08/14/2022 08/15/2022 Discontinued (Reorder) polyethylene glycol 3350 17328 mg powder for oral solution (7 sources) [...] Coronary arteriosclerosis; Translations: [Atherosclerotic heart disease of [place] coronary artery without angina pectoris] Onset: 07-06-2015 [...] width (RBC) [Ratio] 12.5 % Normal 11.6-14.6 [facility] Comment on above: Order Comment: 305.2 Performed By: #### L 501.9520, L100.0500, L500.4050 #### [facility] [address] [place], [address] Hematocrit (Bld) [Volume fraction] 38.6 % Normal 37-47 [facility] Comment on above: Order Comment: 305.2 Performed By: #### L 501.9520, L100.0500, L500.4050 #### [facility] [address] [place], [address] Hemoglobin (Bld) [Mass/Vol] 12.2 g/dL Normal 12.0-15.0 [facility] Comment on above: Order Comment: 305.2 Performed By: #### L 501.9520, L100.0500, L500.4050 #### [facility] [address] [place], [address] MCH (RBC) [Entitic mass] 30.0 pg Normal 27.0-32.0 [facility] Comment on above: Order Comment: 305.2 Performed By: #### L 501.9520, L100.0500, L500.4050 #### [facility] [address] [place], [address] MCHC (RBC) [Mass/Vol] 31.6 g/dL Low 32-36 [facility] Comment on above: Order Comment: 305.2 Performed By: #### L 501.9520, L100.0500, L500.4050 #### [facility] [address] [place], [address] MCV (RBC) [Entitic vol] 95.1 fL Normal 81-99 [facility] Comment on above: Order Comment: 305.2 Performed By: #### L 501.9520, L100.0500, L500.4050 #### [facility] [address] [place], [address] Platelet mean volume (Bld) [Entitic vol] 11.3 fL Normal 6.2-12.0 [facility] Comment on above: Order Comment: 305.2 Performed By: #### L 501.9520, L100.0500, L500.4050 #### [facility] [address] [place], [address] Platelets (Bld) [#/Vol] 266 10*3/uL Normal 150-450 [facility] Comment on above: Order Comment: 305.2 Performed By: #### L 501.9520, L100.0500, L500.4050 #### [facility] [address] [place], [address] RBC (Bld) [#/Vol] 4.06 10*6/uL Low 4.2-5.4 [facility] Comment on above: Order Comment: 305.2 Performed By: #### L 501.9520, L100.0500, L500.4050 #### [facility] [address] [place], [address] RDW SD 43.9 fl Normal 35.1-43.9 [facility] Comment on above: Order Comment: 305.2 Performed By: #### L 501.9520, L100.0500, L500.4050 #### [facility] [address] [place], [address] WBC (Bld) [#/Vol] 6.2 10*3/uL Normal 4.4-11.[address] [facility] Comment on above: Order Comment: 305.2 Performed By: #### L 501.9520, L100.0500, L500.4050 #### [facility] [address] [place], [address] Comprehensive Metabolic Prof ilon 03-16-2025 Albumin [Mass/Vol] 3.3 g/dL Low 3.4-4.[address] [facility] Comment on above: Order Comment: 305.2 Performed By: #### L 501.9520, L100.0500, L500.4050 #### [facility] [address] [place], [address] Albumin/Globulin [Mass ratio] 1.0 {ratio} Normal 0.9-2.4 [facility] Comment on above: Order Comment: 305.2 Performed By: #### L 501.9520, L100.0500, L500.4050 #### [facility] [address] [place], [address] ALK PHOS 49 U/L Normal 35-104 [facility] Comment on above: Order Comment: 305.2 Performed By: #### L 501.9520, L100.0500, L500.4050 #### [facility] [address] [place], [address] ALT [Catalytic activity/Vol] 7 U/L Normal <=34 [facility] Comment on above: Order Comment: 305.2 Performed By: #### L 501.9520, L100.0500, L500.4050 #### [facility] [address] [place], [address] AST [Catalytic activity/Vol] 15 U/L Normal <=31 [facility] Comment on above: Order Comment: 305.2 Result Comment: Hemo lysis present, Results??could be affected. ?? Performed By: #### L 501.9520, L100.0500, L500.4050 #### [facility] [address] [place], [address] Bilirubin [Mass/Vol] 0.61 mg/dL Normal 0.00-1.30 [facility] Comment on above: Order Comment: 305.2 Performed By: #### L 501.9520, L100.0500, L500.4050 #### [facility] [address] [place], [address] BUN/CRE 15.9 RATIO Normal 10-20 [facility] Comment on above: Order Comment: 305.2 Performed By: #### L 501.9520, L100.0500, L500.4050 #### [facility] [address] [place], [address] Calcium [Mass/Vol] 8.9 mg/dL Normal 7.6-11.[address] [facility] Comment on above: Order Comment: 305.2 Performed By: #### L 501.9520, L100.0500, L500.4050 #### [facility] [address] [place], [address] Chloride [Moles/Vol] 108 mmol/L Normal 98-108 [facility] Comment on above: Order Comment: 305.2 Performed By: #### L 501.9520, L100.0500, L500.4050 #### [facility] [address] [place], [address] CO2 [Moles/Vol] 29.6 mmol/L Normal 21.0-32.0 [facility] Comment on above: Order Comment: 305.2 Performed By: #### L 501.9520, L100.0500, L500.4050 #### [facility] [address] [place], [address] Creatinine [Mass/Vol] 1.05 mg/dL Normal 0.70-1.20 [facility] Comment on above: Order Comment: 305.2 Performed By: #### L 501.9520, L100.0500, L500.4050 #### [facility] [address] [place], [address] GAP 7 Normal 5-15 [facility] Comment on above: Order Comment: 305.2 Performed By: #### L 501.9520, L100.0500, L500.4050 #### [facility] [address] [place], [address] GFR/1.73 sq M.predicted among non-blacks MDRD (S/P/Bld) [Vol rate/Area] 52 mL/min/{1.73_m2} Low >60 [facility] Comment on above: Order Comment: 305.2 Result Comment: mL/m in/1.73m2 CKD-EPI Creatinine Equation (2020) Performed By: #### L 501.9520, L100.0500, L500.4050 #### [facility] [address] [place], [address] Globulin (S) [Mass/Vol] 3.4 g/dL Normal 2.2-4.2 [facility] Comment on above: Order Comment: 305.2 Performed By: #### L 501.9520, L100.0500, L500.4050 #### [facility] [address] [place], [address] Glucose [Mass/Vol] 86 mg/dL Normal 70-[address] [facility] Comment on above: Order Comment: 305.2 Performed By: #### L 501.9520, L100.0500, L500.4050 #### [facility] [address] [place], [address] Potassium [Moles/Vol] 4.2 mmol/L Normal 3.3-5.1 [facility] Comment on above: Order Comment: 305.2 Result Comment: Hemo lysis present, Results??could be affected. ?? Performed By: #### L 501.9520, L100.0500, L500.4050 #### [facility] [address] [place], [address] Sodium [Moles/Vol] 145 mmol/L Normal 133-[address] [facility] Comment on above: Order Comment: 305.2 Performed By: #### L 501.9520, L100.0500, L500.4050 #### [facility] [address] [place], [address] T PROT 6.6 g/dL Normal 5.9-8.4 [facility] Comment on above: Order Comment: 305.2 Performed By: #### L 501.9520, L100.0500, L500.4050 #### [facility] [address] [place], [address] Urea nitrogen [Mass/Vol] 17 mg/dL Normal 4-19 [facility] Comment on above: Order Comment: 305.2 Performed By: #### L 501.9520, L100.0500, L500.4050 #### [facility] [address] [place], [address] Thyroid Stim Hormone (TSH)on 03-16-2025 TSH 1.650 uIU/mL Normal 0.300-4.200 [facility] Comment on above: Order Comment: 305.2 Performed By: #### L 501.9520, L100.0500, L500.4050 #### [facility] [address] [place], [address] Basic Metabolic Profile (BMP )on 03-01-2025 BUN/CRE 20.1 RATIO High 10-20 [facility] Comment on above: Order Comment: 305.2 Performed By: #### L 500.2500, L100.0500 #### [facility] [address] [place], [address] Calcium [Mass/Vol] 9.0 mg/dL Normal 7.6-11.[address] [facility] Comment on above: Order Comment: 305.2 Performed By: #### L 500.2500, L100.0500 #### [facility] [address] [place], [address] Chloride [Moles/Vol] 106 mmol/L Normal 98-108 [facility] Comment on above: Order Comment: 305.2 Performed By: #### L 500.2500, L100.0500 #### [facility] [address] [place], [address] CO2 [Moles/Vol] 26.4 mmol/L Normal 21.0-32.0 [facility] Comment on above: Order Comment: 305.2 Performed By: #### L 500.2500, L100.0500 #### [facility] [address] [place], [address] Creatinine [Mass/Vol] 1.13 mg/dL Normal 0.70-1.20 [facility] Comment on above: Order Comment: 305.2 Performed By: #### L 500.2500, L100.0500 #### [facility] [address] [place], [address] GAP 10 Normal 5-15 [facility] Comment on above: Order Comment: 305.2 Performed By: #### L 500.2500, L100.0500 #### [facility] [address] [place], [address] GFR/1.73 sq M.predicted among non-blacks MDRD (S/P/Bld) [Vol rate/Area] 48 mL/min/{1.73_m2} Low >60 [facility] Comment on above: Order Comment: 305.2 Result Comment: mL/m in/1.73m2 CKD-EPI Creatinine Equation (2020) Performed By: #### L 500.2500, L100.0500 #### [facility] [address] [place], [address] Glucose [Mass/Vol] 115 mg/dL High 70-[address] [facility] Comment on above: Order Comment: 305.2 Performed By: #### L 500.2500, L100.0500 #### [facility] [address] [place], [address] Potassium [Moles/Vol] 3.4 mmol/L Normal 3.3-5.1 [facility] Comment on above: Order Comment: 305.2 Performed By: #### L 500.2500, L100.0500 #### [facility] [address] [place], [address] Sodium [Moles/Vol] 143 mmol/L Normal 133-[address] [facility] Comment on above: Order Comment: 305.2 Performed By: #### L 500.2500, L100.0500 #### [facility] [address] [place], [address] Urea nitrogen [Mass/Vol] 23 mg/dL High 4-19 [facility] Comment on above: Order Comment: 305.2 Performed By: #### L 500.2500, L100.0500 #### [facility] [address] [place], [address] CBC-Complete Blood Cnt No Di ffon 03-01-2025 Erythrocyte distribution width (RBC) [Ratio] 12.4 % Normal 11.6-14.6 [facility] Comment on above: Order Comment: 305.2 Performed By: #### L 500.2500, L100.0500 #### [facility] [address] [place], [address] Hematocrit (Bld) [Volume fraction] 37.4 % Normal 37-47 [facility] Comment on above: Order Comment: 305.2 Performed By: #### L 500.2500, L100.0500 #### [facility] [address] [place], [address] Hemoglobin (Bld) [Mass/Vol] 12.0 g/dL Normal 12.0-15.0 [facility] Comment on above: Order Comment: 305.2 Performed By: #### L 500.2500, L100.0500 #### [facility] [address] [place], [address] MCH (RBC) [Entitic mass] 30.5 pg Normal 27.0-32.0 [facility] Comment on above: Order Comment: 305.2 Performed By: #### L 500.2500, L100.0500 #### [facility] [address] [place], [address] MCHC (RBC) [Mass/Vol] 32.1 g/dL Normal 32-36 [facility] Comment on above: Order Comment: 305.2 Performed By: #### L 500.2500, L100.0500 #### [facility] [address] [place], [address] MCV (RBC) [Entitic vol] 94.9 fL Normal 81-99 [facility] Comment on above: Order Comment: 305.2 Performed By: #### L 500.2500, L100.0500 #### [facility] [address] [place], [address] Platelet mean volume (Bld) [Entitic vol] 11.2 fL Normal 6.2-12.0 [facility] Comment on above: Order Comment: 305.2 Performed By: #### L 500.2500, L100.0500 #### [facility] [address] [place], [address] Platelets (Bld) [#/Vol] 287 10*3/uL Normal 150-450 [facility] Comment on above: Order Comment: 305.2 Performed By: #### L 500.2500, L100.0500 #### [facility] [address] [place], [address] RBC (Bld) [#/Vol] 3.94 10*6/uL Low 4.2-5.4 [facility] Comment on above: Order Comment: 305.2 Performed By: #### L 500.2500, L100.0500 #### [facility] [address] [place], [address] RDW SD 43.8 fl Normal 35.1-43.9 [facility] Comment on above: Order Comment: 305.2 Performed By: #### L 500.2500, L100.0500 #### [facility] [address] [place], [address] WBC (Bld) [#/Vol] 10.7 10*3/uL Normal 4.4-11.0 [facility] Comment on above: Order Comment: 305.2 Performed By: #### L 500.2500, L100.0500 #### [facility] [address] [place], [address] Basic Metabolic Profile (BMP )on 02-24-2025 BUN/CRE 15.2 RATIO Normal 10-20 [facility] Comment on above: Order Comment: 305.2 Performed By: #### L 100.0500, L500.2500 #### [facility] [address] [place], [address] Calcium [Mass/Vol] 9.0 mg/dL Normal 7.6-11.[address] [facility] Comment on above: Order Comment: 305.2 Performed By: #### L 100.0500, L500.2500 #### [facility] [address] [place], [address] Chloride [Moles/Vol] 103 mmol/L Normal 98-108 [facility] Comment on above: Order Comment: 305.2 Performed By: #### L 100.0500, L500.2500 #### [facility] [address] [place], [address] CO2 [Moles/Vol] 24.5 mmol/L Normal 21.0-32.0 [facility] Comment on above: Order Comment: 305.2 Performed By: #### L 100.0500, L500.2500 #### [facility] [address] [place], [address] Creatinine [Mass/Vol] 1.23 mg/dL High 0.70-1.20 [facility] Comment on above: Order Comment: 305.2 Performed By: #### L 100.0500, L500.2500 #### [facility] [address] [place], [address] GAP 13 Normal 5-15 [facility] Comment on above: Order Comment: 305.2 Performed By: #### L 100.0500, L500.2500 #### [facility] [address] [place], [address] GFR/1.73 sq M.predicted among non-blacks MDRD (S/P/Bld) [Vol rate/Area] 43 mL/min/{1.73_m2} Low >60 [facility] Comment on above: Order Comment: 305.2 Result Comment: mL/m in/1.73m2 CKD-EPI Creatinine Equation (2020) Performed By: #### L 100.0500, L500.2500 #### [facility] [address] [place], [address] Glucose [Mass/Vol] 116 mg/dL High 70-[address] [facility] Comment on above: Order Comment: 305.2 Performed By: #### L 100.0500, L500.2500 #### [facility] [address] [place], [address] Potassium [Moles/Vol] 3.7 mmol/L Normal 3.3-5.1 [facility] Comment on above: Order Comment: 305.2 Performed By: #### L 100.0500, L500.2500 #### [facility] [address] [place], [address] Sodium [Moles/Vol] 140 mmol/L Normal 133-[address] [facility] Comment on above: Order Comment: 305.2 Performed By: #### L 100.0500, L500.2500 #### [facility] [address] [place], [address] Urea nitrogen [Mass/Vol] 19 mg/dL Normal 4-19 [facility] Comment on above: Order Comment: 305.2 Performed By: #### L 100.0500, L500.2500 #### [facility] [address] [place], [address] CBC-Complete Blood Cnt No Di ffon 02-24-2025 Erythrocyte distribution width (RBC) [Ratio] 12.6 % Normal 11.6-14.6 [facility] Comment on above: Order Comment: 305.2 Performed By: #### L 100.0500, L500.2500 #### [facility] [address] [place], [address] Hematocrit (Bld) [Volume fraction] 40.9 % Normal 37-47 [facility] Comment on above: Order Comment: 305.2 Performed By: #### L 100.0500, L500.2500 #### [facility] [address] [place], [address] Hemoglobin (Bld) [Mass/Vol] 13.6 g/dL Normal 12.0-15.0 [facility] Comment on above: Order Comment: 305.2 Performed By: #### L 100.0500, L500.2500 #### [facility] [address] [place], [address] MCH (RBC) [Entitic mass] 30.8 pg Normal 27.0-32.0 [facility] Comment on above: Order Comment: 305.2 Performed By: #### L 100.0500, L500.2500 #### [facility] [address] [place], [address] MCHC (RBC) [Mass/Vol] 33.3 g/dL Normal 32-36 [facility] Comment on above: Order Comment: 305.2 Performed By: #### L 100.0500, L500.2500 #### [facility] [address] [place], [address] MCV (RBC) [Entitic vol] 92.7 fL Normal 81-99 [facility] Comment on above: Order Comment: 305.2 Performed By: #### L 100.0500, L500.2500 #### [facility] [address] [place], [address] Platelet mean volume (Bld) [Entitic vol] 11.6 fL Normal 6.2-12.0 [facility] Comment on above: Order Comment: 305.2 Performed By: #### L 100.0500, L500.2500 #### [facility] [address] [place], [address] Platelets (Bld) [#/Vol] 246 10*3/uL Normal 150-450 [facility] Comment on above: Order Comment: 305.2 Performed By: #### L 100.0500, L500.2500 #### [facility] [address] [place], [address] RBC (Bld) [#/Vol] 4.41 10*6/uL Normal 4.2-5.4 [facility] Comment on above: Order Comment: 305.2 Performed By: #### L 100.0500, L500.2500 #### [facility] [address] [place], [address] RDW SD 43.2 fl Normal 35.1-43.9 [facility] Comment on above: Order Comment: 305.2 Performed By: #### L 100.0500, L500.2500 #### [facility] [address] [place], [address] WBC (Bld) [#/Vol] 14.0 10*3/uL High 4.4-11.0 [facility] Comment on above: Order Comment: 305.2 Performed By: #### L 100.0500, L500.2500 #### [facility] [address] [place], [address] Basic Metabolic Profile (BMP )on 01-21-2025 BUN/CRE 18.7 RATIO Normal 10-20 [facility] Comment on above: Order Comment: 305.2 Performed By: #### L 500.2500, L100.0500 #### [facility] [address] [place], [address] Calcium [Mass/Vol] 8.5 mg/dL Normal 7.6-11.[address] [facility] Comment on above: Order Comment: 305.2 Performed By: #### L 500.2500, L100.0500 #### [facility] [address] [place], [address] Chloride [Moles/Vol] 107 mmol/L Normal 98-108 [facility] Comment on above: Order Comment: 305.2 Performed By: #### L 500.2500, L100.0500 #### [facility] [address] [place], [address] CO2 [Moles/Vol] 24.9 mmol/L Normal 21.0-32.0 [facility] Comment on above: Order Comment: 305.2 Performed By: #### L 500.2500, L100.0500 #### [facility] [address] [place], [address] Creatinine [Mass/Vol] 1.31 mg/dL High 0.70-1.20 [facility] Comment on above: Order Comment: 305.2 Performed By: #### L 500.2500, L100.0500 #### [facility] [address] [place], [address] GAP 10 Normal 5-15 [facility] Comment on above: Order Comment: 305.2 Performed By: #### L 500.2500, L100.0500 #### [facility] [address] [place], [address] GFR/1.73 sq M.predicted among non-blacks MDRD (S/P/Bld) [Vol rate/Area] 40 mL/min/{1.73_m2} Low >60 [facility] Comment on above: Order Comment: 305.2 Result Comment: mL/m in/1.73m2 CKD-EPI Creatinine Equation (2020) Performed By: #### L 500.2500, L100.0500 #### [facility] [address] [place], [address] Glucose [Mass/Vol] 159 mg/dL High 70-[address] [facility] Comment on above: Order Comment: 305.2 Performed By: #### L 500.2500, L100.0500 #### [facility] [address] [place], [address] Potassium [Moles/Vol] 3.6 mmol/L Normal 3.3-5.1 [facility] Comment on above: Order Comment: 305.2 Performed By: #### L 500.2500, L100.0500 #### [facility] [address] [place], [address] Sodium [Moles/Vol] 142 mmol/L Normal 133-[address] [facility] Comment on above: Order Comment: 305.2 Performed By: #### L 500.2500, L100.0500 #### [facility] [address] [place], [address] Urea nitrogen [Mass/Vol] 25 mg/dL High 4-19 [facility] Comment on above: Order Comment: 305.2 Performed By: #### L 500.2500, L100.0500 #### [facility] [address] [place], [address] CBC-Complete Blood Cnt No Di ffon 01-21-2025 Erythrocyte distribution width (RBC) [Ratio] 12.7 % Normal 11.6-14.6 [facility] Comment on above: Order Comment: 305.2 Performed By: #### L 500.2500, L100.0500 #### [facility] [address] [place], [address] Hematocrit (Bld) [Volume fraction] 41.2 % Normal 37-47 [facility] Comment on above: Order Comment: 305.2 Performed By: #### L 500.2500, L100.0500 #### [facility] [address] [place], [address] Hemoglobin (Bld) [Mass/Vol] 13.3 g/dL Normal 12.0-15.0 [facility] Comment on above: Order Comment: 305.2 Performed By: #### L 500.2500, L100.0500 #### [facility] [address] [place], [address] MCH (RBC) [Entitic mass] 30.3 pg Normal 27.0-32.0 [facility] Comment on above: Order Comment: 305.2 Performed By: #### L 500.2500, L100.0500 #### [facility] [address] [place], [address] MCHC (RBC) [Mass/Vol] 32.3 g/dL Normal 32-36 [facility] Comment on above: Order Comment: 305.2 Performed By: #### L 500.2500, L100.0500 #### [facility] [address] [place], [address] MCV (RBC) [Entitic vol] 93.8 fL Normal 81-99 [facility] Comment on above: Order Comment: 305.2 Performed By: #### L 500.2500, L100.0500 #### [facility] [address] [place], [address] Platelet mean volume (Bld) [Entitic vol] 11.3 fL Normal 6.2-12.0 [facility] Comment on above: Order Comment: 305.2 Performed By: #### L 500.2500, L100.0500 #### [facility] [address] [place], [address] Platelets (Bld) [#/Vol] 224 10*3/uL Normal 150-450 [facility] Comment on above: Order Comment: 305.2 Performed By: #### L 500.2500, L100.0500 #### [facility] [address] [place], [address] RBC (Bld) [#/Vol] 4.39 10*6/uL Normal 4.2-5.4 [facility] Comment on above: Order Comment: 305.2 Performed By: #### L 500.2500, L100.0500 #### [facility] [address] [place], [address] RDW SD 43.7 fl Normal 35.1-43.9 [facility] Comment on above: Order Comment: 305.2 Performed By: #### L 500.2500, L100.0500 #### [facility] [address] [place], [address] WBC (Bld) [#/Vol] 9.6 10*3/uL Normal 4.4-11.[address] [facility] Comment on above: Order Comment: 305.2 Performed By: #### L 500.2500, L100.0500 #### [facility] [address] [place], [address] C. difficile DNA MARIO+probe Q l (Unsp spec)Ordered By: Toy Temple on 10-02-2024 Clostridioides difficile (PCR) [facility] CDIFF (PCR)on 10-02-2024 CDIFF Pending [id number] [id number] Presumptive Negative *for epidemiolologic???use C. Diff PCR Negative- No toxigenic C. Diff Detected Normal [facility] Comment on above: Performed By: #### M 661.8345 #### [facility] [address] [place], [address] No Panel InformationOrdered By: Toy Temple on 10-22-2022 Thyroid Stimulating Hormone (TSH) 2.44 uIU/mL 0.358-3.74 [facility] Whole blood hemoglobin A1c/t otal hemoglobin ratio (mass fraction)Ordered By: Toy Temple on 10-22-2022 HbA1c (Bld) [Mass fraction] 5.3 % 3.8-5.6 [facility] Comment on above: Normal < 5.7 % Predi abetic 5.7 - 6.4 % Diabetic >or= 6.5 % Please note range changes. Basophil percentageOrdered B y: Nickolas Lyn on 09-13-2022 Chloride [Moles/Vol] 105 mmol/L 98-107 [facility] Glucose [Mass/Vol] 92 mg/dL 74-[address] [facility] Potassium [Moles/Vol] 3.8 mmol/L 3.5-5.1 [facility] Sodium [Moles/Vol] 144 mmol/L 136-[address] [facility] WBC (Bld) [#/Vol] 8.8 10*3/uL 4.4-11.[address] [facility] Blood erythrocytes count (nu mber/volume)Ordered By: Nickolas Lyn on 09-13-2022 RBC (Bld) [#/Vol] 3.91 10*6/uL 4.2-5.4 [facility] Blood hemoglobin measurement (mass/volume)Ordered By: Nickolas Lyn on 09-13-2022 Hemoglobin (Bld) [Mass/Vol] 11.8 g/dL 12.0-15.0 [facility] Blood platelet mean volumeOr dered By: Nickolas Lyn on 09-13-2022 Platelet mean volume (Bld) [Entitic vol] 11.5 fL 6.2-12.0 [facility] Determination of erythrocyte mean corpuscular volume (MCV)Ordered By: Nickolas Lyn on 09-13-2022 MCV (RBC) [Entitic vol] 96.9 fL 81-99 [facility] Hematocrit Auto (Bld) [Volum e fraction]Ordered By: Nickolas Lyn on 09-13-2022 Hematocrit (Bld) [Volume fraction] 37.9 % 37-47 [facility] - Chemistry and C hemistry - challengeOrdered By: Nickolas Lyn on 09-13-2022 CO2 [Moles/Vol] 33.0 mmol/L 21.0-32.0 [facility] Urea nitrogen/Creatinine [Mass ratio] 20.9 mg/mg 10-20 [facility] - Hematology and Cell countsOrdered By: Nickolas Lyn on 09-13-2022 Erythrocyte distribution width (RBC) [Entitic vol] 46.1 fL 35.1-43.9 [facility] Erythrocyte distribution width (RBC) [Ratio] 12.9 % 11.6-14.6 [facility] MCH (RBC) [Entitic mass] 30.2 pg 27.0-32.0 [facility] MCHC Auto (RBC) [Mass/Vol]Or dered By: Nickolas Lyn on 09-13-2022 MCHC (RBC) [Mass/Vol] 31.1 g/dL 32-36 [facility] No Panel InformationOrdered By: Nickolas Lyn on 09-13-2022 Estimated GFR (MDRD) Amer 61 mL/min >60 [facility] Comment on above: GFR Calc Estimated GFR (MDRD) Non-Af Amer 51 mL/min >60 [facility] Comment on above: Non- GFR Calc Platelets bldOrdered By: Lyudmila Lyn on 09-13-2022 Platelets (Bld) [#/Vol] 218 10*3/uL 150-450 [facility] Serum or plasma calcium mk urement (mass/volume)Ordered By: Nickolas Lyn on 09-13-2022 Calcium [Mass/Vol] 8.9 mg/dL 8.5-10.[address] [facility] Serum or plasma creatinine m easurement (mass/volume)Ordered By: Nickolas Lyn on 09-13-2022 Creatinine [Mass/Vol] 1.10 mg/dL 0.55-1.02 [facility] Comment on above: The validity of the calculated GFR & GFRAA in patients over 70 years has not been determined. Clinical correlation is essential. Serum or plasma urea nitroge n measurement (mass/volume)Ordered By: Nickolas Lyn on 09-13-2022 Urea nitrogen [Mass/Vol] 23 mg/dL 7-18 [facility] Thin prep Papanicolaou smear with manual screeningOrdered By: Nickolas Lyn on 09-13-2022 Thin prep Papanicolaou smear with manual screening 6 5-15 [facility] 36on 08-16-2022 36 [place] patient. Staff to call patient after discharge to arrange a hospital follow up. Normal [facility] Basic metabolic 1998 panelon 08-15-2022 Anion gap [Moles/Vol] 2 mmol/L Low 3 - 13 mmol/L [facility] Calcium [Mass/Vol] 8.3 mg/dL Low 8.4 - 10. 4 mg/dL [facility] Chloride [Moles/Vol] 105 mmol/L 98 - 10 7 mmol/L [facility] CO2 [Moles/Vol] 30 mmol/L 22 - 30 mmol/L [facility] Creatinine [Mass/Vol] 1.24 mg/dL High 0.52 - 1.04 mg/dL [facility] GFR/1.73 sq M.predicted MDRD (S/P/Bld) [Vol rate/Area] 43.5 mL/min/{1.73_m2} Low - PINF [facility] Comment on above: Calculation based on the Chronic Kidney Disease Epidemiology Collaboration (CKD-EPI) equation refit without adjustment for race Glucose [Mass/Vol] 91 mg/dL 70 - 100 mg/dL [facility] Interpretation and review of laboratory results Abnormal [facility] Potassium [Moles/Vol] 4.2 mmol/L 3.5 - 5.1 mmol/L [facility] Sodium [Moles/Vol] 137 mmol/L 135 - 145 mmol/L [facility] Urea nitrogen [Mass/Vol] 30 mg/dL High 7 - 17 mg/dL [facility] CARECOORDon 08-15-2022 [facility] Palliative Care Transitions of Care Note Symone Mcdonald : 1940 ADMIT DATE: 08/12/2022 DISCHARGE DATE: 08/15/22 PRIMARY CARE PHYSICIAN: Toy Temple CODE STATUS: DNR-CCA DISCHARGE DIAGNOSES: Principal Problem: Intractable abdominal pain HOSPITAL COURSE: Symone Mcdonald is an 82 y/o F with PMHx CAD, HTN, diverticulitis, recent COVID-19 infection (s/p paxlovid at the facility), and Alzheimer's dementia who presented to [facility] ED from facility due to concerns for [...] physician, [facility] palliative care (referral sent by BRAND MARKETING COORDINATOR prior to patient discharge) FOLLOW UP TESTING, PENDING RESULTS OR REFERRALS AT TRANSITIONAL CARE VISIT: No PENDING STUDIES: No DISPOSITION: Envelope Machine Adjuster Care Facility (Non-Skilled) FACILITY/HOME CARE AGENCY NAME: [facility] Follow up with Nursing facility on appointment scheduled. Reason for Outpatient/Home/ECF Palliative Care follow-up: Continue goals of care discussion Opiate Prescribing NA - prescribed per primary service SIGNED: Natan Waterman MD 08/14/2022, 9:04 AM Normal [facility] DOMITILA [facility] is able to accept back today. Call placed to daughter, Ban, to review. Ban is agreeable to returning to [facility] today. Ambulance scheduled for a 2pm discharge with Aureliano Angulo. Daughter agreeable to a referral being sent to a palliative care company. [facility] and [facility] both have contracts there. Daughter requested a referral be sent to [facility]. Referral faxed to Loraine Schmitt as requested. Support provided to Ban who shared frustration with the medicaid and nursing spend down process. She also shared grief her family has survived (she provided end of life care for her father, her brother is , she has a son who is ). AVS sent to [facility] via Ti[employer]. Number for report: [phone] [facility] CAREPLNon 08-15-2022 CAREPLN The patient is Moderately [...] maintained or improved Outcome: Progressing . Normal [facility] CBC W Auto Differential pane l (Bld)on 08-15-2022 Basophils (Bld) [#/Vol] 0.1 10*3/uL 0.0 - 0.2 10*3/uL [facility] Basophils/100 WBC (Bld) 0.7 % 0.0 - 2.0 % [facility] Eosinophils (Bld) [#/Vol] 0.4 10*3/uL 0.0 - 0.5 10*3/uL [facility] Eosinophils/100 WBC (Bld) 3.7 % 1.0 - 6.0 % [facility] Erythrocyte distribution width (RBC) [Ratio] 13.4 % 11.5 - 14.5 % [facility] Hematocrit (Bld) [Volume fraction] 38.9 % 35.0 - 47.0 % [facility] Hemoglobin (Bld) [Mass/Vol] 13.1 g/dL 11.7 - 16.0 g/dL [facility] Interpretation and review of laboratory results Normal [facility] Lymphocytes (Bld) [#/Vol] 2.6 10*3/uL 1.0 - 4.3 10*3/uL [facility] Lymphocytes/100 WBC (Bld) 25.5 % 20.0 - 40.0 % [facility] MCH (RBC) [Entitic mass] 31.4 pg 26.0 - 34.0 pg [facility] MCHC (RBC) [Mass/Vol] 33.7 % 32.0 - 36.0 % [facility] MCV (RBC) [Entitic vol] 93.1 fL 80.0 - 98.0 fL [facility] Monocytes (Bld) [#/Vol] 0.8 10*3/uL 0.0 - 0.8 10*3/uL [facility] Monocytes/100 WBC (Bld) 7.7 % 2.0 - 10.0 % [facility] Neutrophils (Bld) [#/Vol] 6.4 10*3/uL 1.8 - 7.0 10*3/uL [facility] Neutrophils/100 WBC (Bld) 62.4 % 40.0 - 80.0 % [facility] Nucleated RBC/100 WBC (Bld) [Ratio] 0.0 % [facility] Platelet mean volume (Bld) [Entitic vol] 9.4 fL 7.4 - 12.4 fL [facility] Platelets (Bld) [#/Vol] 228 10*3/uL 140 - 440 10*3/uL [facility] RBC (Bld) [#/Vol] 4.18 10*6/uL 3.8 - 5.20 10*6/uL [facility] WBC (Bld) [#/Vol] 10.3 10*3/uL 3.6 - 10.7 10*3/uL [facility] Progress Noteon 08-15-2022 Progress Note Palliative Care Interdisciplinary Team Note: Diagnosis: @[id number]@ Chief Complaint: Symone Mcdonald is a 82 y.o. female with chief complaint of: abdominal pain, Alzheimer's dementia Reason Palliative Following: Goals of Care Plan: Ongoing Goals of Care Discussion Code Status: DNR-CCA Medications: Oxycodone Nursing: Decrease Fall Risk, Mcc Care, and Skin Integrity Social Work: Palliative SW Following, Emotional Support, and Help with Discharge Planning Spiritual Care: No Unmet Needs Pharmacy: No Unmet Needs Psychology/Psychiatry : No Unmet Needs Normal [facility] Basic metabolic 1998 panelon 08-14-2022 Anion gap [Moles/Vol] 5 mmol/L 3 - 13 mmol/L [facility] Calcium [Mass/Vol] 8.5 mg/dL 8.4 - 10. 4 mg/dL [facility] Chloride [Moles/Vol] 106 mmol/L 98 - 10 7 mmol/L [facility] CO2 [Moles/Vol] 28 mmol/L 22 - 30 mmol/L [facility] Creatinine [Mass/Vol] 1.21 mg/dL High 0.52 - 1.04 mg/dL [facility] GFR/1.73 sq M.predicted MDRD (S/P/Bld) [Vol rate/Area] 44.8 mL/min/{1.73_m2} Low - PINF [facility] Comment on above: Calculation based on the Chronic Kidney Disease Epidemiology Collaboration (CKD-EPI) equation refit without adjustment for race Glucose [Mass/Vol] 94 mg/dL 70 - 100 mg/dL [facility] Potassium [Moles/Vol] 3.9 mmol/L 3.5 - 5.1 mmol/L [facility] Sodium [Moles/Vol] 140 mmol/L 135 - 145 mmol/L [facility] Urea nitrogen [Mass/Vol] 35 mg/dL High 7 - 17 mg/dL [facility] CAREPLNon 08-14-2022 CAREPLN The patient is [...] maintained or improved Outcome: Progressing . Normal [facility] CBC W Auto Differential pane l (Bld)Ordered By: Jeaneth Castillo on 08-14-2022 Basophils (Bld) [#/Vol] 0.1 10*3/uL 0.0 - 0.2 10*3/uL [facility] Basophils/100 WBC (Bld) 0.8 % 0.0 - 2.0 % [facility] Eosinophils (Bld) [#/Vol] 0.5 10*3/uL 0.0 - 0.5 10*3/uL [facility] Eosinophils/100 WBC (Bld) 4.8 % 1.0 - 6.0 % [facility] Erythrocyte distribution width (RBC) [Ratio] 13.1 % 11.5 - 14.5 % [facility] Hematocrit (Bld) [Volume fraction] 41.0 % 35.0 - 47.0 % [facility] Hemoglobin (Bld) [Mass/Vol] 13.4 g/dL 11.7 - 16.0 g/dL [facility] Interpretation and review of laboratory results Abnormal [facility] Lymphocytes (Bld) [#/Vol] 2.5 10*3/uL 1.0 - 4.3 10*3/uL [facility] Lymphocytes/100 WBC (Bld) 23.9 % 20.0 - 40.0 % [facility] MCH (RBC) [Entitic mass] 30.5 pg 26.0 - 34.0 pg [facility] MCHC (RBC) [Mass/Vol] 32.7 % 32.0 - 36.0 % [facility] MCV (RBC) [Entitic vol] 93.3 fL 80.0 - 98.0 fL [facility] Monocytes (Bld) [#/Vol] 0.9 10*3/uL High 0.0 - 0.8 10*3/uL [facility] [employer] Monocytes/100 WBC (Bld) 8.6 % 2.0 - 10.0 % [facility] [employer] Neutrophils (Bld) [#/Vol] 6.4 10*3/uL 1.8 - 7.0 10*3/uL [facility] [employer] Neutrophils/100 WBC (Bld) 61.9 % 40.0 - 80.0 % [facility] [employer] Nucleated RBC/100 WBC (Bld) [Ratio] 0.0 % [facility] [employer] Platelet mean volume (Bld) [Entitic vol] 9.4 fL 7.4 - 12.4 fL [facility] [employer] Platelets (Bld) [#/Vol] 237 10*3/uL 140 - 440 10*3/uL [facility] [employer] RBC (Bld) [#/Vol] 4.39 10*6/uL 3.8 - 5.20 10*6/uL [facility] WBC (Bld) [#/Vol] 10.4 10*3/uL 3.6 - 10.7 10*3/uL [facility] Consulton 08-14-2022 Consult [facility] Wound Care CONSULT Note Symone Mcdonald [...] daily. [DISCONTINUED] cholecalciferol (Vitamin D-3) 1.25 MG (39727 UT) capsule Take 50,000 Units by mouth. [...] Cleanse with NS. Apply ET mix. Leave PCB DESIGNER. Apply TID and PRN. (more content not included)... Normal [facility] Consult Palliative Care Initial Consult Chief Complaint: Symone Mcdonald is a 82 y.o. female with chief complaint of intractable abdominal pain. Palliative Care is actively following. Assessment/Plan Goals of Care - Patient is unable to participate meaningfully in goals of care discussions due to dementia - HCPOA and surrogate decision maker is the patient's daughter, Ban Mcduffie ([phone]) - Current code status: DNR-CCA, not okay [...] mother to return to her current facility, [facility], upon discharge as the facility is close [...] facility), and Alzheimer's dementia who presented to [facility] ED from facility due to concerns for [...] for s (more content not included)... Normal [facility] Hepatic function 2000 panelo n 08-14-2022 Albumin [Mass/Vol] 3.3 g/dL Low 3.5 - 5.0 g/dL [facility] [employer] ALP [Catalytic activity/Vol] 50 U/L 38 - 126 U/L [facility] ALT [Catalytic activity/Vol] 14 U/L 0 - 34 U/L [facility] AST [Catalytic activity/Vol] 22 U/L 15 - 46 U/L [facility] Bilirubin [Mass/Vol] 0.3 mg/dL 0.2 - 1 .3 mg/dL [facility] Bilirubin.conjugated [Mass/Vol] 0.0 mg/dL 0.0 - 0.3 mg/dL [facility] Protein [Mass/Vol] 6.6 g/dL 6.3 - 8.2 g/dL [facility] No Panel Informationon 08-14 Interpretation and review of laboratory results Abnormal [facility] Progress Noteon 08-14-2022 Progress Note Spiritual Care Note [facility] Palliative Care Patient Name:Symone Mcdonald Chief Complaint: Chief Complaint Patient presents with Abdominal Pain Nausea Pt is from [facility]. Pt was hypoxic at low 90's. C/o abd pain and nausea. Bgt 119. Hx of dementia A&O x1 at baseline. DNRCC Reason for visit: Initial Visit Services Provided To:patient Background and visit note: Checked on this patient who is in the [facility] and is listed as palliative. Unknown as to jew needs of patient. No family in room at time of visit. Also tried to find out via team members. Will attempt to call patient's family member to try to find jew information. Is there spiritual distress? YES Trying to contact family members. Care Plan: Visited room. Patient is not responsive at this time. Follow Up: when patient is able. Additional: N/A Debriefed: N/A. Geneva Barker 08/15/22 Normal [facility] Progress Note Physical Therapy Facility/Department: [...] medical history of Anxiety, Bowel obstruction (CMS/HCC) ([facility]), CAD (coronary artery disease), Dementia [...] time Memory: Decreased short term memory, Decreased usp memory, Decreased recall of biographical Information, Decreased [...] Static: (unable t (more content not included)... [facility] Progress Note Nutrition rescreen completed. Patient referred to the Dietitian. Wound. [facility] CARECOORDon 08-13-2022 CARECOORD Next Site of Care Admission Date: 08/12/2022 11:23 PM Patient Name: SYMONE MCDONALD Location: [facility] PALLIATIVE/[facility] [id number] A Date of : 1940 ------- Placement Information ------- Referral Type:Group Home ICF - Return Referral ID:[id number] Provider Name:[place] [facility] Address 1:[address] [place] [address] Address 2: City:[place] Selection Factors:Returning to Facility State:[place] Normal [facility] CBC panel Auto (Bld)Ordered By: Siri Corona on 08-13-2022 Erythrocyte distribution width (RBC) [Ratio] 13.8 % 11.5 - 14.5 % [facility] Hematocrit (Bld) [Volume fraction] 47.9 % High 35.0 - 47.0 % [facility] Hemoglobin (Bld) [Mass/Vol] 15.8 g/dL 11.7 - 16.0 g/dL [facility] Interpretation and review of laboratory results Abnormal [facility] MCH (RBC) [Entitic mass] 31.1 pg 26.0 - 34.0 pg [facility] MCHC (RBC) [Mass/Vol] 33.0 % 32.0 - 36.0 % [facility] MCV (RBC) [Entitic vol] 94.2 fL 80.0 - 98.0 fL [facility] [employer] Platelet mean volume (Bld) [Entitic vol] 9.9 fL 7.4 - 12.4 fL [facility] [employer] Platelets (Bld) [#/Vol] 252 10*3/uL 140 - 440 10*3/uL [facility] [employer] RBC (Bld) [#/Vol] 5.08 10*6/uL 3.8 - 5.20 10*6/uL [facility] [employer] WBC (Bld) [#/Vol] 9.1 10*3/uL 3.6 - 10.7 10*3/uL [facility] CT ABDOMEN PELVIS W CONTRAST on 08-13-2022 [...] Electronically Signed Date/Time: 08/13/2022 5:35 AM EST [facility] CT Abdomen and Pelvis W cont rast [...] Jacobs Electronically Signed Date/Time: 08/13/2022 5:35 AM [facility] [employer] [id number] Exam Date/Time: 08/13/2022 05:19 Procedure: CT ABDOMEN [...] gas pattern is nonspecific. Vasculature: Atherosclerotic calcifications. [facility] Hortensia Jacobs MD - 08/13/2022 [...] Signed Date/Time: 08/13/2022 5:35 AM EST [facility] Radiology Study observation (narrative) [facility] Comprehensive metabolic 1998 panelon 08-13-2022 Albumin [Mass/Vol] 3.9 g/dL 3.5 - 5.0 g/dL [facility] ALP [Catalytic activity/Vol] 47 U/L 38 - 126 U/L [facility] ALT [Catalytic activity/Vol] 17 U/L 0 - 34 U/L [facility] Anion gap [Moles/Vol] 5 mmol/L 3 - 13 mmol/L [facility] AST [Catalytic activity/Vol] 24 U/L 15 - 46 U/L [facility] Bilirubin [Mass/Vol] 0.6 mg/dL 0.2 - 1 .3 mg/dL [facility] Calcium [Mass/Vol] 9.0 mg/dL 8.4 - 10. 4 mg/dL [facility] Chloride [Moles/Vol] 109 mmol/L High 98 - 10 7 mmol/L [facility] CO2 [Moles/Vol] 28 mmol/L 22 - 30 mmol/L [facility] Creatinine [Mass/Vol] 1.45 mg/dL High 0.52 - 1.04 mg/dL [facility] GFR/1.73 sq M.predicted MDRD (S/P/Bld) [Vol rate/Area] 36.1 mL/min/{1.73_m2} Low - PINF [facility] Comment on above: Calculation based on the Chronic Kidney Disease Epidemiology Collaboration (CKD-EPI) equation refit without adjustment for race Glucose [Mass/Vol] 107 mg/dL High 70 - 100 mg/dL [facility] Interpretation and review of laboratory results Abnormal [facility] Potassium [Moles/Vol] 4.2 mmol/L 3.5 - 5.1 mmol/L [facility] Protein [Mass/Vol] 7.8 g/dL 6.3 - 8.2 g/dL [facility] Sodium [Moles/Vol] 142 mmol/L 135 - 145 mmol/L [facility] Urea nitrogen [Mass/Vol] 45 mg/dL High 7 - 17 mg/dL [facility] Consulton 08-13-2022 Consult - Attestation signed [...] day (including chart review, care coordination, and [id number] encounter) was spent discussing/counseling the patient/family regarding the care plan for Symone Mcdonald. I examined the patient independently and reviewed relevant data myself and may have done so in the context of team rounds. A full chart review was performed. Diego Major MD Trauma, Surgical Critical Care, & General Surgery Division of Trauma Department of Surgery [facility] Department of Surgery Surgical Service: ACS Consult Note PATIENT NAME: Symone Mcdonald : 1940 ATTENDING PHYSICIAN: Snehal Bianchi, * ADMIT DATE: 08/12/2022 TODAY'S DATE: 08/13/2022 CHIEF COMPLAINT: Chief Complaint Patient presents with Abdominal Pain Nausea Pt is from [facility]. Pt was hypoxic at low 90's. C/o [...] of the gluteal regions. Apparently, at the assisted the patient was complaining of some abdominal [...] facility-administered medications (more content not included)... Normal [facility] ECG 12-LEADon 08-13-2022 ECG 12-LEAD IMPRESSION: Sinus rhythm Ventricular premature complex Right bundle branch block Nonspecific repol abnormality, lateral leads Electronically Signed On 08-13-2022 9:13:32 EST by Cullen Malin [facility] ED Nursing Noteon 08-13-2022 ED Nursing Note Report given to Carmen Blanco RN 08/13/22 1752 [facility] ED Nursing Note Pt transported to inpatient floor via medic. No distress noted at this time Lyudmila Blanco RN 08/13/22 1633 [facility] ED Nursing Note Pt incontinent of stool. Complete bed change competed. Pt cleaned up and new pads placed under pt. Pts buttocks is excoriated and painful to touch. Call light within reach Lyudmila Blanco RN 08/13/22 1446 [facility] ED Nursing Note Walked into pts room and IV was on the floor, pt states she didn't realize it was no longer in her arm. IV was still intact and discarded, Guaze applied to pts arm where IV site was. Pt in no distress at this time. Lyudmila Blanco RN 08/13/22 1400 [facility] ED Nursing Note Ordered patient a hospital bed. Alona Tam RN 08/13/22 1351 [facility] ED Nursing Note Pt resting in bed, n o distress noted. Call light within reach Lyudmila Blanco RN 08/13/22 1240 [facility] ED Nursing Note Tray ordered Delicia Jacobs RN 08/13/22 1055 [facility] ED Nursing Note Patient being admitted. Patient and family updated Delicia Jacobs RN 08/13/22 08 [facility] ED Nursing Note Patient resting with family at bedside. Respirations even and unlabored. Waiting for orders Delicia Jacobs RN 08/13/22 0737 [facility] ED Nursing Note Assist surgeon with rectal exam. Patient cleaned up after exam. Patient tolerated. Daughter at bedside. Surgeon updated family that she may need colonoscopy and will consult GI. Delicia Jacobs RN 08/13/22 0733 [facility] ED Nursing Note Received report from previous shift Delicia Jacobs RN 08/13/22 0720 [facility] ED Nursing Note Pt resting in room. Respirations even and non labored. Daughter at bedside. Irasema Renteria RN 08/13/22 0543 [facility] ED Nursing Note Pt resting in room. Respirations even and non labored. Daughter at bedside. Irasema Renteria RN 08/13/22 0212 [facility] ED Nursing Note Report to TYSON Campos. Amaya Conley RN 08/13/22 0106 [facility] ED Nursing Note Bed: 17 Expected date: Expected time: Means of arrival: Comments: EMS Nicole Seaman RN 08/12/22 2323 [facility] ED Provider Noteon ED Provider Note EMERGENCY DEPARTMENT ENCOUNTER Pt Name: Symone Mcdonald Birthdate 1940 Date of evaluation: 08/12/2022 ED Provider: NISHA SURESH DO CHIEF COMPLAINT Chief Complaint Patient presents with Abdominal Pain Nausea Pt is from [facility]. Pt was hypoxic at low 90's. C/o [...] for 2 days. She was sent from custodial [facility]. Facility wanted patient to be evaluated [...] EOM's grossl (more content not included)... Normal [facility] ED Provider Note Emergency Department Encounter Location: [facility] EMERGENCY DEPT Patient: Symone Mcdonald : 1940 Date of evaluation: 08/12/2022 ED Provider: Regina Dover PA-C 0840 Symone Mcdonald was checked out to me [...] 442 ms QTC Interval 485 ms P Ray[place] 48 degrees QRS Ray[place] 55 degrees T Wave [place] -51 degrees [place] Interval [address] abdomen pelvis w [...] express sarahy (more content not included)... Normal [facility] Laboratory - Chemistry and C hemistry - challengeon 08-13-2022 Troponin I.cardiac [Mass/Vol] ng/mL 0.000 - 0.034 ng/mL [facility] Lipase [Catalytic activity/Vol] 278 U/L 23 - 300 U/L [facility] Lactate [Moles/Vol] 0.9 mmol/L 0.7 - 2. 0 mmol/L [facility] Lipase [Catalytic activity/V ol]on 08-13-2022 Interpretation and review of laboratory results Normal [employer] Panel InformationOrdered By: Cullen Malin on 08-13-2022 P Rayland 48 degrees [facility] Work Phone: MN Interval 157 ms [facility] Work Phone: QRS [place] 55 degrees [facility] Work Phone: QRSD Interval 139 ms [employer] Work Phone: QT Interval 442 ms [employer] Phone: QTC Interval 485 ms [email or web address] Phone: T Wave Ray[place] -51 degrees [email or web address] Phone: [email or web address] Phone: No Panel Informationon 08-13 Sinus rhythm Ventricular premature complex Right bundle branch block Nonspecific repol abnormality, lateral leads Electronically Signed On 08-13-2022 9:13:32 EST by Clulen Malin CV Cullen Day MD - 08/13/2022 IMPRESSION: Sinus rhythm Ventricular premature complex Right bundle branch block Nonspecific repol abnormality, lateral leads Electronically Signed On 08-13-2022 9:13:32 EST by Cullen Malin [facility] Interpretation and review of laboratory results Normal [facility] Nursing Noteon 08-13-2022 Nursing Note [address] Nogueira advised that patient has no IV , asked if still needed LR and stated that it was no loner needed. Normal [facility] Progress Noteon 08-13-2022 Progress Note [...] Patient has history of dementia coming from assisted. Patient had tested positive for COVID so [...] Solutions Snehal Bianchi, DO 08/21/22 1630 Normal [facility] Troponin I.cardiac [Mass/Vol ]on 08-13-2022 Interpretation and review of laboratory results Normal [facility] Patients with high levels of Biotin oral intake (ie >5 mg/day) may have falsely decreased Troponin levels. [facility] Urinalysis complete panel (U )Ordered By: Lisandro Swab on 08-13-2022 Bacteria LM.HPF (Urine sed) [#/Area] Few Abnormal Negative /HPF [facility] Bilirubin Ql (U) Negative Negative mg/dL [facility] Clarity (U) Clear Clear [facility] Color (U) Light Yellow Lt. Yellow [facility] Epithelial cells.squamous LM.HPF (Urine sed) [#/Area] 0-2 [facility] Glucose Ql (U) Normal Normal (<70) mg/dL [facility] Hemoglobin Ql (U) Negative Negative mg/dL [facility] Hyaline casts Auto (Urine sed) [#/Area] Negative Negative /[facility]F [facility] Interpretation and review of laboratory results Abnormal [facility] Ketones (U) [Mass/Vol] 10 mg/dL Abnormal Negative [facility] Leukocyte esterase Test strip Ql (U) Negative Negative Antonio/uL [facility] Mucus LM.HPF (Urine sed) [#/Area] Few Negative /LPF [facility] Nitrite Ql (U) Negative Negative [facility] pH (U) 5.5 [pH] 5.0 - 8.0 pH [facility] Protein (U) [Mass/Vol] 10 mg/dL Abnormal Negative [facility] RBC LM.HPF (Urine sed) [#/Area] 3-5 Abnormal [facility] Specific gravity (U) [Rel density] High 1.005 - 1.030 [facility] Urobilinogen (U) [Mass/Vol] Normal Normal (0-1) mg/dL [facility] WBC LM.HPF (Urine sed) [#/Area] 0-2 [facility] Vital signsOrdered By: Cullen Malin on 08-13-2022 Heart rate 72 /min bpm [facility] Work Phone: XR Chest Single viewon 08-13 No confluent consolidation, as above. Exclusion of left costophrenic angle. Report Dictated on Electronically Signed By: Hortensia Jacobs Electronically Signed Date/Time: 08/13/2022 1:28 AM EST [employer] Patient Name: SYMONE MCDONALD Exam Date/Time: 08/13/2022 01:28 Procedure: XR CHEST 1 VIEW Ordering Provider: BIANCHI MARY Reason For Exam: INDICATION: 82-year-old. Shortness of breath. VIEWS: Chest portable COMPARISON: 05/03/2015 FINDINGS: The trachea is midline. The cardiac silhouette is within normal limits. The right hemidiaphragm is mildly elevated. Left costophrenic angle is excluded from [id number]. No confluent consolidation. No sizable pneumothorax. Atherosclerotic changes of the aorta. [facility] [employer] Hortensia Jacobs MD - 08/13/2022 Patient Name: SYMONE MCDONALD Exam Date/Time: 08/13/2022 01:28 Procedure: XR CHEST 1 VIEW Ordering Provider: BIANCHI MARY Reason For Exam: INDICATION: 82-year-old. Shortness of breath. VIEWS: Chest portable COMPARISON: 05/03/2015 FINDINGS: The trachea is midline. The cardiac silhouette is within normal limits. The right hemidiaphragm is mildly elevated. Left costophrenic angle is excluded from [id number]. No confluent consolidation. No sizable pneumothorax. Atherosclerotic changes of the aorta. IMPRESSION: No confluent consolidation, as above. Exclusion of left costophrenic angle. Report Dictated on Electronically Signed By: Hortensia Jacobs Electronically Signed Date/Time: 08/13/2022 1:28 AM EST [facility] Study observation (narrative) [facility] XR Chest Single viewOrdered By: Hortensia Jacobs on 08-13-2022 [email or web address] Phone: No Panel Informationon 07-27 Ossification projecting inferiorly from the glenoid or possibly bony spurring or vascular calcification. Minor arthritic change about the acromioclavicular joint. Report Dictated on Electronically Signed By: Lui Yun Electronically Signed Date/Time: 07/27/2022 2:12 PM EST [facility] [employer] Radiology Study observation (narrative) [facility] No Panel InformationOrdered By: Lui Yun on 07-27-2022 [email or web address] Phone: Office Visiton 07-27-2022 Follow-up visit [id number] Symone Mcdonald 1940 F Date Provider Department Center 07/27/2022 [id number] JOHNSON MG SM WAD None Family History Family Status - Relation Status Age at Father Mother Level of Service:00293 [place] OFFICE/OUTPATIENT NEW LOW MDM 30-44 MINUTES Reason for Visit and Comments: Shoulder Pain [506396] - Right shoulder and arm pain Normal [facility] Progress Noteon 07-27-2022 Progress Note [facility] MARIA LUISA [facility] [place] [address] [place] [address] Dept: [phone] Dept Chief Complaint Patient presents with Shoulder Pain Right shoulder and arm pain Subjective History of Present Illness: Symone Mcdonald is a 82 y.o. right hand dominant female who presents today for evaluation of right shoulder pain. Jun 28 fell, no known mechanism of injury Location: anterior, superior Onset: 06/28/2022 Injury: yes - fell in assisted. Work related? no Quality: aching, throbbing, and [...] Notes I personally reviewed external notes from: assisted Labs No results found for: HGBA1C Lab [...] prior to signing but minor errors in sales and service representative may have occurred. [facility] XR Humerus - right Viewson 0 [...] There is no other soft tissue abnormality. [facility] Lui Yun MD - 07/27/2022 Patient [...] Electronically Signed Date/Time: 07/27/2022 2:12 PM EST [facility] XR Shoulder - right 2 Viewso n [...] There is no other soft tissue abnormality. [facility] Lui Yun MD - 07/27/2022 Patient [...] Yun Electronically Signed Date/Time: 07/27/2022 2:12 PM [facility] Basophil percentageon 2021 Chloride [Moles/Vol] 109 mmol/L 98-107 [facility] Work Phone: Glucose [Mass/Vol] 95 mg/dL 74-[address] [facility] Work Phone: Potassium [Moles/Vol] 3.7 mmol/L 3.5-5.1 [facility] Work Phone: Sodium [Moles/Vol] 142 mmol/L 136-[address] [facility] Work Phone: WBC (Bld) [#/Vol] 8.9 10*3/uL 4.4-11.[address] [facility] Work Phone: Blood erythrocytes count (nu mber/volume)on 06-15-2022 RBC (Bld) [#/Vol] 4.40 10*6/uL 4.2-5.4 [facility] Work Phone: Blood hemoglobin measurement (mass/volume)on 06-15-2022 Hemoglobin (Bld) [Mass/Vol] 13.3 g/dL 12.0-15.0 [facility] Work Phone: Blood platelet mean volumeon 06-15-2022 Platelet mean volume (Bld) [Entitic vol] 11.2 fL 6.2-12.0 [facility] Work Phone: Determination of erythrocyte mean corpuscular volume (MCV)on 06-15-2022 MCV (RBC) [Entitic vol] 95.0 fL 81-99 [facility] Work Phone: Hematocrit Auto (Bld) [Volum e fraction]on 06-15-2022 Hematocrit (Bld) [Volume fraction] 41.8 % 37-47 [facility] Work Phone: Laboratory - Chemistry and C hemistry - challengeon 06-15-2022 CO2 [Moles/Vol] 32.0 mmol/L 21.0-32.0 [facility] Work Phone: Urea nitrogen/Creatinine [Mass ratio] 15.8 mg/mg 10-20 [facility] Work Phone: Laboratory - Hematology and Cell countson 06-15-2022 Erythrocyte distribution width (RBC) [Entitic vol] 45.3 fL 35.1-43.9 [facility] Work Phone: Erythrocyte distribution width (RBC) [Ratio] 13.0 % 11.6-14.6 [facility] Work Phone: MCH (RBC) [Entitic mass] 30.2 pg 27.0-32.0 [facility] Work Phone: MCHC Auto (RBC) [Mass/Vol]on 06-15-2022 MCHC (RBC) [Mass/Vol] 31.8 g/dL 32-36 [facility] Work Phone: No Panel Informationon 06-15 Estimated GFR (MDRD) Amer 67 mL/min >60 [facility] Work Phone: Comment on above: GFR Calc Estimated GFR (MDRD) Non-Af Amer 56 mL/min >60 [facility] Work Phone: Comment on above: Non- GFR Calc Platelets bldon 06-15-2022 Platelets (Bld) [#/Vol] 213 10*3/uL 150-450 [facility] Work Phone: Serum or plasma calcium mk urement (mass/volume)on 06-15-2022 Calcium [Mass/Vol] 8.9 mg/dL 8.5-10.[address] [facility] Work Phone: Serum or plasma creatinine m easurement (mass/volume)on 06-15-2022 Creatinine [Mass/Vol] 1.01 mg/dL 0.55-1.02 [facility] Work Phone: Comment on above: The validity of the calculated GFR & GFRAA in patients over 70 years has not been determined. Clinical correlation is essential. Serum or plasma urea nitroge n measurement (mass/volume)on 06-15-2022 Urea nitrogen [Mass/Vol] 16 mg/dL 7-18 [facility] Work Phone: Thin prep Papanicolaou smear with manual screeningon 06-15-2022 Thin prep Papanicolaou smear with manual screening 1 5-15 [facility] Work Phone: Basophil percentageon 2021 Chloride [Moles/Vol] 107 mmol/L 98-107 [facility] Work Phone: Glucose [Mass/Vol] 97 mg/dL 74-[address] [facility] Work Phone: Potassium [Moles/Vol] 3.8 mmol/L 3.5-5.1 [facility] Work Phone: Sodium [Moles/Vol] 141 mmol/L 136-[address] [facility] Work Phone: WBC (Bld) [#/Vol] 8.8 10*3/uL 4.4-11.[address] [facility] Work Phone: Blood erythrocytes count (nu mber/volume)on 05-04-2022 RBC (Bld) [#/Vol] 4.54 10*6/uL 4.2-5.4 [facility] Work Phone: Blood hemoglobin measurement (mass/volume)on 05-04-2022 Hemoglobin (Bld) [Mass/Vol] 13.9 g/dL 12.0-15.0 [facility] Work Phone: Blood platelet mean volumeon 05-04-2022 Platelet mean volume (Bld) [Entitic vol] 11.4 fL 6.2-12.0 [facility] Work Phone: Determination of erythrocyte mean corpuscular volume (MCV)on 05-04-2022 MCV (RBC) [Entitic vol] 94.3 fL 81-99 [facility] Work Phone: Hematocrit Auto (Bld) [Volum e fraction]on 05-04-2022 Hematocrit (Bld) [Volume fraction] 42.8 % 37-47 [facility] Work Phone: Laboratory - Chemistry and C hemistry - challengeon 05-04-2022 CO2 [Moles/Vol] 30.0 mmol/L 21.0-32.0 [facility] Work Phone: Urea nitrogen/Creatinine [Mass ratio] 19.4 mg/mg 10 [facility] Work Phone: Laboratory - Hematology and Cell countson 05-04-2022 Erythrocyte distribution width (RBC) [Entitic vol] 45.1 fL 35.1-43.9 [facility] Work Phone: Erythrocyte distribution width (RBC) [Ratio] 13.0 % 11.6-14.6 [facility] Work Phone: MCH (RBC) [Entitic mass] 30.6 pg 27.0-32.0 [facility] Work Phone: MCHC Auto (RBC) [Mass/Vol]on 05-04-2022 MCHC (RBC) [Mass/Vol] 32.5 g/dL 32-36 [facility] Work Phone: No Panel Informationon 05-04 Estimated GFR (MDRD) Amer 70 mL/min >60 [facility] Work Phone: Comment on above: GFR Calc Estimated GFR (MDRD) Non-Af Amer 58 mL/min >60 [facility] Work Phone: Comment on above: Non- GFR Calc Platelets bldon 05-04-2022 Platelets (Bld) [#/Vol] 233 10*3/uL 150-450 [facility] Work Phone: Serum or plasma calcium mk urement (mass/volume)on 05-04-2022 Calcium [Mass/Vol] 8.8 mg/dL 8.5-10.[address] [facility] Work Phone: Serum or plasma creatinine m easurement (mass/volume)on 05-04-2022 Creatinine [Mass/Vol] 0.98 mg/dL 0.55-1.02 [facility] Work Phone: Comment on above: The validity of the calculated GFR & GFRAA in patients over 70 years has not been determined. Clinical correlation is essential. Serum or plasma urea nitroge n measurement (mass/volume)on 05-04-2022 Urea nitrogen [Mass/Vol] 19 mg/dL 7-18 [facility] Work Phone: Thin prep Papanicolaou smear with manual screeningon 05-04-2022 Thin prep Papanicolaou smear with manual screening 4 5-15 [facility] Work Phone: Basophil percentageon 2021 Bilirubin [Mass/Vol] 1.00 mg/dL 0.20-1.00 [facility] Work Phone: Comment on above: For patients on eltr ombopag therapy, use of Dimension [place] TBIL is not recommended. Chloride [Moles/Vol] 109 mmol/L 98-107 [facility] Work Phone: Glucose [Mass/Vol] 101 mg/dL 74-[address] [facility] Work Phone: Comment on above: Fasting Glucose resu lt from 100 to 125 mg/dL suggests IMPAIRED HOMEOSTASIS per A.D.A. criteria. Potassium [Moles/Vol] 3.5 mmol/L 3.5-5.1 [facility] Work Phone: Protein [Mass/Vol] 6.6 g/dL 6.4-8.[address] [facility] Work Phone: Sodium [Moles/Vol] 144 mmol/L 136-[address] [facility] Work Phone: WBC (Bld) [#/Vol] 8.9 10*3/uL 4.4-11.[address] [facility] Work Phone: Blood erythrocytes count (nu mber/volume)on 04-27-2022 RBC (Bld) [#/Vol] 4.49 10*6/uL 4.2-5.4 [facility] Work Phone: Blood hemoglobin measurement (mass/volume)on 04-27-2022 Hemoglobin (Bld) [Mass/Vol] 14.3 g/dL 12.0-15.0 [facility] Work Phone: Blood platelet mean volumeon 04-27-2022 Platelet mean volume (Bld) [Entitic vol] 11.2 fL 6.2-12.0 [facility] Work Phone: Determination of erythrocyte mean corpuscular volume (MCV)on 04-27-2022 MCV (RBC) [Entitic vol] 95.1 fL 81-99 [facility] Work Phone: Hematocrit Auto (Bld) [Volum e fraction]on 04-27-2022 Hematocrit (Bld) [Volume fraction] 42.7 % 37-47 [facility] Work Phone: Laboratory - Chemistry and C hemistry - challengeon 04-27-2022 ALP [Catalytic activity/Vol] 46 U/L 45-117 [facility] Work Phone: ALT [Catalytic activity/Vol] 15 U/L 13-56 [facility] Work Phone: CO2 [Moles/Vol] 31.0 mmol/L 21.0-32.0 [facility] Work Phone: Globulin (S) [Mass/Vol] 3.9 g/dL 2.2-4.2 [facility] Work Phone: Urea nitrogen/Creatinine [Mass ratio] 17.2 mg/mg 10-20 [facility] Work Phone: Laboratory - Hematology and Cell countson 04-27-2022 Erythrocyte distribution width (RBC) [Entitic vol] 45.4 fL 35.1-43.9 [facility] Work Phone: Erythrocyte distribution width (RBC) [Ratio] 13.2 % 11.6-14.6 [facility] Work Phone: MCH (RBC) [Entitic mass] 31.8 pg 27.0-32.0 [facility] Work Phone: MCHC Auto (RBC) [Mass/Vol]on 04-27-2022 MCHC (RBC) [Mass/Vol] 33.5 g/dL 32-36 [facility] Work Phone: No Panel Informationon 04-27 Estimated GFR (MDRD) Amer 74 mL/min >60 [facility] Work Phone: Comment on above: GFR Calc Estimated GFR (MDRD) Non-Af Amer 61 mL/min >60 [facility] Work Phone: Comment on above: Non- GFR Calc Thyroid Stimulating Hormone (TSH) 2.22 uIU/mL 0.358-3.74 [facility] Work Phone: Vitamin D 25-Hydroxy 56.2 ng/mL [facility] Work Phone: Comment on above: Vitamin D 25(OH) Sta tus Range Deficiency <20 ng/mL (50nmol/L) Insufficiency 20 - 30 ng/mL (50 - 75 nmol/L) Sufficiency 30 - 100 ng/mL (75 - 250 nmol/L) Toxicity >100 ng/mL (>250 nmol/L) Platelets bldon 04-27-2022 Platelets (Bld) [#/Vol] 214 10*3/uL 150-450 [facility] Work Phone: Serum or plasma albumin mk urement (mass/volume)on 04-27-2022 Albumin [Mass/Vol] 2.7 g/dL 3.2-5.[address] [facility] Work Phone: Serum or plasma albumin/glob ulin mass ratioon 04-27-2022 Albumin/Globulin [Mass ratio] 0.7 {ratio} 0.9-2.4 [facility] Work Phone: Serum or plasma calcium mk urement (mass/volume)on 04-27-2022 Calcium [Mass/Vol] 8.7 mg/dL 8.5-10.[address] [facility] Work Phone: Serum or plasma creatinine m easurement (mass/volume)on 04-27-2022 Creatinine [Mass/Vol] 0.93 mg/dL 0.55-1.02 [facility] Work Phone: Comment on above: The validity of the calculated GFR & GFRAA in patients over 70 years has not been determined. Clinical correlation is essential. Serum or plasma urea nitroge n measurement (mass/volume)on 04-27-2022 Urea nitrogen [Mass/Vol] 16 mg/dL 7-18 [facility] Work Phone: Thin prep Papanicolaou smear with manual screeningon 04-27-2022 Thin prep Papanicolaou smear with manual screening 5 U/L 15-37 [facility] Work Phone: Thin prep Papanicolaou smear with manual screening 4 5-15 [facility] Work Phone: Whole blood hemoglobin A1c/t otal hemoglobin ratio (mass fraction)on 04-27-2022 HbA1c (Bld) [Mass fraction] 5.7 % 3.8-5.6 [facility] Work Phone: Comment on above: Normal < 5.7 % Predi abetic 5.7 - 6.4 % Diabetic >or= 6.5 % Please note range changes. Absolute lymphocyte counton 01-31-2022 Lymphocytes Auto (Unsp spec) [#/Vol] 2.13 10*3/uL 0.83-4.51 [facility] Work Phone: Basophil percentageon 2021 Basophils/100 WBC (Bld) 0.4 % 0-1 [facility] Work Phone: Bilirubin [Mass/Vol] 1.50 mg/dL 0.20-1.00 [facility] Work Phone: Comment on above: For patients on eltr ombopag therapy, use of Dimension [place] TBIL is not recommended. Chloride [Moles/Vol] 105 mmol/L 98-107 [facility] Work Phone: Eosinophils/100 WBC (Bld) 3.5 % 0-5 [facility] Work Phone: Glucose [Mass/Vol] 98 mg/dL 74-[address] [facility] Work Phone: Neutrophils (Bld) [#/Vol] 4.9 10*3/uL 2.0-7.7 [facility] Work Phone: Neutrophils/100 WBC (Bld) 60.1 % 47-70 [facility] Work Phone: Potassium [Moles/Vol] 3.6 mmol/L 3.5-5.1 [facility] Work Phone: Protein [Mass/Vol] 6.7 g/dL 6.4-8.[address] [facility] Work Phone: Sodium [Moles/Vol] 141 mmol/L 136-[address] [facility] Work Phone: WBC (Bld) [#/Vol] 8.1 10*3/uL 4.4-11.[address] [facility] Work Phone: Blood erythrocytes count (nu mber/volume)on 01-31-2022 RBC (Bld) [#/Vol] 4.69 10*6/uL 4.2-5.4 [facility] Work Phone: Blood hemoglobin measurement (mass/volume)on 01-31-2022 Hemoglobin (Bld) [Mass/Vol] 14.0 g/dL 12.0-15.0 [facility] Work Phone: Blood lymphocytes/100 leukoc yteson 01-31-2022 Lymphocytes/100 WBC (Bld) 26.4 % 19-41 [facility] Work Phone: Blood monocytes/100 leukocyt eson 01-31-2022 Monocytes/100 WBC (Bld) 9.4 % 0-10 [facility] Work Phone: Blood platelet mean volumeon 01-31-2022 Platelet mean volume (Bld) [Entitic vol] 11.7 fL 6.2-12.0 [facility] Work Phone: Determination of erythrocyte mean corpuscular volume (MCV)on 01-31-2022 MCV (RBC) [Entitic vol] 94.9 fL 81-99 [facility] Work Phone: Hematocrit Auto (Bld) [Volum e fraction]on 01-31-2022 Hematocrit (Bld) [Volume fraction] 44.5 % 37-47 [facility] Work Phone: Laboratory - Chemistry and C hemistry - challengeon 01-31-2022 ALP [Catalytic activity/Vol] 41 U/L 45-117 [facility] Work Phone: ALT [Catalytic activity/Vol] 19 U/L 13-56 [facility] Work Phone: CO2 [Moles/Vol] 30.0 mmol/L 21.0-32.0 [facility] Work Phone: Globulin (S) [Mass/Vol] 3.7 g/dL 2.2-4.2 [facility] Work Phone: Urea nitrogen/Creatinine [Mass ratio] 21.6 mg/mg 10-20 [facility] Work Phone: Laboratory - Hematology and Cell countson 01-31-2022 Erythrocyte distribution width (RBC) [Entitic vol] 45.9 fL 35.1-43.9 [facility] Work Phone: Erythrocyte distribution width (RBC) [Ratio] 13.2 % 11.6-14.6 [facility] Work Phone: Immature granulocytes/100 WBC (Bld) 0.200 % 0.0-0.9 [facility] Work Phone: Comment on above: IG% - Immature Granu locytes (promyelocytes, myelocytes and metamyelocytes) > 1% indicates that a LEFT SHIFT is Present. MCH (RBC) [Entitic mass] 29.9 pg 27.0-32.0 [facility] Work Phone: Nucleated RBC/100 WBC (Bld) [Ratio] 0 % 0-5 [facility] Work Phone: MCHC Auto (RBC) [Mass/Vol]on 01-31-2022 MCHC (RBC) [Mass/Vol] 31.5 g/dL 32-36 [facility] Work Phone: No Panel Informationon 01-31 Estimated GFR (MDRD) Amer 67 mL/min >60 [facility] Work Phone: Comment on above: GFR Calc Estimated GFR (MDRD) Non-Af Amer 55 mL/min >60 [facility] Work Phone: Comment on above: Non- GFR Calc Platelets bldon 01-31-2022 Platelets (Bld) [#/Vol] 214 10*3/uL 150-450 [facility] Work Phone: Serum or plasma albumin mk urement (mass/volume)on 01-31-2022 Albumin [Mass/Vol] 3.0 g/dL 3.2-5.[address] [facility] Work Phone: Serum or plasma albumin/glob ulin mass ratioon 01-31-2022 Albumin/Globulin [Mass ratio] 0.8 {ratio} 0.9-2.4 [facility] Work Phone: Serum or plasma calcium mk urement (mass/volume)on 01-31-2022 Calcium [Mass/Vol] 8.9 mg/dL 8.5-10.[address] [facility] Work Phone: Serum or plasma creatinine m easurement (mass/volume)on 01-31-2022 Creatinine [Mass/Vol] 1.02 mg/dL 0.55-1.02 [facility] Work Phone: Comment on above: The validity of the calculated GFR & GFRAA in patients over 70 years has not been determined. Clinical correlation is essential. Serum or plasma urea nitroge n measurement (mass/volume)on 01-31-2022 Urea nitrogen [Mass/Vol] 22 mg/dL 7-18 [facility] Work Phone: Thin prep Papanicolaou smear with manual screeningon 01-31-2022 Thin prep Papanicolaou smear with manual screening 9 U/L 15-37 [facility] Work Phone: Thin prep Papanicolaou smear with manual screening 6 5-15 [facility] Work Phone: COVID-19on 01-26-2022 SARS-CoV-2 (COVID-19) RNA AMRIO+probe Ql (Unsp spec) Not detected Normal Not Detected [facility] Comment on above: Result Comment: Rapi [...] authorized laboratories. Fact sheet for Healthcare Providers: https://www.fda.gov/media/910988/download Fact sheet for Patients: https://www.fda.gov/media/785869/download METHODOLOGY: Isothermal Nucleic Acid Amplification Basic Metabolic Panelon 01-12 Anion gap [Moles/Vol] 9 mmol/L Normal 7-16 [facility] Calcium [Mass/Vol] 9.2 mg/dL Normal 8.6-10.2 [facility] Chloride [Moles/Vol] 101 mmol/L Normal 98-107 [facility] CO2 [Moles/Vol] 30 mmol/L High 22-29 [facility] Creatinine [Mass/Vol] 1.2 mg/dL High 0.5-1.0 [facility] GFR/1.73 sq M.predicted among blacks MDRD (S/P/Bld) [Vol rate/Area] 52 mL/min/{1.73_m2} Normal [facility] GFR/1.73 sq M.predicted among non-blacks MDRD (S/P/Bld) [Vol rate/Area] 43 mL/min/{1.73_m2} Normal >=60 [facility] Comment on above: Result Comment: Scalp Specialist bc Kidney Disease: less than 60 ml/min/1.73 sq.m. Kidney Failure: less than 15 ml/min/1.73 sq.m. Results valid for patients 18 years and older. Glucose [Mass/Vol] 101 mg/dL High 74-99 [facility] Potassium [Moles/Vol] 3.8 mmol/L Normal 3.5-5.0 [facility] Sodium [Moles/Vol] 140 mmol/L Normal 132-146 [facility] Urea nitrogen [Mass/Vol] 24 mg/dL High 6-23 [facility] CBC With Platelet and Differ entialon 01-25-2022 Abs Imm Granulocytes 0.03 E9/L Normal [facility] Absolute Basophils 0.03 E9/L Normal 0.00-0.20 [facility] Absolute Eosinophils 0.42 E9/L Normal 0.05-0.50 [facility] Absolute Lymphocytes 2.14 E9/L Normal 1.50-4.00 [facility] Absolute Monocytes 0.68 E9/L Normal 0.10-0.95 [facility] Absolute Neutrophils 4.52 E9/L Normal 1.80-7.30 [facility] Basophils/100 WBC (Bld) 0.4 % Normal 0.0-2.0 [facility] Eosinophils/100 WBC (Bld) 5.4 % Normal 0.0-6.0 [facility] Hematocrit (Bld) [Volume fraction] 44.4 % Normal 34.0-48.0 [facility] Hemoglobin (Bld) [Mass/Vol] 13.9 g/dL Normal 11.5-15.5 [facility] Imm Granulocytes 0.4 % Normal 0.0-5.0 [facility] Lymphocytes/100 WBC (Bld) 27.4 % Normal 20.0-42.0 [facility] MCH (RBC) [Entitic mass] 30.2 pg Normal 26.0-35.0 [facility] MCHC 31.3 % Low 32.0-34.5 [facility] MCV (RBC) [Entitic vol] 96.5 fL Normal 80.0-99.9 [facility] Monocytes/100 WBC (Bld) 8.7 % Normal 2.0-12.0 [facility] Neutrophils/100 WBC (Bld) 57.7 % Normal 43.0-80.0 [facility] Platelet Count 228 E9/L Normal 130-450 [facility] Platelet mean volume (Bld) [Entitic vol] 11.3 fL Normal 7.0-12.0 [facility] RBC 4.60 E12/L Normal 3.50-5.50 [facility] RDW 13.4 fL Normal 11.5-15.0 [facility] WBC 7.8 E9/L Normal 4.5-11.5 [facility] Basic Metabolic Panelon 01-12 Anion gap [Moles/Vol] 7 mmol/L Normal 7-16 [facility] Calcium [Mass/Vol] 9.0 mg/dL Normal 8.6-10.2 [facility] Chloride [Moles/Vol] 103 mmol/L Normal 98-107 [facility] CO2 [Moles/Vol] 32 mmol/L High 22-29 [facility] Creatinine [Mass/Vol] 1.2 mg/dL High 0.5-1.0 [facility] GFR/1.73 sq M.predicted among blacks MDRD (S/P/Bld) [Vol rate/Area] 52 mL/min/{1.73_m2} Normal [facility] GFR/1.73 sq M.predicted among non-blacks MDRD (S/P/Bld) [Vol rate/Area] 43 mL/min/{1.73_m2} Normal >=60 [facility] Comment on above: Result Comment: Scalp Specialist bc Kidney Disease: less than 60 ml/min/1.73 sq.m. Kidney Failure: less than 15 ml/min/1.73 sq.m. Results valid for patients 18 years and older. Glucose [Mass/Vol] 102 mg/dL High 74-99 [facility] Potassium [Moles/Vol] 3.8 mmol/L Normal 3.5-5.0 [facility] Sodium [Moles/Vol] 142 mmol/L Normal 132-146 [facility] Urea nitrogen [Mass/Vol] 22 mg/dL Normal 6-23 [facility] CBC With Platelet No Differe ntialon 01-24-2022 Hematocrit (Bld) [Volume fraction] 44.3 % Normal 34.0-48.0 [facility] Hemoglobin (Bld) [Mass/Vol] 14.1 g/dL Normal 11.5-15.5 [facility] MCH (RBC) [Entitic mass] 30.3 pg Normal 26.0-35.0 [facility] MCHC 31.8 % Low 32.0-34.5 [facility] MCV (RBC) [Entitic vol] 95.1 fL Normal 80.0-99.9 [facility] Platelet Count 224 E9/L Normal 130-450 [facility] Platelet mean volume (Bld) [Entitic vol] 11.1 fL Normal 7.0-12.0 [facility] RBC 4.66 E12/L Normal 3.50-5.50 [facility] RDW 13.3 fL Normal 11.5-15.0 [facility] WBC 8.5 E9/L Normal 4.5-11.5 [facility] Urinalysis, reflex to micros copicon 01-23-2022 Bilirubin Ql (U) SMALL Abnormal Negative [facility] Clarity (U) Clear Normal Clear [facility] Color (U) Yellow Normal Straw/Yellow [facility] Glucose Ql (U) Negative Normal Negative [facility] Hemoglobin Ql (U) Negative Normal Negative [facility] Ketones Ql (U) Negative Normal Negative [facility] Leukocyte esterase Test strip Ql (U) Negative Normal Negative [facility] Nitrite Ql (U) Negative Normal Negative [facility] pH (U) 6.0 [pH] Normal 5.0-9.0 [facility] Protein Ql (U) Negative Normal Negative [facility] Specific gravity (U) [Rel density] >=1.030 Normal 1.005-1.030 [facility] Urobilinogen Qn (U) 0.2 {Daria'U}/dL Normal < 2.0 [facility] Basic Metabolic Panelon 01-12 Anion gap [Moles/Vol] 8 mmol/L Normal 7-16 [facility] Calcium [Mass/Vol] 9.0 mg/dL Normal 8.6-10.2 [facility] Chloride [Moles/Vol] 101 mmol/L Normal 98-107 [facility] CO2 [Moles/Vol] 31 mmol/L High 22-29 [facility] Creatinine [Mass/Vol] 0.9 mg/dL Normal 0.5-1.0 [facility] GFR/1.73 sq M.predicted among blacks MDRD (S/P/Bld) [Vol rate/Area] mL/min/{1.73_m2} Normal [facility] GFR/1.73 sq M.predicted among non-blacks MDRD (S/P/Bld) [Vol rate/Area] 60 mL/min/{1.73_m2} Normal >=60 [facility] Comment on above: Result Comment: Scalp Specialist bc Kidney Disease: less than 60 ml/min/1.73 sq.m. Kidney Failure: less than 15 ml/min/1.73 sq.m. Results valid for patients 18 years and older. Glucose [Mass/Vol] 93 mg/dL Normal 74-99 [facility] Potassium [Moles/Vol] 3.5 mmol/L Normal 3.5-5.0 [facility] Sodium [Moles/Vol] 140 mmol/L Normal 132-146 [facility] Urea nitrogen [Mass/Vol] 13 mg/dL Normal 6-23 [facility] CBC With Platelet No Dorothy blanco 01-22-2022 Hematocrit (Bld) [Volume fraction] 43.5 % Normal 34.0-48.0 [facility] Hemoglobin (Bld) [Mass/Vol] 14.0 g/dL Normal 11.5-15.5 [facility] MCH (RBC) [Entitic mass] 30.4 pg Normal 26.0-35.0 [facility] MCHC 32.2 % Normal 32.0-34.5 [facility] MCV (RBC) [Entitic vol] 94.6 fL Normal 80.0-99.9 [facility] Platelet Count 216 E9/L Normal 130-450 [facility] Platelet mean volume (Bld) [Entitic vol] 11.1 fL Normal 7.0-12.0 [facility] RBC 4.60 E12/L Normal 3.50-5.50 [facility] RDW 13.2 fL Normal 11.5-15.0 [facility] WBC 7.6 E9/L Normal 4.5-11.5 [facility] Basic Metabolic Panelon 01-12 Anion gap [Moles/Vol] 8 mmol/L Normal 7-16 [facility] Calcium [Mass/Vol] 8.7 mg/dL Normal 8.6-10.2 [facility] Chloride [Moles/Vol] 102 mmol/L Normal 98-107 [facility] CO2 [Moles/Vol] 31 mmol/L High 22-29 [facility] Creatinine [Mass/Vol] 0.9 mg/dL Normal 0.5-1.0 [facility] GFR/1.73 sq M.predicted among blacks MDRD (S/P/Bld) [Vol rate/Area] mL/min/{1.73_m2} Normal [facility] GFR/1.73 sq M.predicted among non-blacks MDRD (S/P/Bld) [Vol rate/Area] 60 mL/min/{1.73_m2} Normal >=60 [facility] Comment on above: Result Comment: Scalp Specialist bc Kidney Disease: less than 60 ml/min/1.73 sq.m. Kidney Failure: less than 15 ml/min/1.73 sq.m. Results valid for patients 18 years and older. Glucose [Mass/Vol] 96 mg/dL Normal 74-99 [facility] Potassium [Moles/Vol] 3.7 mmol/L Normal 3.5-5.0 [facility] Sodium [Moles/Vol] 141 mmol/L Normal 132-146 [facility] Urea nitrogen [Mass/Vol] 13 mg/dL Normal 6-23 [facility] CBC With Platelet No Differe ntialon 01-21-2022 Hematocrit (Bld) [Volume fraction] 42.1 % Normal 34.0-48.0 [facility] Hemoglobin (Bld) [Mass/Vol] 13.4 g/dL Normal 11.5-15.5 [facility] MCH (RBC) [Entitic mass] 29.9 pg Normal 26.0-35.0 [facility] MCHC 31.8 % Low 32.0-34.5 [facility] MCV (RBC) [Entitic vol] 94.0 fL Normal 80.0-99.9 [facility] Platelet Count 216 E9/L Normal 130-450 [facility] Platelet mean volume (Bld) [Entitic vol] 11.0 fL Normal 7.0-12.0 [facility] RBC 4.48 E12/L Normal 3.50-5.50 [facility] RDW 13.2 fL Normal 11.5-15.0 [facility] WBC 7.5 E9/L Normal 4.5-11.5 [facility] Basic Metabolic Panelon Anion gap [Moles/Vol] 10 mmol/L Normal 7-16 [facility] Calcium [Mass/Vol] 8.9 mg/dL Normal 8.6-10.2 [facility] Chloride [Moles/Vol] 105 mmol/L Normal 98-107 [facility] CO2 [Moles/Vol] 28 mmol/L Normal 22-29 [facility] Creatinine [Mass/Vol] 1.0 mg/dL Normal 0.5-1.0 [facility] GFR/1.73 sq M.predicted among blacks MDRD (S/P/Bld) [Vol rate/Area] mL/min/{1.73_m2} Normal [facility] GFR/1.73 sq M.predicted among non-blacks MDRD (S/P/Bld) [Vol rate/Area] 53 mL/min/{1.73_m2} Normal >=60 [facility] Comment on above: Result Comment: Scalp Specialist bc Kidney Disease: less than 60 ml/min/1.73 sq.m. Kidney Failure: less than 15 ml/min/1.73 sq.m. Results valid for patients 18 years and older. Glucose [Mass/Vol] 100 mg/dL High 74-99 [facility] Potassium [Moles/Vol] 3.7 mmol/L Normal 3.5-5.0 [facility] Sodium [Moles/Vol] 143 mmol/L Normal 132-146 [facility] Urea nitrogen [Mass/Vol] 15 mg/dL Normal 6-23 [facility] CBC With Platelet No Differe ntialon 01-20-2022 Hematocrit (Bld) [Volume fraction] 42.5 % Normal 34.0-48.0 [facility] Hemoglobin (Bld) [Mass/Vol] 13.8 g/dL Normal 11.5-15.5 [facility] MCH (RBC) [Entitic mass] 30.9 pg Normal 26.0-35.0 [facility] MCHC 32.5 % Normal 32.0-34.5 [facility] MCV (RBC) [Entitic vol] 95.1 fL Normal 80.0-99.9 [facility] Platelet Count 201 E9/L Normal 130-450 [facility] Platelet mean volume (Bld) [Entitic vol] 11.0 fL Normal 7.0-12.0 [facility] RBC 4.47 E12/L Normal 3.50-5.50 [facility] RDW 13.4 fL Normal 11.5-15.0 [facility] WBC 7.9 E9/L Normal 4.5-11.5 [facility] Basic Metabolic Panelon 07-0 Anion gap [Moles/Vol] 9 mmol/L Normal 7-16 [facility] Calcium [Mass/Vol] 8.5 mg/dL Low 8.6-10.2 [facility] Chloride [Moles/Vol] 105 mmol/L Normal 98-107 [facility] CO2 [Moles/Vol] 28 mmol/L Normal 22-29 [facility] Creatinine [Mass/Vol] 0.9 mg/dL Normal 0.5-1.0 [facility] GFR/1.73 sq M.predicted among blacks MDRD (S/P/Bld) [Vol rate/Area] mL/min/{1.73_m2} Normal [facility] GFR/1.73 sq M.predicted among non-blacks MDRD (S/P/Bld) [Vol rate/Area] 60 mL/min/{1.73_m2} Normal >=60 [facility] Comment on above: Result Comment: Scalp Specialist bc Kidney Disease: less than 60 ml/min/1.73 sq.m. Kidney Failure: less than 15 ml/min/1.73 sq.m. Results valid for patients 18 years and older. Glucose [Mass/Vol] 102 mg/dL High 74-99 [facility] Potassium [Moles/Vol] 3.2 mmol/L Low 3.5-5.0 [facility] Sodium [Moles/Vol] 142 mmol/L Normal 132-146 [facility] Urea nitrogen [Mass/Vol] 10 mg/dL Normal 6-23 [facility] CBC With Platelet No Differe francis 01-19-2022 Hematocrit (Bld) [Volume fraction] 41.2 % Normal 34.0-48.0 [facility] Hemoglobin (Bld) [Mass/Vol] 13.4 g/dL Normal 11.5-15.5 [facility] MCH (RBC) [Entitic mass] 30.2 pg Normal 26.0-35.0 [facility] MCHC 32.5 % Normal 32.0-34.5 [facility] MCV (RBC) [Entitic vol] 92.8 fL Normal 80.0-99.9 [facility] Platelet Count 206 E9/L Normal 130-450 [facility] Platelet mean volume (Bld) [Entitic vol] 10.8 fL Normal 7.0-12.0 [facility] RBC 4.44 E12/L Normal 3.50-5.50 [facility] RDW 13.0 fL Normal 11.5-15.0 [facility] WBC 8.9 E9/L Normal 4.5-11.5 [facility] MRI THORACIC SPINE W WO CONT [...] Av Moncada DO 01/19/22 Final result Normal [facility] Comment on above: Order Comment: Reaso n for exam:->lytic lesions Basic Metabolic Panelon 07- Anion gap [Moles/Vol] 8 mmol/L Normal 7-16 [facility] Calcium [Mass/Vol] 8.3 mg/dL Low 8.6-10.2 [facility] Chloride [Moles/Vol] 108 mmol/L High 98-107 [facility] CO2 [Moles/Vol] 27 mmol/L Normal 22-29 [facility] Creatinine [Mass/Vol] 0.8 mg/dL Normal 0.5-1.0 [facility] GFR Calculated >60 Normal >=60 [facility] Comment on above: Result Comment: Scalp Specialist bc Kidney Disease: less than 60 ml/min/1.73 sq.m. Kidney Failure: less than 15 ml/min/1.73 sq.m. Results valid for patients 18 years and older. GFR/1.73 sq M.predicted among blacks MDRD (S/P/Bld) [Vol rate/Area] mL/min/{1.73_m2} Normal [facility] Glucose [Mass/Vol] 102 mg/dL High 74-99 [facility] Potassium [Moles/Vol] 3.5 mmol/L Normal 3.5-5.0 [facility] Sodium [Moles/Vol] 143 mmol/L Normal 132-146 [facility] Urea nitrogen [Mass/Vol] 11 mg/dL Normal 6-23 [facility] CBC With Platelet No Differe ntialon 01-18-2022 Hematocrit (Bld) [Volume fraction] 41.0 % Normal 34.0-48.0 [facility] Hemoglobin (Bld) [Mass/Vol] 13.0 g/dL Normal 11.5-15.5 [facility] MCH (RBC) [Entitic mass] 30.1 pg Normal 26.0-35.0 [facility] MCHC 31.7 % Low 32.0-34.5 [facility] MCV (RBC) [Entitic vol] 94.9 fL Normal 80.0-99.9 [facility] Platelet Count 187 E9/L Normal 130-450 [facility] Platelet mean volume (Bld) [Entitic vol] 10.9 fL Normal 7.0-12.0 [facility] RBC 4.32 E12/L Normal 3.50-5.50 [facility] RDW 13.2 fL Normal 11.5-15.0 [facility] WBC 8.6 E9/L Normal 4.5-11.5 [facility] MRI LUMBAR SPINE WO CONTRAST on 01-18-2022 MRI LUMBAR SPINE WO CONTRAST EXAMINATION: MRI OF THE LUMBAR SPINE WITHOUT CONTRAST, 01/18/2022 4:38 pm TECHNIQUE: Multiplanar multisequence MRI of the lumbar spine was performed without the administration of intravenous contrast. COMPARISON: None. 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 PROVIDED HISTORY: Reason for exam:->mri FINDINGS: BONES/ALIGNMENT: [...] Cheyenne Mejia MD 01/18/22 Final result Normal [facility] Comment on above: Order Comment: Reaso [...] by: Sam Goetz 01/18/22 Final result Normal [facility] Comment on above: Order Comment: Reaso n for exam:->pain Basic Metabolic Panelon Anion gap [Moles/Vol] 7 mmol/L Normal -16 [facility] Calcium [Mass/Vol] 8.2 mg/dL Low 8.6-10.2 [facility] Chloride [Moles/Vol] 108 mmol/L High 98-107 [facility] CO2 [Moles/Vol] 29 mmol/L Normal 22-29 [facility] Creatinine [Mass/Vol] 1.0 mg/dL Normal 0.5-1.0 [facility] GFR/1.73 sq M.predicted among blacks MDRD (S/P/Bld) [Vol rate/Area] mL/min/{1.73_m2} Normal [facility] GFR/1.73 sq M.predicted among non-blacks MDRD (S/P/Bld) [Vol rate/Area] 53 mL/min/{1.73_m2} Normal >=60 [facility] Comment on above: Result Comment: Scalp Specialist bc Kidney Disease: less than 60 ml/min/1.73 sq.m. Kidney Failure: less than 15 ml/min/1.73 sq.m. Results valid for patients 18 years and older. Glucose [Mass/Vol] 109 mg/dL High 74-99 [facility] Potassium [Moles/Vol] 3.5 mmol/L Normal 3.5-5.0 [facility] Sodium [Moles/Vol] 144 mmol/L Normal 132-146 [facility] Urea nitrogen [Mass/Vol] 15 mg/dL Normal 6-23 [facility] CBC With Platelet No Dorothy sageon 01-17-2022 Hematocrit (Bld) [Volume fraction] 41.7 % Normal 34.0-48.0 [facility] Hemoglobin (Bld) [Mass/Vol] 13.3 g/dL Normal 11.5-15.5 [facility] MCH (RBC) [Entitic mass] 30.0 pg Normal 26.0-35.0 [facility] MCHC 31.9 % Low 32.0-34.5 [facility] MCV (RBC) [Entitic vol] 94.1 fL Normal 80.0-99.9 [facility] Platelet Count 199 E9/L Normal 130-450 [facility] Platelet mean volume (Bld) [Entitic vol] 10.9 fL Normal 7.0-12.0 [facility] RBC 4.43 E12/L Normal 3.50-5.50 [facility] RDW 13.3 fL Normal 11.5-15.0 [facility] WBC 8.6 E9/L Normal 4.5-11.5 [facility] CBC With Platelet and Differ entialon 01-16-2022 Abs Imm Granulocytes 0.04 E9/L Normal [facility] Absolute Basophils 0.02 E9/L Normal 0.00-0.20 [facility] Absolute Eosinophils 0.11 E9/L Normal 0.05-0.50 [facility] Absolute Lymphocytes 1.68 E9/L Normal 1.50-4.00 [facility] Absolute Monocytes 0.64 E9/L Normal 0.10-0.95 [facility] Absolute Neutrophils 7.79 E9/L High 1.80-7.30 [facility] Basophils/100 WBC (Bld) 0.2 % Normal 0.0-2.0 [facility] Eosinophils/100 WBC (Bld) 1.1 % Normal 0.0-6.0 [facility] Hematocrit (Bld) [Volume fraction] 44.5 % Normal 34.0-48.0 [facility] Hemoglobin (Bld) [Mass/Vol] 14.5 g/dL Normal 11.5-15.5 [facility] Imm Granulocytes 0.4 % Normal 0.0-5.0 [facility] Lymphocytes/100 WBC (Bld) 16.3 % Low 20.0-42.0 [facility] MCH (RBC) [Entitic mass] 30.1 pg Normal 26.0-35.0 [facility] MCHC 32.6 % Normal 32.0-34.5 [facility] MCV (RBC) [Entitic vol] 92.3 fL Normal 80.0-99.9 [facility] Monocytes/100 WBC (Bld) 6.2 % Normal 2.0-12.0 [facility] Neutrophils/100 WBC (Bld) 75.8 % Normal 43.0-80.0 [facility] Platelet Count 214 E9/L Normal 130-450 [facility] Platelet mean volume (Bld) [Entitic vol] 10.9 fL Normal 7.0-12.0 [facility] RBC 4.82 E12/L Normal 3.50-5.50 [facility] RDW 13.1 fL Normal 11.5-15.0 [facility] WBC 10.3 E9/L Normal 4.5-11.5 [facility] COVID-19on 01-16-2022 SARS-CoV-2 (COVID-19) RNA MARIO+probe Ql (Unsp spec) Not detected Normal Not Detected [facility] Comment on above: Result Comment: Narendra [...] authorized laboratories. Fact sheet for Healthcare Providers: https://www.fda.gov/media/979869/download Fact sheet for Patients: https://www.fda.gov/media/053055/download METHODOLOGY: Isothermal Nucleic Acid Amplification CT ABDOMEN [...] by: Sam Goetz 01/16/22 Final result Normal [facility] Comment on above: Order Comment: Addit ional Contrast?->NoneReason for exam:->abdominal pain, diarrhea, amsDecision Support Exception - unselect if not a suspected or confirmed emergency medical condition->Emergency Medical Condition (MA) Clostridium difficile Toxin Antigenon 01-16-2022 Clostridium difficile Toxin Antigen Clostridium difficile Toxin Antigen-: C. Difficile Toxin A and/or B NOT detected Normal Range: Not detected Normal [facility] Comprehensive Metabolic Pane violeta 01-16-2022 Albumin [Mass/Vol] 3.5 g/dL Normal 3.5-5.2 [facility] ALP [Catalytic activity/Vol] 48 U/L Normal 35-104 [facility] ALT [Catalytic activity/Vol] 8 U/L Normal 0-32 [facility] Anion gap [Moles/Vol] 10 mmol/L Normal 7-16 [facility] AST [Catalytic activity/Vol] 10 U/L Normal 0-31 [facility] Bilirubin [Mass/Vol] 1.3 mg/dL High 0.0-1.2 [facility] Calcium [Mass/Vol] 8.9 mg/dL Normal 8.6-10.2 [facility] Chloride [Moles/Vol] 103 mmol/L Normal 98-107 [facility] CO2 [Moles/Vol] 26 mmol/L Normal 22-29 [facility] Creatinine [Mass/Vol] 1.2 mg/dL High 0.5-1.0 [facility] GFR/1.73 sq M.predicted among blacks MDRD (S/P/Bld) [Vol rate/Area] 52 mL/min/{1.73_m2} Normal [facility] GFR/1.73 sq M.predicted among non-blacks MDRD (S/P/Bld) [Vol rate/Area] 43 mL/min/{1.73_m2} Normal >=60 [facility] Comment on above: Result Comment: Scalp Specialist bc Kidney Disease: less than 60 ml/min/1.73 sq.m. Kidney Failure: less than 15 ml/min/1.73 sq.m. Results valid for patients 18 years and older. Glucose [Mass/Vol] 147 mg/dL High 74-99 [facility] Potassium [Moles/Vol] 3.6 mmol/L Normal 3.5-5.0 [facility] Protein [Mass/Vol] 6.9 g/dL Normal 6.4-8.3 [facility] Sodium [Moles/Vol] 139 mmol/L Normal 132-146 [facility] Urea nitrogen [Mass/Vol] 20 mg/dL Normal 6-23 [facility] Culture, Bloodon 01-16-2022 Microscopic examination of blood, culture Culture, Blood-: 5 Days no growth Normal [facility] Culture, Blood 2on 07-05-202 2 Culture, Blood 2 Culture, Blood 2-: 5 Days no growth Normal [facility] Culture, Urineon 01-16-2022 Culture, Urine Culture, [...] F Trimethoprim/Sulfamet hoxazole S <=20 F Normal [facility] High Sensitivity Troponin To n 01-16-2022 High Sensitivity Troponin T 13 ng/L [facility] [address] Comment on above: Result Comment: High Sensitivity Troponin values cannot be compared with other Troponin methodologies. Patients with high levels of Biotin oral intake (i.e. >5 mg/day) may have falsely decreased Troponin levels. Samples collected within 8 hours of biotin intake may require additional information for diagnosis. High Sensitivity Troponin T 13 ng/L [facility] 09 [facility] Comment on above: Result Comment: High Sensitivity Troponin values cannot be compared with other Troponin methodologies. Patients with high levels of Biotin oral intake (i.e. >5 mg/day) may have falsely decreased Troponin levels. Samples collected within 8 hours of biotin intake may require additional information for diagnosis. High Sensitivity Troponin T 14 ng/L High 0-9 [facility] Comment on above: Result Comment: High Sensitivity Troponin values cannot be compared with other Troponin methodologies. Patients with high levels of Biotin oral intake (i.e. >5 mg/day) may have falsely decreased Troponin levels. Samples collected within 8 hours of biotin intake may require additional information for diagnosis. Lactate, Sepsison 01-16-2022 Lactate, Sepsis 1.0 mmol/L Normal 0.5-1.9 [facility] Lactate, Sepsis 2.4 mmol/L High 0.5-1.9 [facility] Magnesiumon 01-16-2022 Magnesium [Mass/Vol] 2.0 mg/dL Normal 1.6-2.6 [facility] Urinalysis, with microscopic on 01-16-2022 Epithelial cells LM Ql (Urine sed) MANY Normal [facility] Urine Bacteria MANY Abnormal None Seen [facility] Urine RBC 5-10 Abnormal 0-2 [facility] Urine WBC 10-20 Abnormal 0-5 [facility] Bilirubin Ql (U) Negative Normal Negative [facility] Clarity (U) SLCLOUDY Normal Clear [facility] Color (U) Yellow Normal Straw/Yellow [facility] Glucose Ql (U) Negative Normal Negative [facility] Hemoglobin Ql (U) TRACE Abnormal Negative [facility] Ketones Ql (U) Negative Normal Negative [facility] Leukocyte esterase Test strip Ql (U) TRACE Abnormal Negative [facility] Nitrite Ql (U) Positive Abnormal Negative [facility] pH (U) 5.5 [pH] Normal 5.0-9.0 [facility] Protein Ql (U) Negative Normal Negative [facility] Specific gravity (U) [Rel density] >=1.030 Normal 1.005-1.030 [facility] Urobilinogen Qn (U) 0.2 {Daria'U}/dL Normal < 2.0 [facility] XR CHEST PORTABLEon 01-17-20 22 XR [...] Munir Carlos MD 01/16/22 Final result Normal [facility] Comment on above: Order Comment: Reaso n for exam:->hypoxia Vital Signs Date Time Vital Sign Value Performing Clinician Faci lity 08-15-2022 05:36-0500 Body temperature 98.29 [degF] Snehal Cognitive Electronicsgomez DO Work Phone: [facility] 08-15-2022 05:36-0500 Diastolic blood pressure 69 mm[Hg] Snehal CitiSentffey DO Work Phone: [facility] 08-15-2022 05:36-0500 Heart rate 79 /min InfluAdsy DO Work Phone: [facility] 08-15-2022 05:36-0500 Respiratory rate 16 /min Snehal Cognitive Electronicsy DO Work Phone: [facility] 08-15-2022 05:36-0500 SaO2% (BldA) [Mass fraction] 97 % Snehal Cognitive Electronicsy DO Work Phone: [facility] 08-15-2022 05:36-0500 Systolic blood pressure 124 mm[Hg] Snehal Cognitive Electronicsy DO Work Phone: [facility] 08-13-2022 16:51-0500 Body mass index (BMI) [Ratio] 32.15 kg/m2 Snehal Cognitive [employer]y [employer] Work Phone: [facility] 08-13-2022 16:51-0500 Body weight 84.96 kg Snehal Cognitive [employer] Work Phone: [facility] 07-27-2022 11:08-0500 Body height 162.6 cm Criselda Johnson MD Work Phone: [facility] 07-27-2022 11:08-0500 Body mass index (BMI) [Ratio] 37.42 kg/m2 Criselda Johnson MD Work Phone: [facility] 07-27-2022 11:08-0500 Body temperature 96.4 [degF] Criselda Johnson MD Work Phone: [facility] 07-27-2022 11:08-0500 Body weight 98.88 kg Criselda Johnson MD Work Phone: [facility] Encounters Encounter Date Encounter Type Care Provider Facility Start: 03-16-2025 ambulatory Toy Mariangelscott HUMPHREY Faci lity:[facility] Start: 03-01-2025 ambulatory Toy Mariangelscott HUMPHREY Faci lity:[facility] Start: 02-24-2025 ambulatory Toy Mariangelscott HUMPHREY Faci lity:[facility] Start: 01-21-2025 ambulatory Chilo joe MILAGRO Facility:[facility] Start: 10-02-2024 End: 10-02-2024 ambulatory Toy HUMPHREY [facility] Work Phone: Start: 10-02-2024 End: 10-02-2024 Departed Referred [facility] [facility] Start: 10-02-2024 End: 10-02-2024 ambulatory Toy Lorilance HUMPHREY Facility:[facility] Start: 10-22-2022 [facility] Start: 09-13-2022 End: 09-13-2022 ambulatory [facility] Work Phone: Start: 09-13-2022 End: 09-13-2022 [facility] Start: 08-16-2022 Telephone encounter Delicia Durand LPN [facility] Internal Med Comment on above: Other ([facility] Start: 08-13-2022 End: 08-14-2022 Emergency department patient visit SNEHAL BIANCHI [facility] Start: 08-13-2022 End: 08-15-2022 ambulatory GOMEZ NOGUEIRA [facility] Start: 08-13-2022 End: 08-13-2022 Subsequent hospital visit by physician [facility] Ed Xr Portable [facility] X[facility]Ray Comment on above: Arrived Start: 08-12-2022 End: 02-01-2023 Emergency department patient visit Snehal Bianchi DO Work Phone: [facility] Comment on above: Intractable abdomina l pain (Primary Dx); Diarrhea, unspecified type; Pressure injury of skin of buttock, unspecified injury stage, unspecified laterality; Decubitus ulcer of sacral region, stage 1 Start: 07-27-2022 End: 07-28-2022 ambulatory CRISELDA JOHNSON [facility] Start: 07-27-2022 End: 07-27-2022 Office outpatient new 30 minutes Criselda Johnson MD Work Phone: [facility] Maria Luisa Comment on above: Closed nondisplaced fracture of neck of right scapula, initial encounter (Primary Dx); Acute shoulder pain due to trauma, right Start: 07-27-2022 End: 07-27-2022 Subsequent hospital visit by physician Criselda Johnson MD Work Phone: [facility] Maria Luisa [facility] Comment on above: Acute shoulder pain due to trauma, right Start: 06-15-2022 End: 06-15-2022 ambulatory [facility] Work Phone: Start: 06-15-2022 End: 06-15-2022 Departed Referred [facility] Start: 05-04-2022 End: 05-04-2022 ambulatory [facility] Work Phone: Start: 05-04-2022 End: 05-04-2022 Departed Referred [facility] Start: 05-04-2022 Registered Referred [facility] Start: 04-27-2022 End: 04-27-2022 ambulatory [facility] Work Phone: Start: 04-27-2022 End: 04-27-2022 Departed Referred [facility] Start: 01-31-2022 End: 01-31-2022 Departed Referred [facility] Start: 01-16-2022 End: 01-26-2022 Evaluation and management of inpatient NAYLA THORPEU [facility] Procedures Date Procedure Procedure Detail Performing [...] 03-15-2022 Influenza vaccination Influenza Vacc ine (#1) [facility] Start: 1990 Zoster Vaccines (1 of 2) Zoster Vacc miller (1 of 2) [facility] Start: 1959 DTaP/Tdap/Td Vaccine s (1 - Tdap) DTaP/Tdap/Td Vaccines (1 - Tdap) [facility] Start: 1946 Pneumococcal Vaccine : 65+ Years (1 - PCV) Pneumococcal Vaccine: 65+ Years (1 - PCV) [facility] Start: 1940 COVID-19 Vaccine (#1) COVID-19 Vacci ne (#1) [facility] Start: 1940 Hepatitis B Vaccines (1 of 3 - 3-dose series) Hepatitis B Vaccines (1 of 3 - 3-dose series) [facility] Start: 1940 Lipid panel Lipid Panel [facility] Start: 1940 Screening for osteoporosis Bone Dens ity Scan [facility] Start: 1940 Thyroid stimulating hormone measurement TSH Level [facility] Payers Date Payer Category Payer Medicare [id number] 2024 Self-pay 2022 Medicare [employer] MEDICARE [id number] 2022-Present [address] [place] [address] Medicare HMO [id number] 2022 Medicaid [id number] 2022 Medicaid [place] [facility] [place] [id number] 2022-Present [address] [place] [address] Medicaid [id number] 2019 Unknown [id number] 1940 Unknown [id number] Unknown [id number] Unknown [id number] Unknown [id number] Unknown [id number] Unknown [id number] Social History Date Type Detail Facility Tobacco smoking stat [facility] Unknown if ever smoked [facility] Work Phone: Start: 1940 Sex Assigned At Female W [facility] Tobacco smoking stat [facility] Ex-smoker [facility] Health History of tobacco use Current smoker [facility] History of tobacco use Cigarette Smoker [facility] Start: 07-27-2022 End: 08-14-2022 Alcohol intake Current non-drinker of alcohol (finding) [facility] Start: 07-27-2022 End: 08-14-2022 Alcohol intake [facility] Start: 1940 Sex Assigned At Not on file [facility] Start: 07-17-2022 End: 07-27-2022 Exposure to SARS-CoV-2 (event) Not sure [facility] Start: 08-02-2022 End: 08-13-2022 Exposure to SARS-CoV-2 (event) Unable to assess [facility] Tobacco smoking stat [facility] Unknown if ever smoked [facility] Work Phone: Start: 10-19-2024 Sex Female (finding) [facility] Clinical Notes 07-27-2022 to 08-16-2022 Telephone Encounter - Victoria Rendon - 08/16/2022 9:02 AM ESTTelephone Encounter - Victoria Rendon - 08/16/2022 9:02 AM ESTSenyo Agidi, DO - 08/15/2022 10:57 AM ESTDischarge Instr - DEVONTE Note Date & Type Note Facility 08-16-2022 Telephone encounter Note [facility] patient. Staff to call patient after discharge to arrange a hospital follow up. [facility] 08-16-2022 Miscellaneous Notes [facility] patient. Staff to call patient after discharge to arrange a hospital follow up. documented in this encounter [facility] 08-15-2022 Note [facility] Wound Care Progress Note Symone Mcdonald [...] evening. [DISCONTINUED] cholecalciferol (Vitamin D-3) 1.25 MG (46289 UT) capsule Take 50,000 Units by mouth. [...] daily and P (more content not included)... [facility] 08-15-2022 Note [facility] Discharge Summary and Transition Note Symone Mcdonald : 1940 ADMIT DATE: 08/12/2022 DISCHARGE DATE: 08/15/2022 PRIMARY CARE PHYSICIAN: [facility] VISIT STATUS: Admission CODE STATUS: DNR-CCA DISCHARGE DIAGNOSES: Principal Problem: Intractable abdominal pain Active Problems: COOPER (acute kidney injury) (CMS/HCC) ([facility]) HOSPITAL COURSE: Symone Mcdonald is a 82 y.o. 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 Patient presented from [facility] ([facility]) wit h2 days of nausea and [...] of advanced dementia. -pt fails to meet inpt/[facility] hospice criteria. Plan is to transition pt [...] to Get Your (more content not included)... [facility] 08-15-2022 Note [facility] Progress Note [phone]: Please page me for patient care issues. [phone]: Please page [facility] night hospitalist for any issues. Symone Mcdonald : 1940(82 y.o.) PCP: [facility] Assessment and Plan: Principal Problem: Intractable abdominal pain Active Problems: COOPER (acute kidney injury) (CMS/HCC) ([facility]) # COOPER/CKD III, s/p IVF [...] appreciated DVT Prophylaxis: Subq Lovenox Ban Mcduffie/POA: [phone] Disposition: DC to ECF upon availability of [...] ileostomy with subsequent reversal. Patient presented from [facility] ([facility]) wit h2 days of nausea and [...] [Urine:400 (0.1 mL/kg/hr)] (more content not included)... [facility] 08-15-2022 Hospital course Narrative Images from the original note were not included. [facility] Discharge Summary and Transition Note Symone Mcdonald : 1940 ADMIT DATE: 08/12/2022 DISCHARGE DATE: 08/15/2022 PRIMARY CARE PHYSICIAN: Toy Temple VISIT STATUS: Admission CODE STATUS: DNR-CCA DISCHARGE DIAGNOSES: Principal Problem: Intractable abdominal pain Active Problems: COOPER (acute kidney injury) (CMS/HCC) ([facility]) HOSPITAL COURSE: Symone Mcdonald is a 82 y.o. 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 Patient presented from [facility] wit h2 days of nausea and [...] Complexity: follow up within 7-14 calendar days (45528) [x] Severe Complexity: follow up within 7 calendar days (18447) FOLLOW UP TESTING, PENDING RESULTS OR REFERRALS AT TRANSITIONAL CARE VISIT: [] Yes Hospice refferal [] No DISPOSITION: [facility] FACILITY/HOME CARE AGENCY NAME: Follow up [...] > 30 minutes documented in this encounter [facility] 08-15-2022 History of Presen t illness Narrative Images from the original note were not included. [facility] Progress Note [phone]: Please page me for patient care issues. [phone]: Please page [facility] night hospitalist for any issues. Symone Harry : 1940(82 y.o.) PCP: [facility] Assessment and Plan: Principal Problem: Intractable abdominal pain Active Problems: COOPER (acute kidney injury) (CMS/HCC) ([facility]) # COOPER/CKD III, s/p IVF [...] appreciated DVT Prophylaxis: Subq Lovenox Ban Mcduffie/SUKH: [phone] Disposition: DC to [facility] upon availability of bed I personally examined [...] ileostomy with subsequent reversal. Patient presented from [facility] ([facility]) wit h2 days of nausea and [...] hours have been reviewed. Spiritual Care Note [facility] Palliative [facility] Patient Name:Symone Mcdonald Chief Complaint: Chief Complaint Patient presents with Abdominal Pain Nausea Pt is from [facility]. Pt was hypoxic at low 90's. C/o abd pain and nausea. Bgt 119. Hx of dementia A&O x1 at baseline. DNRCC Reason for visit: Initial Visit Services Provided To:patient Background and visit note: Checked on this patient who is in the [facility] and is listed as palliative. Unknown as to jew needs of patient. No family in room at time of visit. Also tried to find out via team members. Will attempt to call patient's family member to try to find jew information. Is there spiritual distress? YES Trying [...] time Memory: Decreased short term memory, Decreased usp memory, Decreased recall of biographical Information, Decreased [...] Plan of Care supervision is transferred to [facility] Rehab Department Physical Therapist. Jimmie Parrish PT Images from the original note were not included. [facility] Progress Note [phone]: Please page me for patient care issues. [phone]: Please page [facility] hospitalist for any issues. Symone Mcdonald : 1940(82 y.o.) PCP: [facility] Assessment and Plan: Principal Problem: Intractable abdominal pain # COOPRE/CKD III, s/p IVF # Functional decline # [...] appreciated DVT Prophylaxis: Subq Lovenox Ban Mcduffie/STEPHENA: [phone] Disposition: DC to ECF upon availability of [...] with subsequent reversal. [facility] wit h2 days of nausea and [...] the Dietitian. Wound. documented in this encounter [facility] 08-15-2022 Note Formatting of this n ote might be different from the original. Palliative Care Interdisciplinary Team Note: Diagnosis: @[id number]@ Chief Complaint: Symone Mcdonald is a 82 y.o. female with chief complaint of: abdominal pain, Alzheimer's dementia Reason Palliative Following: Goals of Care Plan: Ongoing Goals of Care Discussion Code Status: DNR-CCA Medications: Oxycodone Nursing: Decrease Fall Risk, Mcc Care, and Skin Integrity Social Work: Palliative SW Following, Emotional Support, and Help with Discharge Planning Spiritual Care: No Unmet Needs Pharmacy: No Unmet Needs Psychology/Psychiatry: No Unmet Needs [facility] 08-15-2022 Note Formatting of this n ote might be different from the original. Palliative Care Interdisciplinary Team Note: Diagnosis: @[id number]@ Chief Complaint: Symone Mcdonald is a 82 y.o. female with chief complaint of: abdominal pain, Alzheimer's dementia Reason Palliative Following: Goals of Care Plan: Ongoing Goals of Care Discussion Code Status: DNR-CCA Medications: Oxycodone Nursing: Decrease Fall Risk, Mcc Care, and Skin Integrity Social Work: Palliative SW Following, Emotional Support, and Help with Discharge Planning Spiritual Care: No Unmet Needs Pharmacy: No Unmet Needs Psychology/Psychiatry: No Unmet Needs [facility] 08-15-2022 Miscellaneous Notes Palliative Care Interdisciplinary Team Note: Diagnosis: @[id number]@ Chief Complaint: Symone Mcdonald is a 82 y.o. female with chief complaint of: abdominal pain, Alzheimer's dementia Reason Palliative Following: Goals of Care Plan: Ongoing Goals of Care Discussion Code Status: DNR-CCA Medications: Oxycodone Nursing: Decrease Fall Risk, Mcc Care, and Skin Integrity Social Work: Palliative SW Following, Emotional Support, and Help with Discharge Planning Spiritual Care: No Unmet Needs Pharmacy: No Unmet Needs Psychology/Psychiatry: No Unmet Needs [facility] is able to accept back today. Call placed to daughter, Ban, to review. Ban is agreeable to returning to [facility] today. Ambulance scheduled for a 2pm discharge with Aureliano Angulo. Daughter agreeable to a referral being sent to a palliative care company. [facility] and [facility] both have contracts there. Daughter requested a referral be sent to [facility]. Referral faxed to Loraine Schmitt as requested. Support provided to Ban who shared frustration with the medicaid and nursing spend down process. She also shared grief her family has survived (she provided end of life care for her father, her brother is , she has a son who is ). AVS sent to [facility] via [employer]. Number for report: [phone] The patient is Moderately Unstable - Medium [...] Nogueira and Dr. Waterman. Referral back to [facility] placed in [facility]. Awaiting response. Plan to discharge back to [facility] with palliative care. Working to find a [...] Outcome: Progressing . documented in this encounter [facility] 08-15-2022 Note Formatting of this n ote might be different from the original. [facility] is able to accept back today. Call placed to daughter, Ban, to review. Ban is agreeable to returning to [facility] today. Ambulance scheduled for a 2pm discharge with Aureliano Angulo. Daughter agreeable to a referral being sent to a palliative care company. [facility] and [facility] both have contracts there. Daughter requested a referral be sent to [facility]. Referral faxed to Loraine Schmitt as requested. Support provided to Ban who shared frustration with the medicaid and nursing spend down process. She also shared grief her family has survived (she provided end of life care for her father, her brother is , she has a son who is ). AVS sent to [facility] via [facility]. Number for report: [phone] [facility] [employer] 08-15-2022 Note Formatting of this n ote might be different from the original. [facility] is able to accept back today. Call placed to daughter, Ban, to review. Ban is agreeable to returning to [facility] today. Ambulance scheduled for a 2pm discharge with Aureliano Adele. Daughter agreeable to a referral being sent to a palliative care company. [facility] and [facility] both have contracts there. Daughter requested a referral be sent to [facility]. Referral faxed to Loraine Schmitt as requested. Support provided to Ban who shared frustration with the medicaid and nursing spend down process. She also shared grief her family has survived (she provided end of life care for her father, her brother is , she has a son who is ). AVS sent to [facility] via [employer]. Number for report: [phone] [facility] 08-15-2022 Plan of care note The patient [...] is maintained or improved Outcome: Progressing . [facility] 08-14-[address] Andrea savage and Dr. Waterman. Referral back to [facility] placed in [facility]. Awaiting response. Plan to discharge back to [facility] with palliative care. Working to find a palliative care team who can follow at her facility. [facility] 08-14-2022 Note Formatting of this n ote might be different from the original. Reviewed with Dr. Nogueira and Dr. Waterman. Referral back to [facility] placed in [facility]. Awaiting response. Plan to discharge back to [facility] with palliative care. Working to find a palliative care team who can follow at her facility. [facility] 08-14-2022 Note Formatting of this n ote might be different from the original. Reviewed with Dr. Nogueira and Dr. Waterman. Referral back to [facility] placed in [facility]. Awaiting response. Plan to discharge back to [facility] with palliative care. Working to find a palliative care team who can follow at her facility. [facility] 08-14-2022 Note [facility] Progress Note [phone]: Please page me for patient care issues. [phone]: Please page [facility] night hospitalist for any issues. Symone Mcdonald [...] appreciated DVT Prophylaxis: Subq Lovenox Ban Mcduffie/SUKH: [phone] Disposition: DC to ECF upon availability of [...] ileostomy with subsequent reversal. Patient presented from [facility] wit h2 days of nausea and [...] BLOOD PRESSURE RANGE: (more content not included)... [facility] 08-14-2022 Hospital Discharg e instructions IRINA [...] lb 4.8 oz (85 kg) Mental Status: DEVNOTE Patient Mental Status: disoriented and able to concentrate and follow conversation IV Access: DEVONTE IV Access: None Nursing Mobility/ADLs: Walking Total assistance Transfer Total assistance Bathing Total assistance Dressing Total assistance Toileting Total assistance Feeding Total assistance Manager Client Service Total assistance Med Delivery yes Wound Care [...] Details Model IP RISK OF UNPLANNED READMISSION [[id number]] is not released. No score information can be retrieved Discharging to Facility/ Agency Name: [facility] Address: [address] [place] [address] Fax: Dialysis Facility (if applicable) Name: Address: Dialysis Schedule: Phone: Fax: Byproducts Pump Operator/Newspaper Editor signature: ICIAN SECTION Prognosis: poor Condition at [...] H&P PHYSICIAN SIGNATURE: documented in this encounter [facility] 08-14-2022 Consult note Associated Order (s): IP WOUND CARE NURSE CONSULT TO EVAL Images from the original note were not included. [facility] Wound Care CONSULT Note Symone Mcdonald [...] daily. [DISCONTINUED] cholecalciferol (Vitamin D-3) 1.25 MG (15929 UT) capsule Take 50,000 Units by mouth. [...] Cleanse with NS. Apply ET mix. Leave PCB DESIGNER. Apply TID and PRN. - P500 mattress with wedges for offloading - Q2 hour turns - Nutritional support - Wound care to follow Recommend to follow up at [facility] wound care center after hospital discharge. Any [...] my own independent evaluation of this patient. [facility] [employer] Work Phone: 08-14-2022 Consult note Associated Order (s): IP WOUND CARE NURSE CONSULT TO EVAL Images from the original note were not included. [facility] Wound Care CONSULT Note Symone Mcdonald [...] daily. [DISCONTINUED] cholecalciferol (Vitamin D-3) 1.25 MG (21240 UT) capsule Take 50,000 Units by mouth. [...] Cleanse with NS. Apply ET mix. Leave PCB DESIGNER. Apply TID and PRN. - P500 mattress with wedges for offloading - Q2 hour turns - Nutritional support - Wound care to follow Recommend to follow up at [facility] wound care center after hospital discharge. Any [...] maker is the patient's daughter, Ban Mcduffie ([phone]) - Current code status: DNR-CCA, not okay [...] mother to return to her current facility, [facility], upon discharge as the facility is close [...] facility), and Alzheimer's dementia who presented to [facility] ED from facility due to concerns for [...] be obtained due to patient's mental status [place] Symptom Assessment Score [place] Score Pain Score 0 Tiredness Score 5 [...] history: status: no Marital status: Living status: assisted Work history: not assessed today Advance Care [...] to previous facility upon discharge We discussed zwyubov-tk-mlrg concerns identified by the patient/surrogate, including - NA Interventions reviewed: Resuscitation procedures (CPR) and Mechanical ventilator support Advance Care Planning Documents: Healthcare Power of Fuel Retrofitting Technician: Completed Financial Power of Fuel Retrofitting Technician: Other not assessed Living Will: Completed Code [...] with Abdominal Pain Nausea [facility]. Pt was hypoxic at low 90's. C/o [...] of the gluteal regions. Apparently, at the assisted the patient was complaining of some abdominal [...] , Rfl: cholecalciferol (Vitamin D-3) 1.25 MG (76573 UT) capsule, Take 50,000 Units by mouth., [...] irritation to the gluteal skin. A nursing commercial pest control representative was present as well as the patient's [...] This note may have been dictated using Pre[employer] Medical Practice Edition 2.6 and/or [employer] Voice Recognition Feature. The document was proofread; however, unrecognized voice recognition sales and service representative errors may be present. Mark Kinsey MD [...] day (including chart review, care coordination, and jmsp-ol-wrwy encounter) was spent discussing/counseling the patient/family regarding the care plan for Symone Mcdonald. I examined the patient independently and reviewed relevant data myself and may have done so in the context of team rounds. A full chart review was performed. Diego Major MD Trauma, Surgical Critical Care, & General Surgery Division of Trauma Department of Surgery [facility] documented in this encounter [facility] 08-14-2022 Consult note Associated Order (s): [...] maker is the patient's daughter, Ban Mcduffie ([phone]) - Current code status: DNR-CCA, not okay [...] mother to return to her current facility, [facility], upon discharge as the facility is close [...] facility), and Alzheimer's dementia who presented to [facility] ED from facility due to concerns for [...] be obtained due to patient's mental status [place] Symptom Assessment Score [place] Score Pain Score 0 Tiredness Score 5 [...] history: status: no Marital status: Living status: assisted Work history: not assessed today Advance Care [...] to previous facility upon discharge We discussed jhvkack-yl-nxhs concerns identified by the patient/surrogate, including - NA Interventions reviewed: Resuscitation procedures (CPR) and Mechanical ventilator support Advance Care Planning Documents: Healthcare Power of Fuel Retrofitting Technician: Completed Financial Power of Fuel Retrofitting Technician: Other not assessed Living Will: Completed Code [...] hospice appropriate? no Transition Note Initiated: yes. [facility] Work Phone: 08-14-2022 Plan of care note [...] is maintained or improved Outcome: Progressing . [facility] 08-13-2022 Nurse Note [address] Nogueira advised that patient has no IV , asked if still needed LR and stated that it was no loner needed. [facility] 08-13-2022 Nurse Note [address] Nogueira advised that patient has no IV , asked if still needed LR and stated that it was no loner needed. documented in this encounter [facility] 08-13-2022 Emergency department Note Report given to Carmen Blanco RN 08/13/22 175 [facility] 08-13-2022 Emergency department Note Report given [...] RN 08/13/22 010 Emergency Department Encounter Location: [facility] EMERGENCY DEPT Patient: Symone Mcdonald : 1940 [...] 442 ms QTC Interval 485 ms P [place] 48 degrees QRS [place] 55 degrees T Wave [place] -51 degrees [place] Interval [address] abdomen pelvis w [...] and improvement prior to sending back to assisted as she does not believe she gets [...] arrival: Comments: EMS Nicole Seaman RN 08/12/22 4623 documented in this encounter [facility] 08-13-2022 Emergency department Note Pt transported to inpatient floor via medic. No distress noted at this time Lyudmila Blanco RN 08/13/22 1633 [facility] 08-13-2022 Emergency department Note Pt incontinent of stool. Complete bed change competed. Pt cleaned up and new pads placed under pt. Pts buttocks is excoriated and painful to touch. Call light within reach Lyudmila Blanco RN 08/13/22 1446 [facility] 08-13-2022 Emergency department Note Walked into pts room and IV was on the floor, pt states she didn't realize it was no longer in her arm. IV was still intact and discarded, Guaze applied to pts arm where IV site was. Pt in no distress at this time. Lyudmila Blanco RN 08/13/22 1400 [facility] 01-30-2023 Emergency department Note Ordered patient a hospital bed. Alona Tam RN 08/13/22 1351 [employer] 08-13-2022 Emergency department Note Pt resting in bed, no distress noted. Call light within reach Lyudmila Blanco RN 08/13/22 1240 [facility] 08-13-2022 Note [facility] [employer] [facility] History and Physical Note Symone [...] appreciated DVT Prophylaxis: Subq Lovenox Ban Mcduffie/POA: [phone] BMI Classification: BMI 37.4 There is no height or weight on file to calculate BMI. obesity BMI 30-39.9 Disposition: await lead sales consultant recommendations and await placement patient and [...] not explicitly included on EMR time stamp. [phone]: Please page me for patient care issues. [phone]: Please page [facility] night hospitalist for any issues. Subjective: Chief Complaint Patient presents with Abdominal Pain Nausea Pt is from [facility]. Pt was hypoxic at low 90's. C/o [...] ileostomy with subsequent reversal. Patient presented from [facility] ([facility]) wit h2 days of nausea and [...] w contrast Narrative: [id number] Exam Date/Time: 08/13/2022 05:19 Procedure: CT ABDOMEN [...] Spleen: Normal. Adrenals: (more content not included)... [facility] 08-13-2022 Emergency department Note Tray ordered Delicia Jacobs RN 08/13/22 1055 [facility] 08-13-2022 Note Pt straight cath'd f or urine. Urine return noted. Urine sample collected and sent to lab. Pt tolerated procedure well. Irasema Renteria RN 08/13/22 0712 [facility] 08-13-2022 Consult note Formatting of th is note is different from the original. Images from the original note were not included. Department of Surgery Surgical Service: ACS Consult Note PATIENT NAME: Symone Mcdonald : 1940 ATTENDING PHYSICIAN: Snehal Bianchi, * ADMIT DATE: 08/12/2022 TODAY'S DATE: 08/13/2022 CHIEF COMPLAINT: Chief Complaint Patient presents with Abdominal Pain Nausea Pt is from [facility]. Pt was hypoxic at low 90's. C/o [...] of the gluteal regions. Apparently, at the assisted the patient was complaining of some abdominal [...] , Rfl: cholecalciferol (Vitamin D-3) 1.25 MG (64877 UT) capsule, Take 50,000 Units by mouth., [...] irritation to the gluteal skin. A nursing commercial pest control representative was present as well as the patient's [...] This note may have been dictated using Preceptis Medical Practice Edition 2.6 and/or [employer] Voice Recognition Feature. The document was proofread; however, unrecognized voice recognition sales and service representative errors may be present. Mark Kinsey MD [...] day (including chart review, care coordination, and tnow-ld-vrfq encounter) was spent discussing/counseling the patient/family regarding the care plan for Symone Mcdonald. I examined the patient independently and reviewed relevant data myself and may have done so in the context of team rounds. A full chart review was performed. Diego Major MD Trauma, Surgical Critical Care, & General Surgery Division of Trauma Department of Surgery [facility] Work Phone: 08-13-2022 History and physical note Images from the original note were not included. [facility] History and Physical Note [...] appreciated DVT Prophylaxis: Subq Lovenox Ban Mcduffie/POA: [phone] BMI Classification: BMI 37.4 There is no height or weight on file to calculate BMI. obesity BMI 30-39.9 Disposition: await lead sales consultant recommendations and await placement patient and [...] not explicitly included on EMR time stamp. [phone]: Please page me for patient care issues. [phone]: Please page [facility] night hospitalist for any issues. Subjective: Chief Complaint Patient presents with Abdominal Pain Nausea Pt is from [facility]. Pt was hypoxic at low 90's. C/o [...] ileostomy with subsequent reversal. Patient presented from [facility] ([facility]) wit h2 days of nausea and [...] elevated. Left costophrenic angle is excluded from hdkro-al-eojn. No confluent consolidation. No sizable pneumothorax. Atherosclerotic [...] Historical Provider, cholecalciferol (Vitamin D-3) 1.25 MG (68974 UT) capsule Take 50,000 Units by mouth. [...] elevated. Left costophrenic angle is excluded from nayuc-zj-thhm. No confluent consolidation. No sizable pneumothorax. Atherosclerotic changes of the aorta. Impression: No confluent consolidation, as above. Exclusion of left costophrenic angle. Report Dictated on Electronically Signed By: Hortensia Jacobs Electronically Signed Date/Time: 08/13/2022 1:28 AM EST ECG 12 lead Sinus rhythm Ventricular premature complex Right bundle branch block Nonspecific repol abnormality, lateral leads No echocardiogram results found for the past 12 months [facility] 08-13-2022 History and physical note Images from the original note were not included. [facility] History and Physical Note [...] appreciated DVT Prophylaxis: Subq Lovenox Ban Mcduffie/SUKH: [phone] BMI Classification: BMI 37.4 There is no height or weight on file to calculate BMI. obesity BMI 30-39.9 Disposition: await lead sales consultant recommendations and await placement patient and [...] not explicitly included on EMR time stamp. [phone]: Please page me for patient care issues. [phone]: Please page [facility] night hospitalist for any issues. Subjective: Chief Complaint Patient presents with Abdominal Pain Nausea Pt is from [facility]. Pt was hypoxic at low 90's. C/o [...] ileostomy with subsequent reversal. Patient presented from [facility] ([facility]) wit h2 days of nausea and [...] elevated. Left costophrenic angle is excluded from fjhhv-ry-nslw. No confluent consolidation. No sizable pneumothorax. Atherosclerotic [...] Historical Provider, cholecalciferol (Vitamin D-3) 1.25 MG (01786 UT) capsule Take 50,000 Units by mouth. [...] w contrast Narrative: [id number] Exam Date/Time: 08/13/2022 05:19 Procedure: CT ABDOMEN [...] 1 view Narrative: [id number] Exam Date/Time: 08/13/2022 01:28 Procedure: XR CHEST 1 VIEW Ordering Provider: BIANCHI MARY Reason For Exam: INDICATION: 82-year-old. Shortness of breath. VIEWS: Chest portable COMPARISON: 05/03/2015 FINDINGS: The trachea is midline. The cardiac silhouette is within normal limits. The right hemidiaphragm is mildly elevated. Left costophrenic angle is excluded from bssfo-de-aduu. No confluent consolidation. No sizable pneumothorax. Atherosclerotic [...] past 12 months documented in this encounter [facility] 08-13-2022 Emergency department Note Patient being admitted. Patient and family updated Delicia Jacobs RN 08/13/22 0847 [facility] 08-13-2022 Emergency department Note Patient resting with family at bedside. Respirations even and unlabored. Waiting for orders Delicia Jacobs RN 08/13/22 0737 [facility] [employer] 08-13-2022 Emergency department Note Assist surgeon with rectal exam. Patient cleaned up after exam. Patient tolerated. Daughter at bedside. Surgeon updated family that she may need colonoscopy and will consult GI. Delicia Jacobs RN 08/13/22 0733 [facility] [employer] 08-13-2022 Emergency department Note Received report from previous shift Delicia Jacobs RN 08/13/22 0720 [facility] [employer] 08-13-2022 Emergency department Note Pt straight cath'd for urine. Urine return noted. Urine sample collected and sent to lab. Pt tolerated procedure well. Irasema Renteria RN 08/13/22 0712 [facility] [employer] 08-13-2022 Emergency department Note Pt resting in room. Respirations even and non labored. Daughter at bedside. Irasema Renteria RN 08/13/22 0543 [facility] [employer] 08-13-2022 Emergency department Note Pt resting in room. Respirations even and non labored. Daughter at bedside. Irasema Renteria RN 08/13/22 0212 [facility] [employer] 08-13-2022 Emergency department Note Report to TYSON Campos. Amaya Conley RN 08/13/22 0106 [facility] [employer] 08-12-2022 Emergency department Note Bed: 17 Expected date: Expected time: Means of arrival: Comments: EMS Nicole Seaman RN 08/12/22 4873 [facility] 08-12-2022 Physician Emergency department Note Emergency Department Encounter Location: [facility] EMERGENCY DEPT Patient: Symone Mcdonald : 1940 [...] 442 ms QTC Interval 485 ms P [place] 48 degrees QRS [place] 55 degrees T Wave [place] -51 degrees [place] Interval [address] abdomen pelvis w [...] and improvement prior to sending back to assisted as she does not believe she gets [...] [employer] Regina Dover PA-C 08/13/22 0928 [facility] 07-27-2022 History of Presen t illness Narrative Images from the original note were not included. [facility] MARIA LUISA [facility] [place] [address] [place] [address] Dept: [phone] Dept Chief Complaint Patient presents with Shoulder Pain Right shoulder and arm pain Subjective History of Present Illness: Symone Mcdonald is a 82 y.o. right hand dominant female who presents today for evaluation of right shoulder pain. Jun 28 fell, no known mechanism of injury Location: anterior, superior Onset: 06/28/2022 Injury: yes - fell in assisted. Work related? no Quality: aching, throbbing, and [...] Notes I personally reviewed external notes from: assisted Labs No results found for: HGBA1C Lab [...] prior to signing but minor errors in sales and service representative may have occurred. documented in this encounter [facility] Evaluation note No assessment inform ation available [facility] Work Phone: Evaluation note Diagnosis Acute shoulder pain due to trauma, right [facility] Diagnosis Closed nondisplaced fracture of [...] injury) (CMS/HCC) (HCC) documented in this encounter [facility] HealthReason for referral (narrative)* Consultation (Routine) - Pending Review Specialty Diagnoses / Procedures Referred By Marguerite falcon Referred To Contact Wound Care Diagnoses Decubitus ulcer of sacral region, stage 1 Procedures [place] OFFICE/OUTPATIENT [facility] 60-74 MINUTES Leidy Win APRN [address] [place] [address] [facility] Wnd Ostomy [address] [place] [address] Referral ID Status Reason Start Date Expiration Date Visits Requested Visits Authorized [id number] Pending Review Specialty Services Required 08/15/2022 08/15/2023 1 1 [facility] for referral (narrative)No reason for referral information [facility]WKet[facility] Work Phone: Summary Purpose Family History No Family History Records FoundNo Family History Records FoundNo Family History Records Found Advance Directives No Advanced Directives Records FoundDocuments on File Type Date Recorded Patient Light Rail Operator Expl anation Advance Directives and Livin g Will 08/13/2022 12:20 AM Power of Fuel Retrofitting Technician 08/13/2022 12:21 AM Latest Code Status on [...] Documents on File Type Date Recorded Patient Light Rail Operator Expl anation Advance Directives and Livin g Will 08/13/2022 12:20 AM Power of Fuel Retrofitting Technician 08/13/2022 12:21 AM Latest Code Status on File Code Status Date Activated Date Inactivated Comments DNR-CCA 08/13/2022 12:11 PM 08/15/2022 5:01 PM Question Answer Comments ICU transfer: No Healthcare Agents on File Name Relationship Healthcare Agent Relationshi p Communication Ban (POA) Froy Child Health Care Agent Chief Complaint and Reason for Visit Chief Complaint RETIREMENT LAB WOR K RETIREMENT LABWORK LABWORK Chief Complaint RETIREMENT LABWORK LABWORK RETIREMENT LAB WORK Chief Complaint LAB WORK LABWORK Chief Complaint Admit Date LABWORK October 02, 2024 11: 00am Additional Source Comments INFORMATION SOURCE (unrecogn ized section and content) DATE CREATED AUTHOR 01/31/2022 [facility] DATE CREATED AUTHOR AUTHOR'S ORGANIZ ATION 01/19/2023 [facility] DATE CREATED AUTHOR AUTHOR'S ORGANIZ ATION 03/16/2025 [facility] Goals (unrecognized section and content) Goals may [...] Status Dates Toy HUMPHREY Attending Provider Active Director Of Conservation Relationship Specialty Start Date End Date Brandon Downey MD PCP - General 03/09/15 Director Of Conservation Relationship Specialty Start Date End Date Brandon Downey MD PCP - General 03/09/15 Director Of Conservation Relationship Specialty Start Date End Date Toy Temple [address] [place] [phone] PCP - General Internal Medicine 08/13/22 Director Of Conservation Relationship Specialty Start Date End Date Brandon Downey MD PCP - General 03/09/15 3 Toy Temple [address] [place] [phone] PCP - General Internal Medicine 08/13/22 Director Of Conservation Relationship Specialty Start Date End Date Toy Temple [address] [place] [phone] PCP - General Internal Medicine 08/13/22 Team Status: Inactive Member Role Status Dates Toy HUMPHREY Attending Provider Active Sta rt: October 02, 2024 End: October 02, 2024 Reason for Visit (unrecogniz ed section and content) Reason Comments Shoulder Pain Right shoulder and a rm pain Specialty Diagnoses / Procedures Referred By Marguerite falcon Referred To Contact Diagnoses Int[id number] [id number] 08/13/22 Active CS Medicare per online AUTH REQ pending ref#[id number] UM TO [facility] TO [phone]. Gomez Nogueira, DO [address] [place] [address] [facility] Emergency Dept [address] [place] [phone] Referral ID Status Reason Start Date Expiration Date Visits Re quested Visits Authorized [id number] 1 Reason Comments Abdominal Pain Nausea Pt is from [facility]. Pt was hypoxic at low 90's. C/o abd pain and nausea. Bgt 119. Hx of dementia A&O x1 at baseline. DNRCC Reason Onset Date Comments Other 08/16/2022 [facility] Scheduled Active and Recently Administ ered Medications [...] - Comment: Not hung in ER per APPRAISER due to loss of IV access and [...] Sat08/13/22 at 1200 1354 (Given - Provider: Lyudmial Blanco RN)2140 (Given - Provider: Libra Perry [...] BE BASED ON THE PRIMARY CLINICAL RECORDS. [facility] provides no warranty or guarantee of the accuracy or completeness of information in this document.
[2025-04-06 07:48] LABS: Hematocrit 39.1 % (37-47); Hemoglobin 12.7 g/dL (12.0-15.0); Mean Corp Hgb Conc 32.5 g/dL (32-36); Mean Corpuscular Volume 92.4 fL (81-99); Mean Platelet Vol. 11.7 fl (6.2-12.0); Platelet Count 185 K/mm3 (150-450); RBC Distribution Width CV 13.3 % (11.6-14.6); RBC Distribution Width SD 45.0 fl (35.1-43.9); Red Blood Count 4.23 M/mm3 (4.2-5.4); White Blood Count 7.2 K/mm3 (4.4-11.0)
[2025-04-06 08:01] LABS: Anion Gap 12 (5-15); BUN 17 mg/dL (4-19); BUN/Creat Ratio 17.2 RATIO (10-20); Calcium,Total 8.4 mg/dL (7.6-11.0); Carbon Dioxide 24.7 mmol/L (21.0-32.0); Chloride 106 mmol/L (98-108); Glucose 101 mg/dL (70-99); Potassium 3.4 mmol/L (3.3-5.1)
== END ==
LOC: OLS.SANC 05:00
PROVIDERS: Visit Provider Internal Medicine
DX: I10 Essential (primary) hypertension (principal); G30.1 Alzheimer's disease with late onset; N17.9 Acute kidney failure, unspecified
CPT/HCPCS: 36415; 80048; 85027

== ENCOUNTER → 2025-04-15 | Outpatient (REF) | payer MEDICARE, MEDICAID, SELFPAY ==
[2025-04-15 09:36] LABS: Hematocrit 42.3 % (37-47); Hemoglobin 13.5 g/dL (12.0-15.0); Mean Corp Hgb Conc 31.9 g/dL (32-36); Mean Corpuscular Volume 93.4 fL (81-99); Mean Platelet Vol. 12.4 fl (6.2-12.0); Platelet Count 258 K/mm3 (150-450); RBC Distribution Width CV 13.2 % (11.6-14.6); RBC Distribution Width SD 44.7 fl (35.1-43.9); Red Blood Count 4.53 M/mm3 (4.2-5.4); White Blood Count 6.9 K/mm3 (4.4-11.0)
[2025-04-15 09:50] LABS: Anion Gap 12 (5-15); BUN 12 mg/dL (4-19); BUN/Creat Ratio 11.3 RATIO (10-20); Calcium,Total 9.0 mg/dL (7.6-11.0); Carbon Dioxide 25.7 mmol/L (21.0-32.0); Chloride 108 mmol/L (98-108); Glucose 150 mg/dL (70-99); Potassium 3.5 mmol/L (3.3-5.1)
== END ==
LOC: OLS.SANC 05:00
PROVIDERS: Visit Provider Internal Medicine
DX: I10 Essential (primary) hypertension (principal)
CPT/HCPCS: 36415; 80048; 85027